=== PATIENT | female | born 1965 | race Caucasian/White ===

== ENCOUNTER → 2017-11-29 06:34 | Outpatient (CLI) | payer MEDICAID, SELFPAY ==
--- NOTE | 2017-11-29 | XR_ITS ---
XR chest 2V HISTORY: Hypertension ITS.REASON: HX OF HYPERTENSION ORDERING PHYSICIAN: Hari Colon MD PATIENT AGE: 52 years COMPARISON: 02/04/2014 FINDINGS: The cardiomediastinal silhouette and pulmonary vascularity are within normal limits. The lungs are clear without infiltrates, suspicious nodules, or pleural effusions. No acute bony abnormalities. IMPRESSION: Negative chest, no acute finding
--- NOTE | 2017-11-29 06:43 | XR_ITS ---
XR wrist LT min 3V HISTORY pain and numbness ITS.REASON: carpal tunnel ORDERING PHYSICIAN: Hari Colon MD PATIENT AGE: 52 years COMPARISON: None FINDINGS: No fracture or dislocation. No lytic or blastic change. There is normal mineralization.. The joint spaces are well-preserved. No significant degenerative/arthritic changes. No erosive changes evident.. IMPRESSION: Negative wrist
--- NOTE | 2017-11-29 06:43 | XR_ITS ---
XR wrist RT min 3V HISTORY pain and numbness ITS.REASON: carpal tunnel syndrome ORDERING PHYSICIAN: Hari Colon MD PATIENT AGE: 52 years COMPARISON: None FINDINGS: No fracture or dislocation. No lytic or blastic change. There is normal mineralization.. The joint spaces are well-preserved. No significant degenerative/arthritic changes. No erosive changes evident.. There are minimal hypertrophic changes along the distal and lateral aspect of the scaphoid nonspecific. Otherwise negative. IMPRESSION: Mild hypertrophic changes of the scaphoid distally laterally otherwise negative
[2017-11-29 08:49] LABS: Basophils # 0.1 K/mm3 (0-0.2); Basophils % 0.5 % (0.1-2.0); Eosinophils # 0.3 K/mm3 (0.0-0.4); Eosinophils % 2.8 % (0.1-12.0); Hematocrit 39.7 % (37.0-47.0); Hemoglobin 12.4 g/dL (12.2-16.2); Lymphocytes # 2.4 K/mm3 (0.7-4.5); Lymphocytes % 22.9 K/mm3 (10-50); Mean Corpuscular HGB Conc 31.3 g/dL (31.8-35.4); Mean Corpuscular Hemoglobin 24.9 pg (27.0-31.2); Mean Corpuscular Volume 79.7 fl (81-99); Mean Platelet Volume 7.6 fl (7.4-10.4); Monocytes # 0.7 K/mm3 (0.1-1.0); Monocytes % 6.8 % (1.7-9.3); Neutrophils % 66.9 % (37.0-80.0); Platelet Count 345 K/mm3 (142-424); Red Blood Count 4.98 M/mm3 (4.20-5.40); Red Cell Distribution Width 15.5 % (11.5-17.5); White Blood Count 10.4 K/mm3 (4.8-10.8)
[2017-11-29 08:57] LABS: Blood Urea Nitrogen 13 mg/dL (7-18); Carbon Dioxide 25 mmol/L (21.0-32.0); Creatinine,Serum 0.57 mg/dL (0.55-1.02); Estimated Glomerular Filt Rate 112 ml/min (>60); GFR (African American) 136 ML/MIN (>60); Glucose 112 mg/dL (74-106)
[2017-11-29 12:01] LABS: Anion Gap 16.4 mEq/L (5-15); Chloride 103 mmol/L (98-107); Potassium 4.4 mmoL/L (3.5-5.1); Sodium 140 mmol/L (136-145)
== END ==
PROVIDERS: PCP Family Medicine; Visit Provider Orthopaedic Surgery
DX: Z01.818 Encounter for other preprocedural examination (principal); G56.03 Carpal tunnel syndrome, bilateral upper limbs
CPT/HCPCS: 36415; 71046; 73110; 80048; 85025; 93005

== ENCOUNTER → 2018-01-11 11:26 | Outpatient (CLI) | payer MEDICAID, SELFPAY ==
[2018-01-11 12:46] LABS: Basophils # 0.1 K/mm3 (0-0.2); Basophils % 0.6 % (0.1-2.0); Eosinophils # 0.3 K/mm3 (0.0-0.4); Eosinophils % 2.7 % (0.1-12.0); Hemoglobin 12.5 g/dL (12.2-16.2); Lymphocytes # 2.9 K/mm3 (0.7-4.5); Lymphocytes % 26.2 K/mm3 (10-50); Mean Corpuscular HGB Conc 30.4 g/dL (31.8-35.4); Mean Corpuscular Hemoglobin 24.4 pg (27.0-31.2); Mean Corpuscular Volume 80.3 fl (81-99); Monocytes # 0.7 K/mm3 (0.1-1.0); Monocytes % 5.9 % (1.7-9.3); Neutrophils # 7.2 K/mm3 (1.8-7.8); Neutrophils % 64.7 % (37.0-80.0); Platelet Count 407 K/mm3 (142-424); Red Blood Count 5.11 M/mm3 (4.20-5.40); Red Cell Distribution Width 15.3 % (11.5-17.5); White Blood Count 11.2 K/mm3 (4.8-10.8)
[2018-01-11 13:39] LABS: Anion Gap 12.4 mEq/L (5-15); Blood Urea Nitrogen 17 mg/dL (7-18); Calcium 8.6 mg/dL (8.5-10.1); Carbon Dioxide 27 mmol/L (21.0-32.0); Chloride 103 mmol/L (98-107); Creatinine,Serum 0.69 mg/dL (0.55-1.02); Estimated Glomerular Filt Rate 90 ml/min (>60); GFR (African American) 109 ML/MIN (>60); Glucose 134 mg/dL (74-106); Potassium 4.4 mmoL/L (3.5-5.1); Sodium 138 mmol/L (136-145)
== END ==
PROVIDERS: Visit Provider Orthopaedic Surgery
DX: Z01.818 Encounter for other preprocedural examination (principal); G56.03 Carpal tunnel syndrome, bilateral upper limbs
CPT/HCPCS: 36415; 80048; 85025

== ENCOUNTER → 2018-06-27 15:01 | Outpatient (CLI) | payer MEDICAID, SELFPAY ==
--- NOTE | 2018-06-27 15:03 | XR_ITS ---
XR finger RT min 2V CLINICAL INDICATION: ITS.REASON: right thumb pain ORDERING PHYSICIAN: Hair Colon MD PATIENT AGE: 53 years Comparison: None FINDINGS: There is a faint lucency along the lateral aspect of the time of the distal phalanx of the thumb which could be related to a nondisplaced fracture. No other significant anomalies are evident. IMPRESSION: Possible nondisplaced fracture of the tuft of the distal phalanx of the lung laterally
== END ==
PROVIDERS: PCP Family Medicine; Visit Provider Orthopaedic Surgery
DX: M79.644 Pain in right finger(s) (principal)
CPT/HCPCS: 73140

== ENCOUNTER → 2018-08-05 08:45 | Outpatient (CLI) | payer MEDICAID, SELFPAY ==
--- NOTE | 2018-08-05 08:49 | MR_ITS ---
MR head/brain wo/w con HISTORY: Headache and dizziness with memory loss, history of meningioma, follow-up meningioma ITS.REASON: MENINGIOMA ORDERING PHYSICIAN: Mary Ann Medeiros PATIENT AGE: 53 years Comparison: 11/08/2009 TECHNIQUE: Standard multiplanar multiecho sequences are performed without and with gadolinium enhancement. FINDINGS: No midline shift, mass effect, intracranial hemorrhage, or hydrocephalus is evident. The cerebellopontine angles, cerebellum, and brainstem are unremarkable. There is a T1 and T2 hypointense lesion in the subdural area of the right frontal lobe measuring approximately 14 x 12 mm. This shows some minimal peripheral contrast enhancement and is consistent with a meningioma as seen on an older CT scan of 11/08/2009 and does not appear significantly changed in size. No mass effect or edema. This is a calcified meningioma as seen on the previous CT. Does not show restricted diffusion. No evidence of acute infarction. No enhancing lesions are evident. On the post enhanced images there is a 5 mm area of enhancement in the subpleural region of the left parietal lobe at the vertex. This is a may represent an ectatic dural vessel. No mastoid effusion or sinus air-fluid level. The tear has an unremarkable appearance. No cerebellar ectopia. IMPRESSION: 1. 14 x 12 mm meningioma in the right frontal region without mass effect not significantly changed 2. No acute intracranial findings
--- NOTE | 2018-08-05 10:22 | HMH.ITSHM ---
Current Home Medications as stated by this patient Sabrina Kwan or merchandising representative. []CETIRIZINE HCL PAROXETINE OMEPRAZOLE TOPIRAMATE PRAVASTATIN LISINOPRIL FLEXERAL CHANTIX
== END ==
PROVIDERS: PCP Family Medicine; Visit Provider Psychiatry & Neurology Neurology
DX: D32.9 Benign neoplasm of meninges, unspecified (principal)
CPT/HCPCS: 70553; A9576

== ENCOUNTER → 2018-09-10 08:22 | Outpatient (CLI) | payer MEDICAID, SELFPAY ==
--- NOTE | 2018-09-10 08:28 | CT_ITS ---
CT abdomen pelvis wo con INDICATION: Right flank pain 1 week. Recent UTI. & kidney infection. ITS.REASON: FLANK PAIN ORDERING PHYSICIAN: Carmina Velasquez PATIENT AGE: 53 years COMPARISON: Previous CT abdomen and pelvis from August 2016. . TECHNIQUE: No oral or IV contrast utilized. Next field Axial images obtained with sagittal and coronal reformats. All CT scans at the facility use one or more dose reduction, viz: automated exposure control, ma/kV adjustment per patient size (including targeted exams where dose is matched to indication, i.e. head), or iterative reconstruction technique. FINDINGS: Lung bases, nothing acute. Small stable nodular periphery RLL measures 3 mm size. Axial slice 6. . Suspect partially calcified granuloma from its appearance previously.. . More inferiorly there is a a 4 mm calcified granuloma far anterior RML axial slice 13. These are unchanged & not of significant concern Heart normal size scant pericardial fluid. WNL Abdomen/pelvis. Lack of oral & IV contrast somewhat decreases sensitivity. Patient large size also results in diminished resolution. Noncontrast images of liver, spleen, pancreas, show no lesions.. There may be some mild diffuse fatty changes of the liver. Liver overall upper normal size but with generous right lobe measuring over 22 cm length. Gallbladder is been removed. No biliary ductal dilatation. Adrenals. Again subtle fullness of left adrenal vs right but this unchanged since prior studies. Suspect a small less than 1 cm low-density nonfunctioning adenoma the left adrenal on close inspection l. TRACT. Kidneys. No urinary tract calculi or obstruction.. Kidneys unremarkable on this noncontrast study Right renal pelvis is very slightly more generous than the left but within normal limits and percent with similar to previous 2017 study . Ureters: No ureteral calculi. No dilatation or obstruction Pelvis. IUD in place question slight lobulated contour of the uterus the left reflect small underlying fibroid. Nonspecific. No adnexal masses. Ovaries appear normal in size. No free fluid in cul-de-sac. Urinary bladder is fairly empty and unremarkable. Period GI tract. No significant findings. Upper normal wall thickness at the stomach most likely reflects lack of distention. Small bowel unremarkable. Normal caliber. Terminal ileum unremarkable. Appendix is been removed. Moderate stool the right colon with minimal stool at left colon. Tiny fat-containing umbilical hernia. Osseous. No significant osseous findings. Developing degenerative facet changes throughout spine at lower L-spine. IMPRESSION 1. no acute findings abdomen nor pelvis. Specifically regarding right flank pain- no urinary tract calculi nor obstruction. Right kidney and right ureter appears satisfactory... . Urinary bladder unremarkable 2. IUD appears satisfactory position. Incidental note Very slight lobulated contour of uterus which could reflect small underlying fibroid.
== END ==
PROVIDERS: PCP Nurse Practitioner; Visit Provider Nurse Practitioner
DX: R10.9 Unspecified abdominal pain (principal)
CPT/HCPCS: 74176

== ENCOUNTER → 2018-10-08 13:50 | Outpatient (CLI) | payer MEDICAID, SELFPAY ==
--- NOTE | 2018-10-08 13:53 | XR_ITS ---
XR hand LT min 3V HISTORY: ITS.REASON: left hand pain ORDERING PHYSICIAN: Hari Colon MD PATIENT AGE: 53 years COMPARISON: None FINDINGS: No fracture or dislocation. No lytic or blastic change. There is normal mineralization.. The joint spaces are well-preserved. No significant degenerative/arthritic changes. No erosive changes evident.. IMPRESSION: Negative, no acute finding
--- NOTE | 2018-10-08 13:53 | XR_ITS ---
XR hand RT min 3V HISTORY: ITS.REASON: right hand pain ORDERING PHYSICIAN: Hari Colon MD PATIENT AGE: 53 years COMPARISON: None FINDINGS: No fracture or dislocation. No lytic or blastic change. There is normal mineralization.. The joint spaces are well-preserved. No significant degenerative/arthritic changes. No erosive changes evident.. IMPRESSION: Negative, no acute finding
== END ==
PROVIDERS: PCP Family Medicine; Visit Provider Orthopaedic Surgery
DX: M79.642 Pain in left hand (principal); M79.641 Pain in right hand
CPT/HCPCS: 73130

== ENCOUNTER → 2018-12-26 07:18 | Outpatient (CLI) | payer MEDICAID, SELFPAY ==
--- NOTE | 2018-12-26 07:24 | XR_ITS ---
XR chest 2V HISTORY: ITS.REASON: HTN, SMOKER, PREOP ORDERING PHYSICIAN: Hari Colon MD PATIENT AGE: 53 years COMPARISON: 11/29/2017 FINDINGS: The cardiomediastinal silhouette and pulmonary vascularity are within normal limits. The lungs are clear without infiltrates, suspicious nodules, or pleural effusions. No acute bony abnormalities. IMPRESSION: Negative chest, no acute finding
[2018-12-26 07:48] LABS: Basophils # 0.1 K/mm3 (0-0.2); Basophils % 0.6 % (0.1-2.0); Eosinophils # 0.2 K/mm3 (0.0-0.4); Eosinophils % 2.4 % (0.1-12.0); Hematocrit 40.6 % (37.0-47.0); Hemoglobin 12.9 g/dL (12.2-16.2); Lymphocytes # 2.3 K/mm3 (0.7-4.5); Lymphocytes % 23.4 % (10-50); Mean Corpuscular HGB Conc 31.9 g/dL (31.8-35.4); Mean Corpuscular Hemoglobin 25.1 pg (27.0-31.2); Mean Corpuscular Volume 78.9 fl (81-99); Mean Platelet Volume 6.7 fl (7.4-10.4); Monocytes # 0.5 K/mm3 (0.1-1.0); Monocytes % 5.4 % (1.7-9.3); Neutrophils # 6.9 K/mm3 (1.8-7.8); Neutrophils % 68.3 % (37.0-80.0); Platelet Count 349 K/mm3 (142-424); Red Blood Count 5.15 M/mm3 (4.20-5.40); Red Cell Distribution Width 14.9 % (11.5-17.5)
[2018-12-26 11:12] LABS: Alanine Aminotransferase 34 U/L (12-78); Albumin Level 3.4 gm/dL (3.4-5.0); Alkaline Phosphatase 89 U/L (46-116); Aspartate Amino Transferase 21 U/L (15-37); Bilirubin,Total 0.3 mg/dL (0.2-1.0); Blood Urea Nitrogen 15 mg/dL (7-18); Calcium 8.7 mg/dL (8.5-10.1); Carbon Dioxide 23 mmol/L (21.0-32.0); Chloride 107 mmol/L (98-107); Creatinine,Serum 0.62 mg/dL (0.55-1.02); Estimated Glomerular Filt Rate 101 ml/min (>60); GFR (African American) 123 ML/MIN (>60); Globulin 3.5 gm/dl (1.3-3.2); Glucose 105 mg/dL (74-106); Sodium 142 mmol/L (136-145); Total Protein,Serum 6.9 gm/dL (6.4-8.2)
[2018-12-26 11:56] LABS: Erythrocyte Sedimentation Rate 51 mm/hr (0-30)
[2018-12-27 20:50] LABS: RA Latex Turbid. <10.0 IU/mL (0.0-13.9)
[2018-12-28 20:46] LABS: Anti-Cyclic Citrullinated Pept 16 units (0-19)
== END ==
PROVIDERS: PCP Family Medicine; Visit Provider Orthopaedic Surgery
DX: Z01.818 Encounter for other preprocedural examination (principal); M65.311 Trigger thumb, right thumb; M65.4 Radial styloid tenosynovitis [de Quervain]
CPT/HCPCS: 36415; 71046; 80053; 85025; 85651; 86140; 86200; 86431; 93005

== ENCOUNTER 2019-01-03 09:37 | Day surgery (SDC) | payer MEDICAID, SELFPAY ==
[2019-01-01 14:40] VITALS: BMI 55.6
[2019-01-03] VITALS (8 sets, daily range): BP systolic 127–166; BP diastolic 65–76; PULSE 79–93; RESP 18; TEMP 36.6–43; O2SAT 95–96
[2019-01-03 10:45] LABS: HCG Qualitative, Serum Negative (Negative)
--- NOTE | 2019-01-03 13:30 | PC.NURSE ---
Notified Renee at Dr. Colon office to ask if ghost writer can give first dose of Lortab before pt leaves. Dr. Colon said ok to give. Medicated with Lortab .
--- NOTE | 2019-01-03 15:19 | SUR.OPER ---
no pre op antibiotic ordered, Dr Colon gave verbal order for Ancef 1 gm IV to be given per WOOD BOATBUILDER APPRENTICE, given by JOAN Okeefe in room at 1128
--- NOTE | 2019-01-03 16:21 | HMH.OPNOTE ---
Date of procedure: 01/03/19 Pre-op Diagnosis:: Trigger thumb, right Post-op Diagnosis:: Same Procedure performed:: Release (A1 christopher) trigger thumb, right Surgeon:: Hari Colon MD DISTRIBUTION MANAGER:: Rock Umanzor Anesthesia: regional ([place]'s block) Estimated blood loss (mL): 2 Clinical Note:: Patient is a 53-year-old female with recurrent triggering of her right thumb. She had symptoms for a long time which failed to respond satisfactorily to conservative management including local steroid injections. As the patient failed to respond adequately to conservative management and reports significant pain, disability and dysfunction with her right hand surgical release of the A1 pulleys was necessary to relieve symptoms, improve function and decrease the pain and to prevent permanent stiffness and damage. Please refer to my office note for full details. Operative findings:: The intraoperative findings showed very thickened and inflamed A1 christopher of the right thumb. Also there was synovitis of the flexor tendon sheath. The flexor pollicis longus tendon is thickened and somewhat degenerate but there is no complete tear. There is no evidence of any space-occupying lesions over the tendon or within the A1 christopher. Operative note:: On the day of the surgery the patient was met in the preoperative area. Patient was positively identified and the operative site was marked and initialed by me. A physical examination was performed and the chart was updated. I again discussed the procedure, risks and benefits and alternatives with the patient. The complications discussed include but are not limited to- infection, injury to nerves, tendons and blood vessels, incisional scar (cosmesis), scar tenderness/contracture, DVT/PE, finger stiffness, bowstringing of the tendons, CRPS (complex regional pain syndrome- pain, sensory and temperature changes, swelling and stiffness), painful scar, incomplete relief of pain, incomplete return of function, recurrence and likely need for further surgery in future and also the risks of anesthesia including heart attack, stroke, and even . I have discussed how there is a small but real possibility of loss of use of the arm, loss of the limb or loss of life itself. I have also explained how additional surgery may be required if there are any complications or recurrence. We have also discussed the postoperative recovery and rehabilitation required, the likely need for hand therapy, the possibility of stiffness, chronic pain and we've also discussed the option of nonsurgical treatment. We have also discussed the anesthetic options which include local, regional and general. Patient expressed a preference for a regional [place]'s block. Patient asked appropriate questions and all have been answered by me. Patient wished to proceed with the surgery. Consent form was reviewed and signed. Patient understood the risks, agreed to proceed with surgery, signed the consent form and no guarantees or assurances were given or implied. The patient was brought to the operating room and placed supine on the operating table. The right upper extremity was placed over a side table. All the bony prominences were well-padded. A well-padded double cuff tourniquet was placed over the right upper arm and the limb was exsanguinated with the Esmarch bandage and tourniquet cuff was inflated to 250 mmHg. A Sick[place]?s block was administered by the dry cleaning checker. Please see nursing records for the total tourniquet time. The right upper extremity was prepped and draped in the usual sterile fashion. A preprocedure timeout was performed as per hospital policy. A transverse skin incision was marked just proximal to the palmar crease at the base of the thumb. Next, a transverse incision approximately 1.5 cm in length was made just proximal to the palmar crease at the base of the right thumb. Blunt dissection was carried down through the subcutaneous fat down to the level of the flexor tendon sheath with
--- NOTE | 2019-01-03 16:24 | P.OP_ITS ---
Date of procedure: 01/03/19 Pre-op Diagnosis:: Trigger thumb, right Post-op Diagnosis:: Same Procedure performed:: Release (A1 christopher) trigger thumb, right Surgeon:: Hari Colon MD HAND BENDER:: Rock Umanzor Anesthesia: regional ([place]'s block) Estimated blood loss (mL): 2 Clinical Note:: Patient is a 53-year-old female with recurrent triggering of her right thumb. She had symptoms for a long time which failed to respond satisfactorily to conservative management including local steroid injections. As the patient failed to respond adequately to conservative management and reports significant pain, disability and dysfunction with her right hand surgical release of the A1 pulleys was necessary to relieve symptoms, improve function and decrease the p ain and to prevent permanent stiffness and damage. Please refer to my office note for full details. Operative findings:: The intraoperative findings showed very thickened and inflamed A1 christopher of the right thumb. Also there was synovitis of the flexor tendon sheath. The flexor pollicis longus tendon is thickened and somewhat degenerate but there is no complete tear. There is no evidence of any space-occupying lesions over the tendon or within the A1 christopher. Operative note:: On the day of the surgery the patient was met in the preoperative area. Patient was positively identified and the operative site was marked and initialed by me. A physical examination was performed and the chart was updated. I again discussed the procedure, risks and benefits and alternatives with the patient. The complications discussed include but are not limited to- infection, injury to nerves, tendons and blood vessels, incisional scar (cosmesis), scar tender ness/contracture, DVT/PE, finger stiffness, bowstringing of the tendons, CRPS (complex regional pain syndrome- pain, sensory and temperature changes, swelling and stiffness), painful scar, incomplete relief of pain, incomplete return of function, recurrence and likely need for further surgery in future and also the risks of anesthesia including heart attack, stroke, and even . I have discussed how there is a small but real possibility of loss of use of the arm, loss of the limb or loss of life itself. I have also explained how additional surgery may be required if there are any complications or recurrence. We have also discussed the postoperative recovery and rehabilitation required, the likely need for hand therapy, the possibility of stiffness, chronic pain and we've also discussed the option of nonsurgical treatment. We have also discussed the anesthetic options which include local, regional and general. Patient expressed a preference for a regional Bushra's block. Patient asked appropriate questions and all have been answered by me. Patient wished to proceed with the surgery. Consent form was reviewed and signed. Patient understood the risks, agreed to proceed with surgery, signed the consent form and no guarantees or assurances were given or implied. The patient was brought to the operating room and placed supine on the operating table. The right upper extremity was placed over a side table. All the bony prominences were well-padded. A well-padded double cuff tourniquet was placed over the right upper arm and the limb was exsanguinated with the Esmarch bandage and tourniquet cuff was inflated to 250 mmHg. A Bushra?s block was administered by the education rep. Please see nursing records for the total tourniquet time. The right upper extremity was prepped and draped in the usual sterile fashion. A preprocedure timeout was performed as per hospital policy. A transverse skin incision was marked just proximal to the palmar crease at the base of the thumb. Next, a transverse incision approxi
== END 2019-01-03 13:30 | disposition home or self-care (01) ==
LOC: OR 09:38
PROVIDERS: PCP Family Medicine; Visit Provider Orthopaedic Surgery
PROC: (CPT 26055; principal; 2019-01-03 11:15)
DX: M65.311 Trigger thumb, right thumb (principal)
CPT/HCPCS: 26055; 84703; 96374; J2405

== ENCOUNTER → 2019-01-28 14:05 | Outpatient (CLI) | payer MEDICAID, SELFPAY ==
--- NOTE | 2019-01-28 14:11 | XR_ITS ---
XR shoulder RT min 2V HISTORY: ITS.REASON: right shoulder pain ORDERING PHYSICIAN: Hari Colon MD PATIENT AGE: 53 years Comparison: None FINDINGS: There is prominence of the acromioclavicular joint space. Has the patient had prior surgery of the distal clavicle?. Mild osteoarthritic changes of the glenohumeral joint. There is an 11 mm lucency involving the proximal aspect of the humerus with well-circumscribed margins. This is at the metaphyseal region. Subtle subchondral cystic changes are present involving the greater tuberosity of the humeral head. No fracture or dislocation evident. IMPRESSION: 1. Subchondral cystic changes of the greater tuberosity 2. Well-circumscribed lytic lesion of the proximal humerus with benign features. Recommend follow-up. 3. Mild osteoarthritic change of the glenohumeral joint with prominence of the acromioclavicular joint space
--- NOTE | 2019-01-28 14:11 | XR_ITS ---
XR humerus RT CLINICAL INDICATION: ITS.REASON: right humerus/ arm pain ORDERING PHYSICIAN: Hari Colon MD PATIENT AGE: 53 years Comparison: None FINDINGS: There is prominence of the acromioclavicular joint space. Has the patient had prior surgery of the distal clavicle?. Mild osteoarthritic changes of the glenohumeral joint. There is an 11 mm lucency involving the proximal aspect of the humerus with well-circumscribed margins. This is at the metaphyseal region. Subtle subchondral cystic changes are present involving the greater tuberosity of the humeral head. No fracture or dislocation evident. The mid and distal aspect of the humerus shows no acute finding. IMPRESSION: 1. Subchondral cystic changes of the greater tuberosity 2. Well-circumscribed lytic lesion of the proximal humerus with benign features. Recommend follow-up. 3. Mild osteoarthritic change of the glenohumeral joint with prominence of the acromioclavicular joint space
== END ==
PROVIDERS: PCP Family Medicine; Visit Provider Orthopaedic Surgery
DX: M25.511 Pain in right shoulder (principal); M79.601 Pain in right arm
CPT/HCPCS: 73030; 73060

== ENCOUNTER → 2019-08-20 13:19 | Outpatient (CLI) | payer OTHER, SELFPAY | PROVIDERS: PCP Nurse Practitioner; Visit Provider Nurse Practitioner | DX: G47.33 Obstructive sleep apnea (adult) (pediatric) (principal) | CPT/HCPCS: 95806 ==

== ENCOUNTER → 2020-01-05 16:06 | Outpatient (CLI) | payer OTHER, SELFPAY ==
--- NOTE | 2020-01-05 16:16 | XR_ITS ---
PROCEDURE: XR HIP RT 2-3V W/PELVIS CLINICAL INDICATION: RIGHT HIP PAIN Posttraumatic pain, fall with injury and pain COMPARISON: No exams were available for comparison FINDINGS: There are mild osteoarthritic changes of both hips. Hypertrophic changes are present at the greater trochanters on both sides with heterotopic ossification along the right greater trochanter laterally. No acute fracture or dislocation. There is an IUD in place. There are degenerative changes in the lumbar spine. IMPRESSION: Degenerative changes, no acute finding Dictated by: Manpreet Potts MD 01/05/2020 16:32 Electronically signed by Manpreet Potts MD in [place] 01/05/2020 16:32
== END ==
PROVIDERS: PCP Nurse Practitioner; Visit Provider Nurse Practitioner
DX: M25.551 Pain in right hip (principal)
CPT/HCPCS: 73502

== ENCOUNTER → 2020-03-09 08:03 | Outpatient (CLI) | payer MEDICARE, OTHER, SELFPAY ==
--- NOTE | 2020-03-09 08:04 | CA_ITS ---
APPROVED REPORT EXAM: Comprehensive 2D, Doppler, and color-flow Echocardiogram Sheep Or Calf Grader: Danyell Leary RDCS Ht: 4 ft 11 in Wt: 280lbs BSA: 2.13 BP: 115/57 mmHg Indications: SOA,PRE-OP GASTRIC SLEEVE,HTN,HLP, OBESITY 2D Dimensions LVOT 1.70 cm (M/F) 1.5-2.5 M-Mode Dimensions RVDd 2.33 cm (0.9-2.6) LVDd 5.34 cm (3.5-5.7) LVDs 3.56 cm (3.5-5.7) IVSd 0.98 cm (0.6-1.1) PWd 1.19 cm (0.6-1.1) EF (Teich) 61.50% FS 33.30% EDV (Teich) 137.70 mL ESV (Teich) 53.00 mL LV Diastology E/A Ratio 1.17 Mitral Valve MV A Velocity 64.00 (40-130 cm/s) Left Ventricle Left atrium is mildly enlarged, left ventricle is normal size, mild concentric left ventricular hypertrophy, visually estimated ejection fraction 55% with no regional wall motion abnormality, diastolic parameters are inconclusive. Right Ventricle Right atrium is normal size, right ventricle is mildly enlarged with normal contractility. Aortic Valve Aortic valve is minimally thickened and fibrosed. There is no aortic stenosis or aortic insufficiency. Mitral Valve Mitral valve is grossly normal, there is trace mitral regurgitation. Tricuspid Valve Tricuspid valve is grossly normal, there is mild tricuspid regurgitation, tricuspid regurgitation jet velocity is inadequate for calculation of the right ventricular systolic pressure. Pulmonic Valve Pulmonic valve is poorly visualized. Great Vessels Aortic root is normal size. Pericardium No significant pericardial effusion noted. Conclusion 1. Normal left ventricular size, mild concentric left ventricular hypertrophy, visually estimated ejection fraction 55% with no regional wall motion abnormality, diastolic parameters are inconclusive. 2. Mildly enlarged right ventricle with normal contractility. 3. Trace mitral and mild tricuspid regurgitation. 4. No significant pericardial effusion noted. Electronically signed by : Rob Sanders, 03/10/2020 05:43:26
--- NOTE | 2020-03-09 08:04 | CA_ITS ---
APPROVED REPORT Exam: Exercise Treadmill Technologist: Yeni Valladares Ht: 4 ft 11 in Wt: 287 lbs BSA: 2.15 m2 HR: 80 bpm BP: 119/61 mmHg Indications: Shortness of Breath Medical History Medications: Lisinopril,,,,, Omeprazole,,,,, Pravastatin,,,,, HCTZ,,,,, TopIRAMATE,,,,, Ibuprofen,,,,, PaROXETINE,,,,, Baclofen,,,,, Certirizine,,,,, Stress Test Details Test: Modified Elmer HR Resting HR: 86 bpm Max Heart Rate (APMHR): 167 bpm Max HR Achieved: 147 bpm Target HR (85% APMHR): 141 bpm % of APMHR: 88 Recovery HR: 96 bpm BP Resting BP: 119.0/61.0 mmHg Max BP: 194.0/70.0 mmHg Recovery BP: 138.0/54.0 mmHg ECG Clinical Exercise duration: 05:13 min Highest Stage Achieved: Exercise capacity: 4.6 METs Stress ECG Conclusion Resting ECG: Normal sinus rhythm, nonspecific ST depression inferiorly Patient exercised 5:13 on Modified Elmer protocol. Symptoms: No chest pain. Arrhythmias/Ectopy: None ST-T Changes: 1-1.[address] depression inferiorly. [address] depression laterally. Conclusion: EKG changes positive for ischemia with reduced specificity due to baseline abnormalities. GXT only (no imaging). Abnormal exercise treadmill stress test Test Summary Stage 2 03:00 5.0 1.7 141 . 186/ 64 . Shortness of Breath REST . . . . . . . Protocol changed to Modified Elmer REST . . . . . . . Standing REST 04:09 0.0 0.0 86 . 119/ 61 . . Stage 1 01:00 0.0 1.7 109 . . . . Stage 1 01:22 0.0 1.7 115 . . . . Stage 2 01:00 5.0 1.7 129 . . . . Stage 2 02:00 5.0 1.7 134 . 186/ 64 . . Stage 2 . . . . . . . Shortness of Breath Stage 2 03:00 5.0 1.7 141 . 186/ 64 . . Stage 3 00:51 10.0 1.7 147 . . . Stop exercise at 05:13 RECOVERY 01:00 0.0 0.0 131 . 194/ 70 . . RECOVERY 02:00 0.0 0.0 0 . 194/ 70 . . RECOVERY 03:00 0.0 0.0 . . 194/ 70 . . RECOVERY 04:00 0.0 0.0 97 . 152/ 57 . . RECOVERY 05:00 0.0 0.0 93 . 152/ 57 . . RECOVERY 05:36 0.0 0.0 95 . 138/ 54 . . Electronically signed by : Rob Sanders, 03/09/2020 21:44:00
== END ==
PROVIDERS: PCP Nurse Practitioner; Visit Provider Internal Medicine Cardiovascular Disease
DX: Z01.810 Encounter for preprocedural cardiovascular examination; R06.00 Dyspnea, unspecified; R60.0 Localized edema; R94.39 Abnormal result of other cardiovascular function study
CPT/HCPCS: 93017; 93306

== ENCOUNTER → 2020-03-10 11:26 | Outpatient (CLI) | payer MEDICARE, OTHER, SELFPAY | PROVIDERS: Visit Provider Surgery | DX: Z01.818 Encounter for other preprocedural examination (principal); Z20.828 Contact with and (suspected) exposure to other viral communicable diseases | CPT/HCPCS: U0003 ==

== ENCOUNTER 2020-03-11 11:00 | Outpatient (RCR) | payer MEDICARE, OTHER, SELFPAY ==
--- NOTE | 2020-02-04 13:45 | HMH.PTOPEV ---
PT Outpatient Evaluation Rehab PT Outpatient Evaluation Start: 02/04/20 13:31 Freq: Status: Active Protocol: Document 02/04/20 13:31 TATYANA (Rec: 02/04/20 13:44 TATYANA [id number]) Electronically Signed By Landon Cárdenas, PT 02/04/20 13:31 Outpatient Therapy Subjective History Subjective History Patient is a 54 year old female presenting to outpatient PT with reports of R hip pain starting approx 1 month ago after a fall landing on her R side. Most recent imaging negative. Relief noted with cortisone injection to R greater trochanteric bursa. S&S consistent with trochanteric burisitis. Comorbidities include frontal lobe meningioma, R RCR, HTN, HL, appendectomy, cholecystectomy and B CTS. Chief Complaint Pain,Gives out/Unstable Symptom Type Ache,Sharp,Numbness,Tingling Symptoms Relieved By Rest/Positioning Symptoms Aggravated By Standing,Physical Activity, Walking Prior Functional Limitations Standing,Squatting,Recreation Activity,Walking,Stairs, Bending/Stooping Current Functional Limitations Standing,Squatting,Recreation Activity,Walking,Stairs, Bending/Stooping Symptom Description Constant but Variable Level of pain today (0-10) 4 Pain scale - at its best (0-10) 4 Pain scale - at its worst (0-10) 6 Hip/Knee Eval Gait Observation General Gait Pattern Observation Antalgic Gait,Decrease Weight Bear (R) Assistive Device Assistive Devices None / NA Palpation Tenderness right Knee Palpation Overall Comment Greater trochanteric bursa Hip Palpation Findings Tenderness MMT Hip Strength Reason Not Measured WFL Knee Strength Reason Not Measured WFL ROM Hip Flexion w/Knee Extended Passive 40 Range of Motion (degrees) Hip Abduction Passive Range of Motion ( 45 degrees) Hip Extension Passive Range of Motion ( 5 degrees) Hip External Rotation Passive Range of 45 Motion (degrees) Hip Internal Rotation Passive Range of 10 Motion (degrees) Knee ROM Reason Not Measured Within Functional Limits Special Tests Hip Yi Test Positive Right Hip Piriformis Test Positive Right Hip 90-90 Straight L
== END 2020-03-11 12:00 | disposition home or self-care (01) ==
LOC: PT 11:00
PROVIDERS: PCP Nurse Practitioner; Visit Provider Orthopaedic Surgery
DX: S79.911A Unspecified injury of right hip, initial encounter; M70.61 Trochanteric bursitis, right hip
CPT/HCPCS: 97010; 97014; 97033; 97035; 97110; 97163; G0283

== ENCOUNTER → 2020-03-25 11:08 | Outpatient (CLI) | payer MEDICARE, OTHER, SELFPAY ==
--- NOTE | 2020-03-25 | CA_ITS ---
APPROVED REPORT Exam: Pharmacologic Technologist: Vika Brooks, Ht: 4 ft 11 in Wt: 281 lbs BSA: 2.13 m2 HR: 72 bpm BP: 110/68 mmHg Rhythm: NSR Medical History Medical History: HTN, Hyperlipidemia Medications: Omeprazole,,,,, Pravastatin,,,,, Lisinopril/HCTZ,,,,, TopIRAMATE,,,,, Vit D3,,,,, Ibuprofen,,,,, PaROXETINE,,,,, Baclofen,,,,, CitrIZINE,,,,, Allergies: LATEX Cardiac Risk Factors: HTN, Hyperlipidemia, FHX of CAD Stress Test Details Test: LEXISCAN HR Resting HR: 69 bpm Max Heart Rate (APMHR): 167 bpm Max HR Achieved: 107 bpm Target HR (85% APMHR): 141 bpm % of APMHR: 64 Recovery HR: 94 bpm BP Resting BP: 110.0/68.0 mmHg Max BP: 122.0/64.0 mmHg Recovery BP: 122.0/64.0 mmHg ECG Resting ECG: NSR Clinical Exercise duration: 04:03 min Highest Stage Achieved: Exercise capacity: 1.0 METs Stress ECG Conclusion DURING INFUSION PATIENT HAD STOMACH DISCOMFORT WITH A MILD HEADACHE. NO CHEST PAIN. NO ARRHYTHMIAS/ECTOPY. NS ST-T CHANGES. UNREMARKABLE LEXISCAN STRESS. MYOVIEW IMAGES REPORTED SEPARATELY. Electronically signed by : Rob Sanders, 03/25/2020 15:31:57
--- NOTE | 2020-03-25 11:08 | NM_ITS ---
APPROVED REPORT Exam: Nuclear Stress Test Indication: SOB, Obesity, HTN, High cholesterol, Family history Patient Location: Outpatient Stress Tech: Isabel Cecilia [place] Tech:Kayleigh Cancino WADE RT(R)(N) Ht: 4 ft 11 in Wt: 281 lbs Bra Size: D HR: 72 bpm BP: 110/68 mmHg BSA: 2.13 m2 BMI: 56.7 History: SOB, Obesity, HTN, High cholesterol, Family history Procedure: Patient received a 0.4 mg of intravenous Lexiscan, resting heart rate 72 bpm, resting blood pressure 110/68 mmHg, with Lexiscan maximum heart rate achived was 94 bpm which is Less than 85 % of the maximum predicted heart rate and blood pressure was 122/64 mmHg. With Lexiscan, patient denied any complaint of chest pain. Electrocardiogram Resting electrocardiogram shows sinus rhythm, with Lexiscan there is less than 1.[address] segment depression noted from the baseline EKG. The EKG portion of the Lexiscan Myoview is nondiagnostic. Cardiac Stress and Resting SPECT Images: Cardiac Stress and Resting SPECT images were obtained using technetium 99m Myoview 30.8 mCi stress and 9.96 mCi at rest. Gated SPECT with analysis of segmental wall motion and calculation of the ejection fraction also done. Cardiac stress and resting SPECT images show a fixed defect in the anterior wall with normal contractility on the gated SPECT is likely secondary to soft tissue attenuation, no reversible ischemia seen. Computer derived ejection fraction is over 65% with no regional wall motion abnormality, right ventricle is normal size and contractility. Conclusion: 1. The EKG portion of the Lexiscan Myoview is nondiagnostic. 2. No scintigraphic evidence of reversible ischemia seen, computer derived ejection fraction is over 65% with no regional wall motion abnormality, right ventricle is normal size and contractility. 3. Likely normal Lexiscan Myoview study. Electronically signed by : Rob Sanders, 03/25/2020 15:34:50
--- NOTE | 2020-03-25 13:23 | HMH.ITSHM ---
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 [] BACLOFEN CETIRIZINE LISINOPRIL OMEPRAZOLE
== END ==
PROVIDERS: PCP Nurse Practitioner; Visit Provider Internal Medicine Cardiovascular Disease
DX: Z01.810 Encounter for preprocedural cardiovascular examination (principal); R06.00 Dyspnea, unspecified; R60.0 Localized edema; R94.39 Abnormal result of other cardiovascular function study
CPT/HCPCS: 78452; 93017; A9502; J2785

== ENCOUNTER → 2020-05-22 15:58 | Outpatient (CLI) | payer MEDICARE, OTHER, SELFPAY ==
[2020-05-22 16:48] LABS: Chloride 103 mmol/L (98-107); Potassium 3.6 mmoL/L (3.5-5.1); Sodium 138 mmol/L (136-145)
[2020-05-22 16:51] LABS: Blood Urea Nitrogen 21 mg/dl (7-17); Estimated Glomerular Filt Rate 65 ml/min (>60); GFR (African American) 79 ML/MIN (>60)
[2020-05-22 16:52] LABS: Anion Gap 12.6 mEq/L (5-15); Calcium 9.4 mg/dl (8.4-10.2); Carbon Dioxide 26 mmol/L (22.0-30.0); Glucose 95 mg/dl (74-100)
== END ==
PROVIDERS: Urology; PCP Nurse Practitioner; Visit Provider Physician Assistant
DX: I10 Essential (primary) hypertension (principal); E78.5 Hyperlipidemia, unspecified; E66.01 Morbid (severe) obesity due to excess calories; Z87.891 Personal history of nicotine dependence; Z12.2 Encounter for screening for malignant neoplasm of respiratory organs
CPT/HCPCS: 36415; 80048

== ENCOUNTER → 2020-05-24 13:40 | Outpatient (CLI) | payer MEDICARE, OTHER, SELFPAY ==
[2020-05-24 14:43] LABS: Basophils # 0.1 K/mm3 (0-0.2); Basophils % 0.7 % (0.1-2.0); Eosinophils # 0.2 K/mm3 (0.0-0.4); Eosinophils % 1.9 % (0.1-12.0); Hematocrit 40.5 % (37.0-47.0); Lymphocytes # 2.4 K/mm3 (0.7-4.5); Mean Corpuscular HGB Conc 32.1 g/dL (31.8-35.4); Mean Corpuscular Hemoglobin 26.8 pg (27.0-31.2); Mean Corpuscular Volume 83.7 fl (81-99); Mean Platelet Volume 7.7 fl (7.4-10.4); Monocytes # 0.6 K/mm3 (0.1-1.0); Monocytes % 6.1 % (1.7-9.3); Neutrophils # 6.3 K/mm3 (1.8-7.8); Neutrophils % 66.4 % (37.0-80.0); Platelet Count 406 K/mm3 (142-424); Red Blood Count 4.84 M/mm3 (4.20-5.40); Red Cell Distribution Width 14.5 % (11.5-17.5); White Blood Count 9.5 K/mm3 (4.8-10.8)
[2020-05-24 15:21] LABS: Chloride 104 mmol/L (98-107); Potassium 3.5 mmoL/L (3.5-5.1); Sodium 139 mmol/L (136-145)
[2020-05-24 15:23] LABS: Alanine Aminotransferase 29 U/L (12-78); Alkaline Phosphatase 80 U/L (38-126); Anion Gap 12.5 mEq/L (5-15); Aspartate Amino Transferase 30 U/L (14-36); Bilirubin,Total 0.2 mg/dl (0.2-1.3); Blood Urea Nitrogen 17 mg/dl (7-17); Carbon Dioxide 26 mmol/L (22.0-30.0); Cholesterol 197 mg/dl (140-200); Estimated Glomerular Filt Rate 65 ml/min (>60); GFR (African American) 79 ML/MIN (>60); Iron 54 ug/dL (37-170)
[2020-05-24 15:24] LABS: Albumin Level 4.1 g/dl (3.5-5.0); Albumin/Globulin Ratio 1.4 (1.1-1.8); Calcium 9.4 mg/dl (8.4-10.2); Chol/HDL Ratio 5.8 (1-3.5); Glucose 101 mg/dl (74-100); HDL Cholesterol 34 mg/dl (40-60); Magnesium 1.9 mg/dl (1.6-2.3); Phosphorous 3.5 mg/dl (2.5-4.5); Total Protein,Serum 7.1 g/dl (6.3-8.2)
[2020-05-24 15:25] LABS: Triglycerides 452 mg/dl (30-150)
[2020-05-24 15:35] LABS: Direct LDL Cholesterol 105.57 mg/dL (100-129)
[2020-05-24 15:41] LABS: 25-OH Vitamin D, Total 26.7 ng/mL (30-100)
[2020-05-24 15:55] LABS: Thyroid Stimulating Hormone 0.59 uIU/mL (0.465-4.68)
[2020-05-24 15:56] LABS: Intact Parathyroid Hormone 93.9 pg/mL (7.5-53.5)
[2020-05-24 15:59] LABS: Ferritin 56.7 ng/ml (11.1-264)
[2020-05-24 16:30] LABS: Folate 4.96 ng/mL
[2020-05-26 15:53] LABS: Prealbumin 22 mg/dL (10-36)
[2020-06-01 15:32] LABS: Vitamin E Alpha Tocopherol 10.2 mg/L (7.0-25.1)
[2020-06-02 10:45] LABS: Vitamin B1 121.1 nmol/L (66.5-200.0); Vitamin E Gamma Tocopherol 4.1 mg/L (0.5-5.5)
[2020-06-02 10:47] LABS: Vitamin A 42.2 ug/dL (20.1-62.0)
[2020-06-04 04:50] LABS: Methylmalonic Acid 329 nmol/L (0-378)
[2020-06-09 13:58] LABS: Cotinine <10.0 ng/mL (.); Nicotine <10.0 ng/mL (.)
== END ==
PROVIDERS: Visit Provider Physician Assistant
DX: I10 Essential (primary) hypertension (principal); E78.5 Hyperlipidemia, unspecified; E66.01 Morbid (severe) obesity due to excess calories; Z87.891 Personal history of nicotine dependence; E55.9 Vitamin D deficiency, unspecified
CPT/HCPCS: 36415; 80053; 80061; 80323; 82131; 82306; 82728; 82746; 83036; 83540; 83735; 83970; 84100; 84134; 84425; 84443; 84446; 84590; 85025; G0480

== ENCOUNTER → 2020-07-28 15:23 | Outpatient (CLI) | payer MEDICARE, SELFPAY ==
[2020-07-28 16:06] LABS: Basophils % 1.2 % (0.1-2.0); Eosinophils # 0.1 K/mm3 (0.0-0.4); Eosinophils % 2.6 % (0.1-12.0); Hematocrit 38.5 % (37.0-47.0); Hemoglobin 12.4 g/dL (12.2-16.2); Lymphocytes # 1.2 K/mm3 (0.7-4.5); Lymphocytes % 37.8 % (10-50); Mean Corpuscular HGB Conc 32.2 g/dL (31.8-35.4); Mean Corpuscular Hemoglobin 26.7 pg (27.0-31.2); Mean Corpuscular Volume 82.9 fl (81-99); Monocytes # 0.5 K/mm3 (0.1-1.0); Monocytes % 16.8 % (1.7-9.3); Neutrophils # 1.4 K/mm3 (1.8-7.8); Neutrophils % 41.7 % (37.0-80.0); Platelet Count 233 K/mm3 (142-424); Red Blood Count 4.65 M/mm3 (4.20-5.40); Red Cell Distribution Width 15.4 % (11.5-17.5); White Blood Count 3.2 K/mm3 (4.8-10.8)
== END ==
PROVIDERS: PCP Family Medicine; Visit Provider Family Medicine
DX: Z20.828 Contact with and (suspected) exposure to other viral communicable diseases (principal); U07.1 COVID-19; R68.89 Other general symptoms and signs; B94.8 Sequelae of other specified infectious and parasitic diseases
CPT/HCPCS: 36415; 85025; U0003

== ENCOUNTER → 2020-09-29 14:03 | Outpatient (CLI) | payer MEDICARE, SELFPAY | PROVIDERS: Visit Provider Physician Assistant | DX: I10 Essential (primary) hypertension (principal); E78.5 Hyperlipidemia, unspecified; E61.1 Iron deficiency; Z98.890 Other specified postprocedural states ==

== ENCOUNTER → 2020-09-30 10:39 | Outpatient (CLI) | payer MEDICARE, SELFPAY ==
[2020-09-30 11:31] LABS: Basophils % 0.6 % (0.1-2.0); Eosinophils # 0.2 K/mm3 (0.0-0.4); Hematocrit 42.5 % (37.0-47.0); Lymphocytes # 1.8 K/mm3 (0.7-4.5); Mean Corpuscular HGB Conc 30.6 g/dL (31.8-35.4); Mean Corpuscular Hemoglobin 26.2 pg (27.0-31.2); Mean Corpuscular Volume 85.7 fl (81-99); Mean Platelet Volume 7.5 fl (7.4-10.4); Monocytes # 0.4 K/mm3 (0.1-1.0); Monocytes % 6.4 % (1.7-9.3); Neutrophils # 4.2 K/mm3 (1.8-7.8); Platelet Count 287 K/mm3 (142-424); Red Blood Count 4.96 M/mm3 (4.20-5.40); Red Cell Distribution Width 16.1 % (11.5-17.5); White Blood Count 6.6 K/mm3 (4.8-10.8)
[2020-09-30 11:45] LABS: Hemoglobin A1C 5.2 % (4.0-6.0)
[2020-09-30 11:53] LABS: Chloride 109 mmol/L (98-107); Potassium 3.3 mmoL/L (3.5-5.1); Sodium 143 mmol/L (136-145)
[2020-09-30 11:55] LABS: Alanine Aminotransferase 29 U/L (12-78); Aspartate Amino Transferase 27 U/L (14-36); Blood Urea Nitrogen 11 mg/dl (7-17); Estimated Glomerular Filt Rate 129 ml/min (>60); GFR (African American) 156 ML/MIN (>60)
[2020-09-30 11:56] LABS: Albumin/Globulin Ratio 1.3 (1.1-1.8); Alkaline Phosphatase 87 U/L (38-126); Anion Gap 9.3 mEq/L (5-15); Bilirubin,Total 0.5 mg/dl (0.2-1.3); Calcium 9.8 mg/dl (8.4-10.2); Carbon Dioxide 28 mmol/L (22.0-30.0); Chol/HDL Ratio 3.7 (1-3.5); Cholesterol 163 mg/dl (140-200); Glucose 104 mg/dl (74-100); HDL Cholesterol 44 mg/dl (40-60); Magnesium 1.9 mg/dl (1.6-2.3); Phosphorous 4.4 mg/dl (2.5-4.5); Triglycerides 193 mg/dl (30-150); VLDL Cholesterol 39 mg/dL (0-40)
[2020-09-30 12:12] LABS: 25-OH Vitamin D, Total 34.5 ng/mL (30-100)
[2020-09-30 12:28] LABS: Thyroid Stimulating Hormone 0.04 uIU/mL (0.465-4.68)
[2020-09-30 12:32] LABS: Ferritin 69.8 ng/ml (11.1-264)
[2020-09-30 13:12] LABS: Direct LDL Cholesterol 81.98 mg/dL (100-129)
[2020-09-30 13:14] LABS: Intact Parathyroid Hormone 45.1 pg/mL (7.5-53.5)
[2020-09-30 14:18] LABS: Folate 6.94 ng/mL
[2020-10-01 11:01] LABS: Iron 32 ug/dL (37-170)
[2020-10-02 08:50] LABS: Prealbumin 18 mg/dL (10-36)
[2020-10-06 22:29] LABS: Vitamin B1 76.9 nmol/L (66.5-200.0)
[2020-10-07 19:29] LABS: Vitamin E Alpha Tocopherol 8.9 mg/L (7.0-25.1)
[2020-10-07 19:43] LABS: Vitamin A 33.6 ug/dL (20.1-62.0); Vitamin E Gamma Tocopherol 1.9 mg/L (0.5-5.5)
[2020-10-08 00:05] LABS: Methylmalonic Acid 203 nmol/L (0-378)
== END ==
PROVIDERS: Visit Provider Physician Assistant
DX: I10 Essential (primary) hypertension (principal); E78.5 Hyperlipidemia, unspecified; E61.1 Iron deficiency; Z98.890 Other specified postprocedural states; Z68.41 Body mass index [BMI] 40.0-44.9, adult; Z79.899 Other long term (current) drug therapy
CPT/HCPCS: 36415; 80053; 80061; 82131; 82306; 82728; 82746; 83036; 83540; 83735; 83970; 84100; 84134; 84425; 84443; 84446; 84590; 85025

== ENCOUNTER → 2020-10-07 14:36 | Outpatient (CLI) | payer MEDICARE, OTHER, SELFPAY ==
--- NOTE | 2020-10-07 14:41 | CA_ITS ---
APPROVED REPORT Bilateral Lower Extremity Venous Study for DVT. Medical Records Coordinator: MARTHA Indications edema Risk Factors Obesity Hx-Covid-19, S/P gastric sleeve > 3 months ago. Vein Imaging GAS (R): Compressiblecompressive, spontaneous, phasic, augmentation CFV (L): compressive, spontaneous, phasic, augmentation SFJ (L): compressive, spontaneous, phasic, augmentation FEM (L): compressive, spontaneous, phasic, augmentation POP (L): compressive, spontaneous, phasic, augmentation DFV (L): compressive, spontaneous, phasic, augmentation PTV (L): compressive, spontaneous, phasic, augmentation GSV (L): compressive, spontaneous, phasic, augmentation Peroneals (L):compressive, spontaneous, phasic, augmentation GAS (L): compressive, spontaneous, phasic, augmentation Findings Color flow duplex of the left lower extremity demonstrates deep venous insufficiency of the following Veins: Common Femoral, Femoral, Popliteal, Anterior Tibial, Posterior Tibial, Peroneal, Deep Femoral Vein. Negative for DVT. Conclusion Color flow duplex of the left lower extremity demonstrates deep venous insufficiency of the following Veins: Common Femoral, Femoral, Popliteal, Anterior Tibial, Posterior Tibial, Peroneal, Deep Femoral Vein. Negative for DVT. Electronically signed by : Manpreet Potts MD 10/07/2020 18:22:37
== END ==
PROVIDERS: PCP Internal Medicine Adolescent Medicine; Visit Provider Internal Medicine Cardiovascular Disease
DX: R60.0 Localized edema (principal); R00.2 Palpitations; R42 Dizziness and giddiness
CPT/HCPCS: 93270; 93971

== ENCOUNTER 2021-02-05 16:39 | Emergency (ER) | payer MEDICARE, OTHER, SELFPAY ==
[2021-02-05 16:43] VITALS: BP 109/62; PULSE 85; RESP 12; TEMP 36.6; O2SAT 99; BMI 38.0
--- NOTE | 2021-02-05 16:54 | HMH.EDUTC ---
[facility] [place] Impression: Otitis media Qualifiers: Otitis media type: suppurative Chronicity: acute Laterality: right Recurrence: non-recurrent Spontaneous tympanic membrane rupture: without spontaneous rupture Qualified Code(s): H66.001 - Acute suppurative otitis media without spontaneous rupture of ear drum, right ear Disposition: Home, Self-Care Condition on Discharge: Good Instructions: Middle Ear Infection Additional Instructions: Start antibiotic as soon as possible and be sure to take as ordered for full length of time even though he should start feeling better in 24-48 hours. Tylenol or Motrin as needed for pain or fever Encourage fluids, water, Gatorade, Powerade, Pedialyte if /toddler/child Warm compresses often helps when placed over ear Return immediately for new or worsening symptoms no noticeable improvement in 48-72 hours and in 10-14 days to ensure the ears are return to baseline. Follow-up with primary care Prescriptions: Amoxicillin [Amoxicillin 500mg Tab] 500 mg PO BID 10 Days #20 tab Transmission Status: Pending to [facility] #[id number] Referrals: Israel Nichols MD [Primary Care Provider] - Time of Disposition: 16:56 Medical Decision Making - Brian Inquiry Pt receiving controlled substance: No Vital Signs: 02/05/21 16:43 Temperature 97.9 F Temperature Source Oral Pulse Rate [Left] 85 Respiratory Rate 12 Blood Pressure [Right Arm] 109/62 L Blood Pressure Mean [Right Arm] 77 02 Sat by Pulse Oximetry 99 Oxygen Delivery Method Room Air [facility] [place] - General Chief complaint: Urgent [facility] Stated complaint: ear Time Seen by Provider: 02/05/21 16:54 Mode of Arrival: Ambulatory Source of Information: Patient Limitations: No Limitations Description of Symptoms (Recalled from Triage Doc. by RN): pt c/o a R ear ache. HEENT Symptoms (Recalled from RN notes): Yes (R ear ache) Resp Symptoms (Recalled from RN notes): No Skin Symptoms (Recalled from RN notes): No MS Symptoms (Recalled from RN notes): No Functional Status (Recalled from RN notes): na - History of Present Illness Provider Complaint: 55 yr old female presnets for rt ear pain. pt states ear started hurting this am and causing pain to radiate up the side of her head - Related Data Home Medications Medication Instructions Recorded Confirmed cholecalciferol (vitamin D3) 50 2,000 unit PO DAILY 10/08/18 10/28/20 mcg (2,000 unit) capsule cetirizine 10 mg tablet 10 mg PO DAILY #30 tab 02/19/20 10/28/20 paroxetine HCl 20 mg tablet 40 mg PO DAILY tab 02/19/20 10/28/20 rosuvastatin 10 mg tablet 20 mg PO DAILY tab 10/07/20 10/28/20 topiramate 100 mg capsule,extended 100 mg PO DAILY cap 10/07/20 10/28/20 release 24 hr famotidine 20 mg tablet 20 mg PO BID tab 10/28/20 10/28/20 pantoprazole 40 mg tablet,delayed 40 mg PO DAILY tab 10/28/20 10/28/20 release Previous Rx's Medication Instructions Recorded spironolactone 25 mg tablet See Rx Instructions .ROUTE 11/17/20 .COMPLEX #30 tab Amoxicillin [Amoxicillin 500mg Tab] 500 mg PO BID 10 Days #20 tab 02/05/21 Allergies Allergy/AdvReac Type Severity Reaction Status Date / Time latex Allergy Intermediate I-HIVES Verified 10/28/20 13:08 - Worker's Comp Is this a Worker's Comp case?: No [facility] History - Hepatitis A Screen Drug use history?: No High risk sexual behaviors?: No History of sexually transmitted infection?: No Currently employed?: No Childcare worker?: No Do you have indoor plumbing?: Yes Do you have electricity?: Yes Attestation statement:: This patient has been screened for Hepatitis A risk factors. I have reviewed the patient's past medical history: Yes Medical History: Reports:: Anxiety, Gastroesophageal Reflux Disease(GERD), Hyperlipidemia, Hypertension, Migraine Denies:: Cancer, Diabetes Mellitus Type 1, Diabetes Mellitus Type 2, Internal Pacemaker, MRSA, Seizures Other Medical History: Reports: Arthritis,
[2021-02-05 17:01] VITALS: BP 109/62; PULSE 85; RESP 14; TEMP 36.6
== END 2021-02-05 17:01 | disposition home or self-care (01) ==
LOC: UTC 16:58
PROVIDERS: Emergency Provider Nurse Practitioner Family; PCP Internal Medicine Adolescent Medicine
DX: H66.001 Acute suppurative otitis media without spontaneous rupture of ear drum, right ear (principal); I10 Essential (primary) hypertension; Z91.040 Latex allergy status; K21.9 Gastro-esophageal reflux disease without esophagitis; E78.5 Hyperlipidemia, unspecified; Z87.891 Personal history of nicotine dependence
CPT/HCPCS: G0463; 99202

== ENCOUNTER → 2021-03-03 13:03 | Outpatient (CLI) | payer MEDICARE, OTHER, SELFPAY ==
--- NOTE | 2021-03-03 13:16 | XR_ITS ---
PROCEDURE: XR SACRUM COCCYX MIN 2V CLINICAL INDICATION: coccyx pain COMPARISON: CT ABDPELW/O CT ABD PELVIS W/O CONTRAST from 09/15/[address] abdomen pelvis wo con from 09/10/2018 FINDINGS: SI joints have an unremarkable appearance. There is mild retrolisthesis of the tip of the coccyx probably not significantly changed from previous CT scan of 09/10/2018. No acute fracture or dislocation evident. An IUD remains in place. Other findings:None. IMPRESSION: No acute findings. Dictated by: Manpreet Potts MD 03/03/2021 15:23 Manpreet Potts MD in [place] 03/03/2021 15:23
--- NOTE | 2021-03-03 13:16 | XR_ITS ---
PROCEDURE: XR HIP RT 2-3V W/PELVIS CLINICAL INDICATION: right hip pain COMPARISON: CR XR HIP RT 2-3V W/PELVIS from 01/05/2020 FINDINGS: Minimal osteoarthritic changes are present involving both hips. Calcification is present superior to the right lateral aspect of the greater trochanter and may be related to heterotopic or tendinous ossification. There is mild hypertrophy the greater trochanter on both sides right greater than left. Mild bony hypertrophy also noted along the iliac crest on both sides and the anterior superior iliac spines. There is an IUD in place. Degenerative changes lower lumbar spine IMPRESSION: Mild degenerative changes as described above with overall no significant change from 01/05/2020. An IUD remains in place. Dictated by: Manpreet Potts MD 03/03/2021 15:20 Manpreet Potts MD in [place] 03/03/2021 15:20
== END ==
PROVIDERS: PCP Internal Medicine Adolescent Medicine; Visit Provider Orthopaedic Surgery
DX: M53.3 Sacrococcygeal disorders, not elsewhere classified (principal); M25.551 Pain in right hip
CPT/HCPCS: 72220; 73502

== ENCOUNTER 2021-03-28 10:03 | Emergency (ER) | payer MEDICARE, OTHER, SELFPAY ==
[2021-03-28 11:20] VITALS: BP 122/70; PULSE 75; RESP 18; TEMP 36.6; O2SAT 97; BMI 36.3
--- NOTE | 2021-03-28 12:04 | HMH.EDUTC ---
[facility] – [place] Clinical Impression: Flank pain Disposition: Home, Self-Care Condition on Discharge: Good Instructions: DI for Flank Pain, Methocarbamol Additional Instructions: Tylenol every 4 hours as needed if you need something for pain *Ice 20 minutes every 2 hours for the first 48 hours after the initial injury followed by moist heat every 20 minutes 3-4 times a day to affected area *Muscle relaxer as prescribed as needed for muscle spasms but remember, it WILL cause drowsiness You cannot take it and drive, operate machinery or care for small children. *Keep this area active, no movement leads to more stiffness, However take it easy and avoid heavy lifting pushing or pulling *Follow up with you family doctor if no improvement for further treatment Call [facility] and make sure what you can take over the counter Return if needed Follow up with your Family Doctor if symptoms persist Straight to ER if any life threatening symptoms Prescriptions: methocarbamoL [Methocarbamol 500mg Tablet] 500 mg PO BID PRN #20 tab PRN Reason: Muscle Spasm Transmission Status: Pending to [facility] #[id number] Referrals: Israel Nichols MD [Primary Care Provider] - As needed Medical Decision Making - Brian Inquiry Pt receiving controlled substance: No Brian was queried for this patient: No Vital Signs: 03/28/21 11:20 Temperature 97.9 F Temperature Source Oral Pulse Rate [Right Brachial] 75 Respiratory Rate 18 Blood Pressure [Right Arm] 122/70 Blood Pressure Mean [Right Arm] 87 Blood Pressure Source [Right Arm] Automatic Cuff Blood Pressure Position [Right Arm] Sitting 02 Sat by Pulse Oximetry 97 Oxygen Delivery Method Room Air - Lab Data Lab results reviewed: Yes: I reviewed the patient's lab results. Medical Decision Narrative: Patient state that she just had lab work and stuff done at [facility] this morning Discussed with patient and recommended transfer to the ED for CT to r/o kidney stones or other abdnormalities and patient declined state that she feels like it may be muscular State that pain is better when she stretches and walks willing to try muscle relaxers and will follow up if no improvement [facility] [place] - General Stated complaint: upper quad, flank pain Time Seen by Provider: 03/28/21 12:10 Mode of Arrival: Ambulatory Source of Information: Patient Limitations: No Limitations Description of Symptoms (Recalled from Triage Doc. by RN): PATIENT C/O RIGHT UPPER QUAD PAIN HEENT Symptoms (Recalled from RN notes): No Resp Symptoms (Recalled from RN notes): No Skin Symptoms (Recalled from RN notes): No MS Symptoms (Recalled from RN notes): No Functional Status (Recalled from RN notes): WNL - History of Present Illness Provider Complaint: Patient states that she has been having pain in her right flank area on and off for awhile now States that she has had gastric bypass and has lost alot of weight and has alot of loose skin and thinks it may be causing muscle pain States that when she stretches and walks the pain is better and does improve with OTC medications State that she thinks she may have pulled something but wanted to get her urine checked out to see if she may have a UTI - Related Data Home Medications Medication Instructions Recorded Confirmed cholecalciferol (vitamin D3) 50 2,000 unit PO DAILY 10/08/18 10/28/20 mcg (2,000 unit) capsule cetirizine 10 mg tablet 10 mg PO DAILY #30 tab 02/19/20 10/28/20 paroxetine HCl 20 mg tablet 40 mg PO DAILY tab 02/19/20 10/28/20 rosuvastatin 10 mg tablet 20 mg PO DAILY tab 10/07/20 10/28/20 topiramate 100 mg capsule,extended 100 mg PO DAILY cap 10/07/20 10/28/20 release 24 hr famotidine 20 mg tablet 20 mg PO BID tab 10/28/20 10/28/20 pantoprazole 40 mg tablet,delayed 40 mg PO DAILY tab 10/28/20 10/28/20 release Previous Rx's Medication Instructions Recorded spironolactone 25 mg tablet See Rx Instructions .ROUTE 11/17/
[2021-03-28 12:25] VITALS: BP 122/70; PULSE 75; RESP 18; TEMP 36.6; O2SAT 97
[2021-03-28 22:40] LABS: Apearance,Urine Clear (Clear); Bilirubin,Urine Negative (Negative); Blood, Urine Negative (Negative); Color,Urine Yellow (Yellow); Glucose,Urine (UA) Negative (Negative); Ketones,Urine Negative (Negative); PH,Urine 5.5 (5.0-8.5); Protein,Urine Negative (Negative); Specific Gravity, Urine <= 1.005 (1.005-1.030); UTC Leukocyte Esterase,Urine Negative (Negative); UTC Nitrate,Urine Negative (Negative); Urobilinogen,Urine 0.2 EU/dl (0.2)
== END 2021-03-28 12:33 | disposition home or self-care (01) ==
PROVIDERS: Emergency Provider Nurse Practitioner; PCP Internal Medicine Adolescent Medicine
DX: R10.84 Generalized abdominal pain (principal); Z98.84 Bariatric surgery status
CPT/HCPCS: 81003; 99202; G0463

== ENCOUNTER 2021-11-13 15:40 | Emergency (ER) | payer MEDICARE, OTHER, SELFPAY ==
[2021-11-13 16:31] VITALS: BP 115/73; PULSE 103; RESP 17; TEMP 37.3; O2SAT 97; BMI 35.1
--- NOTE | 2021-11-13 16:36 | HMH.EDUTC ---
[facility] – [place] Disposition Clinical Impression: Viral syndrome Acute bronchitis Qualifiers: Bronchitis organism: unspecified organism Qualified Code(s): J20.9 - Acute bronchitis, unspecified Disposition: Home, Self-Care Condition on Discharge: Good Instructions: DI for Viral Syndrome, Acute Bronchitis, DI for Acute Bronchitis Additional Instructions: Drink plenty of fluids. Take tylenol or ibuprofen for pain or fever. Take the medications as directed. Follow up with your regular doctor. GO TO THE ER FOR ANY WORSENING SYMPTOMS Quarantine until you know the results of your covid-19 test. Notify your school or workplace of your results and follow their instructions regarding return to work/school. The cough medication (promethazine dm) will make you drowsy, so don't drive or operate heavy machinery after taking it. Prescriptions: Promethazine/Dextromethorphan [Promethazine-Dm Syrup] 5 ml PO Q6HP PRN #240 ml PRN Reason: Cough Transmission Status: Pending to [facility] # methylPREDNISolone [Medrol] 4 mg PO DIRECTED 6 Days #21 packet Transmission Status: Pending to [facility] # Azithromycin [Z-Shadi 250mg Tab*] 250 mg PO UD DOSE PK #6 tab Transmission Status: Pending to [facility] # Referrals: Israel Nichols MD [Primary Care Provider] - Forms: Work/School Release Time of Disposition: 17:10 Medical Decision Making - Medical Records Medical records reviewed: No: I reviewed the patient's medical records. - Brian Inquiry Pt receiving controlled substance: No Vital Signs: 11/13/21 16:31 Temperature 99.1 F Temperature Source Oral Pulse Rate [Left] 103 H Respiratory Rate 17 Blood Pressure [Right Arm] 115/73 Blood Pressure Mean [Right Arm] 87 02 Sat by Pulse Oximetry 97 - Lab Data Lab results reviewed: Yes: I reviewed the patient's lab results. Lab Results 11/13/21 16:30: Group A Strep Rapid Negative 11/13/21 16:31: Influenza Type A Ag Negative, Influenza Type B Ag Negative Orders (Tests/Meds): ORDERS Category Date Time Status Strep Screen Confirmation Stat Micro 11/13/21 16:30 Received [facility] [place] HPI - General Stated complaint: congestion Time Seen by Provider: 04/24/22 16:36 Mode of Arrival: Ambulatory Source of Information: Patient Limitations: No Limitations Description of Symptoms (Recalled from Triage Doc. by RN): pt c/o cough, congestion, fever, weakness and body aches since yesterday. HEENT Symptoms (Recalled from RN notes): Yes Resp Symptoms (Recalled from RN notes): Yes Skin Symptoms (Recalled from RN notes): No MS Symptoms (Recalled from RN notes): No Functional Status (Recalled from RN notes): wnl - History of Present Illness Provider Complaint: She states that she has had chest congestion, sinus congestion, fever up to 100.4, and body aches for the past 1 day. - Related Data Home Medications Medication Instructions Recorded Confirmed cetirizine 10 mg tablet 10 mg PO DAILY #30 tab 02/19/20 05/28/21 paroxetine HCl 20 mg tablet 40 mg PO DAILY tab 02/19/20 05/28/21 topiramate 100 mg capsule,extended 100 mg PO DAILY cap 10/07/20 05/28/21 release 24 hr famotidine 20 mg tablet 20 mg PO BID tab 10/28/20 05/28/21 pantoprazole 40 mg tablet,delayed 40 mg PO DAILY tab 10/28/20 05/28/21 release Previous Rx's Medication Instructions Recorded methocarbamoL [Methocarbamol 500mg 500 mg PO BID PRN #20 tab 03/28/21 Tablet] loratadine 10 mg tablet 10 mg PO DAILY #30 tab 05/28/21 rosuvastatin 20 mg tablet See Rx Instructions .ROUTE 06/08/21 .COMPLEX #90 tab spironolactone 25 mg tablet See Rx Instructions .ROUTE 08/05/21 .COMPLEX #30 tab Azithromycin [Z-Shadi 250mg Tab*] 250 mg PO UD DOSE PK #6 tab 11/13/21 Promethazine/Dextromethorphan 5 ml PO Q6HP PRN #240 ml 11/13/21 [Promethazine-Dm Syrup] methylPREDNISolone [Medrol] 4 mg PO DIRECTED 6 Days #21 11/13/21 packet Allergies Allergy/AdvRe
[2021-11-13 16:49] LABS: Strep Scrn Group A (Rapid) Negative (Negative)
[2021-11-13 16:53] LABS: UTC Influenza A Antigen Negative (Negative)
[2021-11-13 16:54] LABS: UTC Influenza B Antigen Negative (Negative)
[2021-11-13 17:25] LABS: Adenovirus,PCR Not Detected (NotDetected); Bordetella Pertussis Not Detected (NotDetected); Chlamydophila Pneumoniae, PCR Not Detected (NotDetected); Coronavirus 19, PCR Not Detected (NotDetected); Coronavirus 229E Not Detected (NotDetected); Coronavirus NL63 Not Detected (NotDetected); Coronavirus OC43 Not Detected (NotDetected); Coronovirus HKU1,PCR Not Detected (NotDetected); Human Metapneumovirus Not Detected (NotDetected); Influenza A, PCR Not Detected (NotDetected); Influenza AH1, 2009 Not Detected (NotDetected); Influenza AH1, PCR Not Detected (NotDetected); Influenza AH3,PCR Not Detected (NotDetected); Influenza B, PCR Not Detected (NotDetected); Mycoplasma Pneumoniae, PCR Not Detected (NotDetected); Parainfluenza 1, PCR Not Detected (NotDetected); Parainfluenza 2, PCR Not Detected (NotDetected); Parainfluenza 3, PCR Not Detected (NotDetected); Parainfluenza 4, PCR Not Detected (NotDetected); Rhinovirus/Enterovirus Not Detected (NotDetected)
[2021-11-13 17:29] VITALS: BP 115/73; PULSE 103; RESP 17; TEMP 37.3
[2021-11-13 18:50] LABS: Respiratory Syncytial Virus Detected (NotDetected)
== END 2021-11-13 17:34 | disposition home or self-care (01) ==
PROVIDERS: Emergency Provider Nurse Practitioner Family; PCP Internal Medicine Adolescent Medicine
DX: J20.9 Acute bronchitis, unspecified (principal); B34.9 Viral infection, unspecified; I10 Essential (primary) hypertension; K21.9 Gastro-esophageal reflux disease without esophagitis; E78.5 Hyperlipidemia, unspecified; Z87.891 Personal history of nicotine dependence; Z79.899 Other long term (current) drug therapy
CPT/HCPCS: 87430; 87581; 87632; 87798; 87804; 96372; 99213; C9803; G0463; J0696; U0003; U0005

== ENCOUNTER → 2022-01-02 10:51 | Outpatient (CLI) | payer MEDICARE, OTHER, SELFPAY ==
--- NOTE | 2022-01-02 10:59 | XR_ITS ---
FINAL REPORT CLINICAL HISTORY: pain FINDINGS: LEFT FOOT Three views of the left foot demonstrate no acute fracture or dislocation. There is mild degenerative change. There are calcaneal spurs. The soft tissues are unremarkable. IMPRESSION: Mild degenerative change with no acute bony abnormality. Reviewed, Interpreted and Dictated by Jose Juan Quintero III, MD Transcribed by Dominique Woodall Authenticated and [facility]
--- NOTE | 2022-01-02 10:59 | XR_ITS ---
FINAL REPORT CLINICAL HISTORY: pain FINDINGS: RIGHT FOOT Three views of the right foot demonstrate no acute fracture or dislocation. There is mild degenerative change. There are calcaneal spurs. The soft tissues are unremarkable. IMPRESSION: Mild degenerative change with no acute bony abnormality. Reviewed, Interpreted and Dictated by Jose Juan Quintero III, MD Transcribed by Dominique Woodall Authenticated and [facility]
== END ==
PROVIDERS: PCP Internal Medicine Adolescent Medicine; Visit Provider Podiatrist
DX: L30.9 Dermatitis, unspecified; M79.671 Pain in right foot; M79.672 Pain in left foot
CPT/HCPCS: 73630; 87102; 87206; 87220; 88305

== ENCOUNTER → 2022-01-02 16:27 | Outpatient (CLI) | payer MEDICARE, OTHER, SELFPAY | LOC: LAB 16:28 → LAB.DROPOF 16:30 | PROVIDERS: Visit Provider Podiatrist | DX: M79.672 Pain in left foot (principal) ==

== ENCOUNTER → 2022-01-18 13:26 | Outpatient (CLI) | payer MEDICARE, OTHER, SELFPAY ==
--- NOTE | 2022-01-18 13:38 | XR_ITS ---
FINAL REPORT CLINICAL HISTORY: shoulder pain FINDINGS: RIGHT SHOULDER Three views demonstrate no acute fracture or dislocation. There is absence of the distal clavicle which may be due to postoperative change or chronic erosion. There is chronic defect in the lateral humeral head which may represent chronic Hill-Sachs deformity. There is mild degenerative change. The visualized bony structures are well aligned. No soft tissue abnormality is seen. IMPRESSION: Absence of the distal clavicle as above. Other findings may represent chronic Hill-Sachs deformity. Reviewed, Interpreted and Dictated by Jose Juan Quintero III, MD Transcribed by Dominique Woodall Authenticated and [facility]
== END ==
PROVIDERS: PCP Internal Medicine Adolescent Medicine; Referring Provider Orthopaedic Surgery; Visit Provider Nurse Practitioner Family
DX: M25.511 Pain in right shoulder (principal)
CPT/HCPCS: 73030

== ENCOUNTER 2022-02-05 09:41 | Emergency (ER) | payer MEDICARE, OTHER, SELFPAY ==
[2022-02-05 09:41] VITALS: BP 129/80; PULSE 77; RESP 16; TEMP 36.8; O2SAT 97; BMI 35.3
--- NOTE | 2022-02-05 09:57 | HMH.EDUTC ---
[facility] [place] Disposition Clinical Impression: UTI (urinary tract infection) Qualifiers: Urinary tract infection type: site unspecified Hematuria presence: with hematuria Qualified Code(s): N39.0 - Urinary tract infection, site not specified Disposition: Home, Self-Care Condition on Discharge: Good Instructions: Urine Culture, DI for Urinary Tract Infection (UTI), Phenazopyridine Additional Instructions: Drink plenty of fluids. Take tylenol or ibuprofen for pain or fever. Take the medications as directed. Follow up with your regular doctor. GO TO THE ER FOR ANY WORSENING SYMPTOMS The pyridium will make your urine turn orange, this is an expected side effect. It will stain your clothes if it comes into contact with them. We will culture the urine. That will tell what bacteria is causing your infection and which antibiotics will treat it best. Sometimes the first antibiotic we prescribe turns out to not work against different bacteria. So, make sure you follow up within 3 days if you are not getting better. Prescriptions: Ondansetron [Zofran 4mg ODT] 4 mg PO Q8HP PRN #20 tab PRN Reason: Nausea Transmission Status: Received by [id number] Sulfamethoxazole/Trimethoprim [Bactrim DS tablet] 1 each PO BID 7 Days #14 tab Transmission Status: Received by [id number] Phenazopyridine HCl [Pyridium 200mg Tablet] 200 pow PO TID #6 tab Transmission Status: Received by [id number] Referrals: Israel Nichols MD [Primary Care Provider] - Forms: Work/School Release Time of Disposition: 10:20 Medical Decision Making - Medical Records Medical records reviewed: No: I reviewed the patient's medical records. - Brian Inquiry Pt receiving controlled substance: No Vital Signs: 02/05/22 09:41 02/05/22 10:24 Temperature 98.2 F 98.2 F Temperature Source Oral Oral Pulse Rate 77 Pulse Rate [Right] 77 Respiratory Rate 16 16 Blood Pressure 129/80 Blood Pressure [Right Arm] 129/80 Blood Pressure Mean [Right Arm] 96 Blood Pressure Source Automatic Cuff Blood Pressure Source [Right Arm] Automatic Cuff Blood Pressure Position Sitting Blood Pressure Position [Right Arm] Sitting 02 Sat by Pulse Oximetry 97 Oxygen Delivery Method Room Air - Lab Data Lab results reviewed: Yes: I reviewed the patient's lab results. Lab Results 07/17/22 10:08: Urine Color Dark yellow, Urine Appearance Turbid, Urine pH 6.0, Ur Specific [place] 1.030, Urine Protein 1+, Urine Glucose (UA) -, Urine Ketones -, Urine Blood 3+, Urine Nitrate Positive A, Urine Bilirubin Negative, Urine Urobilinogen 1, Ur Leukocyte Esterase 1+ A Orders (Tests/Meds): ORDERS Category Date Time Status Urine Culture Stat Micro 02/05/22 09:52 Received [facility] [place] HPI - General Stated complaint: possible uti Time Seen by Provider: 02/05/22 09:57 - History of Present Illness Provider Complaint: She states that for the past 3 day she has been having worsening dysuria and low back pain. - Related Data Home Medications Medication Instructions Recorded Confirmed cetirizine 10 mg tablet 10 mg PO DAILY #30 tab 02/19/20 01/18/22 paroxetine HCl 20 mg tablet 40 mg PO DAILY tab 02/19/20 01/18/22 topiramate 100 mg capsule,extended 100 mg PO DAILY cap 10/07/20 01/18/22 release 24 hr pantoprazole 40 mg tablet,delayed 40 mg PO DAILY tab 10/28/20 01/18/22 release ubrogepant 100 mg tablet 100 mg PO .COMPLEX tab 01/02/22 01/18/22 Previous Rx's Medication Instructions Recorded spironolactone 25 mg tablet See Rx Instructions .ROUTE 08/05/21 .COMPLEX #30 tab rosuvastatin 20 mg tablet See Rx Instructions .ROUTE 12/21/21 .COMPLEX #90 tab Ondansetron [Zofran 4mg ODT] 4 mg PO Q8HP PRN #20 tab 02/05/22 Phenazopyridine HCl [Pyridium 200 pow PO TID #6 tab 02/05/22 200mg Tablet] Sulfamethoxazole/Trimethoprim 1 each PO BID 7 Days #14 tab 02/05/22 [Bactrim DS tablet] Allergies Allergy/Adv
[2022-02-05 10:14] LABS: Apearance,Urine Turbid (Clear); Color,Urine Dark Yellow (Yellow)
[2022-02-05 10:15] LABS: Protein,Urine 1+ (Negative)
[2022-02-05 10:18] LABS: Bilirubin,Urine Negative (Negative); Urobilinogen,Urine 1 EU/dl (0.2)
[2022-02-05 10:20] LABS: UTC Nitrate,Urine Positive (Negative)
[2022-02-05 10:24] VITALS: BP 129/80; PULSE 77; RESP 16; TEMP 36.8; O2SAT 97
[2022-02-05 10:28] LABS: Blood, Urine 3+ (Negative)
[2022-02-05 10:29] LABS: UTC Leukocyte Esterase,Urine 1+ (Negative)
== END 2022-02-05 10:25 | disposition home or self-care (01) ==
PROVIDERS: Emergency Provider Nurse Practitioner Family; PCP Internal Medicine Adolescent Medicine
DX: N39.0 Urinary tract infection, site not specified (principal)
CPT/HCPCS: 81003; 87086; 87088; 87186; 99212; G0463

== ENCOUNTER → 2022-03-28 14:53 | Outpatient (POV) | payer MEDICARE, OTHER, SELFPAY ==
[2022-03-28 15:04] VITALS: BP 199/81; PULSE 97; RESP 20; BMI 35.9
--- NOTE | 2022-03-28 16:27 | EXP.PAIN.OV ---
HPI Data of Consult Patient: new to practice Consult date: 03/28/22 Requesting Physician: Charisse Thomas APRN Primary Care Provider: Israel Nichols MD Consult Narrative Reason for consult: Right shoulder pain History of present illness: Ms. Kwan is a 57 year old female presents today as a new patient. She is a referral from Dr. Colon. Patient currently rates her pain a 6 out of 10. She states this pain is all primarily in her right shoulder and describes it as a aching, throbbing sensation that is constant. Patient states in 2013 she had a fall that resulted in a humeral head fracture. She states this did not require surgery at that time however she has had since 2 arthroscopy procedures. She also has had previous pain management injections however states they had trouble getting into the joint. She is also been to physical therapy for almost 3 years however this did not provide significant improvement of her symptoms. She has seen a chiropractor in the past as well as massage therapy however this did not improve her symptoms. Patient has been told by orthopedic physician that she could benefit from shoulder surgery however the patient is not interested in this option. Patient states she does take [id number]-[id number] Tylenol as needed with some improvement of her symptoms. She states she is unable to tolerate NSAIDs due to a history of gastric bypass. Patient also uses Biofreeze and Voltaren gel that does provide some improvement of her symptoms. Patient also uses ice and heat as needed. Patient states that she feels like she has altered her gait and cause more pain issues. She does state that she has had more frequent headaches/migraines. She does currently take topiramate and Ubrelvy for her migraines. Patient has tried gabapentin and tramadol in the past however she states these medications did nothing for her pain. She is interested in injective therapy at this time. Her Brian is [phone]. Is been reviewed and appropriate. CC: Charisse Thomas APRN [facility] Medical History (Updated 03/28/22 @ 16:35 by Charisse Thomas APRN) Chest pain Depression Dizziness H/O clavicle fracture H/O fracture of humerus History of gastroesophageal reflux (GERD) Migraine Palpitations Surgical History (Updated 03/28/22 @ 15:16 by Trinity Zamora RN) H/O carpal tunnel repair History of arthroscopy of right shoulder Family History (Updated 03/28/22 @ 15:11 by Trinity Zamora RN) Other No significant family history Social History (Updated 03/28/22 @ 15:11 by Trinity Zamora RN) Smoking Status: Former smoker pack-years: 1 alcohol intake: never substance use type: denies use current occupational status: other Travel in the last 8 weeks: None household members: family housing: house current occupational exposures/hazards: No caffeine: No Review of Systems Review of Systems Review of systems:: pertinent systems reviewed and negative unless documented below Review of systems (narrative): Review of Systems: General: No recent weight changes, no fever, no sleep disturbances Respiratory: No cough, no shortness of air, no recurring pulmonary infections Cardiovascular/peripheral vascular: No chest pain, no palpitations, no edema, no shortness of breath Gastrointestinal: No new onset incontinence, normal bowel movements reported Genitourinary: No new onset incontinence Musculoskeletal: Right shoulder pain Psychiatric: [Normal mood/affect] Neurological: [Denies weakness in extremities], [denies balance issues] Meds Home Medications and Allergies Home Medications Medication Instructions Recorded Confirmed Type cetirizine 10 mg tablet 10 mg PO DAILY allergies #30 tabs 02/19/20 03/28/22 History paroxetine HCl 20 mg tablet 40 mg PO DAILY Anxiety 02/19/20 03/28/22 History topiramate 100 mg capsule,extended 100 mg PO DAILY migraine 10/07/20 03/28/22 History release 24 hr pantoprazole 40 mg tablet,delayed
== END ==
PROVIDERS: PCP Internal Medicine Adolescent Medicine; Visit Provider Nurse Practitioner Family
DX: M19.011 Primary osteoarthritis, right shoulder (principal); M79.18 Myalgia, other site
CPT/HCPCS: 99202; G0463

== ENCOUNTER → 2022-04-10 10:59 | Outpatient (CLI) | payer MEDICARE, OTHER, SELFPAY ==
--- NOTE | 2022-04-10 11:09 | ECG_ITS ---
APPROVED REPORT Exam: Resting ECG HR:63 bpm ECG Measurements Heart Rate 63 AXES WA 151 P 81 QRSd 98 QRS 47 QT 376 T 51 QTc 384 Conclusion SINUS RHYTHM INCOMPLETE RIGHT BUNDLE BRANCH BLOCK [90+ ms QRS DURATION, TERMINAL R IN V1/V2, 40+ ms S IN I/aVL/V4/V5/V6] BORDERLINE ECG UNCONFIRMED REPORT Electronically signed by : Aftab Lal MD 04/10/2022 15:12:32
--- NOTE | 2022-04-10 11:29 | XR_ITS ---
FINAL REPORT CLINICAL HISTORY: pre op; FORMER SMOKER FINDINGS: 2 views of the chest were obtained . The heart is normal in size. The mediastinum is within normal limits. The lungs are clear. There is no pneumothorax. Osseous structures are unremarkable. IMPRESSION: No acute cardiopulmonary process. Reviewed, Interpreted and Dictated by Farhad Jacinto MD Transcribed by Wilma Cerda Authenticated and [facility]
[2022-04-10 11:59] LABS: Basophils # 0.1 K/mm3 (0-0.2); Basophils % 0.8 % (0.1-2.0); Eosinophils # 0.3 K/mm3 (0.0-0.4); Eosinophils % 3.6 % (0.1-12.0); Hemoglobin 13.4 g/dL (12.2-16.2); Lymphocytes # 2.4 K/mm3 (0.7-4.5); Mean Corpuscular HGB Conc 31.8 g/dL (31.8-35.4); Mean Corpuscular Volume 91.2 fl (81-99); Mean Platelet Volume 7.4 fl (7.4-10.4); Monocytes # 0.5 K/mm3 (0.1-1.0); Monocytes % 6.3 % (1.7-9.3); Neutrophils # 4.1 K/mm3 (1.8-7.8); Neutrophils % 56.4 % (37.0-80.0); Platelet Count 373 K/mm3 (142-424); Red Blood Count 4.61 M/mm3 (4.20-5.40); White Blood Count 7.3 K/mm3 (4.8-10.8)
[2022-04-10 13:37] LABS: Alanine Aminotransferase 21 U/L (12-78); Albumin Level 3.9 g/dl (3.5-5.0); Albumin/Globulin Ratio 1.6 (1.1-1.8); Alkaline Phosphatase 110 U/L (38-126); Anion Gap 13.2 mEq/L (5-15); Aspartate Amino Transferase 30 U/L (14-36); Blood Urea Nitrogen 10 mg/dl (7-17); Carbon Dioxide 28 mmol/L (22.0-30.0); Chloride 101 mmol/L (98-107); Estimated Glomerular Filt Rate 128 ml/min (>60); GFR (African American) 155 ML/MIN (>60); Globulin 2.4 g/dL (1.3-3.2); Glucose 89 mg/dl (74-100); Potassium 4.2 mmoL/L (3.5-5.1); Sodium 138 mmol/L (136-145); Total Protein,Serum 6.3 g/dl (6.3-8.2)
[2022-04-10 13:51] LABS: Bilirubin,Total < 0.1 mg/dl (0.2-1.3)
== END ==
PROVIDERS: PCP Nurse Practitioner Family; Visit Provider Podiatrist
DX: M20.41 Other hammer toe(s) (acquired), right foot (principal); J18.1 Lobar pneumonia, unspecified organism; Z01.812 Encounter for preprocedural laboratory examination; Z20.822 Contact with and (suspected) exposure to COVID-19
CPT/HCPCS: 36415; 71046; 80053; 85025; 93005; C9803; U0003; U0005

== ENCOUNTER 2022-04-11 13:50 | Day surgery (SDC) | payer MEDICARE, OTHER, SELFPAY ==
[2022-04-11 14:02] VITALS: BP 127/71; PULSE 75; RESP 18; TEMP 36.4; O2SAT 97; BMI 35.7
[2022-04-11 14:04] VITALS: BP 120/70; PULSE 74; RESP 18; O2SAT 96
[2022-04-11 14:06] VITALS: BP 120/70; PULSE 82; RESP 18; O2SAT 96
--- NOTE | 2022-04-11 14:10 | EXP.PAIN.PRO ---
Procedure Date: 04/11/22 Time: 14:10 Anesthesiologist:: Gallo Joe CRNA Complications:: None Pre-procedure Diagnosis:: Myofascial pain right cervical paraspinals and right trapezius Post-procedure Diagnosis:: Same Indications for Procedure:: Patient is a pleasant 57-year-old female who comes our clinic today with complaint of right posterior neck as well as right trapezius pain. She describes it as constant, dull, aching. She presents today for right cervical and right trapezius trigger point injections. Procedure Details:: Details of the procedure were explained to the patient. The patient was taken to the procedure room placed in the sitting position. The area over the posterior cervical spine and right trapezius muscle was cleaned using chlorhexidine as a cleansing solution. Using a 25-gauge needle 2 cc of 1% lidocaine and 2 cc of 0.25% Marcaine +10 mg of Depo-Medrol was injected into separate areas on the right posterior cervical paraspinous muscle and right trapezius muscle. Patient tolerated procedure without difficulty. There were no complications. Plan and Disposition:: Patient was discharged from the clinic without incident.
[2022-04-11 14:14] VITALS: BP 128/74; PULSE 70; RESP 18; O2SAT 97
== END 2022-04-11 14:14 | disposition home or self-care (01) ==
PROVIDERS: PCP Nurse Practitioner Family; Visit Provider Nurse Anesthetist, Certified Registered
DX: M79.12 Myalgia of auxiliary muscles, head and neck (principal); M19.011 Primary osteoarthritis, right shoulder
CPT/HCPCS: 20552; J1040

== ENCOUNTER 2022-04-12 08:20 | Day surgery (SDC) | payer MEDICARE, OTHER, SELFPAY ==
[2022-04-11 09:28] VITALS: BMI 35.9
[2022-04-12] VITALS (11 sets, daily range): BP systolic 94–165; BP diastolic 61–90; PULSE 61–124; RESP 12–18; TEMP 36.2–43; O2SAT 95–99
--- NOTE | 2022-04-12 09:57 | XR_ITS ---
FINAL REPORT CLINICAL HISTORY: Post op hammertoe repair COMPARISON: 01/02/2022 FINDINGS: RIGHT FOOT Three views of the right foot were obtained. There is no acute fracture or dislocation. There are postoperative changes of hammertoe repair with resection of the distal portions of the 4th and 5th proximal phalanges. There are mild hypertrophic changes of the intertarsal joints. A large plantar calcaneal spur is noted. Soft tissues are unremarkable. IMPRESSION: Postoperative changes of hammertoe repair of the distal portions of the 4th and 5th proximal phalanges. Reviewed, Interpreted and Dictated by Farhad Jacinto MD Transcribed by Wilma Cerda Authenticated and [facility]
--- NOTE | 2022-04-12 10:44 | XR_ITS ---
FINAL REPORT CLINICAL HISTORY: 4TH 5TH HAMMERTOE REPAIR time-0.05 FINDINGS: Fluoroscopic guidance was provided for the operating services. A single spot film was provided. 5 seconds of fluoroscopy time was utilized. IMPRESSION: 5 seconds of fluoroscopy time. Reviewed, Interpreted and Dictated by Farhad Jacinto MD Transcribed by Ad Gandara Authenticated and [facility]
--- NOTE | 2022-04-12 11:02 | EXP.ANES.CKL ---
PFSH PFSH Medical History Allergies Anxiety Appendicitis Arthritis Chest pain Cholecystectomy planned Depression Depression Dizziness H/O clavicle fracture H/O fracture of humerus History of COVID-19 History of gastroesophageal reflux (GERD) History of gastroesophageal reflux (GERD) Hyperlipidemia Limited range of motion (ROM) of shoulder Menopause Migraine Migraine Palpitations Pneumonia Sleep apnea Urinary tract infection Surgical History H/O carpal tunnel repair H/O gastric sleeve H/O tubal ligation History of appendectomy History of arthroscopy of right shoulder Family History Brother Lung cancer Sister Family history of hypertension Sister Cervical cancer Breast cancer Social History Smoking Status: Former smoker pack-years: 1 how long ago did patient quit smokin years ago alcohol intake: never substance use type: denies use current occupational status: disabled and other Travel in the last 8 weeks: None household members: family housing: house current occupational exposures/hazards: No caffeine: No [facility] Anesthesia Checklist Patient Identification Patient Identification: Verbal (Name & ) Structural Data Admitted From: Home Planned Operative Procedure/s: orif r 4th and 5th metatarsal NPO Status Verified Time NPO: 00:00 Additional verifications Anesthesia Reactions: No Hx Blood Transfusions: No Blood Transfusion Reaction: No Airway Assessment C-Spine Mobility Assessed: Yes TMJ Mobility Assessed: Yes Dentition: Good Dentition Neurological Assessment Level of Consciousness: Awake, Alert and Appropriate Anesthesia Plan Anesthesia Risk discussed: Yes Anesthesia Plan: Verified ASA Class: II Anesthesia Type: General
--- NOTE | 2022-04-12 11:04 | P.PNANES_ITS ---
[facility] Anesthesia Record Part I Anesthesia Record I Intake, IV Amount: 1,500 Estimated blood loss (mL): 0 Urine output (mL): 0 Blood Pressure: 165/90 SaO2: 96 Pulse Rate: 84 Respiratory Rate: 12 Temperature: 97.9 F Patient is:: Awake and Stable Stable to PACU at:: 11:00
--- NOTE | 2022-04-12 11:22 | EXP.OP.NOTE ---
Date of procedure: 04/12/22 Pre-op Diagnosis:: Right 4-5th hammertoe Adductovarus deformity Right tailor's bunion Post-op Diagnosis:: Same Procedure performed:: Right 4-5th hammertoe repair (PIPJ arthroplasty) Right 5th MPJ capsulotomy Right 5th metatarsal ostectomy (tailor's bunionectomy) Soft tissue reconstruction for angular toe deformity (4-5th skin plasty) Surgeon:: Guerda Winter DPM [employer] TECHNICIAN:: Rj Peters Anesthesia: GETA and local (25cc 0.5% marcaine plain) Estimated blood loss (mL): 15 Clinical Note:: Patient is a 57-year-old female who presents with continued hammertoe pain and worsening fifth toe callus. The patient has tried modification of shoe gear, taping, strapping, inserts, ice, elevation, NSAIDs. After a long discussion with the patient in regards to the conservative versus surgical treatment for the hammertoe deformity, the patient has elected to proceed with surgery because they have failed conservative treatment and continue to have pain and worsening symptoms affecting daily activities. The patient has been instructed on the planned procedure, all risk versus benefits of the procedure to include bleeding, infection, nerve and blood vessel damage, need for further surgery, delay in healing of soft tissue or bone, failure of bones to heal, non-union, mal-union, implant failure, recurrence of deformity, prolonged pain and recovery, prolonged swelling, CRPS/RSD, DVT and anesthetic complications. No guarantees were given. All questions fully answered. The patient verbalized understanding and agreed to proceed with surgery. Written consent was obtained. Medical clearance per PCP-Dr Nichols. Has seen Cardiology in past. Necessary labs and pre-op testing ordered: CBC, CMP, EKG, CXR. Patient has crutches, post op shoe. Rx given for walker due to her shoulder issues, can not use crutches. Operative findings:: Right fourth and fifth adductovarus contracture rotation deformity with hammertoe. The fifth metatarsal head prominent laterally consistent with tailor's bunion. No significant cystic defects or signs of infection noted Operative note:: On this date and time patient was deemed an appropriate surgical candidate. With informed consent signed, the patient was taken to the operating theater. The patient was positioned supine. General anesthesia was induced. Tourniquet was applied to the right mid-calf. Pre-op right ankle block given with 15 cc 0.5% marcaine plain. The right lower extremity was prepped and drapped in normal sterile fashion. Right 4?5th digit hammertoe repair, soft tissue reconstruction for angular toe deformity: Attention was directed to the dorsal aspect of the PIPJ where an elliptical incision was mapped out. A piece of the skin was removed in a wedge fashion in order to derotate the curly toe deformity. Dissection carried down to the level of the PIPJ where a transverse tenotomy was performed releasing medial lateral collateral ligaments. The head of the proximal phalanx was visualized and resected. Good healthy cancellous bone noted with no signs of infection. Wound was flushed with copious amounts of saline. 3-0 Vicryl used to close tendon in an over and over fashion. The deformity was able to be be rotated and reduced. The skin wedge that was removed was repaired such that the toe was held straight in place and nylon used to suture the skin. Right fifth MPJ capsulotomy, fifth metatarsal ostectomy/tailor's bunionectomy: A separate linear incision was mapped out over the fifth MPJ. Dissection down to level of bone, care taken to maintain surgical hemostasis and safely retract neurovascular structures. Fifth MPJ soft tissue was released which did help contracture at this level. The dorsal lateral prominence was resected with a rongeur and a power rasp was used to smooth down the edges so there was no sharp edge. Wound was flushed with saline. Deep tissue repaired with 3-0 Vicryl. 4-0 Nylon was used to close skin in a simple sutur
--- NOTE | 2022-04-12 11:33 | SUR.PHASEI ---
1130- detailed report called to rylie sena in post op 1131- pt left in stable condition with rylie loredo in post op
--- NOTE | 2022-04-12 13:58 | EXP.ANES.CKL ---
PFSH PFSH Medical History Allergies Anxiety Appendicitis Arthritis Chest pain Cholecystectomy planned Depression Depression Dizziness H/O clavicle fracture H/O fracture of humerus History of COVID-19 History of gastroesophageal reflux (GERD) History of gastroesophageal reflux (GERD) Hyperlipidemia Limited range of motion (ROM) of shoulder Menopause Migraine Migraine Palpitations Pneumonia Sleep apnea Urinary tract infection Surgical History H/O carpal tunnel repair H/O gastric sleeve H/O tubal ligation History of appendectomy History of arthroscopy of right shoulder Family History Brother Lung cancer Sister Family history of hypertension Sister Cervical cancer Breast cancer Social History Smoking Status: Former smoker pack-years: 1 how long ago did patient quit smokin years ago alcohol intake: never substance use type: denies use current occupational status: disabled and other Travel in the last 8 weeks: None household members: family housing: house current occupational exposures/hazards: No caffeine: No [facility] Anesthesia Checklist Patient Identification Patient Identification: Verbal (Name & ) Structural Data Admitted From: Home Planned Operative Procedure/s: orif l 5th metatarsal Additional verifications Anesthesia Reactions: No Hx Blood Transfusions: No Blood Transfusion Reaction: No Airway Assessment C-Spine Mobility Assessed: Yes TMJ Mobility Assessed: Yes Dentition: Good Dentition Neurological Assessment Level of Consciousness: Awake, Alert and Appropriate Anesthesia Plan Anesthesia Risk discussed: Yes Anesthesia Plan: Verified ASA Class: II Anesthesia Type: General w/block
--- NOTE | 2022-04-12 13:59 | EXP.ANES.I ---
[facility] Anesthesia Record Part I Anesthesia Record I Intake, IV Amount: 1,500 Estimated blood loss (mL): 0 Urine output (mL): 0 Blood Pressure: 94/78 SaO2: 98 Pulse Rate: 124 Respiratory Rate: 12 Temperature: 98.7 F Patient is:: Awake and Stable Stable to PACU at:: 13:55
--- NOTE | 2022-04-13 09:52 | EXP.ANES.II ---
[facility] Anesthesia Record Part II Anesthesia Record Part II Discharge Time: 11:30 Destination: Surgical Day Care (OP Surgery) PACU nurse assessment reviewed?: Yes Patient Condition:: Good Anesthesia Complications:: None Swallowing reflex intact?: Yes Cyanosis?: No Blood Pressure: 150/80 Pulse Rate: 80 Temperature: 97.3 F Mental Status: Alert & Oriented Pain level:: 0 Nausea and/or vomitting:: None Intake, IV Amount: 0
[2022-04-13 09:54] VITALS: BP 150/80; PULSE 80; TEMP 36.3
== END 2022-04-12 12:01 | disposition home or self-care (01) ==
PROVIDERS: PCP Internal Medicine Adolescent Medicine; Visit Provider Podiatrist
PROC: (CPT 28124; principal; 2022-04-12 09:45)
DX: M20.41 Other hammer toe(s) (acquired), right foot (principal); M21.621 Bunionette of right foot; M20.61 Acquired deformities of toe(s), unspecified, right foot; M77.51 Other enthesopathy of right foot and ankle
CPT/HCPCS: 28124; 28270; 28285 ×2; 28308; 73620; 73630; 76000; 96374; J2405

== ENCOUNTER → 2022-04-26 10:18 | Outpatient (POV) | payer MEDICARE, OTHER, SELFPAY ==
[2022-04-26 10:51] VITALS: BP 125/83; PULSE 87; RESP 18; TEMP 36.7; O2SAT 96; BMI 35.7
--- NOTE | 2022-04-26 11:09 | EXP.PAIN.SOA ---
[facility] Pain Management SOAP Note Subjective:: Patient is a pleasant 57-year-old female who presents today for follow-up of trigger point injections of right cervical paraspinous and right trapezius on 04/11/2022. We are currently treating the patient for neck pain, myofascial pain, degenerative disc disease of cervical spine with cervical radiculopathy symptoms. Patient states that she has not been able to really tell how much these injections helped. She states the day following this procedure she had multiple toes corrected on her right foot by Dr. Alicia which caused increased pain. She states she was put on pain medication which did significantly help her pain symptoms however she is unclear whether or not it was the pain medication or the injections that provided increased relief. today the patient rates her pain a 7 out of 10. She states the pain is all in her neck that radiates into her right shoulder. Patient denies any new trauma or injury. She states this is an aching, throbbing sensation that is worse with increased activity and even has numbness and tingling into her right arm. Patient has had multiple surgeries on her right shoulder which is caused increased scar tissue and trauma. Patient states she has had injections in the past in her right shoulder however Dr. Gamble was not able to do his last shoulder injections due to the extent of scar tissue. She states that Dr. Colon also did injections however she did not notice any improvement. In the past patient has been to see physical therapy for 3 years consecutively however she got no relief of her symptoms. Patient has tried [id number] Tylenol and and ibuprofen with minimal improvement of her symptoms. Patient states that her pain affects her ability to do activities of daily living and often affects her sleeping as well. Patient is interested in any additional options we can give to help give her relief. Patient does use compounding cream that adds additional relief however short-term. Patient also continues to use heat and ice with minimal improvement of her symptoms. Her Brian is [phone]. It is been reviewed and appropriate. Review of Systems: General: No recent weight changes, no fever, no sleep disturbances Respiratory: No cough, no shortness of air, no recurring pulmonary infections Cardiovascular/peripheral vascular: No chest pain, no palpitations, no edema, no shortness of breath Gastrointestinal: No new onset incontinence, normal bowel movements reported Genitourinary: No new onset incontinence Musculoskeletal: Neck pain, right shoulder pain, right arm pain Psychiatric: [Normal mood/affect] Neurological: [Denies weakness in extremities], [denies balance issues] Objective:: Physical Exam: General: Alert and oriented x3, no acute distress, pleasant and cooperative Lungs: Respirations even and unlabored, symmetrical chest expansion Eyes: PERRL Musculoskeletal: Flexion and extension of cervical [spine] somewhat guarded secondary to pain, [antalgic gait noted] Neurological: Speech clear, no gross sensory deficit Assessment:: Degenerative disc disease of cervical spine with cervical radiculopathy symptoms, myofascial pain, neck pain Plan:: Patient continues to have significant pain in her neck that radiates into her right arm. Patient had limited range of motion of her cervical spine during today's visit. I have discussed with the patient regarding epidural injection at this site. Risk and benefits were discussed with the patient. She would like to proceed forward with this injection. She is not currently on any blood thinners. I will also order the patient tizanidine 4 mg at night and provide a 14-day supply of this medication. I have instructed the patient to monitor her blood pressure while taking this medication with her acyclovir. We will schedule the patient for a ALEN C6-C7. Patient has been instructed to contact the clinic with any concerns before the next appointment.
== END | disposition home or self-care (01) ==
PROVIDERS: PCP Nurse Practitioner Family; Visit Provider Nurse Practitioner Family
DX: M50.123 Cervical disc disorder at C6-C7 level with radiculopathy (principal); M79.10 Myalgia, unspecified site
CPT/HCPCS: 99212; G0463

== ENCOUNTER 2022-05-23 10:58 | Day surgery (SDC) | payer MEDICARE, OTHER, SELFPAY ==
[2022-05-23 11:07] VITALS: BP 114/63; PULSE 70; RESP 18; TEMP 36.7; O2SAT 98; BMI 35.5
[2022-05-23 11:24] VITALS: BP 103/60; PULSE 78; RESP 20; O2SAT 98
--- NOTE | 2022-05-23 11:25 | P.PCN_ITS ---
Procedure Date: 05/23/22 Time: 11:15 Anesthesiologist:: Gallo Joe CRNA Complications:: None Pre-procedure Diagnosis:: Degenerative disc disease cervical spine multilevels. Cervical radiculopathy. Post-procedure Diagnosis:: Same. Indications for Procedure:: This patient is a pleasant 57-year-old female that comes our clinic today for cervical epidural steroid injection C6-7 level. Patient has cervical neck pain she describes as constant, dull, aching. Also right arm radicular symptoms. She rates her pain 7/10 Procedure Details:: Procedure:Cervical epidural steroid injection Informed consent was obtained and the risks and benefits of the procedure were explained to the patient. The patient was taken to the procedure room and noninvasive monitors placed, including noninvasive blood pressure cuff and pulse oximeter. The neck was prepped using Chloraprep as a cleansing solution. The C6- C7 interspace was viewed using fluroscopy. The skin and subcutaneous tissues were anesthetized using lidocaine 1.5% and a 25-gauge needle. After this an 18- gauge Touhy epidural needle was placed into the C6-C7 interspace under fluroscopy guidance and advanced using loss of resistance to air until the epidural space was encountered. After confirmation of needle placement in the epidural space using contrast dye, a solution containing normal saline, 2 mL and Depo-Medrol 80 mg was incrementally injected into the cervical epidural space.~ The patient tolerated the procedure well with no complications. The patient was observed in the Pain Clinic and then discharged home neurologically intact. Plan and Disposition:: Patient was discharged without incident
== END 2022-05-23 11:25 | disposition home or self-care (01) ==
PROVIDERS: PCP Nurse Practitioner Family; Visit Provider Nurse Anesthetist, Certified Registered
DX: M50.123 Cervical disc disorder at C6-C7 level with radiculopathy (principal)
CPT/HCPCS: 62321; J1040; Q9966

== ENCOUNTER → 2022-05-29 11:03 | Outpatient (POV) | payer MEDICARE, OTHER, SELFPAY ==
[2022-05-29 11:50] VITALS: BP 115/59; PULSE 74; RESP 19; O2SAT 97; BMI 36.1
--- NOTE | 2022-05-29 11:55 | EXP.PAIN.SOA ---
[facility] Pain Management SOAP Note Subjective:: Patient is a pleasant 57-year-old female who presents today for follow-up of cervical epidural steroid injection at C6-C7 on 05/23/2022. We are currently treating the patient for degenerative disc disease of cervical spine multilevels with cervical radiculopathy symptoms, myofascial pain, right shoulder pain, neck pain. Patient states that she got about 40 to 50% relief following this injection lasting 3 days. Today she states she is back at her baseline. She rates her pain a 6 out of 10 and states majority of her pain is still related to her right shoulder. Patient has had multiple surgeries in the past on her right shoulder by Dr. Jones. Patient states she does have significant scar tissue and trauma and that she has tried previous injections in that joint by a pain Dr. Gamble however he states he was unable to do the injection due to the extent of scar tissue. Patient was also seeing Dr. Colon for injections however she did not notice significant improvement. Patient has been to physical therapy in the past for 3 years consecutively however this provided no additional relief. Patient does have a history of gastric sleeve and cannot tolerate any NSAIDs. She does use [id number] Tylenol with minimal improvement of her symptoms. Patient states this affects her activities of daily living and she cannot perform simple activities of washing her hair due to the pain. She also states this does affect her sleeping and that she has to sleep in a recliner. Patient is prescribed compounding cream that she states does provide some improvement however is only short-term. Patient has tried heat and ice and states that heat works better. Patient has had multiple injections in the past however has only provided minimal improvement. Patient does not want to do any additional shoulder surgeries. Review of Systems: General: No recent weight changes, no fever, no sleep disturbances Respiratory: No cough, no shortness of air, no recurring pulmonary infections Cardiovascular/peripheral vascular: No chest pain, no palpitations, no edema, no shortness of breath Gastrointestinal: No new onset incontinence, normal bowel movements reported Genitourinary: No new onset incontinence Musculoskeletal: Right shoulder pain Psychiatric: [Normal mood/affect] Neurological: [Denies weakness in extremities], [denies balance issues] Objective:: Physical Exam: General: Alert and oriented x3, no acute distress, pleasant and cooperative Lungs: Respirations even and unlabored, symmetrical chest expansion Eyes: PERRL Musculoskeletal: Flexion and extension of right shoulder guarded secondary to pain, [antalgic gait noted] Neurological: Speech clear, no gross sensory deficit Assessment:: Degenerative disc disease of cervical spine multilevel with cervical radiculopathy symptoms, myofascial pain, right shoulder pain, neck pain Plan:: Patient continues to experience significant pain in her right shoulder and has not had any recent imaging. Patient did have limited range of motion and pain during today's exam. I will order a right shoulder MRI without contrast at today's visit. I have also discussed with the patient that she may be a beneficial candidate for a spinal cord stimulator trial. Risk and benefits were discussed with the patient and educational handouts given. We will follow-up with the patient following her imaging for reevaluation of symptoms and plan of care. Patient has been instructed to contact the clinic with any concerns before the next appointment. Dr. Ordaz has reviewed this note and agrees with this plan of care. This note was dictated using voice recognition software and make contain errors or omissions. [facility] Medical History Allergies Anxiety Appendicitis Arthritis Chest pain Cholecystectomy planned Depression Depression Dizziness H/O clavicle fracture H/O fra
== END ==
PROVIDERS: PCP Nurse Practitioner Family; Visit Provider Nurse Practitioner Family
DX: M50.123 Cervical disc disorder at C6-C7 level with radiculopathy (principal); M79.18 Myalgia, other site; M25.511 Pain in right shoulder; Z79.899 Other long term (current) drug therapy
CPT/HCPCS: 99212; G0463

== ENCOUNTER → 2022-06-20 16:22 | Outpatient (CLI) | payer MEDICARE, OTHER, SELFPAY ==
--- NOTE | 2022-06-20 16:26 | MR_ITS ---
PROCEDURE INFORMATION: Exam: MR Right Upper Extremity Joint Without Contrast; Shoulder Exam date and time: 06/20/2022 4:25 PM Age: 57 years old Clinical indication: Pain; Shoulder; Right; Prior surgery; Surgery date: 6+ months; Additional info: Right shoulder pain TECHNIQUE: Imaging protocol: Magnetic resonance imaging of the Right upper extremity without contrast. Exam focused on the shoulder. COMPARISON: CR XR SHOULDER RT MIN 2V 01/18/2022 1:40 PM FINDINGS: Bones and cartilage: Abnormal morphology of the humeral head. There is flattening of the posterolateral aspect of the humeral head, consistent with a Hill-Sachs deformity in the appropriate clinical setting. Flattening of the ventral lateral aspect of the humeral head is also visualized, suggestive of prior trauma. Postoperative changes are identified involving the humeral head. Marrow edema is identified of the proximal humerus, most significant the level of the humeral head. Mild marrow edema also visualized within the acromion process. There is glenoid cartilage loss, with marrow edema involving the superior aspect of glenoid process. Spurring of the medial aspect of the humeral head, consistent with glenohumeral arthropathy. This marrow edema is likely secondary to arthropathy or prior trauma. Multiple foci of magnetic susceptibility are identified adjacent to the right shoulder, consistent with postoperative change. This involves the soft tissues and musculature. Multiple foci are noted within the deltoid muscle. Bone loss involving the distal right clavicle, consistent with postoperative change or osteolysis. Elevation of the humeral head. Joint spaces: Small to moderate size complex glenohumeral joint effusion. Glenoid labrum: Abnormal signal intensity morphology of the superior aspect of the labrum, with suggested labral tear. Supraspinatus tendon: The supraspinatus tendon is incompletely visualized, consistent with full-thickness tear. Small amount of fluid within this defect as well as the subdeltoid/subacromial bursa. Infraspinatus tendon: Infraspinatus tendon tear, with full-thickness tear involving the anterior fibers. Subscapularis tendon: No evidence of tear. Teres minor tendon: The teres minor tendon is incompletely visualized, and tendon tear is considered. Tendon of biceps brachii: The proximal long of the biceps tendon is poorly visualized. This can be contributed by postoperative change although tendon tear is considered. Glenohumeral ligaments: Increased signal intensity is visualized involving the inferior glenohumeral ligament, consistent with tear or adhesive capsulitis. Muscles: Atrophy of the supraspinatus, infraspinatus, and teres minor muscles. See above. Soft tissues: See above. Lymph nodes: Nonspecific axillary lymph nodes. IMPRESSION: 1. There is flattening of the posterolateral aspect of the humeral head, consistent with a Hill-Sachs deformity in the appropriate clinical setting. Flattening of the ventral lateral aspect of the humeral head is also visualized, suggestive of prior trauma. 2. Postoperative changes are identified involving the humeral head. Marrow edema is identified of the proximal humerus, most significant the level of the humeral head. Mild marrow edema also visualized within the acromion process. This marrow edema is likely postoperative or post-traumatic. Infection is also within the differential. Clinical correlation recommended. 3. Glenohumeral arthropathy. There is glenoid cartilage loss, with marrow edema involving the superior aspect of glenoid process. This marrow edema is likely secondary to arthropathy or prio
== END ==
PROVIDERS: PCP Nurse Practitioner Family; Visit Provider Nurse Practitioner Family
DX: M25.511 Pain in right shoulder (principal)
CPT/HCPCS: 73221

== ENCOUNTER → 2022-06-22 11:36 | Outpatient (POV) | payer MEDICARE, OTHER, SELFPAY ==
[2022-06-22 11:51] VITALS: BP 130/69; PULSE 73; RESP 18; O2SAT 98; BMI 36.1
--- NOTE | 2022-06-22 12:06 | EXP.PAIN.SOA ---
[facility] Pain Management SOAP Note Subjective:: Patient is a pleasant 57-year-old female who presents today for follow-up of MRI of her right shoulder. We are currently treating the patient for degenerative disc disease of cervical spine multilevels with cervical radiculopathy symptoms, myofascial pain, right shoulder pain, neck pain. Today the patient rates her pain a 6 out of 10. Patient denies any new trauma or injury. Patient denies any change location or type of pain she experiences. Patient states the pain is in her upper back and neck and right shoulder. Patient has had multiple surgeries of the right shoulder by Dr. Jones in the past. She is also been seen by Dr. Gamble who did multiple injections however only provided minimal to no relief. Patient was seen for over 3 years trying to get some improvement. Patient does have a history of gastric sleeve and cannot tolerate NSAIDs. Patient does use [id number] Tylenol with minimal improvement. She also uses heat and ice with a heating pad providing more improvement however temporary. Patient has been prescribed compounding cream that does help some. Patient states this does affect her ability to perform activities of daily living. Patient says she cannot tolerate to do simple task of washing her hair or reaching into a cabinet due to the pain and limited range of motion. Patient does state that she has to sleep in a chair to get any relief. Patient has tried prescription pain medications as well with minimal to mild relief. Patient has tried physical therapy in the past however this caused significant worsening of her pain symptoms. Patient is limited on how much exercise she can do at home due to the pain. Her Brian is [phone]. It is been reviewed and appropriate. Review of Systems: General: No recent weight changes, no fever, no sleep disturbances Respiratory: No cough, no shortness of air, no recurring pulmonary infections Cardiovascular/peripheral vascular: No chest pain, no palpitations, no edema, no shortness of breath Gastrointestinal: No new onset incontinence, normal bowel movements reported Genitourinary: No new onset incontinence Musculoskeletal: Upper back/neck pain, right shoulder pain Psychiatric: [Normal mood/affect] Neurological: [Denies weakness in extremities], [denies balance issues] Objective:: Physical Exam: General: Alert and oriented x3, no acute distress, pleasant and cooperative Lungs: Respirations even and unlabored, symmetrical chest expansion Eyes: PERRL Musculoskeletal: Flexion and extension of cervical [spine] somewhat guarded secondary to pain, [antalgic gait noted] Neurological: Speech clear, no gross sensory deficit PROCEDURE INFORMATION: Exam: MR Right Upper Extremity Joint Without Contrast; Shoulder Exam date and time: 06/20/2022 4:25 PM Age: 57 years old Clinical indication: Pain; Shoulder; Right; Prior surgery; Surgery date: 6+ months; Additional info: Right shoulder pain TECHNIQUE: Imaging protocol: Magnetic resonance imaging of the Right upper extremity without contrast. Exam focused on the shoulder. COMPARISON: CR XR SHOULDER RT MIN 2V 01/18/2022 1:40 PM FINDINGS: Bones and cartilage: Abnormal morphology of the humeral head. There is flattening of the posterolateral aspect of the humeral head, consistent with a Hill-Sachs deformity in the appropriate clinical setting. Flattening of the ventral lateral aspect of the humeral head is also visualized, suggestive of prior trauma. Postoperative changes are identified involving the humeral head. Marrow edema is identified of the proximal humerus, most significant the level of the humeral head. Mild marrow edema also visualized within the acromion process. There is glenoid cartilage loss, with marrow edema involving the superior aspect of glenoid process. Spurring of the medial aspect of the humeral head, consistent with glenohumeral arthropathy. This marrow edema is likely secondary to arth
== END ==
PROVIDERS: PCP Nurse Practitioner Family; Visit Provider Nurse Practitioner Family
DX: M50.10 Cervical disc disorder with radiculopathy, unspecified cervical region (principal); M79.18 Myalgia, other site; M25.511 Pain in right shoulder; Z79.899 Other long term (current) drug therapy
CPT/HCPCS: 99212; G0463

== ENCOUNTER 2022-12-04 17:03 | Emergency (ER) | payer MEDICARE, OTHER, SELFPAY ==
[2022-12-04 17:20] VITALS: BP 146/82; PULSE 72; RESP 20; TEMP 36.8; O2SAT 95; BMI 39.2
--- NOTE | 2022-12-04 17:23 | EXP.UTC ---
Discharge Plan Disposition Patient Disposition: Home, Self-Care Condition: Good Prescriptions Prescriptions: New doxycycline hyclate [doxycycline hyclate] 100 mg capsule 100 mg PO Q12 10 Days Qty: 20 0RF No Action methocarbamol 500 mg tablet 500 mg PO PRN nystatin-triamcinolone 100,000-0.1 unit/g-% cream 1 applic topical DAILY paroxetine HCl 40 mg tablet 40 mg PO DAILY pantoprazole 40 mg tablet,delayed release (DR/EC) 40 mg PO DAILY Ubrelvy 100 mg tablet 100 mg PO .COMPLEX Rx Instructions: 100 mg PO prn; ondansetron 4 mg tablet,disintegrating 4 mg PO Q6H Qty: 30 2RF cetirizine 10 mg tablet 10 mg PO DAILY Label Comments: TAKE ONE TABLET BY MOUTH EVERY DAY tramadol 50 mg Tablet 50 mg PO Q6H PRN (Reason: Pain) biotin 300 mcg Tablet 300 mcg PO DAILY spironolactone 25 mg tablet See Rx Instructions .ROUTE .COMPLEX Rx Instructions: TAKE ONE TABLET BY MOUTH EVERY DAY rosuvastatin 20 mg tablet See Rx Instructions .ROUTE .COMPLEX Rx Instructions: TAKE ONE TABLET BY MOUTH EVERY DAY Referrals Follow up/Referrals: Loren Tesfaye APRN [Primary Care Provider] - See instructions Activity Restrictions/Add. Instructions Additional Instructions/Restrictions: Rest the extremity, Elevate the extremity as tolerated while you are resting. Take the medications as directed. Follow up with your regular doctor. GO TO THE ER FOR ANY WORSENING SYMPTOMS Clinical Impressions Clinical Impression: Cellulitis of foot, left Instructions Patient Instructions: Cellulitis Discharge ED Provider: Israel Hines [facility] General Stated complaint: left foot swelling, no accident Time Seen by Provider: 12/04/22 17:23 History of Present Illness Provider Complaint: She c/o left foot edema and redness for the past 2 days. She denies any injury. She denies fever/chills/malaise. Related Data Home Medications Medication Instructions Recorded Confirmed pantoprazole 40 mg tablet,delayed 40 mg PO DAILY GERD 10/28/20 10/26/22 release ubrogepant 100 mg tablet (Ubrelvy) 100 mg PO .COMPLEX . 01/02/22 10/26/22 rosuvastatin 20 mg tablet See Rx Instructions .Route 03/28/22 10/26/22 .COMPLEX Cholesterol spironolactone 25 mg tablet See Rx Instructions .Route 03/28/22 10/26/22 .COMPLEX fluid retention biotin 300 mcg tablet 300 mcg PO DAILY Supplement 04/10/22 10/26/22 cetirizine 10 mg tablet 10 mg PO DAILY Allergy symptoms 04/10/22 10/26/22 tramadol 50 mg tablet 50 mg PO Q6H PRN Pain 04/10/22 10/26/22 paroxetine HCl 40 mg tablet 40 mg PO DAILY MOOD 04/24/22 10/26/22 methocarbamol 500 mg tablet 500 mg PO PRN 10/26/22 10/26/22 nystatin-triamcinolone 100,000 1 applic topical DAILY 10/26/22 10/26/22 unit/g-0.1 % topical cream Previous Rx's Medication Instructions Recorded ondansetron 4 mg disintegrating 4 mg PO Q6H nausea and vomiting 04/11/22 tablet #30 tabs doxycycline hyclate 100 mg capsule 100 mg PO Q12 10 days #20 caps 12/04/22 Allergies Allergy/AdvReac Type Severity Reaction Status Date / Time latex Allergy Intermediate I-HIVES Verified 10/26/22 10:32 NSAIDS (Non-Steroidal AdvReac Verified 10/26/22 10:32 Anti-Inflamma prednisone AdvReac Verified 10/26/22 10:32 [facility] Disclaimer: The information contained in this section may have been updated after the patient was seen, as this information can be updated by other users. Medical History Allergies Anxiety Appendicitis Arthritis Chest pain Cholecystectomy planned Depression Depression Dizziness H/O clavicle fracture H/O fracture of humerus History of COVID-19 History of gastroesophageal reflux (GERD) History of gastroesophageal reflux (GERD) Hyperlipidemia Limited range of motion (ROM) of shoulder Menopause Migraine Migraine Palpitations Pneumonia Sleep apnea Urinary tract infe
[2022-12-04 18:11] LABS: Basophils # 0.1 K/mm3 (0-0.2); Basophils % 0.6 % (0.1-2.0); Eosinophils # 0.3 K/mm3 (0.0-0.4); Eosinophils % 2.4 % (0.1-12.0); Hemoglobin 14.2 g/dL (12.2-16.2); Lymphocytes # 2.7 K/mm3 (0.7-4.5); Lymphocytes % 26.1 % (10-50); Mean Corpuscular Hemoglobin 29.6 pg (27.0-31.2); Mean Corpuscular Volume 89.8 fl (81-99); Mean Platelet Volume 7.5 fl (7.4-10.4); Monocytes # 0.5 K/mm3 (0.1-1.0); Neutrophils # 6.7 K/mm3 (1.8-7.8); Neutrophils % 65.8 % (37.0-80.0); Platelet Count 337 K/mm3 (142-424); Red Blood Count 4.79 M/mm3 (4.20-5.40); Red Cell Distribution Width 13.9 % (11.5-17.5); White Blood Count 10.2 K/mm3 (4.8-10.8)
[2022-12-04 18:17] LABS: Anion Gap 15.1 mEq/L (5-15); Blood Urea Nitrogen 15 mg/dl (7-17); Carbon Dioxide 28 mmol/L (22.0-30.0); Chloride 100 mmol/L (98-107); Creatinine Clearance Estimated 147 mL/min (50-200); Estimated Glomerular Filt Rate 104 ml/min (>60); GFR (African American) 126 ML/MIN (>60); Glucose 104 mg/dl (74-100); Potassium 4.1 mmoL/L (3.5-5.1); Sodium 139 mmol/L (136-145); Uric Acid 3.8 mg/dl (2.5-6.2)
[2022-12-04 18:22] LABS: C-Reactive Protein 2.9 mg/L (0-4)
[2022-12-04 18:30] VITALS: BP 146/82; PULSE 72; RESP 20; TEMP 36.8; O2SAT 95
[2022-12-04 19:18] LABS: Erythrocyte Sedimentation Rate 49 mm/hr (0-30)
== END 2022-12-04 18:35 | disposition home or self-care (01) ==
PROVIDERS: Emergency Provider Nurse Practitioner Family; PCP Nurse Practitioner Family
DX: L03.116 Cellulitis of left lower limb (principal); K21.9 Gastro-esophageal reflux disease without esophagitis; E78.5 Hyperlipidemia, unspecified; F33.9 Major depressive disorder, recurrent, unspecified; R70.0 Elevated erythrocyte sedimentation rate
CPT/HCPCS: 80048; 84550; 85025; 85651; 86140; 99212; 99214; G0463

== ENCOUNTER 2023-02-03 17:22 | Emergency (ER) | payer MEDICARE, SELFPAY ==
[2023-02-03 17:23] VITALS: BP 118/67; PULSE 78; RESP 18; TEMP 36.6; O2SAT 95; BMI 36.7
[2023-02-03 17:42] LABS: Microscopic, Urine URINE MICROSCOPIC (MICROSCOPIC)
[2023-02-03 17:46] LABS: Appearance,Urine CLEAR (Clear); Bilirubin,Urine Negative (Negative); Blood, Urine Negative (Negative); Color,Urine YELLOW (Yellow); Glucose,Urine (UA) Negative (Negative); Ketones,Urine Negative (Negative); Leukocyte Esterase,Urine TRACE (Negative); Nitrate,Urine Negative (Negative); Protein,Urine Negative (Negative)
--- NOTE | 2023-02-03 17:57 | EXP.UTC ---
Discharge Plan Disposition Patient Disposition: Home, Self-Care Condition: Good Prescriptions Prescriptions: New phenazopyridine [Pyridium] 200 mg tablet 200 mg PO Q8H 2 Days Qty: 6 0RF ciprofloxacin HCl [Cipro] 500 mg tablet 500 mg PO BID 7 Days Qty: 14 0RF No Action methocarbamol 500 mg tablet 500 mg PO PRN nystatin-triamcinolone 100,000-0.1 unit/g-% cream 1 applic topical DAILY paroxetine HCl 40 mg tablet 40 mg PO DAILY pantoprazole 40 mg tablet,delayed release (DR/EC) 40 mg PO DAILY Ubrelvy 100 mg tablet 100 mg PO .COMPLEX Rx Instructions: 100 mg PO prn; ondansetron 4 mg tablet,disintegrating 4 mg PO Q6H Qty: 30 2RF cetirizine 10 mg tablet 10 mg PO DAILY Patient Comments: TAKE ONE TABLET BY MOUTH EVERY DAY tramadol 50 mg Tablet 50 mg PO Q6H PRN (Reason: Pain) biotin 300 mcg Tablet 300 mcg PO DAILY doxycycline hyclate [doxycycline hyclate] 100 mg capsule 100 mg PO Q12 10 Days Qty: 20 0RF spironolactone 25 mg tablet See Rx Instructions .ROUTE .COMPLEX Rx Instructions: TAKE ONE TABLET BY MOUTH EVERY DAY rosuvastatin 20 mg tablet See Rx Instructions .ROUTE .COMPLEX Rx Instructions: TAKE ONE TABLET BY MOUTH EVERY DAY Referrals Follow up/Referrals: Loren Tesfaye APRN [Primary Care Provider] - See instructions Activity Restrictions/Add. Instructions Additional Instructions/Restrictions: Drink plenty of fluids. Take tylenol for pain or fever. Take the medications as directed. Follow up with your regular doctor. GO TO THE ER FOR ANY WORSENING SYMPTOMS The pyridium will make your urine turn orange, this is an expected side effect. It will stain your clothes if it comes into contact with them. We will culture the urine. That will tell what bacteria is causing your infection and which antibiotics will treat it best. Sometimes the first antibiotic we prescribe turns out to not work against different bacteria. So, make sure you follow up within 3 days if you are not getting better. Clinical Impressions Clinical Impression: UTI (urinary tract infection) Instructions Patient Instructions: Urine Culture, DI for Urinary Tract Infection (UTI), Phenazopyridine Discharge ED Provider: Israel Hines [facility] General Stated complaint: possible UTI Mode of Arrival: Ambulatory Source of Information: Patient Limitations: No Limitations Time Seen by Provider: 02/03/23 17:57 Description of Symptoms (Recalled from Triage Doc. by RN): Patient reports a possible UTI. HEENT Symptoms (Recalled from RN notes): No Resp Symptoms (Recalled from RN notes): No Skin Symptoms (Recalled from RN notes): No MS Symptoms (Recalled from RN notes): No Functional Status (Recalled from RN notes): wnl History of Present Illness Provider Complaint: She states that for the past 2 days she has had urinary frequency, dysuria, and strong smelling urine. Related Data Home Medications Medication Instructions Recorded Confirmed pantoprazole 40 mg tablet,delayed 40 mg PO DAILY GERD 10/28/20 10/26/22 release ubrogepant 100 mg tablet (Ubrelvy) 100 mg PO .COMPLEX . 01/02/22 10/26/22 rosuvastatin 20 mg tablet See Rx Instructions .Route 03/28/22 10/26/22 .COMPLEX Cholesterol spironolactone 25 mg tablet See Rx Instructions .Route 03/28/22 10/26/22 .COMPLEX fluid retention biotin 300 mcg tablet 300 mcg PO DAILY Supplement 04/10/22 10/26/22 cetirizine 10 mg tablet 10 mg PO DAILY Allergy symptoms 04/10/22 10/26/22 tramadol 50 mg tablet 50 mg PO Q6H PRN Pain 04/10/22 10/26/22 paroxetine HCl 40 mg tablet 40 mg PO DAILY MOOD 04/24/22 10/26/22 methocarbamol 500 mg tablet 500 mg PO PRN 10/26/22 10/26/22 nystatin-triamcinolone 100,000 1 applic topical DAILY 10/26/22 10/26/22 unit/g-0.1 % topical cream Previous Rx's Medication Instructions Recorded ondansetron 4 mg disintegrating 4 mg PO Q6H nausea and vomi
[2023-02-03 18:01] VITALS: BP 118/67; PULSE 78; RESP 18; TEMP 36.6; O2SAT 95
[2023-02-03 18:07] LABS: RBC,Urine Occasional #/hpf (0-3); WBC,Urine Occasional #/hpf (0-3)
== END 2023-02-03 18:01 | disposition home or self-care (01) ==
PROVIDERS: Emergency Provider Nurse Practitioner Family; PCP Nurse Practitioner Family
DX: N39.0 Urinary tract infection, site not specified (principal); E78.5 Hyperlipidemia, unspecified; K21.9 Gastro-esophageal reflux disease without esophagitis; F41.9 Anxiety disorder, unspecified; F32.A Depression, unspecified; J30.9 Allergic rhinitis, unspecified; Z87.891 Personal history of nicotine dependence
CPT/HCPCS: 81001; 87086; 99212; 99214; G0463

== ENCOUNTER 2023-05-16 16:27 | Emergency (ER) | payer MEDICARE, SELFPAY ==
[2023-05-16 16:28] VITALS: BP 123/50; PULSE 77; RESP 16; TEMP 36.6; O2SAT 95; BMI 38.0
--- NOTE | 2023-05-16 17:22 | CT_ITS ---
PROCEDURE INFORMATION: Exam: CT Lumbar Spine Without Contrast Exam date and time: 05/16/2023 5:51 PM Age: 58 years old Clinical indication: Injury or trauma; Fall; Additional info: Fall, midline pain TECHNIQUE: Imaging protocol: Computed tomography of the lumbar spine without contrast. Total images: 282 Radiation optimization: All CT scans at this facility use at least one of these dose optimization techniques: automated exposure control; mA and/or kV adjustment per patient size (includes targeted exams where dose is matched to clinical indication); or iterative reconstruction. REPORTING DATA: Count of CT and Cardiac NM exams in prior 12 months: This patient has received 0 known CTs and 0 known cardiac nuclear medicine studies in the 12 months prior to the current study. COMPARISON: CT THORACIC SPINE WO CON 05/16/2023 5:48 PM FINDINGS: Bones/joints: Increased density noted along the posteroinferior aspect of L1 with questionable associated nondisplaced fracture. Remaining vertebral heights and disc spaces are maintained. Sclerotic density noted within the left iliac crest. Soft tissues: Unremarkable. IMPRESSION: 1. Increased density noted along the posteroinferior aspect of L1 with questionable associated nondisplaced fracture. 2. Remaining vertebral heights and disc spaces are maintained.
--- NOTE | 2023-05-16 17:22 | CT_ITS ---
PROCEDURE INFORMATION: Exam: CT Thoracic Spine Without Contrast Exam date and time: 05/16/2023 5:48 PM Age: 58 years old Clinical indication: Injury or trauma; Fall; Blunt trauma (contusions or hematomas); Additional info: Fall, midline pain TECHNIQUE: Imaging protocol: Computed tomography of the thoracic spine without contrast. Total images: 313 Radiation optimization: All CT scans at this facility use at least one of these dose optimization techniques: automated exposure control; mA and/or kV adjustment per patient size (includes targeted exams where dose is matched to clinical indication); or iterative reconstruction. REPORTING DATA: Count of CT and Cardiac NM exams in prior 12 months: This patient has received 0 known CTs and 0 known cardiac nuclear medicine studies in the 12 months prior to the current study. COMPARISON: [id number] CT abdomen pelvis wo con 09/10/2018 8:35 AM FINDINGS: Bones/joints: Lumbar findings reported separately. The thoracic spine demonstrates mild degenerative changes at multiple levels. No evidence of acute fracture. Soft tissues: Unremarkable. IMPRESSION: 1. The thoracic spine demonstrates mild degenerative changes at multiple levels. 2. No evidence of acute fracture.
--- NOTE | 2023-05-16 17:22 | XR_ITS ---
PROCEDURE INFORMATION: Exam: XR Left Wrist Exam date and time: 05/16/2023 6:09 PM Age: 58 years old Clinical indication: Injury or trauma; Fall; Blunt trauma (contusions or hematomas); Wrist; Left; Additional info: Fall, L wrist deformity TECHNIQUE: Imaging protocol: Radiologic exam of the left wrist. Views: 3 or more views. Total images: 3 COMPARISON: CR [id number] XR wrist LT min 3V 11/29/2017 6:46 AM FINDINGS: Bones/joints: Impacted fracture of the distal radius. Fracture appears to extend to the radiocarpal joint. No evidence of acute dislocation. Soft tissues: Overlying soft tissue swelling. IMPRESSION: 1. Impacted fracture of the distal radius. Fracture appears to extend to the radiocarpal joint. 2. Overlying soft tissue swelling. 3. No evidence of acute dislocation.
--- NOTE | 2023-05-16 17:22 | XR_ITS ---
PROCEDURE INFORMATION: Exam: XR Left Hand Exam date and time: 05/16/2023 6:09 PM Age: 58 years old Clinical indication: Injury or trauma; Fall; Blunt trauma (contusions or hematomas); Hand; Left; Additional info: Fall, L wrist deformity TECHNIQUE: Imaging protocol: Radiologic exam of the left hand. Views: 3 or more views. Total images: 3 COMPARISON: CR [id number] XR hand LT min 3V 10/08/2018 2:01 PM FINDINGS: Bones/joints: Fracture of the distal radius extending to the radiocarpal joint. No other fractures. No evidence of acute dislocation. Soft tissues: Soft tissue swelling is present. IMPRESSION: 1. Fracture of the distal radius extending to the radiocarpal joint. 2. Soft tissue swelling is present. 3. No evidence of acute dislocation.
--- NOTE | 2023-05-16 17:22 | XR_ITS ---
PROCEDURE INFORMATION: Exam: XR Left Humerus Exam date and time: 05/16/2023 6:09 PM Age: 58 years old Clinical indication: Injury or trauma; Fall; Blunt trauma (contusions or hematomas); Arm, upper; Left; Additional info: Fall, L elbow pain without deformity TECHNIQUE: Imaging protocol: Radiologic exam of the left humerus. Views: 2 or more views. Total images: 2 COMPARISON: DX (HUMERUS AP, HUMERUS, HUMERUS AP) 01/28/2019 2:14 PM FINDINGS: Bones/joints: No evidence of acute fracture or dislocation. Soft tissues: Soft tissues are within normal limits. IMPRESSION: No evidence of acute fracture or dislocation.
--- NOTE | 2023-05-16 17:22 | XR_ITS ---
PROCEDURE INFORMATION: Exam: XR Left Elbow Exam date and time: 05/16/2023 6:09 PM Age: 58 years old Clinical indication: Injury or trauma; Fall; Blunt trauma (contusions or hematomas); Elbow; Left; Additional info: Fall, L wrist deformity TECHNIQUE: Imaging protocol: Radiologic exam of the left elbow. Views: 3 or more views. Total images: 3 COMPARISON: DX (HUMERUS AP, HUMERUS, HUMERUS AP) 01/28/2019 2:14 PM FINDINGS: Bones/joints: No evidence of acute fracture or dislocation. Soft tissues: Soft tissues are within normal limits. IMPRESSION: No evidence of acute fracture or dislocation.
--- NOTE | 2023-05-16 17:22 | XR_ITS ---
PROCEDURE INFORMATION: Exam: XR Left Forearm Exam date and time: 05/16/2023 6:09 PM Age: 58 years old Clinical indication: Injury or trauma; Fall; Blunt trauma (contusions or hematomas); Arm, lower; Left; Additional info: Fall, L wrist deformity TECHNIQUE: Imaging protocol: Radiologic exam of the left forearm. Views: 2 views. Total images: 2 COMPARISON: CR [id number] XR hand LT min 3V 10/08/2018 2:01 PM FINDINGS: Bones/joints: Fracture of the distal radius extending to the radiocarpal joint. No evidence of acute dislocation. Soft tissues: Distal soft tissue swelling. IMPRESSION: 1. Fracture of the distal radius extending to the radiocarpal joint. 2. Distal soft tissue swelling. 3. No evidence of acute dislocation.
--- NOTE | 2023-05-16 17:28 | HMH.EDGENADL ---
Discharge Plan Disposition Patient Disposition: Home, Self-Care Chief Complaint: Fall Prescriptions Prescriptions: No Action methocarbamol 500 mg tablet 500 mg PO PRN nystatin-triamcinolone 100,000-0.1 unit/g-% cream 1 applic topical DAILY paroxetine HCl 40 mg tablet 40 mg PO DAILY pantoprazole 40 mg tablet,delayed release (DR/EC) 40 mg PO DAILY Ubrelvy 100 mg tablet 100 mg PO .COMPLEX Rx Instructions: 100 mg PO prn; ondansetron 4 mg tablet,disintegrating 4 mg PO Q6H Qty: 30 2RF cetirizine 10 mg tablet 10 mg PO DAILY Patient Comments: TAKE ONE TABLET BY MOUTH EVERY DAY tramadol 50 mg Tablet 50 mg PO Q6H PRN (Reason: Pain) biotin 300 mcg Tablet 300 mcg PO DAILY doxycycline hyclate [doxycycline hyclate] 100 mg capsule 100 mg PO Q12 10 Days Qty: 20 0RF spironolactone 25 mg tablet See Rx Instructions .ROUTE .COMPLEX Rx Instructions: TAKE ONE TABLET BY MOUTH EVERY DAY rosuvastatin 20 mg tablet See Rx Instructions .ROUTE .COMPLEX Rx Instructions: TAKE ONE TABLET BY MOUTH EVERY DAY phenazopyridine [Pyridium] 200 mg tablet 200 mg PO Q8H 2 Days Qty: 6 0RF ciprofloxacin HCl [Cipro] 500 mg tablet 500 mg PO BID 7 Days Qty: 14 0RF Referrals Follow up/Referrals: Loren Tesfaye APRN [Primary Care Provider] - See instructions Marc Thomas DO [Staff Physician] - See instructions Activity Restrictions/Add. Instructions Additional Instructions/Restrictions: Call your family doctor to establish care for this visit to the emergency department and schedule follow-up within 48 hours to ensure improvement. If you have any worsening of your condition or any other concerning signs or symptoms, return to the emergency department or your primary care doctor for further evaluation. William's office to schedule an appointment for 1 to 2 weeks. Clinical Impressions Clinical Impression: Distal radius fracture, left, Closed L1 vertebral fracture Discharge ED Provider: Cong Hendrix General Adult HPI General Chief complaint: Fall Stated complaint: AO fall 05/16, left arm pain Time Seen by Provider: 05/16/23 16:33 Mode of Arrival: Wheelchair Source of Information: Patient Limitations: No Limitations Description of Symptoms (Recalled from ER Triage Doc. by RN): pt to the ED from home after falling while mopping her floor. pt stated she slipped and fell straight backwards causing her to land on her left arm and right side. pt reports left lower arm pain with movement, nausea and right middle and lower back pain. pt denies head injury or LOC. History of Present Illness HPI narrative: 58-year-old female history of gastric sleeve surgery, recent panniculectomy in December 2022 presenting with fall. Patient states she was mopping floor, slipped on wet floor and landed on outstretched left arm. Landed directly on her buttocks, outstretched left hand. Had immediate pain in her left wrist and left elbow, as well as in her middle back with pain radiating out to her right flank. Denies bowel bladder dysfunction, numbness, tingling, weakness distal to any of the pain. Patient has ambulated since the event without issue, but having moderate to severe pain in her back. Has not taken anything for the pain. Related Data Home Medications Medication Instructions Recorded Confirmed pantoprazole 40 mg tablet,delayed 40 mg PO DAILY GERD 10/28/20 10/26/22 release ubrogepant 100 mg tablet (Ubrelvy) 100 mg PO .COMPLEX . 01/02/22 10/26/22 rosuvastatin 20 mg tablet See Rx Instructions .Route 03/28/22 10/26/22 .COMPLEX Cholesterol spironolactone 25 mg tablet See Rx Instructions .Route 03/28/22 10/26/22 .COMPLEX fluid retention biotin 300 mcg tablet 300 mcg PO DAILY Supplement 04/10/22 10/26/22 cetirizine 10 mg tablet 10 mg PO DAILY Allergy symptoms 04/10/22 10/26/22 tramadol 50 mg tablet 50 mg PO Q6H PRN Pain 04/10/22 10/26/22 paroxetine H
--- NOTE | 2023-05-16 18:11 | PC.NURSE ---
called lab to come draw labs
[2023-05-16 18:26] LABS: Basophils # 0.1 K/mm3 (0-0.2); Basophils % 0.4 % (0.1-2.0); Eosinophils # 0.1 K/mm3 (0.0-0.4); Hematocrit 33.5 % (37.0-47.0); Hemoglobin 11.1 g/dL (12.2-16.2); Lymphocytes # 1.8 K/mm3 (0.7-4.5); Lymphocytes % 16.2 % (10-50); Mean Corpuscular HGB Conc 33.2 g/dL (31.8-35.4); Mean Corpuscular Hemoglobin 24.5 pg (27.0-31.2); Mean Corpuscular Volume 73.9 fl (81-99); Mean Platelet Volume 7.3 fl (7.4-10.4); Monocytes # 0.5 K/mm3 (0.1-1.0); Neutrophils # 8.4 K/mm3 (1.8-7.8); Neutrophils % 77.4 % (37.0-80.0); Platelet Count 421 K/mm3 (142-424); Red Blood Count 4.54 M/mm3 (4.20-5.40); Red Cell Distribution Width 17.1 % (11.5-17.5); White Blood Count 10.9 K/mm3 (4.8-10.8)
[2023-05-16 18:30] LABS: Chloride 106 mmol/L (98-107); Potassium 4.1 mmoL/L (3.5-5.1); Sodium 138 mmol/L (136-145)
[2023-05-16 18:33] LABS: Alanine Aminotransferase 20 U/L (12-78); Albumin/Globulin Ratio 1.4 (1.1-1.8); Alkaline Phosphatase 90 U/L (38-126); Anion Gap 9.1 mEq/L (5-15); Aspartate Amino Transferase 30 U/L (14-36); Blood Urea Nitrogen 12 mg/dl (7-17); Calcium 8.9 mg/dl (8.4-10.2); Carbon Dioxide 27 mmol/L (22.0-30.0); Creatinine Clearance Estimated 136 mL/min (50-200); Estimated Glomerular Filt Rate 103 ml/min (>60); GFR (African American) 125 ML/MIN (>60); Globulin 2.9 g/dL (1.3-3.2); Glucose 109 mg/dl (74-100); Total Protein,Serum 6.9 g/dl (6.3-8.2)
[2023-05-16 18:42] LABS: Bilirubin,Total < 0.1 mg/dl (0.2-1.3)
[2023-05-16 19:28] VITALS: BP 132/74; PULSE 65; RESP 21; O2SAT 99
[2023-05-16 19:38] VITALS: BP 108/57; PULSE 70; RESP 13; O2SAT 98
--- NOTE | 2023-05-16 19:39 | XR_ITS ---
PROCEDURE INFORMATION: Exam: XR Left Wrist Exam date and time: 05/16/2023 7:57 PM Age: 58 years old Clinical indication: Screening exam; Post reduction of left wrist with spint placed TECHNIQUE: Imaging protocol: Radiologic exam of the left wrist. Views: 1 or 2 views. COMPARISON: CR XR WRIST LT MIN 3V 05/16/2023 6:09 PM FINDINGS: Bones/joints: Overlying splint obscures bony detail. The distal radial fracture appears to be in close anatomic alignment. No other osseous abnormality. Soft tissues: Normal. IMPRESSION: 1. Overlying splint obscures bony detail. 2. The distal radial fracture appears to be in close anatomic alignment.
[2023-05-16 19:46] VITALS: BP 129/72; PULSE 83; RESP 14; O2SAT 97
--- NOTE | 2023-05-16 21:01 | PC.NURSE ---
PER ER MD Hendrix this is called a sub dissociative dose sedation and is not a actual procedure that requires basic sedation documentation. 192 time out was done with ER MD and two RNs 1927 patient was given 10 ml of lidocaine for a hematoma into left wrist per ER 1932 Pt was given 30mg iv push ketamine per ER MD Patient was on diagnostic imaging manager, nibp, and o2 saturation with 2 liters of oxygen via nasal cannula 1939 Sugar tong plaster splint applied to patient per ER 1942 xray at bedside for post reduction film 1945 procedure end and ER MD left room
[2023-05-16 21:08] VITALS: BP 122/56; PULSE 73; RESP 19; TEMP 37.1; O2SAT 94
== END 2023-05-16 21:09 | disposition home or self-care (01) ==
PROVIDERS: Emergency Provider Emergency Medicine; PCP Nurse Practitioner Family
DX: S32.019A Unspecified fracture of first lumbar vertebra, initial encounter for closed fracture (principal); S52.502A Unspecified fracture of the lower end of left radius, initial encounter for closed fracture; K21.9 Gastro-esophageal reflux disease without esophagitis; E78.5 Hyperlipidemia, unspecified; W01.10XA Fall on same level from slipping, tripping and stumbling with subsequent striking against unspecified object, initial encounter
CPT/HCPCS: 25605; 36415; 72128; 72131; 73060; 73080; 73090; 73100; 73110; 73130; 80053; 85025; 96374; 96375; 99285; J2405

== ENCOUNTER 2023-05-25 07:22 | Day surgery (SDC) | payer MEDICARE, SELFPAY ==
[2023-05-23 11:19] VITALS: BMI 37.1
[2023-05-25] VITALS (13 sets, daily range): BP systolic 93–162; BP diastolic 61–92; PULSE 82–90; RESP 16–24; TEMP 36.3–43; O2SAT 92–97
--- NOTE | 2023-05-25 08:24 | P.PNANES_ITS ---
[facility] Disclaimer: The information contained in this section may have been updated after the patient was seen, as this information can be updated by other users. Medical History Allergies Anxiety Appendicitis Arthritis Chest pain Cholecystectomy planned Depression Depression Dizziness H/O clavicle fracture H/O fracture of humerus History of COVID-19 History of gastroesophageal reflux (GERD) History of gastroesophageal reflux (GERD) Hyperlipidemia Limited range of motion (ROM) of shoulder Menopause Migraine Migraine Migraine Palpitations Pneumonia Sleep apnea Urinary tract infection Surgical History H/O abdominoplasty H/O carpal tunnel repair H/O gastric sleeve H/O tubal ligation History of appendectomy History of arthroscopy of right shoulder History of carpal tunnel surgery History of surgery S/P trigger finger release Family History Brother Lung cancer Sister Family history of hypertension Sister Cervical cancer Breast cancer Social History Smoking Status: Former smoker tobacco type: cigarettes packs per day: 1 how long ago did patient quit smokin years ago alcohol intake: never substance use type: denies use current occupational status: disabled Travel in the last 8 weeks: None household members: family housing: house current occupational exposures/hazards: No caffeine: No [facility] Anesthesia Checklist Patient Identification Patient Identification: Arm Band and Verbal (Name & ) Structural Data Admitted From: Home Planned Operative Procedure/s: ORIF L wrist Consent for Planned Operative Procedure(s) Verified: Yes NPO Status Verified Time NPO: 00:00 Additional verifications Anesthesia Reactions: No Hx Blood Transfusions: No Blood Transfusion Reaction: No Airway Assessment Mallampati Score:: Class I C-Spine Mobility Assessed: Yes TMJ Mobility Assessed: Yes Dentition: Good Dentition Neurological Assessment Level of Consciousness: Awake Hx Seizures: No Numbness or tingling in extremities: No Anesthesia Plan Anesthesia Risk discussed: Yes Anesthesia Plan: Verified ASA Class: II Anesthesia Type: General w/block
--- NOTE | 2023-05-25 09:05 | XR_ITS ---
FINAL REPORT CLINICAL HISTORY: chest pain after block COMPARISON: 04/10/2022 FINDINGS: A single portable view of the chest was obtained. The heart size and pulmonary vascularity are within normal limits. The mediastinum is within normal limits. Mild bibasilar opacities are present, favor atelectasis. There has been a resection of the distal right clavicle since the prior chest x-ray, and there is degenerative change in the right shoulder. IMPRESSION: Mild bibasilar opacities, favor atelectasis. Reviewed, Interpreted and Dictated by Jose Juan Quintero III, MD Transcribed by Hellen Nicholson Authenticated and [facility]
--- NOTE | 2023-05-25 09:13 | ECG_ITS ---
APPROVED REPORT Exam: Resting ECG HR:75 bpm ECG Measurements Heart Rate 75 AXES [place] 151 P 58 QRSd 98 QRS 61 QT 369 T 66 QTc 398 Conclusion SINUS RHYTHM NORMAL ECG UNCONFIRMED REPORT Electronically signed by : Aftab Lal MD 05/25/2023 21:25:02
--- NOTE | 2023-05-25 09:21 | HMH.ITSTN ---
called results to Rock Umanzor. per Rj Soria portable cxr, neg for pneumothorax.
--- NOTE | 2023-05-25 11:05 | P.PNANES_ITS ---
[facility] Anesthesia Record Part I Anesthesia Record I Intake, IV Amount: 1,000 Hydration: Adequate Estimated blood loss (mL): 5 Urine output (mL): 0 Blood Products used (#): none Blood Pressure: 132/72 SaO2: 93 Pulse Rate: 82 Airway Patency: Patent Respiratory Rate: 16 Temperature: 98.3 F Patient is:: Drowsy and Stable Stable to PACU at:: 11:00
--- NOTE | 2023-05-25 11:08 | EXP.OP.NOTE ---
Date of procedure: 05/25/23 Pre-op Diagnosis:: Left distal radius fracture intra-articular Post-op Diagnosis:: Same Procedure performed:: Open reduction internal fixation left distal radius fracture 3+ part intra-articular Surgeon:: Marc Thomas DO VENEREAL DISEASE INVESTIGATOR:: Rock Umanzor Anesthesia: GETA Estimated blood loss (mL): 0 Operative findings:: See dictation Operative note:: Patient was identified preoperatively. Left wrist marked with yes my initials. Transported operative suite. Placed upon operating bed. General anesthesia ministered airway was secured. Left upper extremity prepped and draped normal sterile fashion. Once prepped and draped final operative timeout performed to identify proper patient procedure and extremity. Everyone involved the case agreed. There was no counter indications to beginning. She did receive preoperative antibiotics. Marking pen was used to kyle the planned incision over the volar aspect of the wrist and the FCR tendon. Esmarch was used to exsanguinate the extremity and pneumatic tourniquet was inflated to 250 mmHg. Skin knife was used to incise through skin and soft tissue. Careful dissection was taken down over the FCR tendon and the FCR tendon sheath was opened. FCR tendon was retracted radially throughout the procedure to protect the radial artery. Floor of the FCR was opened dissection was taken down to the pronator quadratus which was cut in L-type fashion to expose the fracture site at the distal radius. Reduction maneuver was performed with a freer elevator to get anatomic reduction of the distal radius. This was viewed on the x-ray. A narrow left-sided volar distal radius plate from the [employer] set was selected. It was pinned in the place initially and confirmed on the x-ray for proper placement cortical screw was then placed in the shaft to hold the plate in place and then distal screws were placed at the appropriate depth and angles. 2 additional locking screws were placed in the shaft irrigation of the wound was performed x-rays were taken the AP and lateral views and saved. Irrigation repeated deep layers closed with Vicryl subcutaneous with Vicryl and 3-0 nylon the skin for closure sterile dressing placed with a volar splint patient was then awakened anesthesia taken recovery stable condition. Condition: stable Disposition: PACU Complications:: None apparent
--- NOTE | 2023-05-25 11:13 | XR_ITS ---
FINAL REPORT CLINICAL HISTORY: LEFT WRIST IN OR, ft 0.4min, dap 0.58 FINDINGS: FLUOROSCOPY LESS THAN 1 HOUR HISTORY: Fluoroscopy guidance. FINDINGS: Fluoroscopic guidance was provided for left wrist ORIF. Three spot films were obtained. A total of 0.4 minute of fluoroscopy time were used. DAP: 0.58 mGy IMPRESSION: As above. Reviewed, Interpreted and Dictated by Jose Juan Quinetro III, MD Transcribed by Wendi Aiken Authenticated and [facility]
--- NOTE | 2023-05-25 11:44 | SUR.PHASEI ---
1140- at bedside assessing pain in the elbow. Ordered pt to have a sling and keep ice applied.
--- NOTE | 2023-05-25 11:57 | SUR.PHASEI ---
1149- detailed report called to rylie astudillo in post op 1151- pt left in stable condition with rylie astudillo in post op. Pt in stable condition, VSS, ice pack in place. wants sling applied, rylie astudillo aware
--- NOTE | 2023-05-26 11:43 | EXP.ANES.II ---
[facility] Anesthesia Record Part II Anesthesia Record Part II Discharge Time: 11:50 Destination: Surgical Day Care (OP Surgery) PACU nurse assessment reviewed?: Yes Patient Condition:: Good Anesthesia Complications:: None Swallowing reflex intact?: Yes Airway Patency: Patent Cyanosis?: No Blood Pressure: 118/62 SaO2: 95 Respiratory Rate: 16 Pulse Rate: 89 Temperature: 97.4 F Mental Status: Alert & Oriented Pain level:: 3 Nausea and/or vomitting:: None Intake, IV Amount: 0 Hydration: Adequate
[2023-05-26 11:46] VITALS: BP 118/62; PULSE 89; RESP 16; TEMP 36.3; O2SAT 95
== END 2023-05-25 12:21 | disposition home or self-care (01) ==
PROVIDERS: PCP Nurse Practitioner Family; Visit Provider Orthopaedic Surgery
PROC: (CPT 25609; principal; 2023-05-25 08:45)
DX: S52.572A Other intraarticular fracture of lower end of left radius, initial encounter for closed fracture (principal); E78.5 Hyperlipidemia, unspecified; Z79.899 Other long term (current) drug therapy; Z86.16 Personal history of COVID-19; Z87.891 Personal history of nicotine dependence; W01.0XXA Fall on same level from slipping, tripping and stumbling without subsequent striking against object, initial encounter; Y93.E5 Activity, floor mopping and cleaning; Y92.019 Unspecified place in single-family (private) house as the place of occurrence of the external cause
CPT/HCPCS: 25609; 71045; 73100; 76000; 93005; 96374; C1713; J2405

== ENCOUNTER → 2023-05-31 09:01 | Outpatient (CLI) | payer MEDICARE, SELFPAY ==
--- NOTE | 2023-05-31 09:06 | XR_ITS ---
FINAL REPORT TECHNIQUE: Left wrist AP and lateral CLINICAL HISTORY: left wrist orif FINDINGS: LEFT WRIST: Since the prior film of April the patient has undergone ORIF of the distal radial fracture. The hardware is intact. The fracture fragments are aligned. There is multijoint degenerative change present in the left wrist. IMPRESSION: Patient has undergone ORIF of the distal radial fracture, with satisfactory alignment of the fracture fragments. The hardware is intact. Reviewed, Interpreted and Dictated by Helen Mahajan MD Transcribed by Hellen Nicholson Authenticated and . [facility]
== END ==
PROVIDERS: PCP Nurse Practitioner Family; Visit Provider Orthopaedic Surgery
DX: S52.572A Other intraarticular fracture of lower end of left radius, initial encounter for closed fracture (principal); M25.532 Pain in left wrist
CPT/HCPCS: 73100

== ENCOUNTER 2023-05-31 10:16 | Outpatient (RCR) | payer MEDICARE, SELFPAY | END 2023-05-31 11:30 | disposition home or self-care (01) | LOC: OT 10:16 | PROVIDERS: Visit Provider Orthopaedic Surgery | DX: S52.572A Other intraarticular fracture of lower end of left radius, initial encounter for closed fracture (principal) ==

== ENCOUNTER → 2023-06-12 14:22 | Outpatient (CLI) | payer MEDICARE, SELFPAY ==
--- NOTE | 2023-06-12 14:27 | XR_ITS ---
FINAL REPORT CLINICAL HISTORY: left knee pain FINDINGS: 2 views of the left knee were obtained. There is a fracture of the mid patella. There is 12 mm of distraction of the fracture fragments. No dislocation is identified. There is a moderate joint effusion. IMPRESSION: Patella fracture with moderate joint effusion. Reviewed, Interpreted and Dictated by Jose Juan Quintero III, MD Transcribed by Ad Gandara Authenticated and . [facility]
== END ==
PROVIDERS: PCP Nurse Practitioner Family; Visit Provider Orthopaedic Surgery
DX: S52.572A Other intraarticular fracture of lower end of left radius, initial encounter for closed fracture (principal)
CPT/HCPCS: 73560

== ENCOUNTER 2023-06-18 08:16 | Day surgery (SDC) | payer MEDICARE, SELFPAY ==
[2023-06-13 09:17] VITALS: BMI 37.1
[2023-06-18] VITALS (9 sets, daily range): BP systolic 118–167; BP diastolic 50–97; PULSE 74–107; RESP 17–18; TEMP 36.2–43; O2SAT 91–95
--- NOTE | 2023-06-18 09:12 | P.PNANES_ITS ---
[facility] Disclaimer: The information contained in this section may have been updated after the patient was seen, as this information can be updated by other users. Medical History Allergies Anxiety Appendicitis Arthritis Chest pain Cholecystectomy planned Depression Depression Dizziness H/O clavicle fracture H/O fracture of humerus History of COVID-19 History of gastroesophageal reflux (GERD) History of gastroesophageal reflux (GERD) Hyperlipidemia Limited range of motion (ROM) of shoulder Menopause Migraine Migraine Migraine Palpitations Pneumonia Sleep apnea Urinary tract infection Surgical History H/O abdominoplasty H/O carpal tunnel repair H/O gastric sleeve H/O tubal ligation History of appendectomy History of arthroscopy of right shoulder History of carpal tunnel surgery History of surgery S/P trigger finger release Family History Brother Lung cancer Sister Family history of hypertension Sister Cervical cancer Breast cancer Social History Smoking Status: Former smoker tobacco type: cigarettes packs per day: 1 how long ago did patient quit smokin years ago alcohol intake: never substance use type: denies use current occupational status: disabled Travel in the last 8 weeks: None household members: family housing: house current occupational exposures/hazards: No caffeine: No [facility] Anesthesia Checklist Patient Identification Patient Identification: Arm Band and Verbal (Name & ) Structural Data Admitted From: Home Planned Operative Procedure/s: ORIF patella Consent for Planned Operative Procedure(s) Verified: Yes NPO Status Verified Time NPO: 00:00 Chart Verification Results Verified: CBC and BMP Additional verifications Anesthesia Reactions: No Hx Blood Transfusions: No Blood Transfusion Reaction: No Airway Assessment Mallampati Score:: Class II C-Spine Mobility Assessed: Yes TMJ Mobility Assessed: Yes Dentition: Good Dentition Neurological Assessment Level of Consciousness: Awake Hx Seizures: No Numbness or tingling in extremities: No Anesthesia Plan Anesthesia Risk discussed: Yes Anesthesia Plan: Verified ASA Class: II Anesthesia Type: General
--- NOTE | 2023-06-18 10:53 | XR_ITS ---
FINAL REPORT CLINICAL HISTORY: ORIF, fluoro time 0:27 , mgy 1.85 FINDINGS: FLUOROSCOPY LESS THAN 1 HOUR HISTORY: Fluoroscopy guidance. Fluoroscopic guidance was provided for ORIF of the left patella. 31 spot films were obtained. A total of 0.27 minutes of fluoroscopy time were used. Total DAP: 1.85 mGy IMPRESSION: As above. Reviewed, Interpreted and Dictated by Ondina Santana MD Transcribed by Wendi Aiken Authenticated and [facility]
--- NOTE | 2023-06-18 11:10 | P.OP_ITS ---
Date of procedure: 06/18/23 Pre-op Diagnosis:: Left displaced patella fracture Post-op Diagnosis:: Same Procedure performed:: Open reduction internal fixation left patella Surgeon:: Marc Thomas DO DISASTER RECOVERY CONSULTANT:: Other Anesthesia: GETA Estimated blood loss (mL): 0 Operative findings:: Displaced patella fracture Operative note:: Patient was identified preoperatively. Left knee marked with yes and my initials. Transported operative suite. Placed upon the operating bed. General anesthesia ministered airway secured. Left lower extremity prepped and draped normal sterile fashion. Once prepped and draped final operative timeout performed to identify proper patient procedure and extremity. Everyone involved the case agreed. There is no counter indications to beginning. Did receive preoperative antibiotics. Marking pen was used to kyle plan midline incision to the patella. Esmarch was used to exsanguinate the extremity. Pneumatic tourniquet inflated to 300 mmHg. Skin knife was used to incise the skin careful dissection was taken down to identify the patella fracture. There was a traumatic arthrotomy present. Hematoma was evacuated. Pulmonary reduction was performed and held with a [id number] clamp. This was confirmed on the C arm for proper reduction of the articular surface. 2 wires then placed for superior to inferior aspect of the patella in a parallel fashion. These were measured before exiting the cortex of the patella measured a size 32. Then the K wires were placed through the patella. And overdrilled and tapped. This 2 size 32 screws were then placed. Without difficulty. These were cannulated screws. Using the long needle with a fiber tape and a cerclage type X fashion fiber tape was placed through the cannulated screws and tied in a cerclage fashion. Knee was range of motion and evaluated on the C arm with no displacement. Copious irrigation of the wound performed. Retinacular tear closed with 0 Vicryl deep layers closed with 0 Vicryl. 2-0 Vicryl for subcutaneous. Stapler for the skin. Sterile dressing placed. Patient had a dressing placed from toe to thigh. She underwent an abductor canal block after the procedure. Then placed in a knee immobilizer with the leg straight taken recovery in stable condition. Condition: stable Disposition: PACU Complications:: None apparent
--- NOTE | 2023-06-18 11:13 | EXP.ANES.I ---
[facility] Anesthesia Record Part I Anesthesia Record I Intake, IV Amount: 900 Hydration: Adequate Estimated blood loss (mL): 10 Urine output (mL): 0 Blood Products used (#): none Blood Pressure: 162/84 SaO2: 95 Pulse Rate: 107 Airway Patency: Patent Respiratory Rate: 18 Temperature: 98 F Patient is:: Drowsy and Stable Stable to PACU at:: 11:05
--- NOTE | 2023-06-18 11:48 | SUR.PHASEI ---
1135- pt transported in stable condition to post op via rylie doran. Vss, dressings cdi, ice applied to surgical site. 1136- family at bedside.
--- NOTE | 2023-06-19 08:43 | EXP.ANES.II ---
[facility] Anesthesia Record Part II Anesthesia Record Part II Discharge Time: 11:35 Destination: Surgical Day Care (OP Surgery) PACU nurse assessment reviewed?: Yes Patient Condition:: Good Anesthesia Complications:: None Swallowing reflex intact?: Yes Airway Patency: Patent Cyanosis?: No Blood Pressure: 163/82 SaO2: 94 Respiratory Rate: 18 Pulse Rate: 90 Temperature: 98.8 F Mental Status: Alert & Oriented Pain level:: 3 Nausea and/or vomitting:: None Intake, IV Amount: 0 Hydration: Adequate
[2023-06-19 08:44] VITALS: BP 163/82; PULSE 90; RESP 18; TEMP 37.1; O2SAT 94
== END 2023-06-18 12:33 | disposition home or self-care (01) ==
PROVIDERS: PCP Nurse Practitioner Family; Visit Provider Orthopaedic Surgery
PROC: (CPT 27524; principal; 2023-06-18 08:45)
DX: S82.092A Other fracture of left patella, initial encounter for closed fracture (principal); W01.0XXA Fall on same level from slipping, tripping and stumbling without subsequent striking against object, initial encounter; Y92.019 Unspecified place in single-family (private) house as the place of occurrence of the external cause; Z79.899 Other long term (current) drug therapy; Z86.16 Personal history of COVID-19
CPT/HCPCS: 27524; 73560; 76000; 96374; C1713; C9290; J2405

== ENCOUNTER 2023-06-28 10:52 | Outpatient (RCR) | payer MEDICARE, SELFPAY | END 2023-06-28 12:00 | disposition home or self-care (01) | LOC: PT 10:52 | PROVIDERS: Visit Provider Orthopaedic Surgery | DX: S52.572A Other intraarticular fracture of lower end of left radius, initial encounter for closed fracture (principal); M25.562 Pain in left knee | CPT/HCPCS: 97760 ==

== ENCOUNTER → 2023-06-28 11:43 | Outpatient (CLI) | payer MEDICARE, SELFPAY ==
--- NOTE | 2023-06-28 11:46 | XR_ITS ---
FINAL REPORT CLINICAL HISTORY: lt wrist pain FINDINGS: LEFT WRIST Three views demonstrate no acute fracture or dislocation. There has been ORIF of a distal radial fracture, with satisfactory alignment of the fracture fragments. Mild degenerative changes present. No other fractures identified. The visualized joint spaces are normally aligned. The soft tissues are unremarkable. IMPRESSION: ORIF of a distal radial fracture with satisfactory alignment of the fracture fragments. Reviewed, Interpreted and Dictated by Jose Juan Quintero III, MD Transcribed by Hellen Nicholson Authenticated and [facility]
--- NOTE | 2023-06-28 11:46 | XR_ITS ---
FINAL REPORT CLINICAL HISTORY: lt knee pain COMPARISON: None FINDINGS: Three views of the left knee reveal no evidence of fracture or dislocation. There is postoperative change in the patella, with screws bridging a mid patellar fracture. Anterior soft tissue swelling is identified. Mild degenerative changes present in the knee. . IMPRESSION: Postoperative change in the patella with screws bridging a mid patellar fracture. Soft tissue swelling is identified. Reviewed, Interpreted and Dictated by Jose Juan Quintero III, MD Transcribed by Hellen Nicholson Authenticated and . [facility]
== END ==
PROVIDERS: PCP Nurse Practitioner Family; Visit Provider Orthopaedic Surgery
DX: S52.572A Other intraarticular fracture of lower end of left radius, initial encounter for closed fracture (principal); S82.002A Unspecified fracture of left patella, initial encounter for closed fracture
CPT/HCPCS: 73110; 73562

== ENCOUNTER → 2023-07-03 10:32 | Outpatient (CLI) | payer MEDICARE, SELFPAY ==
--- NOTE | 2023-07-03 10:38 | XR_ITS ---
FINAL REPORT CLINICAL HISTORY: left patella orif COMPARISON: None FINDINGS: There are 2 screws present in the patella, and derrick in the anterior soft tissues of the knee. A moderate-sized joint effusion is present. There is a prominent tibial tubercle. There is no acute fracture or dislocation. The joint spaces are intact. There is no soft tissue abnormality. IMPRESSION: ORIF patella with 2 screws present. Moderate joint effusion. Reviewed, Interpreted and Dictated by Farhad Jacinto MD Transcribed by Hellen Nicholson Authenticated and [facility]
== END ==
PROVIDERS: PCP Nurse Practitioner Family; Visit Provider Orthopaedic Surgery
DX: S82.002A Unspecified fracture of left patella, initial encounter for closed fracture (principal); Z48.89 Encounter for other specified surgical aftercare
CPT/HCPCS: 73560

== ENCOUNTER 2023-07-06 22:14 | Emergency (ER) | payer MEDICARE, SELFPAY ==
[2023-07-06 22:27] VITALS: BP 112/79; PULSE 70; RESP 16; TEMP 36.6; O2SAT 97; BMI 35.7
[2023-07-06 22:30] VITALS: BP 123/73; PULSE 78; RESP 18; O2SAT 96
[2023-07-06 22:46] LABS: Basophils % 0.6 % (0.1-2.0); Eosinophils # 0.4 K/mm3 (0.0-0.4); Eosinophils % 5.4 % (0.1-12.0); Hematocrit 36.1 % (37.0-47.0); Hemoglobin 11.2 g/dL (12.2-16.2); Lymphocytes # 2.2 K/mm3 (0.7-4.5); Lymphocytes % 31.6 % (10-50); Mean Corpuscular HGB Conc 31.1 g/dL (31.8-35.4); Mean Corpuscular Hemoglobin 23.3 pg (27.0-31.2); Mean Platelet Volume 7.3 fl (7.4-10.4); Monocytes # 0.5 K/mm3 (0.1-1.0); Monocytes % 6.8 % (1.7-9.3); Neutrophils # 3.9 K/mm3 (1.8-7.8); Neutrophils % 55.6 % (37.0-80.0); Platelet Count 498 K/mm3 (142-424); Red Blood Count 4.81 M/mm3 (4.20-5.40); Red Cell Distribution Width 16.8 % (11.5-17.5)
[2023-07-06 22:51] LABS: Chloride 108 mmol/L (98-107); Potassium 4.1 mmoL/L (3.5-5.1); Sodium 138 mmol/L (136-145)
--- NOTE | 2023-07-06 22:52 | HMH.EDGENADL ---
Discharge Plan Disposition Patient Disposition: Home, Self-Care Condition: Good Prescriptions Prescriptions: New lidocaine 5 % adhesive patch,medicated 1 patch topical DAILY PRN (Reason: pain) Qty: 30 0RF Rx Instructions: leave on most painful area for up to 12 hrs No Action methocarbamol 500 mg tablet 500 mg PO DAILY nystatin-triamcinolone 100,000-0.1 unit/g-% cream 1 applic topical DAILY PRN (Reason: .) paroxetine HCl 40 mg tablet 40 mg PO DAILY pantoprazole 40 mg tablet,delayed release (DR/EC) 40 mg PO DAILY Ubrelvy 100 mg tablet 100 mg PO .COMPLEX Rx Instructions: 100 mg PO prn; ondansetron 4 mg tablet,disintegrating 4 mg PO Q6H Qty: 30 2RF cetirizine 10 mg tablet 10 mg PO DAILY Patient Comments: TAKE ONE TABLET BY MOUTH EVERY DAY biotin 300 mcg Tablet 300 mcg PO DAILY oxycodone-acetaminophen 5-325 mg tablet 1 tab PO Q4H PRN (Reason: post op pain) Qty: 42 0RF spironolactone 25 mg tablet 25 mg PO DAILY Rx Instructions: TAKE ONE TABLET BY MOUTH EVERY DAY rosuvastatin 20 mg tablet 20 mg PO DAILY Rx Instructions: TAKE ONE TABLET BY MOUTH EVERY DAY Referrals Follow up/Referrals: Loren Tesfaye APRN [Primary Care Provider] - See instructions Activity Restrictions/Add. Instructions Additional Instructions/Restrictions: Please use lidocaine patches as needed for pain. Please follow-up with your primary care provider. Please return to the emergency department if you develop any new or worsening symptoms or become concerned for your health. Clinical Impressions Clinical Impression: Generalized weakness, Tiredness, Depressed Discharge ED Provider: Cong Hendrix General Adult HPI <Cong Hendrix MD - Last Filed: 07/06/23 23:11> General Chief complaint: PAIN Stated complaint: weakness, muscle spasms Time Seen by Provider: 07/06/23 22:20 Mode of Arrival: Family Vehicle Source of Information: Patient Limitations: No Limitations Description of Symptoms (Recalled from ER Triage Doc. by RN): 58 yo with a cc of generalized muscle spasms x 3 days. Patient worries about dehydration. PMH: 05/18: wrist surgery, 05/26: knee fx , gastric sleeve 2019, gastric bypass 2022 History of Present Illness HPI narrative: 58-year-old history of hypertension, hyperlipidemia, gastric sleeve, numerous recent traumatic injuries status post orthopedic intervention including left distal radius injury, left knee fracture presenting with multiple complaints. Patient states that she has been feeling weak generally and having muscle spasms for the last 3 days. Has been getting worse. Muscle spasms in her arms, legs, lower back. Denies any further trauma. Patient states she is eating and drinking less because she has mobility issues at home, so she think she may be dehydrated in general. Denies SI or HI. Related Data Home Medications Medication Instructions Recorded Confirmed pantoprazole 40 mg tablet,delayed 40 mg PO DAILY GERD 10/28/20 07/03/23 release ubrogepant 100 mg tablet (Ubrelvy) 100 mg PO .COMPLEX . 01/02/22 07/03/23 rosuvastatin 20 mg tablet 20 mg PO DAILY Cholesterol 03/28/22 07/03/23 spironolactone 25 mg tablet 25 mg PO DAILY fluid retention 03/28/22 07/03/23 biotin 300 mcg tablet 300 mcg PO DAILY Supplement 04/10/22 07/03/23 cetirizine 10 mg tablet 10 mg PO DAILY Allergy symptoms 04/10/22 07/03/23 paroxetine HCl 40 mg tablet 40 mg PO DAILY MOOD 04/24/22 07/03/23 methocarbamol 500 mg tablet 500 mg PO DAILY 10/26/22 07/03/23 nystatin-triamcinolone 100,000 1 applic topical DAILY PRN . 10/26/22 07/03/23 unit/g-0.1 % topical cream Previous Rx's Medication Instructions Recorded ondansetron 4 mg disintegrating 4 mg PO Q6H nausea and vomiting 04/11/22 tablet #30 tabs oxycodone-acetaminophen 5 mg-325 1 tab PO Q4H PRN post op pain #42 06/18/23 mg tablet tabs lidocaine 5 % topical patch 1 patch topical DAILY PRN pa
[2023-07-06 22:54] LABS: Alanine Aminotransferase 18 U/L (12-78); Albumin Level 4.1 g/dl (3.5-5.0); Albumin/Globulin Ratio 1.3 (1.1-1.8); Alkaline Phosphatase 82 U/L (38-126); Anion Gap 8.1 mEq/L (5-15); Aspartate Amino Transferase 24 U/L (14-36); Bilirubin,Total 0.4 mg/dl (0.2-1.3); Blood Urea Nitrogen 15 mg/dl (7-17); Carbon Dioxide 26 mmol/L (22.0-30.0); Creatinine Clearance Estimated 114 mL/min (50-200); Estimated Glomerular Filt Rate 87 ml/min (>60); GFR (African American) 105 ML/MIN (>60); Globulin 3.1 g/dL (1.3-3.2); Phosphorous 4.1 mg/dl (2.5-4.5); Total Protein,Serum 7.2 g/dl (6.3-8.2)
[2023-07-06 22:55] LABS: Calcium 8.6 mg/dl (8.4-10.2); Glucose 111 mg/dl (74-100); Magnesium 2.1 mg/dl (1.6-2.3)
[2023-07-06 23:00] VITALS: BP 100/61; PULSE 62; O2SAT 96
[2023-07-06 23:30] VITALS: BP 120/78; PULSE 57; O2SAT 97
[2023-07-07 00:06] VITALS: BP 134/66; PULSE 54; O2SAT 96
[2023-07-07 00:11] LABS: Microscopic, Urine URINE MICROSCOPIC (MICROSCOPIC)
[2023-07-07 00:26] LABS: Appearance,Urine CLEAR (Clear); Bilirubin,Urine Negative (Negative); Blood, Urine Negative (Negative); Color,Urine YELLOW (Yellow); Glucose,Urine (UA) Negative (Negative); Ketones,Urine Negative (Negative); Leukocyte Esterase,Urine Negative (Negative); Nitrate,Urine Negative (Negative); Protein,Urine Negative (Negative); Specific Gravity, Urine >= 1.030 (1.005-1.030); Urobilinogen,Urine 0.2 EU/dl (0.2)
[2023-07-07 00:31] VITALS: BP 142/99; PULSE 57; O2SAT 96
[2023-07-07 00:38] VITALS: BP 142/90; PULSE 87; RESP 15; TEMP 36.7; O2SAT 98
== END 2023-07-07 00:53 | disposition home or self-care (01) ==
PROVIDERS: Emergency Provider Emergency Medicine; PCP Nurse Practitioner Family
DX: R53.1 Weakness (principal); R53.83 Other fatigue; R25.2 Cramp and spasm; I10 Essential (primary) hypertension; E78.5 Hyperlipidemia, unspecified
CPT/HCPCS: 80053; 81001; 83735; 84100; 85025; 96360; 99285

== ENCOUNTER → 2023-07-24 07:47 | Outpatient (POV) | payer MEDICARE, SELFPAY ==
[2023-07-24 08:14] VITALS: BP 126/77; PULSE 84; RESP 20; O2SAT 96; BMI 35.7
--- NOTE | 2023-07-24 12:11 | A.OFFVIS_ITS ---
HPI Data of Consult Patient: new to practice Consult date: 07/24/23 Requesting Physician: Gallo Joe CRNA Primary Care Provider: Loren Tesfaye APRN Consult Narrative Reason for consult: Chronic left wrist pain. Chronic left leg pain. Lumbar back pain. History of present illness: Ms. Kwan is a 58 year old female who comes our clinic today for initial consultation regarding what she describes as chronic low back pain that is constant, dull, aching. Recent lumbar CT scan demonstrates increased density n oted along the posterior inferior aspect of L1 with questionable associated nondisplaced fracture. Patient suffered a fall April 2023. Back pain is increased since. Patient also had left wrist fracture with subsequent ORIF. Left patella fracture with subsequent ORIF. Patient has a history of 2 gastric bypass surgeries. The last being in 2022. Skin removal surgery with abdominoplasty and panniculectomy. Patient's Brian #[id number] has been reviewed and reveals patient is currently taking hydrocodone 10 mg 1 p.o. twice daily. Patient originally was taking hydrocodone from Dr. Thomas orthopedic surgery following surgical intervention as mentioned above. Patient has subsequently had a visit with primary care who had written for the hydrocodone. Patient is requested a is for pain medication. She has used what was given to her by family practice. She has a follow-up appointment with Dr. Thomas on August 07. I will give her 14-day supply hydrocodone 5 mg 1 p.o. twice daily. CC: Gallo Joe CRNA [facility] Disclaimer: The information contained in this section may have been updated after the patient was seen, as this information can be updated by other users. Medical History Allergies Anxiety Appendicitis Arthritis Chest pain Cholecystectomy planned Depression Depression Dizziness H/O clavicle fracture H/O fracture of humerus History of COVID-19 History of gastroesophageal reflux (GERD) History of gastroesophageal reflux (GERD) Hyperlipidemia Limited range of motion (ROM) of shoulder Menopause Migraine Migraine Migraine Palpitations Pneumonia Sleep apnea past hx sleep apnea before weight loss Urinary tract infection Surgical History H/O abdominoplasty with muscle repair H/O carpal tunnel repair H/O gastric sleeve H/O tubal ligation History of appendectomy History of arthroscopy of right shoulder History of carpal tunnel surgery History of surgery gastric bypass revision S/P trigger finger release Family History Brother Lung cancer Sister Family history of hypertension Sister Cervical cancer Breast cancer Social History (Updated 07/24/23 @ 08:15 by Trinity Zamora RN) Smoking Status: Never smoker how long ago did patient quit smokin years ago alcohol intake: never substance use type: denies use current occupational status: other Travel in the last 8 weeks: None household members: family housing: house current occupational exposures/hazards: No caffeine: No Meds Home Medications and Allergies Home Medications Medication Instructions Recorded Confirmed Type pantoprazole 40 mg tablet,delayed 40 mg PO DAILY GERD 10/28/20 07/03/23 History release ubrogepant 100 mg tablet (Ubrelvy) 100 mg PO .COMPLEX . 01/02/22 07/03/23 History rosuvastatin 20 mg tablet 20 mg PO DAILY Cholesterol 03/28/22 07/03/23 History spironolactone 25 mg tablet 25 mg PO DAILY fluid retention 03/28/22 07/03/23 History biotin 300 mcg tablet 300 mcg PO DAILY Supplement 04/10/22 07/03/23 History cetirizine 10 mg tablet 10 mg PO DAILY Allergy symptoms 04/10/22 07/03/23 History ondansetron 4 mg disintegrating 4 mg PO Q6H nausea and vomiting 04/11/22 07/03/23 Rx tablet #30 tabs paroxetine HCl 40 mg tablet 40 mg PO DAILY MOOD 04/24/22 07/03/23 History methocarbamol 500 mg tablet 500 mg PO DAILY 10/26/22 07/03/23 History nystatin-triamcinolone 100,000 1 applic topical DAILY PRN . 10/26/22 07/03/23 History unit/g-0.1 % topical cream oxycodone-acetaminophen 5 mg-325 1 tab PO Q4H PRN post op pain #42 06/18/23 07/03/23 Rx mg tablet tabs lidocaine 5 % topical patch 1 patch topical DAILY PRN pain #30 07/07/23 Rx ea New Prescriptions to Start Prescriptions: Allergies Allergy/AdvReac Type Severity Reaction Status Date / Time latex Allergy Intermediate I-HIVES Verified 07/03/23 11:14 nitrofurantoin Allergy Verified 07/03/23 11:14 [From Macrobid] NSAIDS (Non-Steroidal AdvReac Verified 07/03/23 11:14 Anti-Inflamma prednisone AdvReac Verified 07/03/23 11:14 Objective Vital signs: Pulse Resp BP Pulse Ox O2 Del Method 84 20 126/77 96 Room Air 07/24/23 08:14 07/24/23 08:14 07/24/23 08:14 07/24/23 08:14 07/24/23 08:14 Assessment and Plan *Assessment and plan (1) Lumbar back pain with radiculopathy affecting lower extremity: Status: Acute Category: Medical Code(s): M54.16 - Radiculopathy, lumbar region Plan Had a long discussion with the patient regarding pain medications. We need to discern if in fact orthopedic surgery is discharging her from care since she is now 2 to 3 months postop. If this is the case, we can take over her care for chronic pain management. I informed the patient this does not mean chronic amish cotic use necessarily. We have other options to treat chronic pain. Patient voices understanding. She will give us a call following her August [address] Thomas. We will proceed at that time.
== END | disposition home or self-care (01) ==
PROVIDERS: PCP Nurse Practitioner Family; Visit Provider Nurse Anesthetist, Certified Registered
DX: M54.16 Radiculopathy, lumbar region (principal)
CPT/HCPCS: 99202; G0463

== ENCOUNTER 2023-08-09 13:27 | Outpatient (CLI) | payer MEDICARE, SELFPAY ==
--- NOTE | 2023-08-09 13:36 | XR_ITS ---
FINAL REPORT CLINICAL HISTORY: lt knee pain COMPARISON: 06/28/2023 FINDINGS: Three views of the left knee reveal postoperative changes in the patella with patellar fracture. Alignment appears stable. There is no new bony abnormality. The bony alignment is normal. The joint spaces are preserved. There is a small joint effusion. No localized soft tissue abnormality is seen. IMPRESSION: Stable postoperative changes without acute abnormality identified. Reviewed, Interpreted and Dictated by Jose Juan Quintero III, MD Transcribed by Wendi Aiken Authenticated and [facility]
--- NOTE | 2023-08-09 13:42 | XR_ITS ---
FINAL REPORT CLINICAL HISTORY: left wrist pain COMPARISON: 06/28/2023 FINDINGS: LEFT WRIST Three views demonstrate postoperative change of the distal radius with screw plate and multiple screws. Distal radial fracture is stable. No acute fracture or dislocation. There is mild degenerative change. The soft tissues are unremarkable. IMPRESSION: Stable distal radial fracture with postoperative changes as above. Reviewed, Interpreted and Dictated by Jose Juan Quintero III, MD Transcribed by Wendi Aiken Authenticated and [facility]
== END 2023-08-09 23:59 ==
PROVIDERS: PCP Nurse Practitioner Family; Visit Provider Orthopaedic Surgery
DX: M25.562 Pain in left knee (principal); M25.532 Pain in left wrist
CPT/HCPCS: 73110; 73562

== ENCOUNTER 2023-11-19 13:45 | Outpatient (CLI) | payer MEDICARE, SELFPAY ==
[2023-11-19 14:15] VITALS: BP 135/67; PULSE 74; RESP 18; TEMP 36.4; O2SAT 98
[2023-11-19] MEDS: METHYLPREDNISOLONE SOD SUCC 125MG VIAL 125 MG (14:15)
[2023-11-19] MEDS: SODIUM CHLORIDE 0.9% 10ML FLUSH SYRINGE 10 ML IV (14:15)
[2023-11-19] MEDS: 0.9 % SODIUM CHLORIDE 50 ML IV (14:18)
[2023-11-19 14:41] VITALS: BP 130/61; PULSE 79; RESP 18; O2SAT 98
[2023-11-19] MEDS: ferumoxytoL 510 MG in 0.9 % SODIUM CHLORIDE 50 ML 268 MG IV (14:41)
[2023-11-19 15:10] VITALS: BP 129/70; PULSE 68; RESP 18; O2SAT 98
[2023-11-19 15:40] VITALS: BP 133/78; PULSE 71; RESP 18; O2SAT 97
== END 2023-11-19 15:40 | disposition home or self-care (01) ==
LOC: INF 13:45
PROVIDERS: PCP Nurse Practitioner Family
DX: D64.81 Anemia due to antineoplastic chemotherapy (principal); K91.2 Postsurgical malabsorption, not elsewhere classified; D50.9 Iron deficiency anemia, unspecified
CPT/HCPCS: 96365; Q0138

== ENCOUNTER 2023-11-30 13:58 | Outpatient (RCR) | payer MEDICARE, MEDICAID, SELFPAY | END 2023-11-30 13:59 | disposition home or self-care (01) | LOC: PT 13:58 | DX: I89.0 Lymphedema, not elsewhere classified (principal) | CPT/HCPCS: 97163 ==

== ENCOUNTER 2023-12-07 08:22 | Outpatient (CLI) | payer MEDICARE, MEDICAID, SELFPAY ==
--- NOTE | 2023-12-07 08:27 | FL_ITS ---
FINAL REPORT CLINICAL HISTORY: ABDOMINAL PAIN..s/p gastric bypass 5031.90 dap 5:12 fluoro time FINDINGS: UPPER GI WITH SBFT HISTORY: Acute epigastric pain. PROCEDURE: The patient ingested barium. Spot and overhead films were obtained. Additional barium was administered for a SBFT. Number of images: 30 Fluoro time: 5 minutes 12 seconds DAP: 5031.90 uGym2. FINDINGS: UGI: No esophageal stricture is identified. There are postoperative changes of gastric bypass. There is a sliding-type hiatal hernia involving the gastric pouch. Gastroesophageal reflux was demonstrated to the thoracic inlet. Gastric pouch empties appropriately. SBFT: The tow motor operator film is normal. There is no evidence of obstruction. The mucosal fold pattern is normal. The terminal ilium is normal. IMPRESSION: Postoperative changes of gastric bypass with sliding-type hiatal hernia and gastroesophageal reflux. Films reviewed , interpreted and dictated by Dr. Quintero. Transcribed by Khurram Padgett PA-C. Reviewed, Interpreted and Dictated by Jose Juan Quintero III, MD Transcribed by ANNALEE Lester Authenticated and [facility]
[2023-12-07] MEDS: DIATRIZOATE MEGLUMINE(GASTROGRAFIN) 66%-10% 120ML 20 ML PO (08:53)
[2023-12-07] MEDS: BARIUM SULFATE (E-Z-HD 340GM);135ML BOTTLE 135 ML PO (08:53)
[2023-12-07] MEDS: BARIUM SULFATE(LIQUID E-Z-PAQUE);355ML BOTTLE 355 ML PO (08:53)
== END 2023-12-07 23:59 | disposition home or self-care (01) ==
LOC: RAD 08:23
PROVIDERS: PCP Nurse Practitioner Family; Visit Provider Nurse Practitioner Family
DX: R10.9 Unspecified abdominal pain (principal)
CPT/HCPCS: 74246; 74248

== ENCOUNTER 2023-12-18 12:46 | Outpatient (CLI) | payer MEDICARE, MEDICAID, SELFPAY ==
--- NOTE | 2023-12-18 12:50 | XR_ITS ---
FINAL REPORT CLINICAL HISTORY: wrist pain COMPARISON: None FINDINGS: 3 images of the right wrist were obtained. There is no evidence of fracture or dislocation. The joint spaces are intact. There is no soft tissue abnormality identified. There is mild degenerative cyst formation in the scaphoid and lunate bones. IMPRESSION: Mild degenerative cyst formation in the scaphoid and lunate. No acute bony abnormality identified. Reviewed, Interpreted and Dictated by Farhad Jacinto MD Transcribed by Hellen Nicholson Authenticated and [facility]
== END 2023-12-18 23:59 | disposition home or self-care (01) ==
LOC: RAD 12:47
PROVIDERS: PCP Nurse Practitioner Family; Visit Provider Physician Assistant Surgical
DX: M25.531 Pain in right wrist (principal)
CPT/HCPCS: 73110

== ENCOUNTER 2024-01-01 07:39 | Outpatient (CLI) | payer MEDICARE, MEDICAID, SELFPAY ==
--- NOTE | 2024-01-01 07:39 | MR_ITS ---
FINAL REPORT CLINICAL HISTORY: Rt Wrist Pain. HX CARPAL TUNNEL SURGERY. KNOT ON POSTERIOR ASPECT OF HAND. PUT MARKER ON KNOT. HX MELANOMA.. COMPARISON: None FINDINGS: Multiplanar MR imaging of the right wrist was performed without contrast. Mild degenerative changes present, along with multiple cysts in the carpal bones. There is no evidence of intrinsic ligament injury. The triangular fibrocartilage is intact. The extensor carpi radialis longus and brevis and extensor digitorum tenosynovitis is noted. There is an 11 mm lobular cyst noted on the volar and radial aspect of the radiocarpal joint, consistent with a ganglion cyst. No focal abnormality is identified of the median nerve. IMPRESSION: Tenosynovitis of the extensor carpi radialis longus and brevis and extensor digitorum tendons. Ganglion cyst noted on the volar and radial aspect of the radiocarpal joint. Reviewed, Interpreted and Dictated by Jose Juan Quintero III, MD Transcribed by Hellen Nicholson Authenticated and [facility]
== END 2024-01-01 23:59 | disposition home or self-care (01) ==
LOC: RAD 07:39
PROVIDERS: PCP Nurse Practitioner Family; Visit Provider Physician Assistant Surgical
DX: M67.431 Ganglion, right wrist (principal); M25.531 Pain in right wrist
CPT/HCPCS: 73221

== ENCOUNTER 2024-02-20 08:39 | Outpatient (CLI) | payer MEDICARE, MEDICAID, SELFPAY ==
[2024-02-20] MEDS: 0.9 % SODIUM CHLORIDE 50 ML 100 ML IV (08:50)
[2024-02-20] MEDS: METHYLPREDNISOLONE SOD SUCC 125MG VIAL 125 MG IV (08:50)
[2024-02-20 09:10] VITALS: BP 141/63; PULSE 68; RESP 18; O2SAT 97
[2024-02-20 10:25] VITALS: BP 146/76; PULSE 59; RESP 18; O2SAT 97
== END 2024-02-20 10:25 | disposition home or self-care (01) ==
LOC: INF 08:40
PROVIDERS: PCP Nurse Practitioner Family
DX: D50.0 Iron deficiency anemia secondary to blood loss (chronic) (principal)
CPT/HCPCS: 96365; J2916; J2919

== ENCOUNTER 2024-03-21 13:43 | Outpatient (CLI) | payer MEDICARE, MEDICAID, SELFPAY ==
[2024-03-21] MEDS: METHYLPREDNISOLONE SOD SUCC 125MG VIAL 125 MG (13:50)
[2024-03-21] MEDS: 0.9 % SODIUM CHLORIDE 50 ML 100 ML IV (13:50)
[2024-03-21 14:30] VITALS: BP 109/55; PULSE 80; RESP 17; O2SAT 94
[2024-03-21 15:35] VITALS: BP 117/72; PULSE 71; RESP 16
== END 2024-03-21 15:45 | disposition home or self-care (01) ==
LOC: INF 13:44
PROVIDERS: PCP Nurse Practitioner Family
DX: D50.9 Iron deficiency anemia, unspecified (principal)
CPT/HCPCS: 96365; J2916; J2919

== ENCOUNTER 2024-05-20 13:52 | Outpatient (CLI) | payer MEDICARE, MEDICAID, SELFPAY ==
[2024-05-20 14:39] LABS: Basophils # 0.1 K/mm3 (0-0.2); Basophils % 0.9 % (0.1-2.0); Eosinophils # 0.2 K/mm3 (0.0-0.4); Eosinophils % 2.7 % (0.1-12.0); Hematocrit 40.5 % (37.0-47.0); Hemoglobin 13.6 g/dL (12.2-16.2); Lymphocytes # 2.4 K/mm3 (0.7-4.5); Mean Corpuscular HGB Conc 33.5 g/dL (31.8-35.4); Mean Corpuscular Volume 89.6 fl (81-99); Mean Platelet Volume 6.9 fl (7.4-10.4); Monocytes # 0.5 K/mm3 (0.1-1.0); Monocytes % 7.1 % (1.7-9.3); Neutrophils # 4.4 K/mm3 (1.8-7.8); Neutrophils % 57.3 % (37.0-80.0); Platelet Count 312 K/mm3 (142-424); Red Blood Count 4.53 M/mm3 (4.20-5.40); Red Cell Distribution Width 14.7 % (11.5-17.5); White Blood Count 7.6 K/mm3 (4.8-10.8)
[2024-05-20 15:12] LABS: Alanine Aminotransferase 18 U/L (12-78); Albumin/Globulin Ratio 1.7 (1.1-1.8); Alkaline Phosphatase 69 U/L (38-126); Anion Gap 13.4 mEq/L (5-15); Aspartate Amino Transferase 31 U/L (14-36); Bilirubin,Total 0.5 mg/dl (0.2-1.3); Blood Urea Nitrogen 9 mg/dl (7-17); Calcium 8.9 mg/dl (8.4-10.2); Carbon Dioxide 26 mmol/L (22.0-30.0); Chloride 103 mmol/L (98-107); Cholesterol 146 mg/dl (140-200); Estimated Glomerular Filt Rate 127 ml/min (>60); GFR (African American) 154 ML/MIN (>60); Globulin 2.4 g/dL (1.3-3.2); Glucose 86 mg/dl (74-100); HDL Cholesterol 49 mg/dl (40-60); Potassium 4.4 mmoL/L (3.5-5.1); Sodium 138 mmol/L (136-145); Total Protein,Serum 6.4 g/dl (6.3-8.2); Triglycerides 139 mg/dl (30-150); VLDL Cholesterol 28 mg/dL (0-40)
[2024-05-20 15:26] LABS: Direct LDL Cholesterol 74.58 mg/dL (100-129)
[2024-05-20 15:47] LABS: Thyroid Stimulating Hormone 1.13 uIU/mL (0.465-4.68)
[2024-05-20 16:06] LABS: Vitamin B12 301 pg/mL (239-931)
[2024-05-20 16:45] LABS: Hemoglobin A1C 5.2 % (4.0-6.0)
[2024-05-20 17:30] LABS: Ferritin 13.7 ng/ml (11.1-264)
== END 2024-05-20 23:59 | disposition home or self-care (01) ==
LOC: LAB 13:53
PROVIDERS: PCP Nurse Practitioner Family; Visit Provider Nurse Practitioner Family
DX: Z00.00 Encounter for general adult medical examination without abnormal findings (principal); I10 Essential (primary) hypertension; Z98.84 Bariatric surgery status; E78.2 Mixed hyperlipidemia
CPT/HCPCS: 36415; 80053; 80061; 82306; 82607; 82728; 83036; 84443; 85025

== ENCOUNTER 2024-05-29 12:25 | Outpatient (CLI) | payer MEDICARE, MEDICAID, SELFPAY ==
--- NOTE | 2024-05-29 12:28 | XR_ITS ---
PROCEDURE INFORMATION: Exam: XR Right Hip Exam date and time: 05/29/2024 12:42 PM Age: 59 years old Clinical indication: Hip pain; Right hip; Additional info: Hip pain, no trauma TECHNIQUE: Imaging protocol: Radiologic exam of the right hip. Views: 2 or 3 views hip with pelvis when performed. Total images: 4 COMPARISON: CR XR HIP RT 2-3V W/PELVIS 03/03/2021 1:19 PM FINDINGS: Bones/joints: Mild degenerative changes of the right hip. No evidence of acute fracture or dislocation. Soft tissues: Soft tissues are within normal limits. Organs: IUD is in place. IMPRESSION: 1. Mild degenerative changes of the right hip. 2. No evidence of acute fracture or dislocation.
--- NOTE | 2024-05-29 12:39 | XR_ITS ---
PROCEDURE INFORMATION: Exam: XR Left Hand Exam date and time: 05/29/2024 12:42 PM Age: 59 years old Clinical indication: Other: Knot near palm of hand causing pain; Prior surgery; Surgery date: 6+ months; Surgery type: Skin graft left hand TECHNIQUE: Imaging protocol: Radiologic exam of the left hand. Views: 3 or more views. Total images: 3 COMPARISON: CR XR HAND LT MIN 3V 05/16/2023 6:09 PM FINDINGS: Bones/joints: No evidence of acute fracture or dislocation. Plate and screws in place along the distal radius. Soft tissues: Soft tissues are within normal limits. IMPRESSION: No evidence of acute fracture or dislocation.
== END 2024-05-29 23:59 | disposition home or self-care (01) ==
LOC: RAD 12:25
PROVIDERS: PCP Nurse Practitioner Family; Visit Provider Orthopaedic Surgery
DX: M25.551 Pain in right hip (principal); M79.642 Pain in left hand
CPT/HCPCS: 73130; 73502

== ENCOUNTER 2024-06-06 06:59 | Day surgery (SDC) | payer MEDICARE, MEDICAID, SELFPAY ==
[2024-06-04 11:24] VITALS: BMI 36.3
[2024-06-06 07:30] VITALS: BP 128/71; PULSE 61; RESP 18; TEMP 36.2; O2SAT 94
[2024-06-06] MEDS: LACTATED RINGERS 1000ML 1,000 ML 100 ML IV (07:38)
[2024-06-06] MEDS: LIDOCAINE 1% 20ML MDV 20 ML (08:38)
[2024-06-06] MEDS: TRIAMCINOLONE ACET 40MG/ML VIAL 80 MG (08:38)
[2024-06-06 08:44] VITALS: BP 102/58; PULSE 73; RESP 16; TEMP 36.2; O2SAT 93
--- NOTE | 2024-06-06 08:44 | P.OP_ITS ---
Date of procedure: 06/06/24 Pre-op Diagnosis:: Right hip osteoarthritis Post-op Diagnosis:: Same Procedure performed:: Right hip injection with arthrogram x-ray guidance for needle placement Surgeon:: Marc Thomas DO OIL HEATER INSTALLER:: Rj Peters Anesthesia: MAC Estimated blood loss (mL): 0 Operative findings:: See dictation Operative note:: Patient identified preoperatively. Right hip marked with a yes and my initials. Transported to operative suite placed upon the radiolucent bed. Patient given sedation. Right hip prepped and draped normal sterile fashion. Once prepped and draped final operative timeout performed to identify proper patient procedure and extremity. Everyone involved the case agreed. There were no counter indications to beginning. X-ray was brought into identify the right hip. 18-gauge spinal needle was used and x-ray guidance was used for the proper trajectory to place 18-gauge spinal needle into the hip capsule. Once within the hip capsule arthrogram was performed to confirm needle placement. Once arthrogram confirmed hip was injected with 80 mg Kenalog 3 cc 1% lidocaine. Needle removed Band-Aid placed patient tolerated procedure well without difficulty. Condition: stable Disposition: PACU Complications:: None apparent
[2024-06-06 08:54] VITALS: BP 114/66; PULSE 59; RESP 16; O2SAT 93
[2024-06-06 09:04] VITALS: BP 112/65; PULSE 78; RESP 18; O2SAT 95
[2024-06-06 09:14] VITALS: BP 115/62; PULSE 78; RESP 16; O2SAT 96
--- NOTE | 2024-06-06 10:13 | XR_ITS ---
FINAL REPORT CLINICAL HISTORY: rt hip injection in or ft: 0.05 0.89 mgy FINDINGS: FLUOROSCOPY LESS THAN 1 HOUR HISTORY: Fluoroscopy guidance. FINDINGS: Fluoroscopic guidance was provided for right hip injection in the OR. A single spot film was obtained. A total of 0.05 minutes of fluoroscopy time were used. DAP: 0.89 mGy IMPRESSION: As above. Reviewed, Interpreted and Dictated by Jose Juan Quintero III, MD Transcribed by Wendi Aiken Authenticated and [facility]
[2024-06-06] MEDS: IOPAMIDOL-370 (76%);100ML BOTTLE 10 ML IV (15:36)
== END 2024-06-06 09:15 | disposition home or self-care (01) ==
PROVIDERS: PCP Nurse Practitioner Family; Visit Provider Orthopaedic Surgery
PROC: (CPT 20610; principal; 2024-06-06 08:30)
DX: M16.11 Unilateral primary osteoarthritis, right hip (principal)
CPT/HCPCS: 20610; 77002; 73502; 76000; J2250; J3010; J3301; J7120; Q9967

== ENCOUNTER 2024-06-16 14:16 | Emergency (ER) | payer MEDICARE, MEDICAID, SELFPAY ==
[2024-06-16 14:25] VITALS: BP 141/78; PULSE 108; RESP 20; TEMP 37.1; O2SAT 95; BMI 36.6
--- NOTE | 2024-06-16 14:33 | EXP.UTC ---
Discharge Plan Disposition Patient Disposition: Home, Self-Care Condition: Good Prescriptions Prescriptions: New azithromycin [Zithromax] 250 mg tablet 250 mg PO UD DOSE PK Qty: 6 0RF Rx Instructions: Take two (2) tablets today, then one (1) tablet days #2 thru #5 benzonatate 100 mg capsule 100 mg PO TIDP PRN (Reason: Cough) Qty: 30 0RF No Action acyclovir 400 mg tablet 400 mg PO DAILY famotidine 20 mg tablet 20 mg PO DAILY pantoprazole 40 mg tablet,delayed release (DR/EC) 40 mg PO DAILY Patient Comments: TAKE ONE TABLET BY MOUTH EVERY DAY lidocaine 5 % adhesive patch,medicated 1 patch topical DAILY Patient Comments: APPLY 1 PATCH TOPICALLY TO THE AFFECTED AREA ONCE DAILY AND LEAVE IN PLACE FOR 12 HOURS, THEN REMOVE AND LEAVE OFF FOR 12 HOURS paroxetine HCl 40 mg tablet 40 mg PO DAILY fluticasone propionate 50 mcg/actuation spray,suspension 1 spray INTRANASAL DAILY Patient Comments: instill 1 SPRAY in each nostril EVERY DAY rosuvastatin 20 mg tablet 20 mg PO HS bupropion HCl 150 mg tablet extended release 24 hr 150 mg PO DAILY Patient Comments: TAKE ONE TABLET BY MOUTH EVERY DAY cholecalciferol (vitamin D3) 1,250 mcg (50,000 unit) capsule 1,250 mcg PO WEEKLY Patient Comments: TAKE ONE CAPSULE BY MOUTH ONCE A WEEK Referrals Follow up/Referrals: Loren Tesfaye APRN [Primary Care Provider] - See instructions Activity Restrictions/Add. Instructions Additional Instructions/Restrictions: Drink plenty of fluids. Take tylenol or ibuprofen for pain or fever. Take the medications as directed. Follow up with your regular doctor. GO TO THE ER FOR ANY WORSENING SYMPTOMS Clinical Impressions Clinical Impression: Sinusitis Stand Alone Forms Stand Alone Forms: Work/School Release Instructions Patient Instructions: Sinusitis, DI for Sinusitis Print Language Print Language: Yoruba Discharge ED Provider: Israel Hines [facility] General Stated complaint: sinus pressure and drainage Mode of Arrival: Ambulatory Source of Information: Patient Limitations: No Limitations Time Seen by Provider: 06/16/24 14:33 Description of Symptoms (Recalled from Triage Doc. by RN): PATIENT C/O COUGH, DRAINAGE AND BODY ACHES SINCE YESTERDAY HEENT Symptoms (Recalled from RN notes): Yes Resp Symptoms (Recalled from RN notes): Yes Skin Symptoms (Recalled from RN notes): No MS Symptoms (Recalled from RN notes): No Functional Status (Recalled from RN notes): WNL Related Data Home Medications ?Medication ?Instructions ?Recorded ?Confirmed acyclovir 400 mg tablet 400 mg PO DAILY 06/16/24 06/16/24 bupropion HCl 150 mg 24 hr tablet, 150 mg PO DAILY 06/16/24 06/16/24 extended release cholecalciferol (vitamin D3) 1,250 1,250 mcg PO WEEKLY 06/16/24 06/16/24 mcg (50,000 unit) capsule famotidine 20 mg tablet 20 mg PO DAILY 06/16/24 06/16/24 fluticasone propionate 50 1 spray intranasal DAILY 06/16/24 06/16/24 mcg/actuation nasal spray,suspension lidocaine 5 % topical patch 1 patch topical DAILY 06/16/24 06/16/24 pantoprazole 40 mg tablet,delayed 40 mg PO DAILY 06/16/24 06/16/24 release paroxetine HCl 40 mg tablet 40 mg PO DAILY 06/16/24 06/16/24 rosuvastatin 20 mg tablet 20 mg PO HS 06/16/24 06/16/24 Previous Rx's ?Medication ?Instructions ?Recorded azithromycin 250 mg tablet 250 mg PO UD DOSE PK #6 tabs 06/16/24 (Zithromax) benzonatate 100 mg capsule 100 mg PO TIDP PRN Cough #30 caps 06/16/24 Allergies Allergy/AdvReac Type Severity Reaction Status Date / Time latex Allergy Intermediate I-HIVES Verified 06/06/24 07:30 acetaminophen (From Percocet) Allergy Rash Verified 06/06/24 07:30 nitrofurantoin (From Allergy Vomiting Verified 06/06/24 07:30 Macrobid) oxycodone (From Percocet) Allergy Rash Verified 06/06/24 07:30 NSAIDS (Non-Steroidal AdvReac Other Verified 06/06/24 07:30 Anti-Inflamma prednisone AdvReac Other Verified 06/06/24 07:30 Worker's Comp Is this a Worker's Comp case?: No [facility] Disclaimer: The information contained in this section may have been updated after the patient was seen, as this information can be updated by other users. Medical History (Updated 06/16/24 @ 15:41 by Israel Hines APRN) Left hand pain Migraine Cholecystectomy planned Urinary tract infection Sleep apnea History of COVID-19 Pneumonia Menopause Migraine Depression Anxiety Limited range of motion (ROM) of shoulder Arthritis Appendicitis History of gastroesophageal reflux (GERD) Allergies Hyperlipidemia H/O clavicle fracture H/O fracture of humerus Depression Migraine History of gastroesophageal reflux (GERD) Chest pain Dizziness Palpitations Surgical History H/O abdominoplasty History of surgery S/P trigger finger release History of carpal tunnel surgery H/O tubal ligation History of appendectomy H/O gastric sleeve H/O carpal tunnel repair History of arthroscopy of right shoulder Family History Brother Lung cancer Sister Family history of hypertension Sister Cervical cancer Breast cancer Social History (Updated 06/06/24 @ 07:26 by Qing Johansen, RAN[place]) Smoking Status: Never smoker how long ago did patient quit smokin years ago alcohol intake: never substance use type: denies use current occupational status: other household members: family housing: house current occupational exposures/hazards: No caffeine: No ROS Obtained: Yes All systems reviewed & no additional complaints except as documented Constitutional Constitutional: Reports poor appetite Eyes Eyes: Reports system reviewed and no additional complaints, except as documented ENT Ears, Nose, Mouth, and Throat: Reports as per HPI Cardiovascular Cardiovascular: Reports system reviewed and no additional complaints, except as documented and Denies chest pain Respiratory Respiratory: Denies shortness of breath, Denies chest congestion, Reports cough, Denies stridor and Denies wheezing Gastrointestinal Gastrointestingal: Reports system reviewed and no additional complaints, except as documented; Denies abdominal pain, diarrhea or vomiting Musculoskeletal Musculoskeletal: Reports system reviewed and no additional complaints, except as documented and Denies arthralgias Integumentary/Breasts Skin/Breast: Reports system reviewed and no additional complaints, except as documented and Denies rash Neurologic Neurologic: Denies paresthesias Allergic/Immunologic Allergic/Immunologic: Denies wheezing Physical Exam General General appearance: alert and in no apparent distress Eye Eye exam: Present normal appearance, PERRL and EOMI ENT ENT exam: Present mucous membranes moist and normal external ear exam Expanded ENT Exam External ear exam: Present normal external inspection TM/Canal exam: Bilateral TM: erythema and bulging Nose exam: Absent sinus tenderness Nasal speculum exam: Bilateral: normal Mouth exam: Present normal external inspection; Absent drooling Teeth exam: Present normal inspection Throat exam: Present tonsillar erythema and tonsillomegaly Neck Neck exam: Present normal inspection, full ROM and trachea midline; Absent tenderness, lymphadenopathy or thyromegaly Chest Chest inspection: Present normal inspection and symmetric chest wall rise; Absent tenderness or rash Respiratory Respiratory exam: Present normal lung sounds bilaterally; Absent respiratory distress, wheezes, stridor or accessory muscle use Cardiovascular Cardiovascular exam: Present regular rate, normal rhythm and normal heart sounds Abdominal Exam Abdominal exam: Present soft; Absent distention, tenderness, guarding, rebound or rigidity Extremities Exam Extremities exam: Present normal inspection, full ROM and normal capillary refill; Absent tenderness or calf tenderness Back Exam Back exam: Present normal inspection and full ROM; Absent tenderness Neurological Exam Neurological exam: Present alert and oriented X3 Psychiatric Psychiatric exam: Present normal affect and normal mood Skin Skin exam: Present warm, dry, intact and normal color Lymphatic Lymphatic Findings: no adenopathy Medical Decision Making Medical Records Medical records reviewed: No I reviewed the patient's medical records. Screening: Per USPSTF and CDC recommendations, given the prevalence of disease in our region, it is our hospital?s policy to screen for HIV and viral Hepatitis for all patients aged 18 and over and those with ongoing risk factors. Brian Inquiry Pt receiving controlled substance: No Vital Signs: 06/16/24 14:25 Temperature 98.7 F Temperature Source Oral Pulse Rate [Left Brachial] 108 H Respiratory Rate 20 Blood Pressure [Left Arm] 141/78 H Blood Pressure Mean [Left Arm] 99 Blood Pressure Source [Left Arm] Automatic Cuff Blood Pressure Position [Left Arm] Sitting 02 Sat by Pulse Oximetry 95 Oxygen Delivery Method Room Air Lab Data Lab results reviewed: Yes I reviewed the patient's lab results.
[2024-06-16] MEDS: cefTRIAXone 1GM VIAL 1 GM IM (15:25)
[2024-06-16] MEDS: DEXAMETHASONE 4MG/ML 1ML VIAL 8 MG IM (15:25)
[2024-06-16] MEDS: LIDOCAINE 1% 5ML PF VIAL IM (15:25)
[2024-06-16 15:40] VITALS: BP 141/78; PULSE 108; RESP 20; TEMP 37.1; O2SAT 95
== END 2024-06-16 15:46 | disposition home or self-care (01) ==
PROVIDERS: Emergency Provider Nurse Practitioner Family; PCP Nurse Practitioner Family
DX: J01.90 Acute sinusitis, unspecified (principal); R05.9 Cough, unspecified; R09.81 Nasal congestion; R63.8 Other symptoms and signs concerning food and fluid intake
CPT/HCPCS: 99212; G0381; J0696; J1100

== ENCOUNTER → 2024-09-25 07:29 | Outpatient (CLI) | payer MEDICARE, MEDICAID, SELFPAY | LOC: SL 07:30 | PROVIDERS: PCP Nurse Practitioner Family; Visit Provider Nurse Practitioner Family | DX: G47.33 Obstructive sleep apnea (adult) (pediatric) (principal); I10 Essential (primary) hypertension; E11.9 Type 2 diabetes mellitus without complications; E66.9 Obesity, unspecified; G47.10 Hypersomnia, unspecified | CPT/HCPCS: G0399 ==

== ENCOUNTER 2024-11-28 08:44 | Outpatient (CLI) | payer MEDICARE, MEDICAID, SELFPAY ==
--- OUTSIDE RECORDS SUMMARY | 2024-11-28 08:46 | XMS_ITS | Continuity of Care Document ---
Author Organization [place] - [place] [facility] Address [address] [place] [address] Care Team Providers Care Master In Chancery Name Role Phone GILBERTO PORTILLO Primary Care Provider Assessment No assessment recorded. Plan of Treatment Reminders Order Date Submit Date Provider Last Modified By Organization Details Last Modified Time Details Appointments OV EST 20 2024 02:40P M Reza Allen, DNP, CREDIT UNION EXAMINER, NURSING EDUCATOR-C Not available Not available Not available Lab copper, serum or plasma 2024 025 [email or web address] [facility], [address], [address], [place], [address], 11/03/2024 14:20:02 selenium, quantitat gallo, blood 2024 025 [email or web address] [facility], [address], [address], [place], [address], 11/03/2024 14:20:02 zinc, serum or plasma 2024 025 [facility], [address], [place], [address], 11/03/2024 14:20:02 iron + TIBC + ferritin, serum 2024 025 [email or web address] [facility], [address], [place], [address], 11/03/2024 14:20:02 folate, serum 2024 025 [email or web address] [facility], [address], [address], [place], [address], 11/03/2024 14:20:02 vitamin E, serum 2024 025 [facility], [address], [address], [place], [address], 11/03/2024 14:20:02 vitamin A (retinol) , serum 2024 025 [email or web address] [facility], [address], [address], [place], [address], 11/03/2024 14:20:02 prealbumi n, serum 2024 025 [facility], [address], [address], [place], [address], 11/03/2024 14:20:02 thiamine, QN, blood 2024 025 [email or web address] [facility], [address], [address], [place], [address], 11/03/2024 14:20:02 methylmal damon, QN, serum or plasma 2024 025 [email or web address] [facility], [address], [address], [place], [address], 11/03/2024 14:20:02 vitamin D, 25-hydrox y, total, serum 2024 025 [email or web address] [facility], [address], [address], [place], [address], 11/03/2024 14:20:03 CBC w/ auto diff 04/2024 [email or web address] [facility], [address], [address], [place], [address], 11/03/2024 14:20:02 CMP, serum or plasma 2024 025 [email or web address] [facility], [address], [address], [place], [address], 11/03/2024 14:20:03 HbA1c (hemoglob in A1c), blood 2024 [email or web address] [facility], [address], [address], [place], [address], 11/03/2024 14:20:03 TSH + free T4, serum 2024 [email or web address] [facility], [address], [address], [place], [address], 11/03/2024 14:20:03 lipid panel, serum 2024 [email or web address] [facility], [address], [address], [place], [address], 11/03/2024 14:20:03 Referral None recorded. Procedures None recorded. Surgeries None recorded. Imaging None recorded. Medication Orders Qsymia 3.75 mg-23 mg capsule, extended release 2024 [facility], [address] [place] [address], [address], [place], [address], 11/25/2024 14:56:40 Qsymia 7.5 mg-46 mg capsule, extended release 2024 [facility], [address] [place] [address], [address], [place], [address], 11/25/2024 14:56:41 Patient TargetsNo targets recorded. Patient InstructionsNo instructions recorded. Reason for Referral None Reported. Problems Name Problem SNOMED Code Status Onset Date Resolution Date Notes Provider Name and Address Organization Details Recorded Time Elevated blood-pres sure reading without diagnosis of hypertensi on 584237859 Active 2024 Reza Allen DNP, APRN, NURSING EDUCATOR-C [address], [place], [address] , [place] - [facility] - [place] & [place] 5 13:28:49 Lipoma of right lower limb 7691162389157 108 Active 2024 Reza Allen DNP, APRN, NURSING EDUCATOR-C [address], [place], [place], [address] [place] [address] , [place] - [facility] - [place] & [place] 5 13:56:49 Morbid obesity 761482667 Active 2024 Reza Allen DNP, APRN, NURSING EDUCATOR-C [address], [place], [address] [place] [address] , [place] - [facility] & [place] 5 13:57:04 Hyperlipid emia 76010210 Active 2022 Reza Allen DNP, APRN, NURSING EDUCATOR-C [address], [place], [address] [place] [address] , [place] - [facility] & [place] 3 14:16:59 Skin irritation 438147742 Active 2022 Reza Allen DNP, APRN, NURSING EDUCATOR-C [address], [place], [address] [place] [address] , [place] - [facility] & [place] 3 16:03:51 Unintentio nal weight gain 8502064450618 04 Active 2022 Reza Allen DNP, APRN, NURSING EDUCATOR-C [address], [place], [address] [place] [address] , [place] - [facility] & [place] 3 16:04:06 History of bypass of stomach 155010494 Active 2022 Reza Allen DNP, APRN, NURSING EDUCATOR-C [address], [place], [address] , [place] - [facility] - [place] & [place] 3 16:04:20 Excess skin of abdominal wall 064555916 Active 2022 Reza Allen, BRANDIE, CREDIT UNION EXAMINER, NURSING EDUCATOR-C [address], [place], [address] , [place] - [facility] - [place] & [place] 3 10:19:24 Abdominal pain 45162175 Active 2023 Reza Allen, BRANDIE, CREDIT UNION EXAMINER, NURSING EDUCATOR-C [address], [place], [address] [place] [address] , [place] - [facility] - [place] & [place] 4 13:42:22 Retching 27191530 Active 2023 Reza Allen, BRANDIE, CREDIT UNION EXAMINER, NURSING EDUCATOR-C [address], [place], [address] [place] [address] , [place] - [facility] - [place] & [place] 4 13:48:24 History of Helicobact er pylori infection 3382000627528 9108 Active 2023 Reza Allen, BRANDIE, CREDIT UNION EXAMINER, NURSING EDUCATOR-C [address], [place], [address] [place] [address] , [place] - [facility] - [place] & [place] 4 13:48:47 Problem Notes None recorded. Procedures Surgical History Date Name Laterality Status Provider Name and Address Organization Details Recorded Time laparoscopic sleeve gastrectomy completed Isabel MORILLO - [facility] - [place] & [place] 3 14:08:11 Christina-en-Y gastrojejunostomy complete d Isabel Oj MORILLO - [facility] - [place] & [place] 3 14:08:35 esophagogastroduodenoscopy completed Isabel Oj MORILLO - [facility] - [place] & [place] 3 14:08:47 procedure on shoulder completed Alecia ecca Oj MORILLO - [facility] - [place] & [place] 3 14:09:12 Other completed Isabel Oj MORILLO - [facility] - [place] & [place] 3 14:09:25 Appendectomy completed Isabel Oj MORILLO - [facility] - [place] & [place] 3 14:09:31 Other completed Isabel BRAGG - [place] & [place] 3 14:09:51 Tubal Ligation completed Isabel BRAGG - [place] & [place] 3 14:10:00 Cholecystectomy completed Isabel BRAGG [facility] & [place] 3 14:10:06 procedure on knee completed Nisa BRAGG [facility] & [place] 5 13:16:49 Imaging Results None recorded. Procedure Notes None recorded. Medical Equipment None Reported. Allergies Allergen ID Allergen Name Allergen Category Reaction Reaction Severity Criticality Documentation Date Start Date Code Code System Note Provider Name and Address Organization Details Recorded Time 105194 Macrobid medicatio n Not available Not available Not available 10/31/2023 55640 1 RxNorm ILIA Gruber [facility] & [place] 4 13:17:53 322085 acetamino phen / oxycodone medicatio n Not available Not available Not available 10/31/2023 63778 3 RxNorm ILIA Gruber [facility] & [place] 4 13:17:59 381419 latex environme nt,medica tion Not available Not available Not available 10/31/2023 32525 91 RxNorm ILIA Gruber [facility] & [place] 4 13:18:06 Medications Name Sig Start Date Stop Date Status Note LastModified by Organization Details LastModified Time methocarbam ol 500 mg tablet TAKE 1 OR 2 TABLET(S) BY MOUTH FOUR TIMES DAILY NEEDED FOR pain MAY CAUSE DROWSINES S 10/24 completed Not Available Not Available Not Available promethazin e-DM 6.25 mg-15 mg/5 mL oral syrup TAKE 1 TEASPOONF UL (5 ML) BY MOUTH EVERY 6 HOURS NEEDED FOR COUGH FOR 10 DAYS 10/24 completed Not Available Not Available Not Available doxycycline hyclate 100 mg capsule TAKE ONE CAPSULE BY MOUTH EVERY TWELVE HOURS FOR 10 DAYS -- FINISH ALL MEDICINE -- 10/30 completed Not Available Not Available Not Available ketoconazol e 2 % shampoo APPLY TOPICALLY TO THE AFFECTED AREA(S) three times WEEKLY 10/30 completed Not Available Not Available Not Available cetirizine 10 mg tablet TAKE ONE TABLET BY MOUTH EVERY DAY active Not Available Not Available No t Available azithromyci n 250 mg tablet TAKE 2 TABLETS BY MOUTH ON DAY 1, THEN TAKE 1 TABLET DAILY ON DAYS 2-5 10/24 completed Not Available Not Available Not Available tizanidine 4 mg tablet TAKE ONE TABLET BY MOUTH EVERY DAY AT BEDTIME 09/04 completed Not Available Not Available Not Available fluconazole 150 mg tablet TAKE ONE TABLET BY MOUTH ONE DOSE. REPEAT IN 3 DAYS NEEDED FOR VAGINAL YEAST SYMPTOMS 10/24 completed Not Available Not Available Not Available valacyclovi r 1 gram tablet TAKE TWO TABLETS BY MOUTH TWICE DAILY active Not Available Not Available No t Available hydrocodone 5 mg-acetamin ophen 325 mg tablet TAKE ONE TABLET BY MOUTH EVERY DAY AT BEDTIME NEEDED FOR POST OP PAIN 10/30 completed Not Available Not Available Not Available sucralfate 100 mg/mL oral suspension TAKE 2 TEASPOONS FUL (10 ML) BY MOUTH FOUR TIMES DAILY 2024 active Not Available Not Available Not Avai lable sucralfate 1 gram tablet Take 1 tablet 4 times a day by oral route for 5 days. 2024 active Not Available Not Available Not Avai lable ondansetron HCl 4 mg tablet TAKE ONE TABLET BY MOUTH EVERY 8 HOURS NEEDED FOR NAUSEA active Not Available Not Available No t Available ciprofloxac in 250 mg tablet TAKE ONE TABLET BY MOUTH EVERY TWELVE HOURS FOR 7 DAYS -- FINISH ALL MEDICINE -- 10/30 completed Not Available Not Available Not Available acyclovir 400 mg tablet TAKE ONE TABLET BY MOUTH THREE TIMES DAILY FOR 8 DAYS 10/24 completed Not Available Not Available Not Available ciprofloxac in 500 mg tablet TAKE 1 TABLET BY MOUTH TWICE DAILY FOR 7 DAYS 10/30 completed Not Available Not Available Not Available folic acid 400 mcg tablet TAKE TWO TABLETS BY MOUTH EVERY DAY 09/04 completed Not Available Not Available Not Available sulfamethox azole 800 mg-trimetho prim 160 mg tablet TAKE 1 TABLET BY MOUTH TWICE DAILY FOR 7 DAYS 09/04 completed Not Available Not Available Not Available hydrocodone 10 mg-acetamin ophen 325 mg tablet TAKE ONE TABLET BY MOUTH EVERY 6 HOURS NEEDED FOR PAIN MAY CAUSE DROWSINES S 10/30 completed Not Available Not Available Not Available tramadol 50 mg tablet TAKE ONE TABLET BY MOUTH EVERY 6 HOURS NEEDED MAY CAUSE DROWSINES S 10/24 completed Not Available Not Available Not Available triamcinolo ne acetonide 0.1 % topical cream APPLY TOPICALLY TO THE AFFECTED AREA(S) EVERY DAY 10/30 completed Not Available Not Available Not Available spironolact one 25 mg tablet TAKE ONE TABLET BY MOUTH EVERY DAY active Not Available Not Available No t Available pantoprazol e 20 mg tablet,nas yed release TAKE ONE TABLET BY MOUTH EVERY DAY 10/24 completed Not Available Not Available Not Available nystatin-tr iamcinolone 100,000 unit/gram-0 .1 % topical ointment APPLY TOPICALLY TO THE AFFECTED AREA(S) TWICE DAILY 10/30 completed Not Available Not Available Not Available oxycodone-a cetaminophe n 5 mg-325 mg tablet TAKE ONE TABLET BY MOUTH EVERY 4 HOURS NEEDED FOR post op pain MAY CAUSE DROWSINES S 10/30 completed Not Available Not Available Not Available famotidine 20 mg tablet TAKE ONE TABLET BY MOUTH EVERY DAY AT BEDTIME active Not Available Not Available No t Available oxycodone-a cetaminophe n 10 mg-325 mg tablet TAKE ONE TABLET BY MOUTH EVERY 4 HOURS NEEDED FOR fracture pain MAY CAUSE DROWSINES S 10/30 completed Not Available Not Available Not Available dicyclomine 20 mg tablet TAKE ONE TABLET BY MOUTH FOUR TIMES DAILY NEEDED FOR SPASMS active Not Available Not Available No t Available hydrocodone 7.5 mg-acetamin ophen 325 mg tablet TAKE ONE TABLET BY MOUTH TWICE DAILY MAY CAUSE DROWSINES S active Not Available Not Available No t Available cephalexin 500 mg capsule TAKE ONE CAPSULE BY MOUTH FOUR TIMES DAILY FOR 5 DAYS -- FINISH ALL MEDICINE -- 10/30 completed Not Available Not Available Not Available pantoprazol e 40 mg tablet,nas yed release TAKE ONE TABLET BY MOUTH EVERY DAY active Not Available Not Available No t Available hyoscyamine sulfate 0.125 mg tablet TAKE ONE TABLET BY MOUTH EVERY 6 HOURS NEEDED FOR abdominal cramping 10/24 completed Not Available Not Available Not Available lidocaine 5 % topical patch APPLY 1 PATCH TOPICALLY TO THE AFFECTED AREA ONCE DAILY AND LEAVE IN PLACE FOR 12 HOURS, THEN REMOVE AND LEAVE OFF FOR 12 HOURS active Not Available Not Available No t Available Levsin/SL 0.[address] 1 tablet 3 times a day by sublingua l route as needed. 10/24 completed Not Available Not Available Not Available mometasone 0.1 % topical ointment APPLY TOPICALLY TO THE AFFECTED AREA(S) TWICE DAILY FOR 3 WEEKS ON THEN break FOR 1 WEEK AND REPEAT 10/24 completed Not Available Not Available Not Available methylpredn isolone 4 mg tablets in a dose pack FOLLOW PACKAGE DIRECTION S 09/04 completed Not Available Not Available Not Available paroxetine 40 mg tablet TAKE ONE TABLET BY MOUTH EVERY DAY active Not Available Not Available No t Available ondansetron 4 mg disintegrat ing tablet DISSOLVE ONE TABLET in MOUTH EVERY 6 HOURS NEEDED FOR NAUSEA AND VOMITING 10/30 completed Not Available Not Available Not Available fluticasone propionate 50 mcg/actuati on nasal spray,suspe nsion instill 1 SPRAY in each nostril EVERY DAY active Not Available Not Available No t Available doxycycline hyclate 100 mg tablet TAKE ONE TABLET BY MOUTH TWICE DAILY FOR 7 DAYS -- FINISH ALL MEDICINE -- 09/04 completed Not Available Not Available Not Available amoxicillin 875 mg-potassiu m clavulanate 125 mg tablet TAKE ONE TABLET BY MOUTH EVERY TWELVE HOURS FOR 7 DAYS -- FINISH ALL MEDICINE -- --TAKE WITH FOOD-- 10/24 completed Not Available Not Available Not Available oxycodone 5 mg tablet TAKE ONE TABLET BY MOUTH EVERY 6 HOURS NEEDED FOR PAIN MAY CAUSE DROWSINES S 10/30 completed Not Available Not Available Not Available aripiprazol e 5 mg tablet TAKE ONE TABLET BY MOUTH EVERY DAY 09/04 completed Not Available Not Available Not Available rosuvastati n 20 mg tablet TAKE ONE TABLET BY MOUTH EVERY DAY active Not Available Not Available No t Available bupropion HCl XL 150 mg 24 hr tablet, extended release TAKE ONE TABLET BY MOUTH EVERY DAY 10/24 completed Not Available Not Available Not Available nitrofurant oin monohydrate /macrocryst als 100 mg capsule TAKE ONE CAPSULE BY MOUTH TWICE DAILY FOR 7 DAYS -- FINISH ALL MEDICINE -- 10/30 completed Not Available Not Available Not Available cholecalcif lesa (vitamin D3) 1,250 mcg (50,000 unit) capsule TAKE ONE CAPSULE BY MOUTH ONCE A WEEK 10/24 completed Not Available Not Available Not Available Qsymia 3.75 mg-23 mg capsule, extended release Take 1 capsule every day by oral route for 14 days. 2024 active Not Available Not Available Not Avai lable Qsymia 7.5 mg-46 mg capsule, extended release Take 1 capsule every day by oral route for 30 days. 2024 active Not Available Not Available Not Avai lable Kloxxado 8 mg/actuatio n nasal spray 10/30 completed Not Available Not Available Not Available Vitals Date Recorded Body height Body temperature Heart rate Body mass index (BMI) Body weight Systolic blood pressure Diastolic blood pressure Provider Name and Address Organization Details Last Updated DateTime 149.61 cm 97.8 [degF] 80 /min 38.5 kg/m2 15653.1 9 g 150 mm[Hg] 90 mm[Hg] Nisa Mooney [facility] & [place] 13:11:13 Social History Question Answer Notes LastModified by Organizat ion Details LastModified Time Tobacco Smoking Status Former Smoker Isabel Mcwilliams [facility], [facility] & [place] 09/04/2022 14:07:52 What Is Your Level Of Alcohol Consumption? None [email or web address] Information not available 09/04/2022 Do You Use Any Illicit Or Recreational Drugs? No [email or web address] Information not available 09/04/2022 Sex: Unknown Functional Status None recorded. Mental Status None recorded. Family History Nothing Reported. Medical History Condition Response Depression Y Anemia Y Anxiety Disorder Y Muscle, Joint, or Bone Problems Y Vision or Eye Problems Y Arthritis Y Reflux/GERD Y High Cholesterol Y Headaches Y Hypertension Y Gynecological HistoryNo gynecological history recorded. Obstetrics History GPAL:G 0 P 0 0 0 0 Past Encounters Encounter ID Performer Location Encounter Start Date Encounter Closed Date Diagnosis/Indication Diagnosis SNOMED-CT Code Diagnosis ICD10 Code Diagnosis Note [id number] Reza Allen, DNP, CREDIT UNION EXAMINER, NURSING EDUCATOR-C [facility] [address] [place] [address] 10/24/2024 12:58:43 10/24/2024 15:49:00 History of bariatric surgical procedure 301263956 Z98.84 Advised qid intake 50% protein 1180-7291 calories/d y less than 100 carbs/dyLo ng discussion today of InBody results including PBF(percen t body fat) SMM (skeletal muscle mass) Visceral fat level level BMR Segmental Fat Analysis and Segmental Lean Analysis. Patient encouraged pt to take minimal calories as per BMR and to anticipate changes in SMM and PBF values not just total weight. Repeat JENNIFER in 2-3mth suggestedP atient is to have bariatric vitamin lab panel. Patient was reassured on today's visit. Dialogue content in great detail regarding the benefits of proper diet as well as regular and routine exercise. In regards to exercise, we discussed reaching target heart rate for least 20 minutes 3 times a week. We also highlighte d the importance of staying well hydrated. Proper handwashin g was also encouraged . Patient was advised to keep in close contact with their primary care provider and/or any specialty provider (s). We will contact patient with any deficienci es. I did offer dietitian visit with patient today, patient declines at this time. Intentiona l weight loss 251227438 R63.8 History of gastrectomy 647493005 Z90.3 Advised qid intake 50% protein 0341-6399 calories/d y less than 100 carbs/dy Long discussion today of InBody results including PBF(percen t body fat) SMM (skeletal muscle mass) Visceral fat level level BMR Segmental Fat Analysis and Segmental Lean Analysis. Encouraged pt to take minimal calories as per BMR and to anticipate changes in SMM and PBF values not just total weight. Follow-up with Repeat JENNIFER in 3mth suggested Patient is status post bariatric surgery and at increased risk for vitamin deficienci es and malnutriti on. Bariatric vitamin panel ordered today. Patient will be contacted to correct any vitamin deficienci es. At [facility] ed risk of nutritional deficit 011508484 Z91.89 History of bypass of stomach 025412549 Z98.84 Hyperlipidemia 56345899 E78.5 Unintentio nal weight gain 5327684668 93511 R63.5 will have wind tunnel technician talk to her today. Lipoma of right lower limb [id number] 571935 D17.[address] Gu for courtesy consult Morbid obesity 718872468 E66.01 Health Concerns Section Related Observation LastModified by Organization Detai ls LastModified Time None Recorded Concern Status LastModified by Organization Details LastModified Time None Recorded Payers Encounter Date Sequence Insurance Name Policy Number Policy Bee Covered Member ID Bee Member ID Guarantor Name 10/24/2024 1 [employer] (MEDICARE REPLACEMENT/A DVANTAGE - PPO) Sabrina Schroeder Aquiles [id number] Sabrina Schroeder Aquiles Notes Date Note Type Note Provider Name and Address Organization Details Recorded Time 10/24/2024 text/html Patient presents the office today for routine 36 month follow-up 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 Patient doing well. Reports q.i.d. small meal intake. Reports has not been counting, but est 70g/dy protein intake and good hydration.Patient is drinking 64 ounces of water a day.Daily Calories has not been counting, but est 1200Taking routine vitamins as advised.Heartburn /gastroesophageal reflux: denies. IS only taking Carafate once a day. Had labs from 09-11-2024.Pt Denies : abdominal pain, prandial issues Nausea, Vomiting, bowel or bladder issuesTotal Weight gain Since last office visit has been 10.7 lbsPt is happy with their quality of life after Weight loss Surgery.Also has a lipoma on her right leg that has been there for several years.She has been seeing pain management.Today' s InBody reveals a skeletal muscle mass = 55.1 lb,body fat mass = 89.2 lb,BMI = 38.3Percent body fat = 46.9Basal Metabolic Rate = 1358 kilo calories Reza Allen, DNP, CREDIT UNION EXAMINER, NURSING EDUCATOR-C [address], [place], [address], [facility] - [place] - [place] & [place] 10/24/2024 15:06:34 OBGyn Episode No OBEpisode recorded.
--- OUTSIDE RECORDS SUMMARY | 2024-11-28 08:46 | XMS_ITS | Data Portability ---
Author Organization [facility] [place] ADMIN Address [address] [place] [id number] Care Team Providers Care Mold Parter Name Role Phone GILBERTO PORTILLO Primary Care Provider [phone] Assessment No assessment recorded. Plan of Treatment Reminders Order Date Submit Date Provider Last Modified By Organization Details Last Modified Time Details Appointments OV EST 20 2024 02:40P M Reza Allen, DNP, CHARTERED FINANCIAL ANALYST, CAR RENTAL AGENCY MANAGER-C Not available Not available Not available Lab copper, serum or plasma 2024 025 [email or web address] [facility], [address], [address], [place], [address], 11/03/2024 14:20:02 selenium, quantitat gallo, blood 2024 025 [email or web address] [facility], [address], [address], [place], [address], 11/03/2024 14:20:02 zinc, serum or plasma 2024 025 [email or web address] [facility], [address], [address], [place], [address], 11/03/2024 14:20:02 iron + TIBC + ferritin, serum 2024 025 [email or web address] [facility], [address], [address], [place], [address], 11/03/2024 14:20:02 folate, serum 2024 025 [email or web address] [facility], [address], [address], [place], [address], 11/03/2024 14:20:02 vitamin E, serum 2024 025 [email or web address] [facility], [address], [address], [place], [address], 11/03/2024 14:20:02 vitamin A (retinol) , serum 2024 025 [email or web address] [facility], [address], [address], [place], [address], 11/03/2024 14:20:02 prealbumi n, serum 2024 025 [email or web address] [facility], [address], [address], [place], [address], 11/03/2024 14:20:02 thiamine, QN, blood 2024 025 [email or web address] [facility], [address], [address], [place], [address], 11/03/2024 14:20:02 methylmal damon, QN, serum or plasma 2024 025 [email or web address] [facility], [address], [address], [place], [address], 11/03/2024 14:20:02 vitamin D, 25-hydrox y, total, serum 2024 025 [email or web address] [facility], [address], [address], [place], [address], 11/03/2024 14:20:03 CBC w/ auto diff 2024 025 [email or web address] [facility], [address], [address], [place], [address], 11/03/2024 14:20:02 CMP, serum or plasma 2024 025 [facility], [address], [address], [place], [address], 11/03/2024 14:20:03 HbA1c (hemoglob in A1c), blood 2024 025 [email or web address] [facility], [address], [address], [place], [address], 11/03/2024 14:20:03 TSH + free T4, serum 2024 025 [email or web address] [facility], [address], [address], [place], [address], 11/03/2024 14:20:03 lipid panel, serum 2024 025 [email or web address] [facility], [address], [address], [place], [address], 11/03/2024 14:20:03 lipase, serum or plasma 2023 024 REGINALDO [facility], [address], [address], [place], [address], 11/06/2023 04:39:10 amylase, serum or plasma 2023 024 REGINALDO [facility], [address], [address], [place], [address], 11/06/2023 04:39:09 H pylori Ag, stool 2023 024 [email or web address] [facility], [address], [address], [place], [address], 12/25/2023 12:28:02 copper, serum or plasma 2023 024 REGINALDO [facility], [address], [address], [place], [address], 11/06/2023 04:39:11 selenium, quantitat gallo, blood 2023 024 REGINALDO [facility], [address], [address], [place], [address], 11/06/2023 04:39:14 zinc, serum or plasma 2023 024 REGINALDO [facility], [address], [address], [place], [address], 11/06/2023 04:39:12 CBC w/ auto diff 2023 024 REGINALDO [facility], [address], [address], [place], [address], 11/06/2023 04:39:00 CMP, serum or plasma 2023 024 REGINALDO [facility], [address], [address], [place], [address], 11/06/2023 04:39:01 HbA1c (hemoglob in A1c), blood 2023 024 REGINALDO [facility], [address], [address], [place], [address], 11/06/2023 04:39:04 iron + TIBC + ferritin, serum 2023 024 REGINALDO [facility], [address], [address], [place], [address], 11/06/2023 04:38:58 folate, serum 2023 024 REGINALDO [facility], [address], [address], [place], [address], 11/06/2023 04:39:05 vitamin D, 25-hydrox y, total, serum 2023 024 REGINALDO [facility], [address], [address], [place], [address], 11/06/2023 04:39:07 vitamin E, serum 2023 024 REGINALDO [facility], [address], [address], [place], [address], 11/06/2023 04:39:03 vitamin A (retinol) , serum 2023 024 REGINALDO [facility], [address], [address], [place], [address], 11/06/2023 04:39:06 TSH + free T4, serum 2023 024 REGINALDO [facility], [address], [address], [place], [address], 11/06/2023 04:38:59 prealbumi n, serum 2023 024 REGINALDO [facility], [address], [address], [place], [address], 11/06/2023 04:39:13 thiamine, QN, blood 2023 024 REGINALDO [facility], [address], [address], [place], [address], 11/06/2023 04:39:08 methylmal damon, QN, serum or plasma 2023 024 REGINALDO [facility], [address], [address], [place], [address], 11/06/2023 04:39:08 lipid panel, serum 2023 024 REGINALDO [facility], [address], [address], [place], [address], 11/06/2023 04:39:02 CBC w/ auto diff 2022 023 REGINALDO Not available 03/11/2023 05:01:45 CMP, serum or plasma 2022 023 REGINALDO Not available 03/11/2023 05:01:46 HbA1c (hemoglob in A1c), blood 2022 023 REGINALDO Not available 03/11/2023 05:01:45 lipid panel, blood 2022 023 REGINALDO Not available 03/11/2023 05:01:43 iron + TIBC + ferritin, serum 2022 023 REGINALDO Not available 03/11/2023 05:01:44 folate, serum 2022 023 REGINALDO Not available 03/11/2023 05:01:43 mma (methylma lonic acid), serum 2022 023 REGINALDO Not available 03/11/2023 05:01:40 vitamin B1 (thiamine ), blood 2022 023 REGINALDO Not available 03/11/2023 05:01:43 vitamin D, 25-hydrox y, total, serum 2022 023 REGINALDO Not available 03/11/2023 05:01:43 vitamin E, serum 2022 023 REGINALDO Not available 03/11/2023 05:01:43 vitamin A (retinol) , serum 2022 023 REGINALDO Not available 03/11/2023 05:01:45 copper, serum or plasma 2022 023 REGINALDO Not available 03/11/2023 05:01:44 zinc, serum or plasma 2022 023 REGINALDO Not available 03/11/2023 05:01:40 Referral None recorded. Procedures None recorded. Surgeries esophagog astroduod enoscopy (SURG) 2023 024 [email or web address] Gilberto Gu MD, [address] [facility], [address], [place], [address], 01/15/2024 13:17:37 Imaging RF, upper gastroint estinal tract + small bowel, w/ contrast PO 2023 024 [facility] ([facility]), [address] [place] [address] [address], [place], [address], 12/07/2023 12:06:25 Medication Orders Qsymia 3.75 mg-23 mg capsule, extended release 2024 025 [facility], [address] [place] [address], [facility] [address], [place], [address], 11/25/2024 14:56:40 Qsymia 7.5 mg-46 mg capsule, extended release 2024 025 [facility], [address] [place] [address], [facility] [address], [place], [address], 11/25/2024 14:56:41 Carafate 100 mg/mL oral suspensio n [address] [facility], [address] [place] [address] [address], [id number], 10/24/2024 13:32:51 nystatin- triamcino lone 100,000 unit/gram -0.1 % topical ointment 2022 023 [email or web address] [facility], [address] [place] [address] [address], [id number], 10/31/2023 13:19:42 Patient TargetsNo targets recorded. Patient InstructionsNo instructions recorded. Reason for Referral None Reported. Results Created Date Observation Date Name Description Value Unit Range Abnormal Flag Note LastModifiedBy Organization Detail LastModifiedTime 10/31/19 24 11/01/2023 FE+TI BC+FE R iron bind.cap.(TI BC) 414 ug/dL 250-45 0 Not Available [facility] ([facility]) [address] [place], [address], 11/06/2023 04:38:58 10/31/19 24 11/01/2023 FE+TI BC+FE R UIBC 389 ug/dL 131-42 5 Not Available [facility] ([facility]) [address] [place], [address], 11/06/2023 04:38:58 10/31/19 24 11/01/2023 FE+TI BC+FE R iron 25 ug/dL 27-159 below low normal Not Available [facility] ([facility]) [address] [place], [address], 11/06/2023 04:38:58 10/31/19 24 11/01/2023 FE+TI BC+FE R iron saturation 6 % 15-55 alert low Not Available [facility] ([facility]) [address] [place], [address], 11/06/2023 04:38:58 10/31/19 24 11/01/2023 FE+TI BC+FE R ferritin 9 NG/mL 15-150 below low normal Not Available [facility] ([facility]) [address] [place], [address], 11/06/2023 04:38:58 10/31/19 24 11/01/2023 TSH+F REE T4 TSH 0.520 uIU/m L 0.450- 4.500 Not Available [facility] ([facility]) [address] [place], [address], 11/06/2023 04:38:59 10/31/19 24 11/01/2023 TSH+F REE T4 T4,free(dire ct) 1.13 NG/dL 0.82-1 .77 Not Available [facility] ([facility]) [address] [place], [address], 11/06/2023 04:38:59 10/31/19 24 11/01/2023 CBC WITH DIFFE RENTI AL/PL ATELE T WBC 7.2 x10e3 /uL 3.4-10 .8 Not Available [facility] ([facility]) [address] [place], [address], 11/06/2023 04:39:00 10/31/19 24 11/01/2023 CBC WITH DIFFE RENTI AL/PL ATELE T RBC 4.84 x10e6 /uL 3.77-5 .28 Not Available [facility] ([facility]) [address] [place], [address], 11/06/2023 04:39:00 10/31/19 24 11/01/2023 CBC WITH DIFFE RENTI AL/PL ATELE T hemoglobin 11.3 g/dL 11.1-1 5.9 Not Available [facility] ([facility]) [address] [place], [address], 11/06/2023 04:39:00 10/31/19 24 11/01/2023 CBC WITH DIFFE RENTI AL/PL ATELE T hematocrit 36.8 % 34.0-4 6.6 Not Available [facility] ([facility]) [address] [place], [address], 11/06/2023 04:39:00 10/31/19 24 11/01/2023 CBC WITH DIFFE RENTI AL/PL ATELE T MCV 76 fL 79-97 below low normal Not Available [facility] ([facility]) [address] [place], [address], 11/06/2023 04:39:00 10/31/19 24 11/01/2023 CBC WITH DIFFE RENTI AL/PL ATELE T MCH 23.3 pg 26.6-3 3.0 below low normal Not Available [facility] ([facility]) [address] [place], [address], 11/06/2023 04:39:00 10/31/19 24 11/01/2023 CBC WITH DIFFE RENTI AL/PL ATELE T MCHC 30.7 g/dL 31.5-3 5.7 below low normal Not Available [facility] ([facility]) [address] [facility], [place], [address], 11/06/2023 04:39:00 10/31/19 24 11/01/2023 CBC WITH DIFFE RENTI AL/PL ATELE T RDW 16.0 % 11.7-1 5.4 above high normal Not Available [facility] ([facility]) [address] [place], [address], 11/06/2023 04:39:00 10/31/19 24 11/01/2023 CBC WITH DIFFE RENTI AL/PL ATELE T platelets 450 x10e3 /uL 150-45 0 Not Available [facility] ([facility]) [address] [facility], [place], [address], 11/06/2023 04:39:00 10/31/19 24 11/01/2023 CBC WITH DIFFE RENTI AL/PL ATELE T neutrophils 58 % not estab. Not Available [facility] ([facility]) [address] [place], [address], 11/06/2023 04:39:00 10/31/19 24 11/01/2023 CBC WITH DIFFE RENTI AL/PL ATELE T lymphs 29 % not estab. Not Available [facility] ([facility]) [address] [place], [address], 11/06/2023 04:39:00 10/31/19 24 11/01/2023 CBC WITH DIFFE RENTI AL/PL ATELE T monocytes 8 % not estab. Not Available [facility] ([facility]) [address] [place], [address], 11/06/2023 04:39:00 10/31/19 24 11/01/2023 CBC WITH DIFFE RENTI AL/PL ATELE T eos 4 % not estab. Not Available [facility] ([facility]) [address] [facility], [place], [address], 11/06/2023 04:39:00 10/31/19 24 11/01/2023 CBC WITH DIFFE RENTI AL/PL ATELE T basos 1 % not estab. Not Available [facility] ([facility]) [address] [facility], [place], [address], 11/06/2023 04:39:00 10/31/19 24 11/01/2023 CBC WITH DIFFE RENTI AL/PL ATELE T immature cells CAR RENTAL AGENCY MANAGER Not Available [facility] ([facility]) [address] [facility], [place], [address], 11/06/2023 04:39:00 10/31/19 24 11/01/2023 CBC WITH DIFFE RENTI AL/PL ATELE T neutrophils (absolute) 4.2 x10e3 /uL 1.4-7. 0 Not Available [facility] ([facility]) [address] [facility], [place], [address], 11/06/2023 04:39:00 10/31/19 24 11/01/2023 CBC WITH DIFFE RENTI AL/PL ATELE T lymphs (absolute) 2.1 x10e3 /uL 0.7-3. 1 Not Available [facility] ([facility]) [address] [place], [address], 11/06/2023 04:39:00 10/31/19 24 11/01/2023 CBC WITH DIFFE RENTI AL/PL ATELE T monocytes(ab solute) 0.6 x10e3 /uL 0.1-0. 9 Not Available [facility] ([facility]) [address] [place], [address], 11/06/2023 04:39:00 10/31/19 24 11/01/2023 CBC WITH DIFFE RENTI AL/PL ATELE T eos (absolute) 0.3 x10e3 /uL 0.0-0. 4 Not Available [facility] ([facility]) [address] [facility], [place], [address], 11/06/2023 04:39:00 10/31/19 24 11/01/2023 CBC WITH DIFFE RENTI AL/PL ATELE T baso (absolute) 0.1 x10e3 /uL 0.0-0. 2 Not Available [facility] ([facility]) [address] [facility], [place], [address], 11/06/2023 04:39:00 10/31/19 24 11/01/2023 CBC WITH DIFFE RENTI AL/PL ATELE T immature granulocytes 0 % not estab. Not Available [facility] ([facility]) [address] [facility], [place], [address], 11/06/2023 04:39:00 10/31/19 24 11/01/2023 CBC WITH DIFFE RENTI AL/PL ATELE T immature grans (abs) 0.0 x10e3 /uL 0.0-0. 1 Not Available [facility] ([facility]) [address] [facility], [place], [address], 11/06/2023 04:39:00 10/31/19 24 11/01/2023 CBC WITH DIFFE RENTI AL/PL ATELE T NRBC CAR RENTAL AGENCY MANAGER Not Available [facility] ([facility]) [address] [facility], [place], [address], 11/06/2023 04:39:00 10/31/19 24 11/01/2023 CBC WITH DIFFE RENTI AL/PL ATELE T hematology comments: CAR RENTAL AGENCY MANAGER Not Available [facility] ([facility]) [address] [facility], [place], [address], 11/06/2023 04:39:00 10/31/19 24 11/01/2023 COMP. METAB OLIC PANEL (14) glucose 92 mg/dL 70-99 Not Available [facility] ([facility]) [address] [place], [address], 11/06/2023 04:39:01 10/31/19 24 11/01/2023 COMP. METAB OLIC PANEL (14) BUN 11 mg/dL 6-24 Not Available [facility] ([facility]) [address] [place], [address], 11/06/2023 04:39:01 10/31/19 24 11/01/2023 COMP. METAB OLIC PANEL (14) creatinine 0.53 mg/dL 0.57-1 .00 below low normal Not Available [facility] ([facility]) [address] [place], [address], 11/06/2023 04:39:01 10/31/19 24 11/01/2023 COMP. METAB OLIC PANEL (14) eGFR 108 mL/mi n/1.7 3 >59 Not Available [facility] ([facility]) [address] [place], [address], 11/06/2023 04:39:01 10/31/19 24 11/01/2023 COMP. METAB OLIC PANEL (14) BUN/creatini ne ratio 21 9-23 Not Available [facility] ([facility]) [address] [place], [address], 11/06/2023 04:39:01 10/31/19 24 11/01/2023 COMP. METAB OLIC PANEL (14) sodium 141 mmol/ L 134-14 4 Not Available [facility] ([facility]) [address] [place], [address], 11/06/2023 04:39:01 10/31/19 24 11/01/2023 COMP. METAB OLIC PANEL (14) potassium 4.4 mmol/ L 3.5-5. 2 Not Available [facility] ([facility]) [address] [place], [address], 11/06/2023 04:39:01 10/31/19 24 11/01/2023 COMP. METAB OLIC PANEL (14) chloride 106 mmol/ L 96-106 Not Available [facility] ([facility]) [address] [place], [address], 11/06/2023 04:39:01 10/31/19 24 11/01/2023 COMP. METAB OLIC PANEL (14) carbon dioxide, total 21 mmol/ L 20-29 Not Available [facility] ([facility]) [address] [place], [address], 11/06/2023 04:39:01 10/31/19 24 11/01/2023 COMP. METAB OLIC PANEL (14) calcium 9.2 mg/dL 8.7-10 .2 Not Available [facility] ([facility]) [address] [place], [address], 11/06/2023 04:39:01 10/31/19 24 11/01/2023 COMP. METAB OLIC PANEL (14) protein, total 6.5 g/dL 6.0-8. 5 Not Available [facility] ([facility] [address] [facility] [place], [address], 11/06/2023 04:39:01 10/31/19 24 11/01/2023 COMP. METAB OLIC PANEL (14) albumin 4.2 g/dL 3.8-4. 9 Not Available [facility] ([facility] [address] [facility] [place], [address], 11/06/2023 04:39:01 10/31/19 24 11/01/2023 COMP. METAB OLIC PANEL (14) globulin, total 2.3 g/dL 1.5-4. 5 Not Available [facility] ([facility]) [address] [facility] [place], [address], 11/06/2023 04:39:01 10/31/19 24 11/01/2023 COMP. METAB OLIC PANEL (14) A/G ratio 1.8 1.2-2. 2 Not Available [facility] ([facility]) [address] [facility] [place], [address], 11/06/2023 04:39:01 10/31/19 24 11/01/2023 COMP. METAB OLIC PANEL (14) bilirubin, total <0.2 mg/dL 0.0-1. 2 Not Available [facility] ([facility]) [address] [facility] [place], [address], 11/06/2023 04:39:01 10/31/19 24 11/01/2023 COMP. METAB OLIC PANEL (14) alkaline phosphatase 108 IU/L 44-121 Not Available [facility] ([facility]) [address] [facility], [place], [address], 11/06/2023 04:39:01 10/31/19 24 11/01/2023 COMP. METAB OLIC PANEL (14) AST (SGOT) 13 IU/L 0-40 Not Available [facility] ([facility]) [address] [facility] [place], [address], 11/06/2023 04:39:01 10/31/19 24 11/01/2023 COMP. METAB OLIC PANEL (14) ALT (SGPT) 9 IU/L 0-32 Not Available [facility] ([facility]) [address] [facility] [place], [address], 11/06/2023 04:39:01 10/31/19 24 11/01/2023 LIPID PANEL cholesterol, total 203 mg/dL 100-19 9 above high normal Not Available [facility] ([facility]) [address] [place], [address], 11/06/2023 04:39:02 10/31/19 24 11/01/2023 LIPID PANEL triglyceride s 171 mg/dL 0-149 above high normal Not Available [facility] ([facility]) [address] [place], [address], 11/06/2023 04:39:02 10/31/19 24 11/01/2023 LIPID PANEL HDL cholesterol 51 mg/dL >39 Not Available [facility] ([facility]) [address] [place], [address], 11/06/2023 04:39:02 10/31/19 24 11/01/2023 LIPID PANEL VLDL cholesterol garrett 30 mg/dL 5-40 Not Available [facility] ([facility]) [address] [place], [address], 11/06/2023 04:39:02 10/31/19 24 11/01/2023 LIPID PANEL LDL chol calc ([facility]) 122 mg/dL 0-99 above high normal Not Available [facility] ([facility]) [address] [place], [address], 11/06/2023 04:39:02 10/31/19 24 11/01/2023 LIPID PANEL comment: CAR RENTAL AGENCY MANAGER Not Available [facility] ([facility]) [address] [facility], [place], [address], 11/06/2023 04:39:02 10/31/19 24 11/03/2023 VITAM IN E vitamin E(alpha tocopherol) 9.5 mg/L 7.0-25 .1 Not Available [facility] ([facility]) [address] [place], [address], 11/06/2023 04:39:03 10/31/19 24 11/03/2023 VITAM IN E vitamin E(gamma tocopherol) 1.3 mg/L 0.5-5. 5 Refer ence inter vals for alpha and gamma -toco phero l deter mined from [facility] tion Exami natio n Surve y, 2004- 2005. Indiv idual s with alpha -toco phero l level s less than 5.0 mg/L are consi dered vitam in E defic ient. Not Available [facility] ([facility]) [address] [facility], [place], [address], 11/06/2023 04:39:03 10/31/19 24 11/01/2023 HEMOG LOBIN A1C hemoglobin A1C 5.8 % 4.8-5. 6 above high normal Predi abete s: 5.7 - 6.4 Diabe liliane: >6.4 Glyce orlin contr ol for adult s with diabe liliane: <7.0 Not Available [facility] ([facility]) [address] [facility], [place], [address], 11/06/2023 04:39:04 10/31/19 24 11/01/2023 FOLAT E (FOLI C ACID) , SERUM folate (folic acid), serum 3.3 NG/mL >3.0 A serum folat e mary ntrat ion of less than 3.1 ng/mL is consi dered to repre sent clini garrett defic iency . Not Available [facility] ([facility]) [address] [facility], [place], [address], 11/06/2023 04:39:05 10/31/19 24 11/03/2023 VITAM IN A, SERUM vitamin A 36.9 ug/dL 20.1-6 2.0 Refer ence inter vals for vitam in A deter mined from [facility] inter nal studi es. Indiv idual s with vitam in A less than 20 ug/dL are consi dered vitam in A defic ient and those with serum mary ntrat ions less than 10 ug/dL are consi dered sever domingo defic ient. This test was devel oped and its perfo rmanc e sondra cteri stics deter mined by [facility]. It has not been clear ed or appro izaiah by the Food and Drug Admin istra tion. Not Available [facility] ([facility]) [address] [facility], [place], [address], 11/06/2023 04:39:06 10/31/19 24 11/01/2023 VITAM IN D, 25-HY DROXY vitamin D, 25-hydroxy 20.7 NG/mL 30.0-1 00.0 below low normal Vitam in D defic iency has been defin ed by the Insti tute of Medic ine and an Endoc rine Socie ty pract ice guide line as a level of serum 25-OH vitam in D less than 20 ng/mL (1,2) . The Endoc rine Socie ty went on to furth er defin e vitam in D insuf ficie ncy as a level betwe en 21 and 29 ng/mL (2). 1. IOM (Inst itute of Medic ine). 2010. Dieta ry refer ence intak es for calci um and D. Kala rivera [place]: [facility] . 2. David luna MF, Kd latif [place], Nubia off-F errar i BERMUDEZ, et al. Evalu ation , treat ment, and preve ntion of vitam in D defic iency : an Endoc rine Socie ty clini garrett pract ice guide line. JCEM. 2010; 96(7) :1911 -30. Not Available [facility] ([facility]) [address] [facility], [place], [address], 11/06/2023 04:39:07 10/31/19 24 11/05/2023 VITAM IN B1 (THIA MINE) , BLOOD vit. B1, whole blood 90.8 nmol/ L 66.5-2 00.0 Not Available [facility] ([facility]) [address] [place], [address], 11/06/2023 04:39:07 10/31/19 24 11/06/2023 METHY LMALO BERTHA ACID, SERUM methylmaloni c acid, serum 295 nmol/ L 0-378 Not Available [facility] ([facility]) [address] [place], [address], 11/06/2023 04:39:08 10/31/19 24 11/01/2023 AMYLA SE amylase 30 U/L 31-110 below low normal Not Available [facility] ([facility]) [address] [place], [address], 11/06/2023 04:39:09 10/31/19 24 11/01/2023 LIPAS E lipase 37 U/L 14-72 Not Available [facility] ([facility]) [address] [facility], [place], [address], 11/06/2023 04:39:10 10/31/19 24 11/02/2023 COPPE R, SERUM OR PLASM A copper, serum or plasma 139 ug/dL 80-158 Detec tion Limit = 5 Not Available [facility] ([facility]) [address] [place], [address], 11/06/2023 04:39:11 10/31/19 24 11/02/2023 ZINC, PLASM A OR SERUM zinc, plasma or serum 61 ug/dL 44-115 Detec tion Limit = 5 Not Available [facility] ([facility]) [address] [facility], [place], [address], 11/06/2023 04:39:12 10/31/19 24 11/01/2023 PREAL BUMIN prealbumin 18 mg/dL 10-36 Not Available [facility] ([facility]) [address] [place], [address], 11/06/2023 04:39:13 10/31/19 24 11/03/2023 SELEN IUM, BLOOD selenium, blood 224 ug/L 100-34 0 Detec tion Limit = 10 Not Available [facility] ([facility]) [address] [place], [address], 11/06/2023 04:39:14 12/13/19 24 12/14/[address] (H PYLOR I AB QUAL) pete test 20 min NEGATI VE negati ve Not Available [facility] ([facility]) [address] , [place], [address], 12/14/2023 08:01:31 12/13/19 24 12/14/[address] (H PYLOR I AB QUAL) pete test 1HR NEGATI VE negati ve Not Available [facility] ([facility]) [address] , [place], [address], 12/14/2023 08:01:31 12/13/1912/14/[address] (H PYLOR I AB QUAL) pete test 3 HR NEGATI VE negati ve Not Available [facility] ([facility] [facility]) [address] , [place], [address], 12/14/2023 08:01:31 12/13/19 24 12/14/[address] (H PYLOR I AB QUAL) pete test 24 HR NEGATI VE negati ve Not Available [facility] ([facility]) [address] , [place], [address], 12/14/2023 08:01:31 12/13/19 24 12/14/[address] (H PYLOR I AB QUAL) pete test kit lot# [id number] 0 Not Available [facility] ([facility]) [address] , [place], [address], 12/14/2023 08:01:31 12/13/19 24 12/14/[address] (H PYLOR I AB QUAL) pete test kit exp date 2023 Not Available [facility] ([facility]) [address] , [place], [address], 12/14/2023 08:01:31 12/07/19 24 12/07/2023 RF, upper gastr ointe logan l tract + small bowel , w/ contr ast PO No observ ation record ed. [facility] [address], [place], [address], 12/07/2023 15:13:01 Result Notes None recorded. Problems Name Problem SNOMED Code Status Onset Date Resolution Date Notes Provider Name and Address Organization Details Recorded Time Elevated blood-pres sure reading without diagnosis of hypertensi on 857419067 Active 2024 Reza Allen DNP, NICHOLAS, CAR RENTAL AGENCY MANAGER-C [address], [place], [address] , [place] - [facility] - [place] & [place] 5 13:28:49 Lipoma of right lower limb 4042063084156 108 Active 2024 Reza Allen DNP, NICHOLAS, CAR RENTAL AGENCY MANAGER-C [address], [place], [address] , [place] - [facility] - [place] & [place] 5 13:56:49 Morbid obesity 283857460 Active 2024 Reza Allen DNP, CHARTERED FINANCIAL ANALYST, CAR RENTAL AGENCY MANAGER-C [address], [place], [address] , [place] - [facility] - [place] & [place] 5 13:57:04 Hyperlipid emia 91661339 Active 2022 Reza Allen DNP, CHARTERED FINANCIAL ANALYST, CAR RENTAL AGENCY MANAGER-C [address], [place], [address] , [place] - [facility] - [place] & [place] 3 14:16:59 Skin irritation 838225875 Active 2022 Reza Allen DNP, CHARTERED FINANCIAL ANALYST, CAR RENTAL AGENCY MANAGER-C [address], [place], [address] , [place] - [place] - [place] & [place] 3 16:03:51 Unintentio nal weight gain 5742142905879 04 Active 2022 Reza Allen DNP, NICHOLAS, CAR RENTAL AGENCY MANAGER-C [address], [place], [address] , [place] - [place] - [place] & [place] 3 16:04:06 History of bypass of stomach 180272322 Active 2022 Reza Allen DNP, CHARTERED FINANCIAL ANALYST, CAR RENTAL AGENCY MANAGER-C [address], [place], [address] , [place] - [facility] - [place] & [place] 3 16:04:20 Excess skin of abdominal wall 517929138 Active 2022 Reza Allen DNP, CHARTERED FINANCIAL ANALYST, CAR RENTAL AGENCY MANAGER-C [address], [place], [address] [place] [address] , [place] - [place] - [place] & [place] 3 10:19:24 Abdominal pain 74063012 Active 2023 Reza Allen DNP, CHARTERED FINANCIAL ANALYST, CAR RENTAL AGENCY MANAGER-C [address], [place], [address] [place] [address] , [place] - [place] - [place] & [place] 4 13:42:22 Retching 71746915 Active 2023 Reza Allen DNP, CHARTERED FINANCIAL ANALYST, CAR RENTAL AGENCY MANAGER-C [address], [place], [address] [place] [address] , [place] - [place] - [place] & [place] 4 13:48:24 History of Helicobact er pylori infection 1686814058987 9108 Active 2023 Reza Allen DNP, CHARTERED FINANCIAL ANALYST, CAR RENTAL AGENCY MANAGER-C [address], [place], [address] [place] [address] , [place] - [place] - [place] & [place] 4 13:48:47 Problem Notes None recorded. Procedures Surgical History Date Name Laterality Status Provider Name and Address Organization Details Recorded Time laparoscopic sleeve gastrectomy completed Isabel Mcwilliams [place] - [facility] - [place] & [place] 3 14:08:11 Christina-en-Y gastrojejunostomy complete d Isabelkathrine MORILL[place] - [place] - [place] & [place] 3 14:08:35 esophagogastroduodenoscopy completed Isabel MORILLO - [facility] - [place] & [place] 3 14:08:47 procedure on shoulder completed Alecia ecca Oj M[place]ILL[place] - [place] - [place] & [place] 3 14:09:12 Other completed Isabel Oj M[place]ILL[place] - [place] - [place] & [place] 3 14:09:25 Appendectomy completed Isabel MORILLO - [facility] - [place] & [place] 3 14:09:31 Other completed Isabel MORILLO - [facility] - [place] & [place] 3 14:09:51 Tubal Ligation completed Isabel MORILOL - [place] - [place] & [place] 3 14:10:00 Cholecystectomy completed Isabel Mcwilliams [place] - [facility] - [place] & [place] 3 14:10:06 procedure on knee completed Nisa MORILLO - [place] - [place] & [place] 5 13:16:49 Imaging Results Imaging Date Name Status LastModified by Organization Details LastModified Time 12/07/2023 RF, upper gastrointestinal tract + small bowel, w/ contrast PO completed [facility] [address], [place], [address], 12/07/2023 15:13:01 Procedure Notes None recorded. Medical Equipment None Reported. Allergies Allergen ID Allergen Name Allergen Category Reaction Reaction Severity Criticality Documentation Date Start Date Code Code System Note Provider Name and Address Organization Details Recorded Time 555047 Macrobid medicatio n Not available Not available Not available 10/31/2023 43786 1 RxNorm Nisa emmanuel, [place] - [facility] & [place] 4 13:17:53 138874 acetamino phen / oxycodone medicatio n Not available Not available Not available 10/31/2023 52894 3 RxNorm Nisa emmanuel, [place] - [facility] & [place] 4 13:17:59 197611 latex environme nt,medica tion Not available Not available Not available 10/31/2023 02055 91 RxNorm Nisa emmanuel, [place] - [facility] & [place] 4 13:18:06 Medications Name Sig Start Date [...] Available Vitals Date Recorded Body height Body mass index (BMI) Body weight Body temperature Heart rate Systolic blood pressure Diastolic blood pressure Provider Name and Address Organization Details Last Updated DateTime 3 149.86 cm 37.7 kg/m2 16180.9 8 g 97.5 [degF] 81 /min 132 mm[Hg] 81 mm[Hg] Isabel Mcwilliams [place] - [facility] - [place] & [place] 3 14:12:50 Date Recorded Body temperature Heart rate Body height Body mass index (BMI) Body weight Systolic blood pressure Diastolic blood pressure Provider Name and Address Organization Details Last Updated DateTime 4 98.3 [degF] 107 /min 149.86 cm 36.2 kg/m2 03411.7 5 g 144 mm[Hg] 80 mm[Hg] Nisa Mooney [facility] & [place] 4 13:17:25 Date Recorded Body height Body temperature Heart rate Body mass index (BMI) Body weight Systolic blood pressure Diastolic blood pressure Provider Name and Address Organization Details Last Updated DateTime 5 149.61 cm 97.8 [degF] 80 /min 38.5 kg/m2 48424.1 9 g 150 mm[Hg] 90 mm[Hg] Nisa Mooney [facility] & [place] 5 13:11:13 Social History Question Answer Notes LastModified by Scale[employer] ion Details LastModified Time Tobacco Smoking Status Former Smoker Isabel emmanuel, [facility] & [place] 09/04/2022 14:07:52 What Is Your Level Of Alcohol Consumption? None [email or web address] Information not available 09/04/2022 Do You Use Any Illicit Or Recreational Drugs? No [email or web address] Information not available 09/04/2022 Sex: Unknown Functional Status None recorded. Mental Status None recorded. Family History Nothing Reported. Medical History Condition Response Anxiety Disorder Y Muscle, Joint, or Bone Problems Y Anemia Y Vision or Eye Problems Y Arthritis Y Reflux/GERD Y High Cholesterol Y Headaches Y Hypertension Y Depression Y Gynecological HistoryNo gynecological history recorded. Obstetrics History GPAL:G 0 P 0 0 0 0 Past Encounters Encounter ID Performer Location Encounter Start Date Encounter Closed Date Diagnosis/Indication Diagnosis SNOMED-CT Code Diagnosis ICD10 Code Diagnosis Note [id number] Reza Allen, DNP, CHARTERED FINANCIAL ANALYST, CAR RENTAL AGENCY MANAGER-C [facility] [address] [place] [address] 09/04/2022 13:51:21 09/04/2022 16:11:56 History of bariatric surgical procedure 525797497 Z98.84 Advised qid intake 50% protein 2060-0991 calories/d y less than 100 carbs/dy Long discussion today of InBody results including PBF(percen t body fat) SMM (skeletal muscle mass) Visceral fat level level BMR Segmental Fat Analysis and Segmental Lean Analysis. Patient encouraged pt to take minimal calories as per BMR and to anticipate changes in SMM and PBF values not just total weight. Repeat JENNIFER in 2-3mth suggested Patient is to have bariatric vitamin lab panel. [...] will contact patient with any deficienci es. History of gastrectomy 931512119 Z90.3 Patient is status post bariatric surgery and at increased risk for vitamin deficienci es and malnutriti on. Bariatric vitamin panel ordered today. Patient will be contacted to correct any vitamin deficienci es. Hyperlipidemia 66474596 E78.5 Skin irritation 48461113 7 L30.9 gave her info on [employer]. She may follow up with them to schedule an appt. Unintentio nal weight gain 3005854946 07263 R63.5 will have supervisor of communications talk to her today. History of bypass of stomach 103877039 Z98.84 [id number] Reza Allen, DNP, CHARTERED FINANCIAL ANALYST, CAR RENTAL AGENCY MANAGER-C [facility] [address] [place] [address] 10/31/2023 13:00:29 10/31/2023 14:05:48 History of bariatric surgical procedure 796858929 Z98.84 Advised qid intake 50% protein 0758-5001 calories/d y less than 100 carbs/dyLo ng [...] at this time. Intentiona l weight loss 592652642 R63.8 History of gastrectomy 462974588 Z90.3 Advised qid intake 50% protein 1993-7741 calories/d y less than 100 carbs/dy Long [...] contacted to correct any vitamin deficienci es. Hyperlipidemia 03529843 E78.5 Abdominal pain 77636339 R10.9 Patient may continue to take Levsin as needed. I would like to add Carafate to current regimen and proceed with ordering upper GI with small-merly l follow-thr ough as well as EGD Retching 93069868 R11.10 History of Helicobacter pylori infection 6875075505 2363854 Z86.19 History of bypass of stomach 824964500 Z98.84 [id number] Reza Allen, DNP, CHARTERED FINANCIAL ANALYST, CAR RENTAL AGENCY MANAGER-C [facility] [address] [facility] [facility] [place] [address] 10/24/2024 12:58:43 10/24/2024 15:49:00 History of bariatric surgical procedure 309687461 Z98.84 Advised qid intake 50% protein 1716-1224 calories/d y less than 100 carbs/dyLo ng [...] at this time. Intentiona l weight loss 174700045 R63.8 History of gastrectomy 007263063 Z90.3 Advised qid intake 50% protein 0308-3838 calories/d y less than 100 carbs/dy Long [...] to correct any vitamin deficienci es. At [facility] ed risk of nutritional deficit 951677148 Z91.89 History of bypass of stomach 960809461 Z98.84 Hyperlipidemia 41554918 E78.5 Unintentio nal weight gain 4973668283 11373 R63.5 will have supervisor of communications talk to her today. Lipoma of right lower limb 8297771296 569427 D17.[address] Gu for courtesy consult Morbid obesity 252609379 E66.01 Health Concerns Section Related Observation LastModified by Organization Detai ls LastModified Time None Recorded Concern Status LastModified by Organization Details LastModified Time None Recorded Advance Directives Directive None Recorded Payers Insurance Date Sequence Insurance Name Policy Number Policy Bee Covered Member ID Bee Member ID Guarantor Name 10/09/2022 1 [employer] (MEDICAID REPLACEMENT - HMO) [id number] Sabrina Kwan [id number] Sabrina Kwan 11/02/2023 2 [employer] [facility] (MEDICAID HMO) Sabrina Kwan [id number] Sabrina Schroeder Aqu[place] 12/12/2023 2 [employer] [facility] (MEDICAID HMO) Sabrina Schroeder Aquiles [id number] Sabrina Schroeder Aquiles 10/22/2024 1 [employer] (MEDICARE REPLACEMENT/AD VANTAGE - PPO) Sabrina Schroeder Aquiles [id number] Sabrina Schroeder Aquiles 10/09/2022 1 [place] Sabrina Schroeder Aquiles [id number] Sabrina Schroeder Aquiles Notes Date Note Type Note Provider Name and Address Organization Details Recorded Time 09/04/2022 text/html Patient presents the office today for routine 12 month follow-up status post bariatric gastric RNY with ventral hernia repair surgery ( 09/06 ). Patient doing well. Reports q.i.d. small meal intake. Reports >70g/dy protein intake and good hydration.Patient is drinking 64 ounces of water a day. This includes 8 large cups of coffee a day with 1/2 and 1/2 and sweet n low.Daily Calories not countingTaking routine vitamins as advisedHeartburn/gas troesophageal reflux: deniesPt Denies : abdominal pain, prandial issues Nausea, Vomiting, bowel or bladder issues. She has been checking her glucoses at home and they have been as low as 57. She has been eating Henrique [employer] Duc candies during the night.Total Weight gain Since last office visit has been 7 lbsPt is happy with their quality of life after Weight loss Surgery.She has been having skin irritation in her lower abdominal area.Today's InBody reveals a skeletal muscle mass =52.3 lb,body fat mass = 90.4 lb,BMI = 37.7Percent body fat = 48.5Basal Metabolic Rate = 1312 kilo calories Reza Allen, DNP, CHARTERED FINANCIAL ANALYST, CAR RENTAL AGENCY MANAGER-C [address] [facility], [place], [address], [facility] - [place] - [place] & [place] 09/04/2022 16:11:03 10/31/2023 text/html Patient presents the office today for routine 24 month follow-up 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 Patient doing well. Reports q.i.d. small meal intake. Reports 50g/dy protein intake and good hydration.Patient is drinking 40 ounces of water a day. drinks de-caf coffee.Daily Calories has not been counting, but estimates 1200Taking routine vitamins as advised.Heartburn/ga stroesophageal reflux: deniesPt Denies : abdominal pain, prandial issues Nausea, Vomiting, bowel or bladder issuesTotal Weight loss Since last office visit has been 7.3 lbsPt is happy with their quality of life after Weight loss Surgery.patient tells me that she has been having severe stomach attacks for the past 6 months and has progressively worsened. She has talked to her primary care provider about this situation and she has been placed on Levsin. She is calling these spasms and when these spasms hit it feels like she needs to have a bowel movement but however bowel movements does not relieve this feeling. She states that the pain is under her ribcage and goes down to her umbilical area. She is now having dry heaves during these events. She states the events can last as little as 20 minutes but sometimes up to 2 days. She states the pain is severe and she has to rock in place. She recently had skin reveals surgery December 27 at [facility] and has been on a lot of pain medications. She was unsure if pain medications were contributing factors true her abdominal pain. She denies any nausea but states it is just painful. She also reports no heartburn but does have a warm feeling in her epigastric area. She has a regimen for when she has these events. These include Zofran, Protonix, Lortab 5 mg, Levsin and she can take up to 3 times a day. She does have a history of H pylori in the past. Today's InBody reveals a skeletal muscle mass = 53.4 lb,body fat mass = 80.6 lb,BMI = 36.2Percent body fat = 45.0Basal Metabolic Rate = 1335 kilo calories Reza Allen, DNP, CHARTERED FINANCIAL ANALYST, CAR RENTAL AGENCY MANAGER-C [address] [facility], [place], [address], [facility] - [place] - [place] & [place] 10/31/2023 13:54:58 10/24/2024 text/html Patient presents the office today [...] counting, but est 1200Taking routine vitamins as advised.Heartburn/ga stroesophageal reflux: denies. IS only taking Carafate once [...] for several years.She has been seeing pain management.Today's InBody reveals a skeletal muscle mass = 55.1 lb,body fat mass = 89.2 lb,BMI = 38.3Percent body fat = 46.9Basal Metabolic Rate = 1358 kilo calories Reza Allen, DNP, CHARTERED FINANCIAL ANALYST, CAR RENTAL AGENCY MANAGER-C [address] [facility], [place], [address], [facility] - [facility] - [place] & [place] 10/24/2024 15:06:34 OBGyn Episode No OBEpisode recorded.
--- NOTE | 2024-11-28 09:00 | ECG_ITS ---
APPROVED REPORT Exam: Resting ECG HR:68 bpm ECG Measurements Heart Rate 68 AXES VT 142 P 39 QRSd 90 QRS 24 QT 358 T 44 QTc 375 Conclusion SINUS RHYTHM NORMAL ECG UNCONFIRMED REPORT Electronically signed by : Aftab Lal MD 11/30/2024 06:42:29
[2024-11-28 09:12] VITALS: BMI 37.3
[2024-11-28 09:13] LABS: Basophils % 0.7 % (0.1-2.0); Eosinophils # 0.2 Kmm3 (0.0-0.4); Eosinophils % 2.5 % (0.1-12.0); Hematocrit 39.9 % (37.0-47.0); Immature Granulocytes # 0.01 10^3uL; Immature Granulocytes % 0.2 %; Lymphocytes # 1.5 K/mm3 (0.7-4.5); Lymphocytes % 25.1 % (10-50); Mean Corpuscular HGB Conc 32.6 g/dL (31.8-35.4); Mean Corpuscular Volume 88.9 fl (81-99); Mean Platelet Volume 8.5 fl (7.4-10.4); Monocytes # 0.6 K/mm3 (0.1-1.0); Monocytes % 10.3 % (1.7-9.3); Neutrophils # 3.7 K/mm3 (1.8-7.8); Neutrophils % 61.2 % (37.0-80.0); Nucleated Red Blood Cells # 0 10^3/uL; Nucleated Red Blood Cells % 0 %; Platelet Count 282 K/mm3 (142-424); Red Blood Count 4.49 M/mm3 (4.20-5.40); Red Cell Distribution Width 14.1 % (11.5-17.5); Red Cell Distribution Width-SD 46.1 fL
[2024-11-28 09:29] LABS: Chloride 109 mmol/L (98-107); Sodium 138 mmol/L (136-145)
[2024-11-28 09:30] LABS: Potassium 4.3 mmoL/L (3.5-5.1)
[2024-11-28 09:33] LABS: Anion Gap 7.3 mEq/L (5-15); Blood Urea Nitrogen 13 mg/dl (7-17); Calcium 8.9 mg/dl (8.4-10.2); Carbon Dioxide 26 mmol/L (22.0-30.0); Creatinine Clearance Estimated 117 mL/min (50-200); Estimated Glomerular Filt Rate 86 ml/min (>60); GFR (African American) 104 ML/MIN (>60); Glucose 97 mg/dl (74-100)
== END 2024-11-28 23:59 | disposition home or self-care (01) ==
LOC: PREOP 08:45
PROVIDERS: Nurse Anesthetist, Certified Registered; PCP Nurse Practitioner Family; Visit Provider Orthopaedic Surgery
DX: Z01.810 Encounter for preprocedural cardiovascular examination (principal); Z01.812 Encounter for preprocedural laboratory examination
CPT/HCPCS: 80048; 85025; 93005

== ENCOUNTER 2024-12-08 09:28 | Day surgery (SDC) | payer MEDICARE, MEDICAID, SELFPAY ==
[2024-12-08] VITALS (10 sets, daily range): BP systolic 113–132; BP diastolic 53–75; PULSE 61–81; RESP 14–18; TEMP 36.1–36.8; O2SAT 94–98
[2024-12-08] MEDS: LACTATED RINGERS 1000ML 1,000 ML 100 ML IV (10:17)
[2024-12-08] MEDS: CEFAZOLIN SODIUM 2 GM in 0.9 % SODIUM CHLORIDE 100 ML IV (10:50)
[2024-12-08] MEDS: LIDOCAINE 1% W/EPI 1:100,000 20ML VIAL 20 ML (11:14)
--- NOTE | 2024-12-08 11:37 | EXP.OP.NOTE ---
Date of procedure: 12/08/24 Pre-op Diagnosis:: Soft tissue mass dorsum right wrist Post-op Diagnosis:: Same Procedure performed:: Excision soft tissue mass dorsum right wrist/ganglion Surgeon:: Marc Thomas DO [employer] Superintendent [employer](s):: Vic MONTENEGRO EDIPHONE OPERATOR:: Israel Fonseca Anesthesia: GETA Estimated blood loss (mL): 0 Operative findings:: Loculated soft tissue mass dorsum of the wrist involving the extensor retinaculum with fluid-filled ganglion sac Operative note:: Patient identified preoperatively. Right wrist marked with yes my initials. Transported operative suite. Placed upon the brain bed. General anesthesia administered airway secured. Right upper extremity prepped and draped normal sterile fashion. Once prepped and draped final operative timeout performed to identify proper patient procedure and extremity. Everyone involved in the case agreed. There were no counter indications to beginning. She did receive preoperative antibiotics. Marking pen was used to kyle plan incision over the dorsum of the wrist. There is a diffuse loculated soft tissue mass involving the dorsum of the extensor tendons Esmarch was used exsanguinate the extremity pneumatic tourniquet inflated to 250 mmHg. Skin knife is used to incise the skin and careful dissection was taken down the scissors to identify the soft tissue mass in the dorsum of the wrist. This was a loculated fluid-filled ganglion sac around the extensor tendons dissection was taken around the extensor retinaculum and just distal to the extensor retinaculum to remove the soft tissue mass that was fluid-filled in nature the sac of the ganglion was removed and placed on the back table for pathology. Irrigation of the wound was performed. The extensor tendons were identified and intact. Irrigation performed. Then skin was closed with 4-0 nylon stitch. Local anesthesia infiltrated the incision site. Sterile hand dressing placed. Patient waken anesthesia taken recovery stable condition. Condition: stable Disposition: PACU Complications:: None apparent
--- NOTE | 2024-12-08 11:51 | EXP.ANES.I ---
[facility] Anesthesia Record Part I Anesthesia Record I Intake, IV Amount: 600 Hydration: Adequate Estimated blood loss (mL): 0 Urine output (mL): 0 Blood Products used (#): none Blood Pressure: 127/75 SaO2: 94 Pulse Rate: 81 Airway Patency: Patent Respiratory Rate: 18 Temperature: 97.4 F Patient is:: Drowsy and Stable Stable to PACU at:: 11:45
--- NOTE | 2024-12-09 10:47 | P.PNANES_ITS ---
[facility] Anesthesia Record Part II Anesthesia Record Part II Discharge Time: 13:00 Destination: Surgical Day Care (OP Surgery) PACU nurse assessment reviewed?: Yes Patient Condition:: Good Anesthesia Complications:: None Swallowing reflex intact?: Yes Airway Patency: Patent Cyanosis?: No Blood Pressure: 115/67 SaO2: 97 Respiratory Rate: 16 Pulse Rate: 69 Temperature: 97.0 F Mental Status: Alert & Oriented Pain level:: 0 Nausea and/or vomitting:: None Intake, IV Amount: 0 Hydration: Adequate
[2024-12-09 10:48] VITALS: BP 115/67; PULSE 69; RESP 16; TEMP 36.1; O2SAT 97
== END 2024-12-08 13:00 | disposition home or self-care (01) ==
PROVIDERS: PCP Nurse Practitioner Family; Visit Provider Orthopaedic Surgery
PROC: (CPT 25111; principal; 2024-12-08 11:15)
DX: M67.431 Ganglion, right wrist (principal); Z91.040 Latex allergy status; Z88.6 Allergy status to analgesic agent; Z88.5 Allergy status to narcotic agent; Z88.8 Allergy status to other drugs, medicaments and biological substances; Z79.899 Other long term (current) drug therapy
CPT/HCPCS: 25111; 96374; J0690; J1100; J2250; J2405; J3010; J7120

== ENCOUNTER 2025-02-08 19:01 | Outpatient (CLI) | payer MEDICARE, MEDICAID, SELFPAY ==
--- OUTSIDE RECORDS SUMMARY | 2025-02-08 19:05 | XMS_ITS | Data Portability ---
Author Organization [facility], [facility] Address [address] [place] [address] Care Team Providers Care Pin Puller Name Role Phone GILBERTO PORTILLO Primary Care Provider [phone] Assessment Encounter Date Assessment Date Assessment LastModified by Organization Details LastModified Time 09/09/2024 09/09/2024 Pain History: Ms. Umanzor is a 59-year-old Female returning to the office today for evaluation of her chronic lower back and leg pain. She did recently complete a right SI joint injection with significant improvement. Unfortunately, she Does continue to experience significant radiating pain into the right hip and groin region as well as down into the thighs at times. She describes the pain as a constant aching, sharp, stabbing, burning and throbbing. Her symptoms are aggravated with any type of activity, walking, standing and weather changes. She is scheduled for her lumbar MRI later this week. We will review the results next visit and discuss possible treatment options going forward. Today, she also complains of pain in her right wrist. She states that several years ago she underwent intra-articular wrist injections with significant Improvement. She would like to repeat these if possible. Past Medical History: Anxiety/depressio n, high cholesterol, GERD Imaging: CT of the lumbar spine and thoracic spine shows multilevel degenerative disc disease but does not have a lot of specifics Surgical evaluation/ history: Followed by orthopedic surgery Conservative Treatments: Patient has failed conservative measures for greater than 6 weeks including physical therapy/chiroprac tic care/spinal manipulation, a monitored home exercise program, and/or NSAIDs within the last six months. Interventional treatment history: Most recent right GTB only 2 weeks of relief, multiple joint injections with varying levels of success 08/27/2024 - RIGHT SI JOINT INJECTION, #1 - 75% Previous analgesics: Hydrocodone, Current analgesics: Hydrocodone7.5/32 5mg twice daily as needed Lidocaine patches Compliance Monitoring: No UDS obtained today. Most recent UDS confirmation from 08/12/2024 was appropriate Brian reviewed and is appropriate She is considered to be moderate risk. She will return in 1 month for medication management. Anticoagulant/Ant iplatelet Medications: None [email or web address] Not available 09/09/2024 10:41:41 10/13/2024 10/13/2024 Pain History: Ms. Umanzor is a 59-year-old female who returns for evaluation of her ongoing lower back and leg pain as well as right wrist pain. The pain in her right wrist has improved significantly since recently completing an intra-articular wrist injection. Unfortunately, she also experiences a ganglion cyst in her right wrist which coincidentally is now causing her pain. She plans to follow-up with Dr. Thomas to discuss surgical removal of the cyst. As for her lumbar spine, she experiences both an axial type pain as well as radiating pain into her right hip/groin region as well as down the right leg extending to the thighs. This pain does fluctuate, made worse with overexertion, prolonged standing, walking, using/using stairs and weather changes. We reviewed her lumbar MRI results and discussed treatment options in detail. Past Medical History: Anxiety/depressio n, high cholesterol, GERD Imaging: CT of the lumbar spine and thoracic spine shows multilevel degenerative disc disease but does not have a lot of specifics MRI LUMBAR SPINE WITHOUT CONTRAST, 09/11/2024 FINDINGS: No acute spine fracture. Normal conus position and signal. Marrow signal: No significant marrow signal alteration or replacement. Level by level analysis: L1-L2: Unremarkable. L2-L3: Mild bilateral facet arthropathy. No canal or foraminal compromise. L3-L4: Shallow disc bulge with mild bilateral facet arthropathy. No canal or foraminal compromise. L4-L5: Shallow disc bulge with moderate to advanced right and moderate left facet arthropathy. There is mild left-sided foraminal narrowing. L5-S1: Advanced bilateral facet arthropathy. No canal or foraminal compromise. IMPRESSION: 1. Mild left-sided foraminal narrowing at L4-L5. No visible nerve root impingement. 2. Multilevel facet arthropathy, advanced at L5-S1. Surgical evaluation/ history: Followed by orthopedic surgery Conservative Treatments: Patient has failed conservative measures for greater than 6 weeks including physical therapy/chiroprac tic care/spinal manipulation, a monitored home exercise program, and/or NSAIDs within the last six months. Interventional treatment history: Most recent right GTB only 2 weeks of relief, multiple joint injections with varying levels of success 08/27/2024 - RIGHT SI JOINT INJECTION, #1 - 75% 10/01/24:RIGHT WRIST INJECTION, #1- 60% Previous analgesics: Hydrocodone, Current analgesics: Hydrocodone7.5/32 5mg twice daily as needed Lidocaine patches Compliance Monitoring: No UDS obtained today. Most recent UDS confirmation from 08/12/2024 was appropriate Brian reviewed and is appropriate She is considered to be moderate risk. She will return in 1 month for medication management. Anticoagulant/Ant iplatelet Medications: None [email or web address] Not available 10/13/2024 10:02:01 11/11/2024 11/11/2024 Pain History: 59-year-old female here for follow-up regarding her low back and radiating right leg pain. She also has pain in her right wrist related to ganglion cyst. She is seeing orthopedic regarding this cyst and is planning to have surgery on this in the next month or so. Main issue is her low back pain with radiation to the right buttock and thigh. Pain described as shooting, stabbing, sharp. Pain made worse with sitting, standing, going up and down stairs, increased activity. No numbness tingling or weakness. She denies any loss of bowel or bladder control or saddle anesthesia. We have discussed an LESI to target this. She is placed this on hold due to her possibly undergoing hand surgery. This is an established patient with chronic pain that has been treated here since May 2024. Past Medical History: Anxiety/depressio n, high cholesterol, GERD, Gastric bypass 2021 Imaging: CT of the lumbar spine and thoracic spine shows multilevel degenerative disc disease but does not have a lot of specifics MRI LUMBAR SPINE WITHOUT CONTRAST, 09/11/2024 FINDINGS: No acute spine fracture. Normal conus position and signal. Marrow signal: No significant marrow signal alteration or replacement. Level by level analysis: L1-L2: Unremarkable. L2-L3: Mild bilateral facet arthropathy. No canal or foraminal compromise. L3-L4: Shallow disc bulge with mild bilateral facet arthropathy. No canal or foraminal compromise. L4-L5: Shallow disc bulge with moderate to advanced right and moderate left facet arthropathy. There is mild left-sided foraminal narrowing. L5-S1: Advanced bilateral facet arthropathy. No canal or foraminal compromise. IMPRESSION: 1. Mild left-sided foraminal narrowing at L4-L5. No visible nerve root impingement. 2. Multilevel facet arthropathy, advanced at L5-S1. Surgical evaluation/ history: Followed by orthopedic surgery Conservative Treatments: Patient has failed conservative measures for greater than 6 weeks including physical therapy/chiroprac tic care/spinal manipulation, a monitored home exercise program, and/or NSAIDs within the last six months. Interventional treatment history: Most recent right GTB only 2 weeks of relief, multiple joint injections with varying levels of success 08/27/2024 - RIGHT SI JOINT INJECTION, #1 - 75% 10/01/24:RIGHT WRIST INJECTION, #1- 60% Previous analgesics: Hydrocodone No NSAIDS - hx gastric bypass Current analgesics: Hydrocodone7.5/32 5mg twice daily as needed Lidocaine patches Compliance Monitoring: UDS performed today. I will send out for results. Most recent UDS confirmation from 08/12/2024 was appropriate Brian reviewed and is appropriate She is considered to be moderate risk. She will return in 2 month for medication management. Anticoagulant/Ant iplatelet Medications: None [email or web address] Not available 11/11/2024 09:11:52 01/09/2025 01/09/2025 Pain History: 59-year-old female here for routine evaluation of her chronic lumbar spine pain, right leg pain. She also has some pain in her right wrist related to a cyst. Back pain is currently stable. Pain mainly radiates down the right buttock just below the back of the knee. This is only with increased activity or walking or standing for long periods. No loss of bladder or bladder control or saddle anesthesia. Main issue is currently her right wrist. She states she did have the cyst removed however after 2 days it returned. She does see Dr. Thomas at [facility] for this. She states they do plan for a second surgery in hopes that they can fully remove this next time. She does have some limited flexion extension because of the cyst being present in the wrist region. Otherwise she continues to report benefit with the medication we prescribed it does allow for improved functionality. This is an established patient with chronic pain that has been treated here since May 2024. Past Medical History: Anxiety/depressio n, high cholesterol, GERD, Gastric bypass 2021 Imaging: CT of the lumbar spine and thoracic spine shows multilevel degenerative disc disease but does not have a lot of specifics MRI LUMBAR SPINE WITHOUT CONTRAST, 09/11/2024 FINDINGS: No acute spine fracture. Normal conus position and signal. Marrow signal: No significant marrow signal alteration or replacement. Level by level analysis: L1-L2: Unremarkable. L2-L3: Mild bilateral facet arthropathy. No canal or foraminal compromise. L3-L4: Shallow disc bulge with mild bilateral facet arthropathy. No canal or foraminal compromise. L4-L5: Shallow disc bulge with moderate to advanced right and moderate left facet arthropathy. There is mild left-sided foraminal narrowing. L5-S1: Advanced bilateral facet arthropathy. No canal or foraminal compromise. IMPRESSION: 1. Mild left-sided foraminal narrowing at L4-L5. No visible nerve root impingement. 2. Multilevel facet arthropathy, advanced at L5-S1. Surgical evaluation/ history: Followed by orthopedic surgery Conservative Treatments: Patient has failed conservative measures for greater than 6 weeks including physical therapy/chiroprac tic care/spinal manipulation, a monitored home exercise program, and/or NSAIDs within the last six months. Interventional treatment history: Most recent right GTB only 2 weeks of relief, multiple joint injections with varying levels of success 08/27/2024 - RIGHT SI JOINT INJECTION, #1 - 75% 10/01/24:RIGHT WRIST INJECTION, #1- 60% Previous analgesics: Hydrocodone No NSAIDS - hx gastric bypass Current analgesics: Hydrocodone7.5/32 5mg twice daily as needed Lidocaine patches Compliance Monitoring: UDS performed today. I will send out for results. Most recent UDS confirmation from 08/12/2024 was appropriate Brian reviewed and is appropriate She is considered to be moderate risk. She will return in 2 month for medication management. Anticoagulant/Ant iplatelet Medications: None [email or web address] Not available 01/09/2025 13:22:54 Plan of Treatment Reminders Order Date Submit Date Provider Last Modified By Organization Details Last Modified Time Details Appointments FOLLOW UP 15 2024 08:30A Kaitlin COLBERT , CHARY Not available Not available Not available Lab drug screen, urine - Qualitati ve LCMS Screen Panel 2024 Replaced by [facility], [facility], [address] [place] [address], [id number], 11/14/2024 14:20:54 Referral None recorded. Procedures intra-art icular injection , wrist (PROC) 2024 [email or web address] Not available 09/12/2024 08:33:30 Surgeries None recorded. Imaging None recorded. Medication Orders hydrocodo ne 7.5 mg-acetam inophen 325 mg tablet 2024 [facility], [address] [place] [address] [address], [place], [place], [id number], 01/12/2025 13:00:39 lidocaine 5 % topical patch 2024 [facility], [address] [place] [address] [address], [place], [place], [id number], 01/12/2025 13:00:40 hydrocodo ne 7.5 mg-acetam inophen 325 mg tablet 2024 [facility], [address] [place] [address] [address], [place], [place], [id number], 01/10/2025 09:41:17 hydrocodo ne 7.5 mg-acetam inophen 325 mg tablet 2024 [facility], [address] [place] [address] [address], [place], [place], [id number], 11/13/2024 16:35:42 lidocaine 5 % topical patch 2024 [facility], [address] [place] [address] [address], [place], [place], [id number], 11/13/2024 16:35:41 hydrocodo ne 7.5 mg-acetam inophen 325 mg tablet 2024 025 [facility], [address] [place] [address] [place], [id number], 12/12/2024 17:15:28 hydrocodo ne 7.5 mg-acetam inophen 325 mg tablet 2024 025 [facility], [address] [place] [address] [address] [place], [id number], 10/13/2024 16:30:41 lidocaine 5 % topical patch [address] [place] [address], [address] [place] [address] [address] [place], [id number], 10/13/2024 16:30:40 hydrocodo ne 7.5 mg-acetam inophen 325 mg tablet [address] [place] [address], [address] [place] [address] [address] [place], [id number], 09/11/2024 15:56:17 lidocaine 5 % topical patch [address] [place] [address], [address] [place] [address] [address] [place], [id number], 09/11/2024 15:56:18 Patient TargetsNo targets recorded. Patient Instructions Encounter Date Encounter Id Patient Instructions Last Modified By Organization Details Last Modified Time 01/09/2025 [id number] chronic pain: care instructions [email or web address] Not available 01/09/2025 13:23:59 Reason for Referral None Reported. Results Created Date Observation Date Name Description Value Unit Range Abnormal Flag Note LastModifiedBy Organization Detail LastModifiedTime 08/29/19 sacro iliac joint injec tion (PROC ) No observ ation record ed. [email or web address] Not Available 08/29 10:48:39 09/11/19 25 09/11/2024 MRI, lumba r spine , w/o contr ast No observ ation record ed. [email or web address] Not Available 09/17 11:29:40 Result Notes None recorded. Problems Name Problem SNOMED Code Status Onset Date Resolution Date Notes Provider Name and Address Organization Details Recorded Time Chronic pain 52154788 Active 2024 Veronica Eller null, [place] - [facility] 5 10:57:27 Overweight 890754965 Active 2024 Veronica Shoremann null, [place] - [facility] 5 10:57:27 Lumbar radiculopat hy 428023980 Active 2024 Veronica Rafita null, [place] - [facility] 5 10:57:27 Inflammatio n of sacroiliac joint 82842115 Active 2024 Veronica Shoremann null, [place] - [facility] 5 10:57:27 Pain of right wrist 6725993395710 00 Active 2024 Gilbertojustice Calier null, [place] - [facility] 5 13:54:12 Lumbar spondylosis 229105103 Active 2024 Javier Choudhary null, [place] - [facility] 5 08:11:17 Problem Notes None recorded. Procedures Surgical History Date Name Laterality Status Provider Name and Address Organization Details Recorded Time 10/02/19 25 Joint Injection: Generic completed ERUM PALMER MD [address] [place] [address], [id number], [place] - [facility] 10/01/2024 11:21:28 08/27/19 25 SI Joint Injection (Fluoro) completed Nancy Cast [place] - [facility] 08/27/2024 08:36:03 Carpal Tunnel Release completed Gilberto Evans [place] - [facility] 07/07/2024 09:49:30 release of trigger thumb completed Gilberto [place] - [facility] 07/07/2024 09:49:39 Shoulder Surgery completed Gilberto [place] - [facility] 07/07/2024 09:49:53 Appendectomy completed Gilberto [facility] 07/07/2024 09:49:59 Knee Surgery completed Gilberto [facility] 07/07/2024 09:50:06 excision of melanoma completed Gilberto [facility] 07/07/2024 09:50:16 laparoscopic sleeve gastrectomy completed Gilberto [facility] 07/07/2024 09:50:24 panniculotomy completed Gilberto [facility] 07/07/2024 09:50:36 abdominoplasty completed Gilberto [facility] 07/07/2024 09:50:49 Imaging Results None recorded. Procedure Notes None recorded. Medical Equipment None Reported. Allergies Allergen ID Allergen Name Allergen Category Reaction Reaction Severity Criticality Documentation Date Start Date Code Code System Note Provider Name and Address Organization Details Recorded Time 720347 latex environme nt,medica tion Not available Not available Not available 07/07/2024 47418 91 RxNorm [facility] 4 09:46:15 687002 Non-stero idal anti-infl ammatory agent (product) medicatio n Not available Not available Not available 07/07/2024 18779 005 SNOMED [facility] 4 09:46:22 081304 prednison e medicatio n Not available Not available Not available 07/07/2024 8640 RxNorm [facility] 4 09:46:29 053580 acetamino phen / oxycodone medicatio n Not available Not available Not available 07/07/2024 66960 3 RxNorm [facility] 4 09:46:34 270988 Macrobid medicatio n Not available Not available Not available 07/07/2024 20274 1 RxNorm [place] 4 09:46:39 Medications Name Sig Start Date Stop Date Status Note LastModified by Organization Details LastModified Time methocarbam ol 500 mg tablet TAKE 1 OR 2 TABLET(S) BY MOUTH EVERY 8 HOURS NEEDED FOR MUSCLE SPASMS MAY CAUSE DROWSINES S active Not Available Not Available No t Available promethazin e-DM 6.25 mg-15 mg/5 mL oral syrup TAKE 1 TEASPOONF UL (5 ML) BY MOUTH EVERY 6 HOURS NEEDED FOR COUGH FOR 10 DAYS active Not Available Not Available No t Available cetirizine 10 mg tablet TAKE ONE TABLET BY MOUTH EVERY DAY active Not Available Not Available No t Available azithromyci n 250 mg tablet 07/07 completed Not Available Not Available Not Available fluconazole 150 mg tablet TAKE ONE TABLET BY MOUTH ONE DOSE. REPEAT IN 3 DAYS NEEDED FOR VAGINAL YEAST SYMPTOMS active Not Available Not Available No t Available sucralfate 100 mg/mL oral suspension TAKE 2 TEASPOONS FUL (10 ML) BY MOUTH FOUR TIMES DAILY active Not Available Not Available No t Available sucralfate 1 gram tablet TAKE ONE TABLET BY MOUTH FOUR TIMES DAILY FOR 5 DAYS active Not Available Not Available No t Available ondansetron HCl 4 mg tablet TAKE ONE TABLET BY MOUTH EVERY 8 HOURS NEEDED FOR NAUSEA active Not Available Not Available No t Available acyclovir 400 mg tablet active Not Available Not Available Not Available spironolact one 25 mg tablet TAKE ONE TABLET BY MOUTH EVERY DAY active Not Available Not Available No t Available pantoprazol e 20 mg tablet,nas yed release active Not Available Not Available Not Available famotidine 20 mg tablet TAKE ONE TABLET BY MOUTH EVERY DAY AT BEDTIME active Not Available Not Available No t Available dicyclomine 20 mg tablet TAKE ONE TABLET BY MOUTH FOUR TIMES DAILY NEEDED FOR SPASMS active Not Available Not Available No t Available hydrocodone 7.5 mg-acetamin ophen 325 mg tablet TAKE ONE TABLET BY MOUTH TWICE DAILY active Not Available Not Available No t Available pantoprazol e 40 mg tablet,nas yed release TAKE ONE TABLET BY MOUTH EVERY DAY active Not Available Not Available No t Available lidocaine 5 % topical patch APPLY 1 PATCH TOPICALLY TO THE AFFECTED AREA ONCE DAILY AND LEAVE IN PLACE FOR 12 HOURS, THEN REMOVE AND LEAVE OFF FOR 12 HOURS active Not Available Not Available No t Available paroxetine 40 mg tablet TAKE ONE TABLET BY MOUTH EVERY DAY active Not Available Not Available No t Available fluticasone propionate 50 mcg/actuati on nasal spray,suspe nsion active Not Available Not Available Not Available amoxicillin 875 mg-maximou m clavulanate 125 mg tablet TAKE ONE TABLET BY MOUTH EVERY TWELVE HOURS FOR 7 DAYS -- FINISH ALL MEDICINE -- --TAKE WITH FOOD-- active Not Available Not Available No t Available rosuvastati n 20 mg tablet TAKE ONE TABLET BY MOUTH EVERY DAY active Not Available Not Available No t Available bupropion HCl XL 150 mg 24 hr tablet, extended release TAKE ONE TABLET BY MOUTH EVERY DAY active Not Available Not Available No t Available Nyamyc 100,000 unit/gram topical powder APPLY TO THE AFFECTED AREA(S) BY TOPICAL ROUTE 2 TIMES PER DAY active Not Available Not Available No t Available cholecalcif lesa (vitamin D3) 1,250 mcg (50,000 unit) capsule TAKE ONE CAPSULE BY MOUTH ONCE A WEEK active Not Available Not Available No t Available Qsymia active Not Available Not Availa ble Not Available Narcan 4 mg/actuatio n nasal spray Take 1 spray by nasal route as needed. 2023 active Not Available Not Available Not Avai lable Ubrelvy 100 mg tablet Take by oral route. active Not Available Not Available No t Available Vitals Date Recorded Body height Body mass index (BMI) Body weight Oxygen saturation Oxygen saturation in Arterial blood by Pulse oximetry Provider Name and Address Organization Details Last Updated DateTime 09/09/2024 149.86 cm 36 kg/m2 48013.4 4 g 96 % 96 % maribel singh [facility] 09:26:51 Date Recorded Body height Heart rate Systolic And Diastolic Provider Name and Address Organization Details Last Updated DateTime 10/13/2024 149.86 cm 110 /min 169/75 mm[Hg] Carol Bynum [facility] 10/13/2024 08:44:19 Date Recorded Body height Body mass index (BMI) Body weight Provider Name and Address Organization Details Last Updated DateTime 11/11/2024 149.86 cm 36.4 kg/m2 73769.63 g Javier Choudhary [facility] 11/11/2024 08:14:05 Date Recorded Body height Body mass index (BMI) Body weight Heart rate Oxygen saturation Oxygen saturation in Arterial blood by Pulse oximetry Systolic And Diastolic Provider Name and Address Organization Details Last Updated DateTime 5 149.86 cm 36.4 kg/m2 94971.6 3 g 72 /min 98 % 98 % 138/81 mm[Hg] Javier Choudhary [facility] 5 08:32:01 Social History Question Answer Notes LastModified by Donews Details LastModified Time Tobacco Smoking Status Former Smoker Quit 2019 maribel samantha emmanuel [facility] 09/09/2024 09:30:57 Do You Have An Advance Directive? No [email or web address] Information not available 07/07/2024 What Type Of Diet Are You Following? REGULAR [email or web address] Information not available 07/07/2024 What Is The Highest Grade Or Level Of School You Have Completed Or The Highest Degree You Have Received? [id number] [email or web address] Information not available 07/07/2024 Do You Have A Medical Power Of Production Supervisor Trainee? No [email or web address] Information not available 07/07/2024 What Was The Date Of Your Most Recent Tobacco Screening? 01/09/2025 [email or web address] Information not available 01/09/2025 What Is Your Relationship Status? [email or web address] Information not available 07/07/2024 How Much Tobacco Do You Smoke? 1 PPD [email or web address] Information not available 09/09/2024 How Many Years Have You Smoked Tobacco? 9 [email or web address] Information not available 09/09/2024 Sex: Unknown Functional Status Question Answer Note LastModified by Donews Details LastModified Time Do you use any illicit or recreational drugs? No [email or web address] Information not available 07/07/2024 What is your level of alcohol consumption? None [email or web address] Information not available 07/07/2024 Are you currently employed? No DISABLED [email or web address] Information not available 07/07/2024 Are you able to walk? YESWOREST [email or web address] Information not available 07/07/2024 What is your exercise level? None [email or web address] Information not available 07/07/2024 Mental Status None recorded. Family History Relationship Description Onset Age of this Age Resolved Age Notes LastModified by Organization Details LastModified Time Father No current problems or disability [email or web address] Not available 06/22 09:48:44 Mother No current problems or disability [email or web address] Not available 06/22 09:48:44 Medical History Condition Response Bipolar Disease N Coronary Artery Disease N Seizure Disorder N Gout N Thyroid Disease N Atrial Fibrillation N Head Trauma/Injury N Hernia Y COPD N Depression Y Anxiety Disorder Y Acid Reflux (GERD) Y Cancer N Skin Disorder N Stroke N High Cholesterol N Liver Disease N Rheumatoid Arthritis N Fibromyalgia N Headaches Y Autoimmune Disease N Kidney Disease N Osteoarthritis N Neurosurgery N DVT N Peptic Ulcer Disease N Anemia N Heart Attack (NH) N Diabetes N Cardiomyopathy N Bleeding Disorder N CHF N AIDS/HIV N Inflammatory Bowel Disease N Dementia N Asthma N Substance Abuse N Sleep Apnea N Hepatitis N Heart Disease N Pulmonary Embolism N Chronic Low Back Pain Y Hypertension N Osteoporosis N Gynecological HistoryNo gynecological history recorded. 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 Her new insurance will take effect in August. At that time, she will schedule her lumbar MRI in order to evaluate her ongoing lower back and radiating leg pain. Will discuss further treatment options at that time. At this time, her symptoms remain tolerable with oral medication . She is able to maintain functional ity and independen ce. We will continue this unchanged. Inflammati on of sacroiliac joint 15902078 M46.1 She continues to experience significan t pain in her right sacroiliac region. The pain has caused difficulty with ambulation as well as completing household activities . The pain is reproduced Gallo's maneuver, thigh thrust and SI compressio n. I will place a new order today as the authorizat ion on her last order. [id number] ERUM PALMER MD [facility] [address] [place] [address] 08/27/2024 08:05:35 08/27/2024 08:31:43 Inflammation of sacroiliac joint 31701386 M46.1 [id number] ERUM PALMER MD [facility] [address] [place] [address] 09/09/2024 09:15:13 09/09/2024 09:44:55 Inflammation of sacroiliac joint 08882636 M46.1 She reports notable improvemen t in symptoms since completing SI joint injections . She will let us know when she is ready to repeat. Lumbar radiculopathy 128 871797 M54.16 Her lumbar MRI is scheduled later this week. We will evaluate next visit and discuss treatment options going forward. She is happy with her current medication regimen. The relieve received allows her to remain active, mobile and functional . We will not make any changes at this time. Overweight 023884415 E66 .3 Hypertensi on screening 486199377 Z13.6 Long-term drug therapy 784186386 Z79.891 Pain of right wrist 3169 025056 89768 M25.531 Today, she complains primarily of pain in her right wrist. In the past, she underwent right wrist injections with significan t prolonged improvemen t. She would like to repeat this as soon as possible. I placed order today. [id number] ERUM PALMER MD [facility] [address] [place] [address] 10/01/2024 09:33:29 10/01/2024 10:46:14 Pain of right wrist [id number] 61198 M25.712 [id number] Aftab Burnett MD [facility] [address] [address] 10/13/2024 08:28:09 10/13/2024 09:01:22 Inflammation of sacroiliac joint 29234699 M46.1 Lumbar radiculopathy 128 M54.16 After reviewing her lumbar MRI, we also discussed lumbar epidural injections to treat the radiating leg pain. She is interested in lumbar treatment however, she does not want to schedule until after her ganglion cyst addressed by Ortho. For now, we will continue her current oral medication regimen without change. The relief allows her to maintain her current activity level and engage in hobbies. Long-term drug therapy 794564353 Z79.891 Lumbar spondylosis 54915 0009 M47.816 We did review her lumbar MRI results. She has widespread facet arthropath y. We discussed lumbar MBB/RFA to address the ongoing axial lower back pain. She does not wish to proceed at this time as she would like to focus on her potential ganglion cyst removal surgery. Pain of right wrist 3169 941277 96013 M25.386 [id number] ERUM PALMER MD [facility] [address] [address] 11/11/2024 08:05:33 11/11/2024 08:31:08 Long-term drug therapy 105709205 Z79.899 Lumbar spondylosis 14999 0009 M47.816 She may be a candidate for lumbar BB/RFA as well. We can discuss in the future once her radicular pain is addressed. Lumbar radiculopathy 128 933195 M54.16 I have discussed LESI for patient's radiating leg symptoms. She states she is wanting to make sure she can undergo the hand surgery for the ganglion cyst removal and wants to hold for this. I advised her to call if pain becomes severe and she wishes to proceed. No changes made with medication regimen today. Patient reports that they are able to perform their daily activities with more ease. Their quality of life is improved. They have improved activity tolerance. No side effects noted. Patient has moderate risk and has had no aberrant behavior. I will move her to 2-month visits today. [id number] West Waggoner MD [facility] [address] [place] [address] 01/09/2025 08:25:18 01/09/2025 09:10:54 Lumbar radiculopathy 627237772 M54.16 I have discussed LESI for patient's radiating leg symptoms. We are currently holding on interventi onal treatment as she is hopeful to get the cyst fully removed from her right wrist. She will let us know when she is ready to proceed. We will continue with their current medication at same dose and frequency. Patient states they are able to complete daily tasks, the range of motion is improved, as well as improved functional ity with use of this. They deny any side effects. Lumbar spondylosis 68197 0009 M47.816 She may be a candidate for lumbar BB/RFA as well. We can discuss in the future once her radicular pain is addressed. Chronic pain 66424498 G8 9.29 Health Concerns Section Related Observation LastModified by Organization Detai ls LastModified Time None Recorded Concern Status LastModified by Organization Details LastModified Time None Recorded Advance Directives Directive N: Payers Insurance Date Sequence Insurance Name Policy Number Policy Bee Covered Member ID Bee Member ID Guarantor Name 09/09/2024 1 [place] Sabrina Mastersonp [id number] Sabrina Mastersonp 10/25/2024 PAYMENT PLAN Sabrina Mastersonp 01/09/2025 1 [employer] (MEDICARE REPLACEMENT/A DVANTAGE - HMO) Sabrina Mastersonp [id number] Sabrina Kwan 01/09/2025 PAYMENT PLAN Sabrina Mastersonp 08/07/2024 1 [employer] (MEDICARE REPLACEMENT/A DVANTAGE - O) Sabrina Mastersonp [id number] Sabrina Kwan Notes Date Note Type Note Provider Name and Address Organization Details Recorded Time 09/09/2024 text/html HipReported bypatient.Location:r ight Quality:aching; burning; gnawing; stabbing Severity:severe; pain level 6/10; worst pain 10/10 Duration:date of onset: (2019) Timing:chronic Context:overuse Alleviating Factors:position change; limited weight bearing Aggravating Factors:standing; bending/squatting; pushing/pulling; going from sit to stand; cold weather; damp weather Previous Surgery:noneLow back pain (2)*Reported bypatient.Location:p araspinal: bilateral; pain is not radiating Duration:constant Context:overuse Quality:aching; burning; gnawing; stabbing; throbbing; sharp Pain IntensitySevere; current pain level: 6/10; average pain level: 7/10; worst pain level: 10/10 Aggravating Factors:standing; bending/squatting; standing from a seated position Alleviating Factors:changing positions; limited weight bearing Functional Assessment of ADLsDifficulty completing box toe stitcher secondary to pain.;Unable to work secondary to chronic pain and or physical disability.;Unable to exercise on a regular basis secondary to pain.;Difficulty participating in recreation on a regular basis secondary to pain. Lumbar Surgery:none Other Conservative Treatments:chiroprac tic treatments: not effective; acupuncture: not effective; heat: effective; ice: not effective; TENS Unit: not effective; activity modification: not effective Prior Pain Management:yes: ([facility]) For Female Patients:Are you ? No Complete Care Program:Order Date: (07/07/2024) Carol Bashir APRN [address] [place], [address], [facility] 09/09/2024 10:53:58 10/01/2024 text/html RIGHT WRIST INJECTION, #1 ERUM PALMER MD [address] [place], [address], [facility] 10/01/2024 11:21:33 10/13/2024 text/html HipReported bypatient.Location:r ight Quality:aching; burning; gnawing; stabbing Severity:severe; pain level 6/10; worst pain 10/10 Duration:date of onset: (2019) Timing:chronic Context:overuse Alleviating Factors:position change; limited weight bearing Aggravating Factors:standing; bending/squatting; pushing/pulling; going from sit to stand; cold weather; damp weather Previous Surgery:noneLow back pain (2)*Reported bypatient.Location:p araspinal: bilateral; pain is not radiating Duration:constant Context:overuse Quality:aching; burning; gnawing; stabbing; throbbing; sharp Pain IntensitySevere; current pain level: 6/10; average pain level: 7/10; worst pain level: 10/10 Aggravating Factors:standing; bending/squatting; standing from a seated position Alleviating Factors:changing positions; limited weight bearing Functional Assessment of ADLsDifficulty completing box toe stitcher secondary to pain.;Unable to work secondary to chronic pain and or physical disability.;Unable to exercise on a regular basis secondary to pain.;Difficulty participating in recreation on a regular basis secondary to pain. Lumbar Surgery:none Current Analgesics:Hydrocodo ne/APAP effective; 10/13/2024- LAST DOSE TAKEN AM Other Conservative Treatments:chiroprac tic treatments: not effective; acupuncture: not effective; heat: effective; ice: not effective; TENS Unit: not effective; activity modification: not effective Prior Pain Management:yes: ([facility]) For Female Patients:Are you ? No Complete Care Program:Order Date: (07/07/2024) Carol Bashir APRN [address] [place] [address], [phone], [facility] 10/13/2024 10:07:59 11/11/2024 text/html HipReported bypatient.Location:r [facility] Quality:aching; burning; gnawing; stabbing Severity:severe; pain level 6/10; worst pain 10/10 Duration:date of onset: (2019) Timing:chronic Context:overuse Alleviating Factors:position change; limited weight bearing Aggravating Factors:standing; bending/squatting; pushing/pulling; going from sit to stand; cold weather; damp weather Previous Surgery:noneLow back pain (2)*Reported bypatient.Location:m idline; paraspinal: bilateral; radiating down the right lower extremity to the thigh Duration:constant Context:overuse Quality:aching; burning; gnawing; stabbing; throbbing; sharp Pain IntensitySevere; current pain level: 6/10; average pain level: 7/10; worst pain level: 10/10 Aggravating Factors:standing; bending/squatting; standing from a seated position Alleviating Factors:changing positions; limited weight bearing Associated Symptoms:no numbness; no tingling; no weakness; no urinary incontinence; no urinary retention; no bowel incontinence; no perineal paresthesia/anesthes ia Functional Assessment of ADLsDifficulty completing box toe stitcher secondary to pain.;Unable to work secondary to chronic pain and or physical disability.;Unable to exercise on a regular basis secondary to pain.;Difficulty participating in recreation on a regular basis secondary to pain. Prior Imaging:MRI Lumbar Surgery:none Current Analgesics:Hydrocodo ne/APAP effective; 11/11/24 Other Conservative Treatments:chiroprac tic treatments: not effective; acupuncture: not effective; heat: effective; ice: not effective; TENS Unit: not effective; activity modification: not effective Prior Pain Management:yes: ([facility]) For Female Patients:Are you ? No Complete Care Program:Order Date: (07/07/2024) BRANDT COLBERT NP [address] [place] [address], [phone] 11/11/2024 10:32:54 01/09/2025 text/html HipReported bypatient.Location:[facility] Quality:aching; burning; gnawing; stabbing Severity:severe; pain level 6/10; worst pain 10/10 Duration:date of onset: (2019) Timing:chronic Context:overuse Alleviating Factors:position change; limited weight bearing Aggravating Factors:standing; bending/squatting; pushing/pulling; going from sit to stand; cold weather; damp weather Previous Surgery:noneLow back pain (2)*Reported bypatient.Location:m idline; paraspinal: bilateral; radiating down the right lower extremity to the thigh Duration:constant Context:overuse Quality:aching; burning; gnawing; stabbing; throbbing; sharp Pain IntensitySevere; current pain level: 6/10; average pain level: 7/10; worst pain level: 10/10 Aggravating Factors:standing; bending/squatting; standing from a seated position Alleviating Factors:changing positions; limited weight bearing Associated Symptoms:no numbness; no tingling; no weakness; no urinary incontinence; no urinary retention; no bowel incontinence; no perineal paresthesia/anesthes ia Functional Assessment of ADLsDifficulty completing box toe stitcher secondary to pain.;Unable to work secondary to chronic pain and or physical disability.;Unable to exercise on a regular basis secondary to pain.;Difficulty participating in recreation on a regular basis secondary to pain. Prior Imaging:MRI Lumbar Surgery:none Current Analgesics:Hydrocodo ne/APAP effective; 01/09/25 Other Conservative Treatments:chiroprac tic treatments: not effective; acupuncture: not effective; heat: effective; ice: not effective; TENS Unit: not effective; activity modification: not effective Prior Pain Management:yes: ([facility]) For Female Patients:Are you ? No Complete Care Program:Order Date: (07/07/2024) BRANDT COLBERT NP [address] [place] [address], [phone], [facility] 01/09/2025 13:24:08 OBGyn Episode No OBEpisode recorded.
--- OUTSIDE RECORDS SUMMARY | 2025-02-08 19:05 | XMS_ITS | Clinical Summary ---
Author Organization Healthcare Address [address] [place] [address] Care Team Providers Care University Demonstrator Name Role Phone Loren Tesfaye APRN Primary Care Provider [phone] Bola Perez MD Unavailable [phone] Allergies Active Allergy Reactions Criticality Noted Date Comments Latex Hives Medium 10/12/2022 Nitrofurantoin Macrocrystal Other - please document in the comment field Low 03/09/2023 Patient states she was deathly ill. Patient was vomiting and was nauseous Nsaids Other - please document in the comment field Low 05/29/2022 Oxycodone-Acetaminophen Other - please document in the comment field Low 09/26/2023 Severe Stomach pains Prednisone Other - please document in the comment field Low 05/29/2022 Medications valACYclovir (Valtrex) 1 g tablet Take 1 tablet (1,000 mg) by mouth 1 (one) time each day if needed. Active terbinafine (LamISIL) 1 % cream Active spironolactone (Aldactone) 25 MG tablet Take 1 tablet (25 mg) by mouth 1 (one) time each day. 07/26/19 Active rosuvastatin (Crestor) 20 MG tablet 1 tablet (20 mg) 1 (one) time each day. Active PARoxetine (Paxil) 40 MG tablet Take 1 tablet (40 mg) by mouth 1 (one) time each day. 07/26/19 Active pantoprazole (Protonix) 40 MG EC tablet Take 1 tablet (40 mg) by mouth 1 (one) time each day. 07/26/19 Active nystatin (Mycostatin) ointment Apply 1 Application topically if needed. Active cetirizine (ZyrTEC) 10 MG tablet Take 1 tablet (10 mg) by mouth 1 (one) time each day. 10/11/19 23 Active Triamcinolone Acetonide (Triamcinolone in Absorbase) 0.05 % ointment Active traMADol (Ultram) 50 MG tablet Take by mouth 4 (four) times a day if needed. Active CREAM BASE EX Active levonorgestrel (Mirena) 20 MCG/DAY IUD 1 each by Intrauterine route 1 (one) time. Active ketoconazole (NIZOral) 2 % shampoo APPLY TOPICALLY TO THE AFFECTED AREA(S) three times WEEKLY 10/31/19 23 Active methocarbamol (Robaxin) 500 MG tablet Take 1 tablet (500 mg) by mouth 4 (four) times a day for 10 days. 40 tablet 12/28/19 23 Active fluconazole (Diflucan) 150 MG tablet Patient to take 1 tablet today and repeat next week. 2 tablet 01/11/20 23 Active HYDROcodone-acetam inophen ([place]) 5-325 MG tablet TAKE ONE TABLET BY MOUTH EVERY DAY AT BEDTIME NEEDED FOR POST OP PAIN 08/09/19 24 Active ondansetron ODT (Zofran-ODT) 4 MG disintegrating tablet DISSOLVE ONE TABLET in MOUTH EVERY 6 HOURS NEEDED FOR NAUSEA AND VOMITING Active nystatin-triamcino lone (Mycolog II) ointment APPLY TOPICALLY TO THE AFFECTED AREA(S) TWICE DAILY Active HYDROcodone-acetam inophen ([place]) 5-325 MG tablet 08/09/19 24 Active acetaminophen (Tylenol) 500 MG tablet Take 2 tablets (1,000 mg) by mouth every 6 (six) hours if needed. Active traMADol (Ultram) 50 MG tablet Take 1 tablet (50 mg) by mouth every 6 (six) hours if needed for severe pain. 8 tablet 09/26/19 24 Active naloxone (Kloxxado) 8 mg/0.1 mL nasal spray 1. Give 1 spray in nostril for no/slow breathing or cannot wake after opioid use 2. Call 911 3. Repeat in other nostril if symptoms continue 1 each 09/26/19 24 Active HYDROcodone-acetam inophen ([place]) 5-325 MG tablet Take 1 tablet (5 mg of hydrocodone) by mouth every 6 (six) hours if needed for severe pain. 8 tablet 09/26/19 24 Active Additional Information Patient not taking.Reported on 10/16/2023 hyoscyamine (Anaspaz,Levsin) 0.125 MG tablet TAKE ONE TABLET BY MOUTH EVERY 6 HOURS NEEDED FOR abdominal cramping 09/12/19 24 Active lidocaine (Lidoderm) 5 % patch APPLY 1 PATCH TOPICALLY TO THE AFFECTED AREA ONCE DAILY AND LEAVE IN PLACE FOR 12 HOURS, THEN REMOVE AND LEAVE OFF FOR 12 HOURS 09/25/19 24 Active acyclovir (Zovirax) 400 MG tablet TAKE ONE TABLET BY MOUTH THREE TIMES DAILY FOR 8 DAYS -- FINISH ALL MEDICINE -- 09/25/19 24 Active ondansetron (Zofran) 4 MG tablet 10/16/19 24 Active triamcinolone (Kenalog) 0.1 % cream Apply topically 1 (one) time each day. 15 g 10/16/19 24 Active Active Problems Problem Noted Date Diagnosed Date Postoperative seroma of subc utaneous tissue after non-dermatologic procedure 10/19/2023 Malignant melanoma of left u pper extremity including shoulder 10/05/2023 Cancer Staging:Pathologic:Stage IB(pT2a, pN0, cM0) - Signed by Vivi Hartley MD on 10/05/2023 Obesity (BMI 35.0-39.9 without comorbidity) 12/21 Severe obesity (BMI 35.0-39.9) with comorbidity 01/04/2023 Abdominal pannus 10/12/2022 Overview (10/12/2022): Added automatically from request for surgery [id number] Immunizations Immunization Administration Dates Next Due [facility] COVID-19 Vaccine (Blue Cap) 18+ 10/24/19 21 Family History Medical History Relation Name Comments Cancer Brother Timbo Graf Cancer Sister Carmina Graf Anesthesia problems Neg Hx Malig Hyperthermia Neg Hx Relation Name Status Comments Brother Timbo Graf Sister Carmina Graf Social History Tobacco Use Types Packs/Day Years Used Date Smoking Tobacco: Former Cigarettes 1 10 0 12/21/2009 - 12/22/2019 Smokeless Tobacco: Never Tobacco Cessation:Counseling Given: No Alcohol Use Standard Drinks/Week Comments Never 0 (1 standard drink = 0.6 oz pur e alcohol) PHQ-2 Answer Date Recorded Patient Health Questionnaire-2 Score 0 10/02/2023 Comments No Sex and Gender Information Value Date Recorded Sex Assigned at Female 10/06/2022 9:05 PM EDT Legal Sex Female 8:31 PM EDT Gender Identity Female 10/06/2022 9:05 PM EDT Sexual Orientation Straight 10/06/2022 9: 05 PM EDT Last Filed Vital Signs Vital Sign Reading Time Taken Comments Blood Pressure 128/78 10/23/2023 8:29 AM EDT Pulse 93 10/23/2023 8:29 AM EDT Temperature 36.9 C (98.4 F) 10/23/2023 8:29 AM EDT Respiratory Rate 16 10/23/2023 8:29 AM EDT Oxygen Saturation 96% 10/23/2023 8:29 AM EDT Inhaled Oxygen Concentration - - Weight 81.5 kg (179 lb 10.8 oz) 10/23/2023 8:29 AM EDT Height 149.9 cm (4' 11 ) 10/16/2023 3:21 PM EDT Body Mass Index 36.29 10/16/2023 3:21 PM EDT Plan of Treatment Health Maintenance Due Date Last Done Comments [facility]-HIV Screening 1967 [facility]-Hepatitis C Screening 1967 [facility]-Medicare Annual Wellness (AWV) 1967 [facility]-Infant/Child/Adol SDOH Screenings 1967 [facility]- SDOH Screenings 1985 [facility]-Adult SDOH Screenings 1985 [facility]-Pneumococcal Vaccine: 50+ Years (1 of 2 - PCV) 1986 [facility]-Zoster Vaccines (1 of 2) 1986 [facility]-Pap Smear 1988 [facility]-Cervical Cancer Screening 1997 [facility]-HPV/Cotest 1997 CT Colonography 2012 Colonoscopy 2012 FIT-DNA 2012 FIT 2012 FOBT 2012 Sigmoidoscopy 2012 [facility]-Colorectal Cancer Screening 2012 [facility]-Breast Cancer Screening 2017 [id number] Vaccine (2 - Brennen risk series) 11/20/2020 10/23/2020 [facility]-DTaP,Tdap,and Td Vaccines (3 - Td or Tdap) 08/06/2024 08/06/2014, 04/17/2008 [facility]-Depression Screening 10/01/2024 10/02/2023 [facility]-Influenza Vaccine (#1) 2025 05/17/2016 [facility]-Hepatitis B Vaccines Completed 004, 05/15/2003, 04/15/2003 [facility]-Obesity Intervention Completed 024, 10/23/2023, 10/16/2023, Additional history exists HPV Vaccines Aged Out No longer eligi ble based on patient's age to complete this topic [facility]-HIB Vaccines Aged Out No longer e ligible based on patient's age to complete this topic [facility]-Hepatitis A Vaccines Aged Out No longer eligible based on patient's age to complete this topic [facility]-IPV Vaccines Aged Out No longer e ligible based on patient's age to complete this topic [facility]-Rotavirus Vaccines Aged Out No lo nger eligible based on patient's age to complete this topic Medical Devices Implanted Type Area Mixer Operator Raw Salt Device Identifier Shelf Expiration Date Model / Serial / Lot Patella Patella Left: Knee Plate Plate Left: Wrist Insurance [employer] MEDICARE Care Teams University Demonstrator Relationship Specialty Start Date End Date Loren Tesfaye APRN [address] [facility] [address] [place] [id number] PCP - General 09/07/22 Bola Perez MD [address] [facility] Therese Mart[address]nez[address] [id number] Surgeon Surgical Oncology 10/03/23
--- OUTSIDE RECORDS SUMMARY | 2025-02-08 19:05 | XMS_ITS | Continuity of Care Document ---
Author Organization [facility] & [facility] Address [address] [facility] [address] [place] [address] Care Team Providers Care Plugman Name Role Phone GILBERTO PORTILLO Primary Care Provider [phone] Assessment No assessment recorded. Plan of Treatment Reminders Order Date Submit Date Provider Last Modified By Organization Details Last Modified Time Details Appointments MEDICAL WEIGHT LOSS FOLLOW UP 2024 03:00P M Reza Allen DNP, DEBURRER, CORPORATE TRAVEL AGENT-C Not available Not available Not available OV EST 20 2024 02:40P M Reza Allen DNP, APRN, CORPORATE TRAVEL AGENT-C Not available Not available Not available Lab None recorded. Referral None recorded. Procedures None recorded. Surgeries None recorded. Imaging None recorded. Medication Orders Qsymia 15 mg-92 mg capsule, extended release 2024 025 [facility], [address] [place] [address], [address], [place], [address], 01/19/2025 15:18:13 Patient TargetsNo targets recorded. Patient InstructionsNo instructions recorded. Reason for Referral None Reported. Problems Name Problem SNOMED Code Status Onset Date Resolution Date Notes Provider Name and Address Organization Details Recorded Time Hyperlipid emia 55821292 Active 2022 Reza Allen DNP, DEBURRER, CORPORATE TRAVEL AGENT-C [address] [facility], [place], [address] , [facility] & [place] 14:16:59 Skin irritation 137273142 Active 2022 Reza Allen DNP, NICHOLAS, CORPORATE TRAVEL AGENT-C [address], [place], [place], [address] [place] [address] , [place] - [place] - [place] & [place] 3 16:03:51 Unintentio nal weight gain 9096974839911 04 Active 2022 Reza Allen DNP, NICHOLAS, CORPORATE TRAVEL AGENT-C [address], [place], [place], [address] [place] [address] , [place] - [place] - [place] & [place] 3 16:04:06 History of bypass of stomach 390530602 Active 2022 Reza Allen DNP, NICHOLAS, CORPORATE TRAVEL AGENT-C [address], [place], [address] [place] [address] , [place] - [place] - [place] & [place] 3 16:04:20 Excess skin of abdominal wall 207446050 Active 2022 Reza Allen DNP, APRN, CORPORATE TRAVEL AGENT-C [address], [place], [address] [place] [address] , [place] - [place] - [place] & [place] 3 10:19:24 Abdominal pain 41461074 Active 2023 Reza Allen DNP, NICHOLAS, CORPORATE TRAVEL AGENT-C [address], [place], [address] [place] [address] , [place] - [place] - [place] & [place] 4 13:42:22 Retching 54703077 Active 2023 Reza Allen DNP, APRN, CORPORATE TRAVEL AGENT-C [address], [place], [address] [place] [address] , [place] - [place] - [place] & [place] 4 13:48:24 History of Helicobact er pylori infection 2066005644420 9108 Active 2023 Reza Allen DNP, DEBURRER, CORPORATE TRAVEL AGENT-C [address], [place], [address] [place] [address] , [place] - [place] - [place] & [place] 4 13:48:47 Elevated blood-pres sure reading without diagnosis of hypertensi on 029710816 Active 2024 Reza Allen, BRANDIE, DEBURRER, CORPORATE TRAVEL AGENT-C [address], [place], [address] [place] [address] , [place] - [place] - [place] & [place] 5 13:28:49 Lipoma of right lower limb 4794976236844 108 Active 2024 Reza Allen, BRANDIE, DEBURRER, CORPORATE TRAVEL AGENT-C [address], [place], [address] [place] [address] , [place] - [place] - [place] & [place] 5 13:56:49 Morbid obesity 781869931 Active 2024 Reza Allen, BRANDIE, DEBURRER, CORPORATE TRAVEL AGENT-C [address], [place], [address] [place] [address] , [place] - [place] - [place] & [place] 5 13:57:04 Problem Notes None recorded. Procedures Surgical History Date Name Laterality Status Provider Name and Address Organization Details Recorded Time laparoscopic sleeve gastrectomy completed Isabel Mcwilliams [place] - [facility] & [place] 3 14:08:11 Christina-en-Y gastrojejunostomy complete d Isabel Mcwilliams [place] - [facility] & [place] 3 14:08:35 esophagogastroduodenoscopy completed Isabel Mcwilliams [place] - [facility] [facility] & [place] 3 14:08:47 procedure on shoulder completed Alecia ecca Mcwilliams [place] - [facility] [facility] & [place] 3 14:09:12 Other completed Isabel Mcwilliams [place] - [place] - [place] & [place] 3 14:09:25 Appendectomy completed Isabel Mcwilliams [place] - [place] - [place] & [place] 3 14:09:31 Other completed Isabel Mcwilliams [place] - [place] - [place] & [place] 3 14:09:51 Tubal Ligation completed Isabel Mcwilliams [place] - [place] [facility] & [place] 3 14:10:00 Cholecystectomy completed Isabel Mcwilliams [place] - [facility] [facility] & [place] 3 14:10:06 procedure on knee completed Nisa BRAGG [facility] & [place] 5 13:16:49 Imaging Results None recorded. Procedure Notes None recorded. Medical Equipment None Reported. Allergies Allergen ID Allergen Name Allergen Category Reaction Reaction Severity Criticality Documentation Date Start Date Code Code System Note Provider Name and Address Organization Details Recorded Time 050579 Macrobid medicatio n Not available Not available Not available 10/31/2023 50543 1 RxNorm ILIA Gruber [facility] & [place] 4 13:17:53 369521 acetamino phen / oxycodone medicatio n Not available Not available Not available 10/31/2023 23239 3 RxNorm ILIA Gruber [facility] & [place] 4 13:17:59 932192 latex environme nt,medica tion Not available Not available Not available 10/31/2023 07433 91 RxNorm ILIA Gruber [facility] & [place] 4 13:18:06 Medications Name Sig Start Date [...] completed Not Available Not Available Not Available Carafate 100 mg/mL oral suspension Take 10 mL 4 times a day by oral route for 30 days. 2024 active Not Available Not Available Not Avai lable cetirizine 10 mg tablet TAKE ONE TABLET [...] Not Available Not Available Not Available sucralfate 1 gram tablet TAKE ONE TABLET BY MOUTH FOUR TIMES DAILY FOR 5 DAYS 12/18 completed Not Available Not Available Not Available ondansetron HCl 4 mg tablet TAKE [...] Not Available Not Available No t Available nitrofurant oin monohydrate /macrocryst als 100 mg capsule TAKE ONE CAPSULE BY MOUTH TWICE DAILY FOR 7 DAYS -- FINISH ALL MEDICINE -- 10/30 completed Not Available Not Available Not Available cholecalcif lesa (vitamin D3) 1,250 mcg (50,000 unit) capsule TAKE ONE CAPSULE BY MOUTH ONCE A WEEK 10/24 completed Not Available Not Available Not Available Qsymia 11.25 mg-69 mg capsule, extended release Take 1 capsule every day by oral route for 30 days. 2024 active Not Available Not Available Not Avai lable Qsymia 3.75 mg-23 mg capsule, extended release Take 1 capsule every day by oral route for 14 days. 12/18 completed Not Available Not Available Not Available Qsymia 15 mg-92 mg capsule, extended release Take 1 capsule every day by oral route for 30 days. 2024 active Not Available Not Available Not Avai lable Qsymia 7.5 mg-46 mg capsule, extended release Take 1 capsule every day by oral route for 30 days. 01/19 completed Not Available Not Available Not Available Kloxxado 8 mg/actuatio n nasal spray 10/30 completed Not Available Not Available Not Available Vitals Date Recorded Body height Body mass index (BMI) Body weight Provider Name and Address Organization Details Last Updated DateTime 01/19/2025 149.61 cm 36.3 kg/m2 31004.03 g Isabel Oj [facility] & [place] 01/19/2025 15:03:55 Social History None recorded. Functional Status Question Answer Note LastModified by Organizat ion Details LastModified Time Do you use any illicit or recreational drugs? No [email or web address] Information not available 09/04/2022 What is your level of alcohol consumption? None [email or web address] Information not available 09/04/2022 Mental Status None recorded. Family History Nothing Reported. Medical History Condition Response Depression Y Anxiety Disorder Y Muscle, Joint, or Bone Problems Y Vision or Eye Problems Y Arthritis Y High Cholesterol Y Headaches Y Anemia Y Reflux/GERD Y Hypertension Y Gynecological HistoryNo gynecological history recorded. Obstetrics History GPAL:G 0 P 0 0 0 0 Past Encounters Encounter ID Performer Location Encounter Start Date Encounter Closed Date Diagnosis/Indication Diagnosis SNOMED-CT Code Diagnosis ICD10 Code Diagnosis Note [id number] Reza Allen, DNP, DEBURRER, CORPORATE TRAVEL AGENT-C [facility] [address] [facility] [address] [place] [address] 01/19/2025 15:02:18 01/19/2025 15:47:18 Hyperlipidemia 46664762 E78.5 Morbid obesity 698368318 E66.01 Advised qid intake 50% protein 4450-7359 calories/d y less than 100 carbs/dy. Patient was reassured on today's visit. Dialogue [...] care provider and/or any specialty provider (s). The patient is instructed to continue their bariatric approved vitamins as directed.W ill increase dose to 11.25 mg/69 mg daily. Todays visit was performed with AUDIO ONLY per patient request. Patient could not be seen utilizing audio/vide o or in person due to patient being out of town ([place] ), thus this visit was performed at patients request. Reason visit was not performed by video is due to patient not having access to smartphone . Provider (Reza Allen, DNP, DEBURRER, CORPORATE TRAVEL AGENT-C) location was [place] [facility] [address] [place] [address], [address] in [place], [place]. Patient location: [place]. Patient gave informed verbal consent for this visit (900 FABIEN 12:005 Section 2 (3)). I spent a total of [19 ] minutes during this real-time clinical encounter started at [ 300] and ended at [ 319 ]. Consent was obtained to engage in telehealth service. Greater than 50% of the time spent was devoted to counseling and coordinati ng care including review of patient record, patient lab data and studies as well as discussing diagnostic evaluation and workup, planned therapeuti c interventi on and further dispositio n of care. This include any additional research needed to obtain further informatio n in formulatin g the plan of care for this patient. This includes counseling the patient about their disease and diagnosis, specifical ly as above. The patient was also counseled on the precaution for COVID-19 including importance of hand washing and social distancing . History of bypass of stomach 473450329 Z98.84 Health Concerns Section Related Observation LastModified by Organization Detai ls LastModified Time None Recorded Concern Status LastModified by Organization Details LastModified Time None Recorded Payers Encounter Date Sequence Insurance Name Policy Number Policy Bee Covered Member ID Bee Member ID Guarantor Name 01/19/2025 1 [employer] (MEDICARE REPLACEMENT/A DVANTAGE - PPO) Sabrina Kwan [id number] Sabrina Kwan Notes Date Note Type Note Provider Name and Address Organization Details Recorded Time 01/19/2025 text/html Patient presents the office today via telehealth for routine follow-up 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 On 10-24-2024, she was started on Qsyemia (11.25 mg/69mg). Patient doing well. Reports q.i.d. small meal intake. Reports 40 g/dy protein intake and good hydration.Patient is drinking 48 -64 ounces of water a day.Daily Calories 1000Taking routine vitamins as advised.Heartburn /gastroesophageal reflux: deniesPt Denies : abdominal pain, prandial issues Nausea, Vomiting, bowel or bladder issuesTotal Weight loss Since last office visit has been 2 lbsPt is happy with their quality of life after Weight loss Surgery. Today's InBody not done due to this being a telehealth appt. Reza Allen, BRANDIE, DEBURRER, CORPORATE TRAVEL AGENT-C [address] [facility], [place], [address], [facility] - [place] - [place] & [place] 01/19/2025 15:20:14 OBGyn Episode No OBEpisode recorded.
--- OUTSIDE RECORDS SUMMARY | 2025-02-08 19:05 | XMS_ITS | Encounter Summary ---
Author Organization Healthcare Address [address] [place] [address] Care Team Providers Care Marketing Liaison Name Role Phone Loren Tesfaye Satish PETERSON Primary Care Provider [phone] Bola Perez MD Unavailable [phone] Encounter Details Date Type Department Care Team (Late st Contact Info) Description 08/27/2023 Lab Requisition [facility] [address] [place] [address] Bola Perez MD [address] [facility] [address] [place] [address] Foreign body granuloma of soft tissue, not elsewhere classified, left hand Social History Tobacco Use Types Packs/Day Years Used Date Smoking Tobacco: Never Smokeless Tobacco: Never Alcohol Use Standard Drinks/Week Comments Never 0 (1 standard drink = 0.6 oz pur e alcohol) Comments No Sex and Gender Information Value Date Recorded Sex Assigned at Female 10/06/2022 9:05 PM EDT Legal Sex Female 8:31 PM EDT Gender Identity Female 10/06/2022 9:05 PM EDT Sexual Orientation Straight 10/06/2022 9: 05 PM EDT documented as of this encounter Plan of Treatment Not on file documented as of this encounter Procedures Procedure Name Priority Date/Time Associated Diagnosis Comments SURGICAL PATHOLOGY CONSULT Routine 08/27/2023 11:10 AM EST Foreign body granuloma of soft tissue, not elsewhere classified, left hand documented in this encounter Results * Surgical Pathology Consult (08/27/2023 11:10 AM EST) Case Report Sugical Pathology Consult Case: [id number] Authorizing Provider: Bola Perez MD Collected: 08/27/2023 1110 Ordering Location: [facility] Lab Received: 08/27/2023 1111 Pathologist: Brady Sanchez DO Specimen: Hand, Left, [id number] 4 4:50 PM EST [facility] Final Diagnosis HAND, LEFT, BIOPSY (OUTSIDE SLIDES; [id number]; 08/06/2023): - MALIGNANT MELANOMA, AJCC: pT2a (SEE COMMENT). - HISTOLOGIC TYPE: NODULAR. - TUMOR THICKNESS: 1.1 MM. - ULCERATION: NOT IDENTIFIED. - MICROSATELLITES: NOT IDENTIFIED. - ANATOMIC (ROCAEL) LEVEL: IV. - MITOTIC RATE (PER SQUARE MILLIMETER): 3. - LYMPHOVASCULAR INVASION: NOT IDENTIFIED. - NEUROTROPISM: NOT IDENTIFIED. - TUMOR INFILTRATING LYMPHOCYTES: NOT IDENTIFIED. - TUMOR REGRESSION: NOT IDENTIFIED. - TUMOR PRESENT AT PERIPHERAL MARGIN. - DEEP MARGIN NEGATIVE WITHIN OBSERVED SECTIONS. 4 4:50 PM EST [facility] at 1650 EST Comment The tumor cells stain positive for PRAME and patel-melanoma stains and only weakly positive for p16 on the immunostains provided for review. The tumor focally involves the overlying epidermis. 4 4:50 PM EST Robert Applebaum MD LAB Clinical Information M60.242 - Foreign body granuloma of soft tissue, not elsewhere classified, left hand [ICD-10-CM] 4 4:50 PM EST [facility] Gross Description A. [id number] Received along with a corresponding pathology report from [facility] are 4 slide(s) and 1 Block labeled outside case: [id number] collected on 08/06/2023. 4 4:50 PM EST Robert Applebaum MD LAB Intradepartmental Consultation with Agreement Dr. Casey (epidermal involvement). 4 4:50 PM EST Robert Applebaum MD LAB Note: A resident was involved in the service. I attest I examined the relevant preparations for the specimens and confirmed the diagnosis or interpretation. 4 4:50 PM EST [facility] Tissue Structure of left hand / Unknown 08/27/2023 11:10 AM EST 08/27/2023 11:11 AM EST Bola Perez MD LAB PATHOLOGY ORDERABLES F inal Result [facility] [address] [place] [address] documented in this encounter Visit Diagnoses Diagnosis Foreign body granuloma of soft tissue, not elsewhere classified, left hand documented in this encounter Additional Health Concerns Assessment Noted Time A fall risk assessment has been complete d for the patient 04/12/2023 2:27 PM EDT A Body Mass Index follow-up plan has been documented for the patient 04/12/2023 3:07 PM EDT documented as of this encounter Care Teams Marketing Liaison Relationship Specialty Start Date End Date Loren Tesfaye APRN [address] [facility] [address] [facility] [address] [place] [address] PCP - General 09/07/22 Bola Perez MD [address] [facility] [address] [place] [address] Surgeon Surgical Oncology 10/03/23 documented as of this encounter
--- OUTSIDE RECORDS SUMMARY | 2025-02-08 19:05 | XMS_ITS | Continuity of Care Document ---
Author Organization [place] - [facility] & [facility] Address [address] [place] [address] Care Team Providers Care Enterprise Systems Manager Name Role Phone GILBERTO PORTILLO Primary Care Provider Assessment No assessment recorded. Plan of Treatment Reminders Order Date Submit Date Provider Last Modified By Organization Details Last Modified Time Details Appointments MEDICAL WEIGHT LOSS FOLLOW UP 2024 03:00P M Reza Allen, BRANDIE, STENOGRAPHER SECRETARY, LOW RAW SUGAR CUTTER-C Not available Not available Not available OV EST 20 2024 02:40P M Reza Allen DNP, STENOGRAPHER SECRETARY, LOW RAW SUGAR CUTTER-C Not available Not available Not available Lab None recorded. Referral None recorded. Procedures None recorded. Surgeries None recorded. Imaging None recorded. Medication Orders Carafate 100 mg/mL oral suspensio n 2024 025 [facility], [address] [place] [address] [address] [facility] [address], [place], [id number], 12/29/2024 08:46:45 Qsymia 11.25 mg-69 mg capsule, extended release 2024 025 [facility], [address] [place] [address], [place] [address], [id number], 01/09/2025 16:20:05 Patient TargetsNo targets recorded. Patient InstructionsNo instructions recorded. Reason for Referral None Reported. Problems Name Problem SNOMED Code Status Onset Date Resolution Date Notes Provider Name and Address Organization Details Recorded Time Hyperlipid emia 07063583 Active 2022 Reza Allen DNP, STENOGRAPHER SECRETARY, LOW RAW SUGAR CUTTER-C [address], [place], [address] , [place] - [facility] - [place] & [place] 3 14:16:59 Skin irritation 943958557 Active 2022 Reza Allen DNP, STENOGRAPHER SECRETARY, LOW RAW SUGAR CUTTER-C [address], [place], [place], [address] [place] [address] , [place] [facility] [place] 3 16:03:51 Unintentio nal weight gain 3004453361748 04 Active 2022 Reza Allen DNP, NICHOLAS, LOW RAW SUGAR CUTTER-C [address], [place], [place], [address] [place] [address] , [place] [facility] [place] 3 16:04:06 History of bypass of stomach 691481668 Active 2022 Reza Allen DNP, APRN, LOW RAW SUGAR CUTTER-C [address], [place], [address] [place] [address] , [place] [facility] [place] 3 16:04:20 Excess skin of abdominal wall 032905434 Active 2022 Reza Allen DNP, STENOGRAPHER SECRETARY, LOW RAW SUGAR CUTTER-C [address], [place], [address] [place] [address] , [place] [facility] [place] 3 10:19:24 Abdominal pain 98672211 Active 2023 Reza Allen DNP, STENOGRAPHER SECRETARY, LOW RAW SUGAR CUTTER-C [address], [place], [address] , [place] [facility] [place] 4 13:42:22 Retching 57781318 Active 2023 Reza Allen DNP, STENOGRAPHER SECRETARY, LOW RAW SUGAR CUTTER-C [address], [place], [address] , [place] [facility] [place] 4 13:48:24 History of Helicobact er pylori infection 0865874388396 9108 Active 2023 Reza Allen, BRANDIE, STENOGRAPHER SECRETARY, LOW RAW SUGAR CUTTER-C [address], [place], [address] [place] [address] , [place] [facility] [place] 4 13:48:47 Elevated blood-pres sure reading without diagnosis of hypertensi on 178167837 Active 2024 Reza Allen DNP, STENOGRAPHER SECRETARY, LOW RAW SUGAR CUTTER-C [address], [place], [address] [place] [address] , [place] [facility] [place] 5 13:28:49 Lipoma of right lower limb 5165208820482 108 Active 2024 Reza Allen, BRANDIE, STENOGRAPHER SECRETARY, LOW RAW SUGAR CUTTER-C [address], [place], [address] [place] [address] , [place] [facility] [place] 5 13:56:49 Morbid obesity 347186677 Active 2024 Reza Allen DNP, STENOGRAPHER SECRETARY, LOW RAW SUGAR CUTTER-C [address], [place], [address] [place] [address] , [place] [facility] [place] 5 13:57:04 Problem Notes None recorded. Procedures Surgical History Date Name Laterality Status Provider Name and Address Organization Details Recorded Time laparoscopic sleeve gastrectomy completed Isabel Mcwilliams [place] [facility] [place] 3 14:08:11 Christina-en-Y gastrojejunostomy complete d Isabel Mcwilliams [place] [facility] [place] 3 14:08:35 esophagogastroduodenoscopy completed Isabel [place]ams [place] [facility] [place] 3 14:08:47 procedure on shoulder completed Alecia ecca Mcw[place]ams [place] [facility] [place] 3 14:09:12 Other completed Isabel [place]ams [place] [facility] [place] 3 14:09:25 Appendectomy completed Isabel [place]ams [place] [facility] [place] 3 14:09:31 Other completed Isabel Mcwilliams [place] [facility] & [place] 3 14:09:51 Tubal Ligation completed Isabel BRAGG [facility] & [place] 3 14:10:00 Cholecystectomy completed Isabel Sandhu MEGAN [facility] & [place] 3 14:10:06 procedure on knee completed Nisa Sandhu [facility] & [place] 5 13:16:49 Imaging Results None recorded. Procedure Notes None recorded. Medical Equipment None Reported. Allergies Allergen ID Allergen Name Allergen Category Reaction Reaction Severity Criticality Documentation Date Start Date Code Code System Note Provider Name and Address Organization Details Recorded Time 022994 Macrobid medicatio n Not available Not available Not available 10/31/2023 15461 1 [facility] [place] 4 13:17:53 393996 acetamino phen / oxycodone medicatio n Not available Not available Not available 10/31/2023 73203 3 RxNorm ILIA Gruber [facility] & [place] 4 13:17:59 572379 latex environme nt,medica tion Not available Not available Not available 10/31/2023 87905 91 RxNorm ILIA Gruber MEGAN [facility] & [place] 4 13:18:06 Medications Name Sig Start Date [...] and Address Organization Details Last Updated DateTime 12/18/2024 149.61 cm 36.7 kg/m2 42535.22 g Nisa Mooney [facility] & [place] 12/18/2024 14:15:58 Social History None recorded. Functional Status Question Answer Note LastModified by Organizat ion Details LastModified Time Do you use any illicit or recreational drugs? No [email or web address] Information not available 09/04/2022 What is your level of alcohol consumption? None [email or web address] Information not available 09/04/2022 Mental Status None [...] SNOMED-CT Code Diagnosis ICD10 Code Diagnosis Note [id number] Reza Allen, DNP, STENOGRAPHER SECRETARY, LOW RAW SUGAR CUTTER-C [facility] [address] [facility] [address] [place] [address] 12/18/2024 14:00:01 12/18/2024 15:08:30 Morbid obesity 243276368 E66.01 Advised qid intake 50% protein 3045-4822 calories/d y less than 100 carbs/dy. Patient [...] due to patient being out of town ([place] ), thus this visit was performed at patients request. Reason visit was not performed by video is due to patient not having access to smartphone . Provider (Reza Allen, DNP, STENOGRAPHER SECRETARY, LOW RAW SUGAR CUTTER-C) location was [place] [facility] [address] [place] [address], [address] in [place], [place]. Patient location: [place]. Patient gave informed verbal consent for this visit (900 FABIEN 12:005 Section 2 (3)). I spent a total of [ 23 ] minutes during this real-time clinical encounter started at [ 210] and ended at [ 233]. Consent was obtained to engage in telehealth [...] of hand washing and social distancing . Abdominal pain 60506710 R10.9 History of bypass of stomach 117709189 Z98.84 Hyperlipidemia 15156193 E78.5 Health Concerns Section Related Observation LastModified by Organization Detai ls LastModified Time None Recorded Concern Status LastModified by Organization Details LastModified Time None Recorded Payers Encounter Date Sequence Insurance Name Policy Number Policy Bee Covered Member ID Bee Member ID Guarantor Name 12/18/2024 1 [employer]UMAN[employer]ina (MEDICARE REPLACEMENT/A DVANTAGE - PPO) Sabrina Schroeder Aquiles [id number] Sabrina Schroeder Aquiles Notes Date Note Type Note Provider Name and Address Organization Details Recorded Time 12/18/2024 text/html Patient presents the office today via telehealth for routine follow-up 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 On 10-24-2024, she was started on Qsyemia (7.5 mg/46mg) for additional weight loss. She reports no side effects from current medication regimen. Reports that it has essentially taking her cravings away for sweets. Patient doing well. Reports q.i.d. small meal intake. Reports 90g/dy protein intake and good hydration.Patient is drinking 48-64 ounces of water a day.Daily Calories 1000-1200Taking routine vitamins as advised.Heartburn /gastroesophageal reflux: deniesPt Denies : abdominal pain, prandial issues Nausea, Vomiting, bowel or bladder issuesTotal Weight loss Since last office visit has been 8 lbsPt is happy with their quality of life after Weight loss Surgery. Today's InBody not performed due to this being a telehealth appt. Reza Allen, DNP, STENOGRAPHER SECRETARY, LOW RAW SUGAR CUTTER-C [address], [place], [address], [facility] - [place] & [place] 12/18/2024 14:34:46 OBGyn Episode No OBEpisode recorded.
--- OUTSIDE RECORDS SUMMARY | 2025-02-08 19:05 | XMS_ITS | Data Portability ---
Author Organization [facility] & [facility] ADMIN Address [address] [place] [id number] Care Team Providers Care Balancer Name Role Phone GILBERTO PORTILLO Primary Care Provider Assessment No assessment recorded. Plan of Treatment Reminders Order Date Submit Date Provider Last Modified By Organization Details Last Modified Time Details Appointments MEDICAL WEIGHT LOSS FOLLOW UP 2024 03:00P M Reza Allen, BRANDIE, LABORER SHIPYARD, PEANUT SHAKER-C Not available Not available Not available OV EST 20 2024 02:40P M Reza Allen, BRANDIE, LABORER SHIPYARD, PEANUT SHAKER-C Not available Not available Not available Lab copper, serum or plasma 2024 025 [email or web address] [facility], [address], [address], [place], [address], 11/03/2024 14:20:02 selenium, quantitat gallo, blood 2024 025 [email or web address] [facility], [address], [address], [place], [address], 11/03/2024 14:20:02 zinc, serum or plasma 2024 025 [email or web address] [facility], [address], [address], [place], [address], 11/03/2024 14:20:02 iron + TIBC + ferritin, serum 2024 025 [facility], [address], [address], [place], [address], 11/03/2024 14:20:02 folate, serum 2024 025 [email or web address] [facility], [address], [address], [place], [address], 11/03/2024 14:20:02 vitamin E, serum 2024 025 [email or web address] [facility], [address], [address], [place], [address], 11/03/2024 14:20:02 vitamin A (retinol) , serum 2024 025 [email or web address] [facility], [address], [address], [place], [address], 11/03/2024 14:20:02 prealbumi n, serum 2024 025 [facility], [address], [address], [place], [address], 11/03/2024 14:20:02 thiamine, QN, blood 2024 025 [email or web address] [facility], [address], [address], [place], [address], 11/03/2024 14:20:02 methylmal damon, QN, serum or plasma 2024 025 [email or web address] [facility], [address], [address], [place], [address], 11/03/2024 14:20:02 vitamin D, 25-hydrox y, total, serum 2024 025 [email or web address] [facility], [address], [address], [place], [address], 11/03/2024 14:20:03 CBC w/ auto diff 2024 025 [email or web address] [facility], [address], [address], [place], [address], 11/03/2024 14:20:02 CMP, serum or plasma 2024 025 [email or web address] [facility], [address], [address], [place], [address], 11/03/2024 14:20:03 HbA1c (hemoglob in A1c), blood 2024 025 [email or web address] [facility], [address], [address], [place], [address], 11/03/2024 14:20:03 TSH + free T4, serum 2024 025 [email or web address] [facility], [address], [address], [place], [address], 11/03/2024 14:20:03 lipid panel, serum 2024 025 [email or web address] [facility], [address], [address], [place], [address], 11/03/2024 14:20:03 lipase, serum or plasma 2023 024 REGINALDO [facility], [address], [address], [place], [address], 11/06/2023 04:39:10 amylase, serum or plasma 2023 024 REGINALDO [facility], [address], [address], [place], [address], 11/06/2023 04:39:09 H pylori Ag, stool 2023 024 [email or web address] [facility], [address], [address], [place], [address], 12/25/2023 12:28:02 copper, serum or plasma 2023 024 REGINALDO [facility], [address], [address], [place], [address], 11/06/2023 04:39:11 selenium, quantitat gallo, blood 2023 024 REGINALDO [facility], [address], [address], [place], [address], 11/06/2023 04:39:14 zinc, serum or plasma 2023 024 REGINALDO [facility], [address], [address], [place], [address], 11/06/2023 04:39:12 CBC w/ auto diff 2023 024 REGINALDO [facility], [address], [address], [place], [address], 11/06/2023 04:39:00 CMP, serum or plasma 2023 024 REGINALDO [facility], [address], [address], [place], [address], 11/06/2023 04:39:01 HbA1c (hemoglob in A1c), blood 2023 024 REGINALDO [facility], [address], [address], [place], [address], 11/06/2023 04:39:04 iron + TIBC + ferritin, serum 2023 024 REGINALDO [facility], [address], [address], [place], [address], 11/06/2023 04:38:58 folate, serum 2023 024 REGINALDO [facility], [address], [address], [place], [address], 11/06/2023 04:39:05 vitamin D, 25-hydrox y, total, serum 2023 024 REGINALDO [facility], [address], [address], [place], [address], 11/06/2023 04:39:07 vitamin E, serum 2023 024 REGINALDO [facility], [address], [address], [place], [address], 11/06/2023 04:39:03 vitamin A (retinol) , serum 2023 024 REGINALDO [facility], [address], [address], [place], [address], 11/06/2023 04:39:06 TSH + free T4, serum 2023 024 REGINALDO [facility], [address], [address], [place], [address], 11/06/2023 04:38:59 prealbumi n, serum 2023 024 REGINALDO [facility], [address], [address], [place], [address], 11/06/2023 04:39:13 thiamine, QN, blood 2023 024 REGINALDO [facility], [address], [address], [place], [address], 11/06/2023 04:39:08 methylmal damon, QN, serum or plasma 2023 024 REGINALDO [facility], [address], [address], [place], [address], 11/06/2023 04:39:08 lipid panel, serum 2023 024 REGINALDO [facility], [address], [address], [place], [address], 11/06/2023 04:39:02 CBC w/ auto diff 2022 [...] Surgeries esophagog astroduod enoscopy (SURG) 2023 024 [email or web address] Gilberto Gu MD, [address] [facility], [address], [place], [address], 01/15/2024 13:17:37 Imaging RF, upper gastroint estinal tract + small bowel, w/ contrast PO 2023 024 [facility] ([facility]), [address] [place] [address] [address], [place], [address], 12/07/2023 12:06:25 Medication Orders Qsymia 15 mg-92 mg capsule, extended release 2024 025 [facility], [address] [place] [address], [facility] [address], [place], [address], 01/19/2025 15:18:13 Carafate 100 mg/mL oral suspensio n 2024 025 [facility], [address] [place] [address] [facility] [address], [place], [place], [id number], 12/29/2024 08:46:45 Qsymia 11.25 mg-69 mg capsule, extended release 2024 025 [facility], [address] [place] [address], [facility] [address], [place], [address], 01/09/2025 16:20:05 Qsymia 3.75 mg-23 mg capsule, extended release 2024 025 [facility], [address] [place] [address], [facility] [address] [place], [address], 12/18/2024 16:15:08 Qsymia 7.5 mg-46 mg capsule, extended release 2024 025 [facility], [address] [place] [address], [address] [place], [address], 01/19/2025 15:06:13 Carafate 100 mg/mL oral suspensio n 2023 025 REGINALDO [facility], [address] [place] [address] [address] [place], [id number], 10/24/2024 13:32:51 nystatin- triamcino lone 100,000 unit/gram -0.1 % topical ointment 2022 023 [email or web address] [facility], [address] [place] [address] [address] [place], [id number], 10/31/2023 13:19:42 Patient TargetsNo targets recorded. Patient InstructionsNo instructions recorded. Reason for Referral None Reported. Results Created Date Observation Date Name Description Value Unit Range Abnormal Flag Note LastModifiedBy Organization Detail LastModifiedTime 10/31/19 24 11/01/2023 FE+TI BC+FE R iron bind.cap.(TI BC) 414 ug/dL 250-45 0 Not Available [facility] ([facility]) [address] [place], [address], 11/06/2023 04:38:58 10/31/19 24 11/01/2023 FE+TI BC+FE R UIBC 389 ug/dL 131-42 5 Not Available [facility] ([facility]) [address] [place], [address], 11/06/2023 04:38:58 10/31/19 24 11/01/2023 FE+TI BC+FE R iron 25 ug/dL 27-159 below low normal Not Available [facility] ([facility]) [address] [place], [address], 11/06/2023 04:38:58 10/31/19 24 11/01/2023 FE+TI BC+FE R iron saturation 6 % 15-55 alert low Not Available [facility] ([facility]) [address] [place], [address], 11/06/2023 04:38:58 10/31/19 24 11/01/2023 FE+TI BC+FE R ferritin 9 NG/mL 15-150 below low normal Not Available [facility] ([facility]) [address] [place], [address], 11/06/2023 04:38:58 10/31/19 24 11/01/2023 TSH+F REE T4 TSH 0.520 uIU/m L 0.450- 4.500 Not Available [facility] ([facility]) [address] [place], [address], 11/06/2023 04:38:59 10/31/19 24 11/01/2023 TSH+F REE T4 T4,free(dire ct) 1.13 NG/dL 0.82-1 .77 Not Available [facility] ([facility]) [address] [place], [address], 11/06/2023 04:38:59 10/31/19 24 11/01/2023 CBC WITH DIFFE RENTI AL/PL ATELE T WBC 7.2 x10e3 /uL 3.4-10 .8 Not Available [facility] ([facility]) [address] [place], [address], 11/06/2023 04:39:00 10/31/19 24 11/01/2023 CBC WITH DIFFE RENTI AL/PL ATELE T RBC 4.84 x10e6 /uL 3.77-5 .28 Not Available [facility] ([facility]) [address] [place], [address], 11/06/2023 04:39:00 10/31/19 24 11/01/2023 CBC WITH DIFFE RENTI AL/PL ATELE T hemoglobin 11.3 g/dL 11.1-1 5.9 Not Available [facility] ([facility]) [address] [place], [address], 11/06/2023 04:39:00 10/31/19 24 11/01/2023 CBC WITH DIFFE RENTI AL/PL ATELE T hematocrit 36.8 % 34.0-4 6.6 Not Available [facility] ([facility]) [address] [facility], [place], [address], 11/06/2023 04:39:00 10/31/19 24 11/01/2023 CBC WITH DIFFE RENTI AL/PL ATELE T MCV 76 fL 79-97 below low normal Not Available [facility] ([facility]) [address] [place], [address], 11/06/2023 04:39:00 10/31/19 24 11/01/2023 CBC WITH DIFFE RENTI AL/PL ATELE T MCH 23.3 pg 26.6-3 3.0 below low normal Not Available [facility] ([facility]) [address] [place], [address], 11/06/2023 04:39:00 10/31/19 24 11/01/2023 CBC WITH DIFFE RENTI AL/PL ATELE T MCHC 30.7 g/dL 31.5-3 5.7 below low normal Not Available [facility] ([facility]) [address] [place], [address], 11/06/2023 04:39:00 10/31/19 24 11/01/2023 CBC WITH DIFFE RENTI AL/PL ATELE T RDW 16.0 % 11.7-1 5.4 above high normal Not Available [facility] ([facility]) [address] [place], [address], 11/06/2023 04:39:00 10/31/19 24 11/01/2023 CBC WITH DIFFE RENTI AL/PL ATELE T platelets 450 x10e3 /uL 150-45 0 Not Available [facility] ([facility]) [address] [facility], [place], [address], 11/06/2023 04:39:00 10/31/19 24 11/01/2023 CBC WITH DIFFE RENTI AL/PL ATELE T neutrophils 58 % not estab. Not Available [facility] ([facility]) [address] [facility], [place], [address], 11/06/2023 04:39:00 10/31/19 24 11/01/2023 CBC WITH DIFFE RENTI AL/PL ATELE T lymphs 29 % not estab. Not Available [facility] ([facility]) [address] [facility], [place], [address], 11/06/2023 04:39:00 10/31/19 24 11/01/2023 CBC WITH DIFFE RENTI AL/PL ATELE T monocytes 8 % not estab. Not Available [facility] ([facility]) [address] [facility], [place], [address], 11/06/2023 04:39:00 10/31/19 24 11/01/2023 CBC WITH DIFFE RENTI AL/PL ATELE T eos 4 % not estab. Not Available [facility] ([facility]) [address] [facility], [place], [address], 11/06/2023 04:39:00 10/31/19 24 11/01/2023 CBC WITH DIFFE RENTI AL/PL ATELE T basos 1 % not estab. Not Available [facility] ([facility]) [address] [facility], [place], [address], 11/06/2023 04:39:00 10/31/19 24 11/01/2023 CBC WITH DIFFE RENTI AL/PL ATELE T immature cells PEANUT SHAKER Not Available [facility] ([facility]) [address] [facility], [place], [address], 11/06/2023 04:39:00 10/31/19 24 11/01/2023 CBC WITH DIFFE RENTI AL/PL ATELE T neutrophils (absolute) 4.2 x10e3 /uL 1.4-7. 0 Not Available [facility] ([facility]) [address] [place], [address], 11/06/2023 04:39:00 10/31/19 24 11/01/2023 CBC WITH DIFFE RENTI AL/PL ATELE T lymphs (absolute) 2.1 x10e3 /uL 0.7-3. 1 Not Available [facility] ([facility]) [address] [place], [address], 11/06/2023 04:39:00 10/31/19 24 11/01/2023 CBC WITH DIFFE RENTI AL/PL ATELE T monocytes(ab solute) 0.6 x10e3 /uL 0.1-0. 9 Not Available [facility] ([facility]) [address] [facility], [place], [address], 11/06/2023 04:39:00 10/31/19 24 11/01/2023 CBC WITH DIFFE RENTI AL/PL ATELE T eos (absolute) 0.3 x10e3 /uL 0.0-0. 4 Not Available [facility] ([facility]) [address] [facility], [place], [address], 11/06/2023 04:39:00 10/31/19 24 11/01/2023 CBC WITH DIFFE RENTI AL/PL ATELE T baso (absolute) 0.1 x10e3 /uL 0.0-0. 2 Not Available [facility] ([facility]) [address] [place], [address], 11/06/2023 04:39:00 10/31/19 24 11/01/2023 CBC WITH DIFFE RENTI AL/PL ATELE T immature granulocytes 0 % not estab. Not Available [facility] ([facility]) [address] [place], [address], 11/06/2023 04:39:00 10/31/19 24 11/01/2023 CBC WITH DIFFE RENTI AL/PL ATELE T immature grans (abs) 0.0 x10e3 /uL 0.0-0. 1 Not Available [facility] ([facility]) [address] [facility], [place], [address], 11/06/2023 04:39:00 10/31/19 24 11/01/2023 CBC WITH DIFFE RENTI AL/PL ATELE T NRBC PEANUT SHAKER Not Available [facility] ([facility]) [address] [facility], [place], [address], 11/06/2023 04:39:00 10/31/19 24 11/01/2023 CBC WITH DIFFE RENTI AL/PL ATELE T hematology comments: PEANUT SHAKER Not Available [facility] ([facility]) [address] [facility], [place], [address], 11/06/2023 04:39:00 10/31/19 24 11/01/2023 COMP. METAB OLIC PANEL (14) glucose 92 mg/dL 70-99 Not Available [facility] ([facility]) [address] [facility], [place], [address], 11/06/2023 04:39:01 10/31/19 24 11/01/2023 COMP. METAB OLIC PANEL (14) BUN 11 mg/dL 6-24 Not Available [facility] ([facility]) [address] [facility], [place], [address], 11/06/2023 04:39:01 10/31/19 24 11/01/2023 COMP. METAB OLIC PANEL (14) creatinine 0.53 mg/dL 0.57-1 .00 below low normal Not Available [facility] ([facility]) [address] [facility], [place], [address], 11/06/2023 04:39:01 10/31/19 24 11/01/2023 COMP. METAB OLIC PANEL (14) eGFR 108 mL/mi n/1.7 3 >59 Not Available [facility] ([facility]) [address] [facility], [place], [address], 11/06/2023 04:39:01 10/31/19 24 11/01/2023 COMP. METAB OLIC PANEL (14) BUN/creatini ne ratio 21 9-23 Not Available [facility] ([facility]) [address] [facility], [place], [address], 11/06/2023 04:39:01 10/31/19 24 11/01/2023 COMP. METAB OLIC PANEL (14) sodium 141 mmol/ L 134-14 4 Not Available [facility] ([facility]) [address] [facility], [place], [address], 11/06/2023 04:39:01 10/31/19 24 11/01/2023 COMP. METAB OLIC PANEL (14) potassium 4.4 mmol/ L 3.5-5. 2 Not Available [facility] ([facility]) [address] [facility], [place], [address], 11/06/2023 04:39:01 10/31/19 24 11/01/2023 COMP. METAB OLIC PANEL (14) chloride 106 mmol/ L 96-106 Not Available [facility] ([facility]) [address] [facility], [place], [address], 11/06/2023 04:39:01 10/31/19 24 11/01/2023 COMP. METAB OLIC PANEL (14) carbon dioxide, total 21 mmol/ L 20-29 Not Available [facility] ([facility]) [address] [place], [address], 11/06/2023 04:39:01 10/31/19 24 11/01/2023 COMP. METAB OLIC PANEL (14) calcium 9.2 mg/dL 8.7-10 .2 Not Available [facility] ([facility]) [address], [place], [address], 11/06/2023 04:39:01 10/31/19 24 11/01/2023 COMP. METAB OLIC PANEL (14) protein, total 6.5 g/dL 6.0-8. 5 Not Available [facility] ([facility]) [address], [place], [address], 11/06/2023 04:39:01 10/31/19 24 11/01/2023 COMP. METAB OLIC PANEL (14) albumin 4.2 g/dL 3.8-4. 9 Not Available [facility] ([facility]) [address], [place], [address], 11/06/2023 04:39:01 10/31/19 24 11/01/2023 COMP. METAB OLIC PANEL (14) globulin, total 2.3 g/dL 1.5-4. 5 Not Available [facility] ([facility]) [address], [place], [address], 11/06/2023 04:39:01 10/31/19 24 11/01/2023 COMP. METAB OLIC PANEL (14) A/G ratio 1.8 1.2-2. 2 Not Available [facility] ([facility]) [address], [place], [address], 11/06/2023 04:39:01 10/31/19 24 11/01/2023 COMP. METAB OLIC PANEL (14) bilirubin, total <0.2 mg/dL 0.0-1. 2 Not Available [facility] ([facility]) [address] [place], [address], 11/06/2023 04:39:01 10/31/19 24 11/01/2023 COMP. METAB OLIC PANEL (14) alkaline phosphatase 108 IU/L 44-121 Not Available [facility]) [address], [place], [address], 11/06/2023 04:39:01 10/31/19 24 11/01/2023 COMP. METAB OLIC PANEL (14) AST (SGOT) 13 IU/L 0-40 Not Available [facility] ([facility]) [address] [facility] [place], [address], 11/06/2023 04:39:01 10/31/19 24 11/01/2023 COMP. METAB OLIC PANEL (14) ALT (SGPT) 9 IU/L 0-32 Not Available [facility] ([facility]) [address] [place], [address], 11/06/2023 04:39:01 10/31/19 24 11/01/2023 LIPID PANEL cholesterol, total 203 mg/dL 100-19 9 above high normal Not Available [facility] ([facility]) [address] [place], [address], 11/06/2023 04:39:02 10/31/19 24 11/01/2023 LIPID PANEL triglyceride s 171 mg/dL 0-149 above high normal Not Available [facility] ([facility]) [address] [place], [address], 11/06/2023 04:39:02 10/31/19 24 11/01/2023 LIPID PANEL HDL cholesterol 51 mg/dL >39 Not Available [facility] ([facility]) [address] [place], [address], 11/06/2023 04:39:02 10/31/19 24 11/01/2023 LIPID PANEL VLDL cholesterol garrett 30 mg/dL 5-40 Not Available [facility] ([facility]) [address] [place], [address], 11/06/2023 04:39:02 10/31/19 24 11/01/2023 LIPID PANEL LDL chol calc ([facility]) 122 mg/dL 0-99 above high normal Not Available [facility] ([facility]) [address] [facility], [place], [address], 11/06/2023 04:39:02 10/31/19 24 11/01/2023 LIPID PANEL comment: PEANUT SHAKER Not Available [facility] ([facility]) [address] [facility], [place], [address], 11/06/2023 04:39:02 10/31/19 24 11/03/2023 VITAM IN E vitamin E(alpha tocopherol) 9.5 mg/L 7.0-25 .1 Not Available [facility] ([facility]) [address] [facility], [place], [address], 11/06/2023 04:39:03 10/31/19 24 11/03/2023 VITAM IN [...] defic ient. Not Available [facility] ([facility]) [address] [facility], [place], [address], 11/06/2023 04:39:03 10/31/1911/01/2023 HEMOG LOBIN A1C hemoglobin A1C 5.8 % 4.8-5. 6 above high normal Predi abete s: 5.7 - 6.4 Diabe liliane: >6.4 Glyce orlin contr ol for adult s with diabe liliane: <7.0 Not Available [facility] ([facility]) [address] [place], [address], 11/06/2023 04:39:04 10/31/19 24 11/01/2023 FOLAT E (FOLI C ACID) , SERUM folate (folic acid), serum 3.3 NG/mL >3.0 A serum folat e mary ntrat ion of less than 3.1 ng/mL is consi dered to repre sent clini garrett defic iency . Not Available [facility] ([facility]) [address] [facility], [place], [address], 11/06/2023 04:39:05 10/31/19 24 11/03/2023 VITAM IN [...] istra tion. Not Available [facility] ([facility]) [address] [facility], [place], [address], 11/06/2023 04:39:06 10/31/19 24 11/01/2023 VITAM IN [...] 1. IOM (Inst itute of Medic ine). 2009. Dieta ry refer ence intak es for calci um and D. Kala rivera DC: The Natio nal [facility] Press . 2. David k MF, Kd latif [place], Nubia off-F errar i BERMUDEZ, et al. Evalu ation , treat ment, and preve ntion of vitam in D defic iency : an Endoc rine Socie ty clini garrett pract ice guide line. JCEM. 2010; 96(7) :1911 -30. Not Available [facility] ([facility]) [address] [facility], [place], [address], 11/06/2023 04:39:07 10/31/19 24 11/05/2023 VITAM IN B1 (THIA MINE) , BLOOD vit. B1, whole blood 90.8 nmol/ L 66.5-2 00.0 Not Available [facility] ([facility]) [address] [place], [address], 11/06/2023 04:39:07 10/31/19 24 11/06/2023 METHY LMALO BERTHA ACID, SERUM methylmaloni c acid, serum 295 nmol/ L 0-378 Not Available [facility] ([facility]) [address] [place], [address], 11/06/2023 04:39:08 10/31/19 24 11/01/2023 AMYLA SE amylase 30 U/L 31-110 below low normal Not Available [facility] ([facility]) [address] [place], [address], 11/06/2023 04:39:09 10/31/19 24 11/01/2023 LIPAS E lipase 37 U/L 14-72 Not Available [facility] ([facility]) [address] [place], [address], 11/06/2023 04:39:10 10/31/19 24 11/02/2023 COPPE R, SERUM OR PLASM A copper, serum or plasma 139 ug/dL 80-158 Detec tion Limit = 5 Not Available [facility] ([facility]) [address] [place], [address], 11/06/2023 04:39:11 10/31/1911/02/2023 ZINC, PLASM A OR SERUM zinc, plasma or serum 61 ug/dL 44-115 Detec tion Limit = 5 Not Available [facility] ([facility]) [address] [facility], [place], [address], 11/06/2023 04:39:12 10/31/19 24 11/01/2023 PREAL BUMIN prealbumin 18 mg/dL 10-36 Not Available [facility] ([facility]) [address] [facility], [place], [address], 11/06/2023 04:39:13 10/31/19 24 11/03/2023 SELEN IUM, BLOOD selenium, blood 224 ug/L 100-34 0 Detec tion Limit = 10 Not Available [facility] ([facility]) [address] [facility], [place], [address], 11/06/2023 04:39:14 12/13/19 24 12/14/[address] (H PYLOR I AB QUAL) pete test 20 min NEGATI VE negati ve Not Available [facility] ([facility]) [address] [facility], [place], [address], 12/14/2023 08:01:31 12/13/19 24 12/14/[address] (H PYLOR I AB QUAL) pete test 1HR NEGATI VE negati ve Not Available [facility] ([facility]) [address] [facility], [place], [address], 12/14/2023 08:01:31 12/13/19 24 12/14/[address] (H PYLOR I AB QUAL) pete test 3 HR NEGATI VE negati ve Not Available [facility] ([facility]) [address] [facility], [place], [address], 12/14/2023 08:01:31 12/13/19 24 12/14/[address] (H PYLOR I AB QUAL) pete test 24 HR NEGATI VE negati ve Not Available [facility] ([facility]) [address] , [place], [address], 12/14/2023 08:01:31 12/13/19 24 12/14/[address] (H PYLOR I AB QUAL) pete test kit lot# [id number] Not Available [facility] ([facility]) [address] , [place], [address], 12/14/2023 08:01:31 12/13/19 24 12/14/[address] (H PYLOR I AB QUAL) pete test kit exp date 2023 Not Available [facility] ([facility]) [address] , [place], [address], 12/14/2023 08:01:31 12/07/19 24 12/07/2023 RF, upper gastr ointe logan l tract + small bowel , w/ contr ast PO No observ ation record ed. [facility] [address], [place], [address], 12/07/2023 15:13:01 Result Notes None recorded. Problems Name Problem SNOMED Code Status Onset Date Resolution Date Notes Provider Name and Address Organization Details Recorded Time Hyperlipid emia 18704618 Active 2022 Reza Allen DNP, [employer], [employer] [address] [facility] [facility], [place], [address] , [place] - [place] & [place] 3 14:16:59 Skin irritation 863834205 Active 2022 Reza Allen DNP, LABORER SHIPYARD, PEANUT SHAKER-C [address] [facility], [place], [address] , [place] & [place] 3 16:03:51 Unintentio nal weight gain 3860588834099 04 Active 2022 Reza Allen DNP, LABORER SHIPYARD, PEANUT SHAKER-C [address], [place], [address] , [place] & [place] 3 16:04:06 History of bypass of stomach 383936556 Active 2022 Reza Allen DNP, LABORER SHIPYARD, PEANUT SHAKER-C [address], [place], [address] , [place] & [place] 3 16:04:20 Excess skin of abdominal wall 085545925 Active 2022 Reza Allen DNP, NICHOLAS, PEANUT SHAKER-C [address], [place], [address] [place] [address] , [place] 3 10:19:24 Abdominal pain 19870913 Active 2023 Reza Allen DNP, APRN, PE[employer]UT SHAKER-C [address], [place], [address] [place] [address] , [place] 4 13:42:22 Retching 07922158 Active 2023 Reza Allen DNP, NICHOLAS, PEANUT SHAKER-C [address], [place], [address] [place] [address] , [place] 4 13:48:24 History of Helicobact er pylori infection 4829484999333 9108 Active 2023 Reza Allen DNP, APRN, PEANUT SHAKER-C [address], [place], [address] [place] [address] , [place] 4 13:48:47 Elevated blood-pres sure reading without diagnosis of hypertensi on 776904589 Active 2024 Reza Allen DNP, APRN, PEANUT SHAKER-C [address], [place], [address] [place] [address] , [place] 5 13:28:49 Lipoma of right lower limb 0749961685738 108 Active 2024 Reza Allen DNP, LABORER SHIPYARD, PEANUT SHAKER-C [address] , [place], [address] , [facility] & [place] 13:56:49 Morbid obesity 080127594 Active 2024 Reza Allen DNP, LABORER SHIPYARD, PEANUT SHAKER-C [address] , [place], [address] , [facility] & [place] 13:57:04 Problem Notes Documentation Provider Name and Address Organization Details Recorded Time Dietitian Note : Date: 09/04/2022 Patient Name: Alicia Kwan : 1965 Reason for Consult: 1 yr follow up Date of Surgery: 09/05/2021 Surgery Type: RNY (revison from sleeve) MD Morales Weight: Current Weight: 186.5# Weight Change: +7# since last inbody Goal Weight: pt did not disclose, desires skin removal surgery Current BMR: 1312 kcals N/V/C/D: denies Other Symptoms: denies Pertinent Meds/Labs: A1c=5.6%, Physical activity: sedentary at work, nothing structured Food records: not currently but counts carbs and protein Estimated Current Intake Notes: east ~2x per day Calories: unsure Foods: sanchez, salad, eggs Protein: 60g/d Form: food sources Fluid: 64+ oz/d Source: coffee (8 cups per day, 1/2 decaf, 1/2 regular) Additional Notes/Concerns: Pt reported her blood sugars occasionally dip to 50-60's, Pt says she has been cravings sour things recently, provided her with sample of vidafuel (16g protein) and a coupon, suggested making her own protein gummies or having nautral fruit juices or fruits in place of candy. Recommendations: Protein: 70+ g / day Calories: 2602-9048 / day 1. Eat at structured meal times - discussed 3 meals per day, snacks as needed 2. Increase fiber intake - replace carb tracking with a goal of 25g of fiber per day 3. Suggested looking into Is Butter A Carb book to reassure her of diet do's and donts . MARIAA STEEL BS, RDN, LD [address] [facility], [place], [address], [place] - [facility] - [place] & [place] 10/18/2022 09:26:21 Procedures Surgical History Date Name Laterality Status Provider Name and Address Organization Details Recorded Time laparoscopic sleeve gastrectomy completed Isabel Mcwilliams [place] - [place] - [place] & [place] 3 14:08:11 Christina-en-Y gastrojejunostomy complete d Isabel Mcwilliams [place] & [place] 3 14:08:35 esophagogastroduodenoscopy completed Isabel Mcwilliams [place] & [place] 3 14:08:47 procedure on shoulder completed Alecia ecca [place]ams [place] & [place] 3 14:09:12 Other completed Isabel [place]ams [place] & [place] 3 14:09:25 Appendectomy completed Isabel [place]ams [place] & [place] 3 14:09:31 Other completed Isabel [place] 3 14:09:51 Tubal Ligation completed Isabel Mcwilliams [place] & [place] 3 14:10:00 Cholecystectomy completed Isabel Mcwilliams [place] & [place] 3 14:10:06 procedure on knee completed Nisa MORILLO - [facility] - [place] & [place] 5 13:16:49 Imaging Results None recorded. Procedure Notes None recorded. Medical Equipment None Reported. Allergies Allergen ID Allergen Name Allergen Category Reaction Reaction Severity Criticality Documentation Date Start Date Code Code System Note Provider Name and Address Organization Details Recorded Time 159708 Macrobid medicatio n Not available Not available Not available 10/31/2023 75845 1 RxNorm Nisa emmanuel, [place] - [place] & [place] 4 13:17:53 321832 acetamino phen / oxycodone medicatio n Not available Not available Not available 10/31/2023 08400 3 RxNorm ILIA Gruber [facility] & [place] 4 13:17:59 954055 latex environme nt,medica tion Not available Not available Not available 10/31/2023 07960 91 RxNorm ILIA Gruber [facility] & [place] 4 13:18:06 Medications Name Sig Start Date [...] Body weight Body temperature Heart rate Systolic And Diastolic Provider Name and Address Organization Details Last Updated DateTime 3 149.86 cm 37.7 kg/m2 72124.9 8 g 97.5 [degF] 81 /min 132/81 mm[Hg] Isabel MORILLO [facility] & [place] 3 14:12:50 Date Recorded Body height Body temperature Heart rate Body mass index (BMI) Body weight Systolic And Diastolic Provider Name and Address Organization Details Last Updated DateTime 5 149.61 cm 97.8 [degF] 80 /min 38.5 kg/m2 72482.1 9 g 150/90 mm[Hg] Nisa MORILLO [facility] & [place] 5 13:11:13 Date Recorded Body temperature Heart rate Body height Body mass index (BMI) Body weight Systolic And Diastolic Provider Name and Address Organization Details Last Updated DateTime 4 98.3 [degF] 107 /min 149.86 cm 36.2 kg/m2 70465.7 5 g 144/80 mm[Hg] Nisa MORILLO [facility] & [place] 4 13:17:25 Date Recorded Body height Body mass index (BMI) Body weight Provider Name and Address Organization Details Last Updated DateTime 12/18/2024 149.61 cm 36.7 kg/m2 38011.22 g Nisa MORILLO [facility] & [place] 12/18/2024 14:15:58 Date Recorded Body height Body mass index (BMI) Body weight Provider Name and Address Organization Details Last Updated DateTime 01/19/2025 149.61 cm 36.3 kg/m2 23531.03 g Isabel Mcwilliams [facility] & [place] 01/19/2025 15:03:55 Social History None recorded. Functional Status Question Answer Note LastModified by Organizat ion Details LastModified Time Do you use any illicit or recreational drugs? No [email or web address] Information not available 09/04/2022 What is your level of alcohol consumption? None [email or web address] Information not available 09/04/2022 Mental Status None [...] SNOMED-CT Code Diagnosis ICD10 Code Diagnosis Note [id number] Reza Allen, DNP, LABORER SHIPYARD, PEANUT SHAKER-C [facility] [address] [place] [address] [facility] [place] [address] 09/04/2022 13:51:21 09/04/2022 16:11:56 History of bariatric surgical procedure 860573063 Z98.84 Advised qid intake 50% protein 7694-3591 calories/d y less than 100 carbs/dy Long [...] with any deficienci es. History of gastrectomy 038860576 Z90.3 Patient is status post bariatric surgery and at increased risk for vitamin deficienci es and malnutriti on. Bariatric vitamin panel ordered today. Patient will be contacted to correct any vitamin deficienci es. Hyperlipidemia 22499159 E78.5 Skin irritation 34464190 7 L30.9 gave her info on [employer]. She may follow up with them to schedule an appt. Unintentio nal weight gain 7535038172 23609 R63.5 will have concrete journeyman talk to her today. History of bypass of stomach 387765873 Z98.84 [id number] Reza Allen, DNP, LABORER SHIPYARD, PEANUT SHAKER-C [facility] [address] [place] [address] [facility] [place] [address] 10/31/2023 13:00:29 10/31/2023 14:05:48 History of bariatric surgical procedure 116244079 Z98.84 Advised qid intake 50% protein 0411-2410 calories/d y less than 100 carbs/dyLo ng [...] at this time. Intentiona l weight loss 988193652 R63.8 History of gastrectomy 144590150 Z90.3 Advised qid intake 50% protein 8391-1930 calories/d y less than 100 carbs/dy Long [...] to correct any vitamin deficienci es. Hyperlipidemia 06283656 E78.5 Abdominal pain 53213046 R10.9 Patient may continue to take Levsin as needed. I would like to add Carafate to current regimen and proceed with ordering upper GI with small-merly l follow-thr ough as well as EGD Retching 51747629 R11.10 History of Helicobacter pylori infection 1498771439 1890087 Z86.19 History of bypass of stomach 526913562 Z98.84 [id number] Reza Allen, DNP, LABORER SHIPYARD, PEANUT SHAKER-C [facility] [address] [place] [address] [facility] [place] [address] 10/24/2024 12:58:43 10/24/2024 15:49:00 History of bariatric surgical procedure 177569598 Z98.84 Advised qid intake 50% protein 6715-0652 calories/d y less than 100 carbs/dyLo ng [...] at this time. Intentiona l weight loss 412353252 R63.8 History of gastrectomy 592637369 Z90.3 Advised qid intake 50% protein 0255-2344 calories/d y less than 100 carbs/dy Long [...] to correct any vitamin deficienci es. At [facility] risk of nutritional deficit 519558555 Z91.89 History of bypass of stomach 161906569 Z98.84 Hyperlipidemia 33922362 E78.5 Unintentio nal weight gain 2293248555 54453 R63.5 will have concrete journeyman talk to her today. Lipoma of right lower limb 9713190989 255173 D17.[address] Gu for courtesy consult Morbid obesity 641974573 E66.01 [id number] Reza Allen DNP, NICHOLAS, PEANUT SHAKER-C [facility] [address] [place] [address] [address] [place] [address] 12/18/2024 14:00:01 12/18/2024 15:08:30 Morbid obesity 496154237 E66.01 Advised qid intake 50% protein 0983-3605 calories/d y less than 100 carbs/dy. Patient [...] due to patient being out of town ([place] ), thus this visit was performed at patients request. Reason visit was not performed by video is due to patient not having access to smartphone . Provider (Reza Allen, BRANDIE, NICHOLAS, PEANUT SHAKER-C) location was [place] [facility] [address] [place] [address], [address] in [place], [place]. Patient location: [place]. Patient gave informed verbal consent for this [...] washing and social distancing . Abdominal pain 89521326 R10.9 History of bypass of stomach 675833919 Z98.84 Hyperlipidemia 22988732 E78.5 [id number] Reza Allen, BRANDIE, NICHOLAS, PEANUT SHAKER-C [facility] [address] [place] [address] [address] [facility] [place] [address] 01/19/2025 15:02:18 01/19/2025 15:47:18 Hyperlipidemia 36346943 E78.5 Morbid obesity 202592263 E66.01 Advised qid intake 50% protein 7018-1841 calories/d y less than 100 carbs/dy. Patient [...] due to patient being out of town ([place] ), thus this visit was performed at patients request. Reason visit was not performed by video is due to patient not having access to smartphone . Provider (Reza Allen, BRANDIE, NICHOLAS, PEANUT SHAKER-C) location was [place] [facility] [address] [place] [address] [address] in [place], [place]. Patient location: [place]. Patient gave informed verbal consent for this [...] distancing . History of bypass of stomach 328132412 Z98.84 Health Concerns Section Related Observation LastModified by Organization Detai ls LastModified Time None Recorded Concern Status LastModified by Organization Details LastModified Time None Recorded Advance Directives Directive None Recorded Payers Insurance Date Sequence Insurance Name Policy Number Policy Bee Covered Member ID Bee Member ID Guarantor Name 10/09/2022 1 [employer] (MEDICAID REPLACEMENT - HMO) [id number] Sabrina Mastersonp [id number] Sabrina Schroeder Aquiles 11/02/2023 2 [facility] (MEDICAID HMO) Sabrina Mastersonp [id number] Sabrina Mastersonp 12/12/2023 2 [facility] (MEDICAID HMO) Sabrina Schroeder Aquiles [id number] Sabrina Mastersonp 01/16/2025 1 [employer] (MEDICARE REPLACEMENT/AD VANTAGE - PPO) Sabrina Mastersonp [id number] Sabrina Schroeder Aquiles 10/09/2022 1 [place] (MEDICARE[place] Sabrina Mastersonp [id number] Sabrina Mastersonp Notes Date Note Type Note Provider Name [...] = 1312 kilo calories Reza Allen, DNP, LABORER SHIPYARD, PEANUT SHAKER-C [address] [facility], [place], [address], [facility] - [facility] - [place] & [place] 09/04/2022 16:11:03 10/31/2023 text/html Patient presents the [...] had skin reveals surgery December 27 at [facility] and has been on a lot of [...] = 1335 kilo calories Reza Allen, DNP, LABORER SHIPYARD, PEANUT SHAKER-C [address] [facility], [place], [address], [facility] - [place] & [place] 10/31/2023 13:54:58 10/24/2024 text/html Patient presents the [...] Metabolic Rate = 1358 kilo calories Reza Allen DNP, NICHOLAS, PEANUT SHAKER-C [address] [facility], [place], [address], [facility] 10/24/2024 15:06:34 12/18/2024 text/html Patient presents the office today [...] a day.Daily Calories 1000-1200Taking routine vitamins as advised.Heartburn/ga stroesophageal reflux: deniesPt Denies : abdominal pain, prandial issues Nausea, Vomiting, bowel or bladder issuesTotal Weight loss Since last office visit has been 8 lbsPt is happy with their quality of life after Weight loss Surgery. Today's InBody not performed due to this being a telehealth appt. Reza Allen DNP, NICHOLAS, PEANUT SHAKER-C [address] [facility], [place], [address], [facility] 12/18/2024 14:34:46 01/19/2025 text/html Patient presents the office today [...] a day.Daily Calories 1000Taking routine vitamins as advised.Heartburn/ga stroesophageal reflux: deniesPt Denies : abdominal pain, prandial issues Nausea, Vomiting, bowel or bladder issuesTotal Weight loss Since last office visit has been 2 lbsPt is happy with their quality of life after Weight loss Surgery. Today's InBody not done due to this being a telehealth appt. Reza Allen, DNP, LABORER SHIPYARD, PEANUT SHAKER-C [address] [facility], [place], [address], [facility] - [place] & [place] 01/19/2025 15:20:14 OBGyn Episode No OBEpisode recorded.
--- OUTSIDE RECORDS SUMMARY | 2025-02-08 19:05 | XMS_ITS ---
Author Organization Unknown Plan of Treatment Description Planned Activity Planned Timing - Telephone encounter Jul 23, 2024 Patient Care team information Name Category Status Period Participants - - Proposed period not known - - - Proposed period not known -
--- OUTSIDE RECORDS SUMMARY | 2025-02-08 19:05 | XMS_ITS | Continuity of Care Document ---
Author Organization [facility], [place] Address [address] [place] [address] Care Team Providers Care Feeder Operator Automatic Name Role Phone GILBERTO PORTILLO Primary Care Provider Assessment Encounter Date Assessment Date Assessment LastModified by Organization Details LastModified Time 01/09/2025 01/09/2025 Pain History: 59-year-old female here [...] returned. She does see Dr. Thomas at [facility] for this. She states they do [...] here since May 2024. Past Medical History: Anxiety/depress ion, high cholesterol, GERD, Gastric bypass 2021 Imaging: [...] for greater than 6 weeks including physical therapy/chiropr actic care/spinal manipulation, a monitored home exercise program, and/or NSAIDs within the last six months. Interventional treatment history: Most recent right GTB only 2 weeks of relief, multiple joint injections with varying levels of success 08/27/2024 - RIGHT SI JOINT INJECTION, #1 - 75% 10/01/24:RIGHT WRIST INJECTION, #1- 60% Previous analgesics: Hydrocodone No NSAIDS - hx gastric bypass Current analgesics: Hydrocodone7.5/ 325mg twice daily as needed Lidocaine patches Compliance Monitoring: UDS performed today. I will send out for results. Most recent UDS confirmation from 08/12/2024 was appropriate Brian reviewed and is appropriate She is considered to be moderate risk. She will return in 2 month for medication management. Anticoagulant/A ntiplatelet Medications: None [email or web address] Not available 01/09/2025 13:22:54 Plan of Treatment Reminders Order Date Submit Date Provider Last Modified By Organization Details Last Modified Time Details Appointments FOLLOW UP 15 2024 08:30A Kaitlin COLBERT NP Not available Not available Not available Lab None recorded. Referral None recorded. Procedures None recorded. Surgeries None recorded. Imaging None recorded. Medication Orders hydrocodo ne 7.5 mg-acetam inophen 325 mg tablet 2024 025 [facility], [address] [place] [address], [id number], 01/12/2025 13:00:39 lidocaine 5 % topical patch 2024 025 [facility], [address] [place] [address] [address] [place], [id number], 01/12/2025 13:00:40 hydrocodo ne 7.5 mg-acetam inophen 325 mg tablet 2024 025 [facility], [address] [place] [address] [address] [place], [id number], 01/10/2025 09:41:17 Patient TargetsNo targets recorded. Patient Instructions Encounter Date Encounter Id Patient Instructions Last Modified By Organization Details Last Modified Time 01/09/2025 [id number] chronic pain: care instructions Not available 01/09/2025 13:23:59 Reason for Referral None Reported. Problems Name Problem SNOMED Code Status Onset Date Resolution Date Notes Provider Name and Address Organization Details Recorded Time Chronic pain 10463464 Active 2024 Veronica Eller null [place] - [facility] 5 10:57:27 Overweight 079519596 Active 2024 Veronica Eller null, [place] - [facility] 5 10:57:27 Lumbar radiculopat hy 689006305 Active 2024 Veronica Eller null, [place] - [facility] 5 10:57:27 Inflammatio n of sacroiliac joint 74856192 Active 2024 Veronica Eller null [place] [facility] 5 10:57:27 Pain of right wrist 8531029846169 00 Active 2024 Gilberto Nathan null, [place] - [facility] 5 13:54:12 Lumbar spondylosis 273207563 Active 2024 Javier Choudhary null, [place] - [facility] 5 08:11:17 Problem Notes None recorded. Procedures Surgical History Date Name Laterality Status Provider Name and Address Organization Details Recorded Time 10/02/19 25 Joint Injection: Generic completed ERUM PALMER MD [address] [place] [address], [phone], [facility] 10/01/2024 11:21:28 08/27/19 25 SI Joint Injection (Fluoro) completed Nancy Cast [facility] 08/27/2024 08:36:03 Carpal Tunnel Release completed Gilberto MORILLO Pending Sale To [facility] 07/07/2024 09:49:30 release of trigger thumb completed Gilberto MORILLO Pending Sale To [facility] 07/07/2024 09:49:39 Shoulder Surgery completed Gilberto MORILLO Pending Sale To [facility] 07/07/2024 09:49:53 Appendectomy completed Gilberto MORILLO Pending Sale To [facility] 07/07/2024 09:49:59 Knee Surgery completed Gilberto MORILLO [facility] 07/07/2024 09:50:06 excision of melanoma completed Gilberto MORILLO [facility] 07/07/2024 09:50:16 laparoscopic sleeve gastrectomy completed Gilberto MORILLO [facility] 07/07/2024 09:50:24 panniculotomy completed Gilberto [facility] 07/07/2024 09:50:36 abdominoplasty completed Gilberto MORILLO [facility] 07/07/2024 09:50:49 Imaging Results None recorded. Procedure Notes None recorded. Medical Equipment None Reported. Allergies Allergen ID Allergen Name Allergen Category Reaction Reaction Severity Criticality Documentation Date Start Date Code Code System Note Provider Name and Address Organization Details Recorded Time 386998 latex environme nt,medica tion Not available Not available Not available 07/07/2024 86732 91 RxNorm ILIA Lee Pending Sale To [facility] 09:46:15 911442 Non-stero idal anti-infl ammatory agent (product) medicatio n Not available Not available Not available 07/07/2024 63085 005 SNOMED ILIA Lee Pending Sale To [facility] 09:46:22 854155 prednison e medicatio n Not available Not available Not available 07/07/2024 8640 RxNoILIA Hammond Pending Sale To [facility] 4 09:46:29 765770 acetamino phen / oxycodone medicatio n Not available Not available Not available 07/07/2024 52213 3 RxNoILIA Hammond - [facility] 4 09:46:34 010345 Macrobid medicatio n Not available Not available Not available 07/07/2024 68707 1 RxNorm ILIA Lee Pending Sale To [facility] 4 09:46:39 Medications Name Sig Start Date [...] Updated DateTime 5 149.86 cm 36.4 kg/m2 33259.6 3 g 72 /min 98 % 98 % 138/81 mm[Hg] Javier Choudhary [facility] 08:32:01 Social History Question Answer Notes LastModified by Organizat ion Details LastModified Time Tobacco Smoking Status Former Smoker Quit 2019 maribel emmanuel, [facility] 09/09/2024 09:30:57 Do You Have An Advance Directive? No Information not available 07/07/2024 What Type Of Diet Are You Following? REGULAR [email or web address] Information not available 07/07/2024 What Is The Highest Grade Or Level Of School You Have Completed Or The Highest Degree You Have Received? BG24754-6 Information not available 07/07/2024 Do You Have A Medical Power Of Charcoal [employer]? No Information not available 07/07/2024 What Was The Date Of Your Most Recent Tobacco Screening? 01/09/2025 [email or web address] Information not available 01/09/2025 What Is Your Relationship Status? [email or web address] Information not available 07/07/2024 How Much Tobacco Do You Smoke? 1 PPD [email or web address] Information not available 09/09/2024 How Many Years Have You Smoked Tobacco? 9 [email or web address] Information not available 09/09/2024 Sex: Unknown Functional Status Question Answer Note LastModified by Organizat ion Details LastModified Time Do you use any illicit or recreational drugs? No [email or web address] Information not available 07/07/2024 What is your level of alcohol consumption? None [email or web address] Information not available 07/07/2024 Are you currently employed? No DISABLED [email or web address] Information not available 07/07/2024 Are you able to walk? YESWOREST [email or web address] Information not available 07/07/2024 What is your exercise level? None [email or web address] Information not available 07/07/2024 Mental Status None recorded. Family History Relationship Description Onset Age of this Age Resolved Age Notes LastModified by Organization Details LastModified Time Father No current problems or disability [email or web address] Not available 06/22 09:48:44 Mother No current problems or disability Not available 06/22 09:48:44 Medical History Condition Response Bipolar Disease N Coronary Artery Disease N Gout N Seizure Disorder N Atrial Fibrillation N Thyroid Disease N Head Trauma/Injury N Hernia Y Depression Y COPD N Anxiety Disorder Y Acid Reflux (GERD) Y Cancer N Stroke N Skin Disorder N High Cholesterol N Liver Disease N Rheumatoid Arthritis N Headaches Y Fibromyalgia N Kidney Disease N Autoimmune Disease N Osteoarthritis N Neurosurgery N DVT N Peptic Ulcer Disease N Anemia N Heart Attack (SD) N Diabetes N Cardiomyopathy N Bleeding Disorder [...] SNOMED-CT Code Diagnosis ICD10 Code Diagnosis Note [id number] [place] W[place]oner MD [place] [address] [facility] [address] [place] [address] 01/09/2025 08:25:18 01/09/2025 09:10:54 Lumbar radiculopathy 454849615 M54.16 I have discussed LESI for patient's [...] They deny any side effects. Lumbar spondylosis 16716 0009 M47.816 She may be a candidate for lumbar BB/RFA as well. We can discuss in the future once her radicular pain is addressed. Chronic pain 90892659 G8 9.29 Health Concerns Section Related Observation LastModified by Organization Detai ls LastModified Time None Recorded Concern Status LastModified by Organization Details LastModified Time None Recorded Payers Encounter Date Sequence Insurance Name Policy Number Policy Bee Covered Member ID Bee Member ID Guarantor Name 01/09/2025 1 [place] (MEDICARE REPLACEMENT/A DVANTAGE - HMO) Sabrina Kwan [id number] Sabrina Kwan Notes Date Note Type Note Provider Name and Address Organization Details Recorded Time 01/09/2025 text/html HipReported bypatient.Location:r ight Quality:aching; burning; gnawing; [...] paresthesia/anesthes ia Functional Assessment of ADLsDifficulty completing appliquer zigzag secondary to pain.;Unable to work secondary to [...] Care Program:Order Date: (07/07/2024) BRANDT COLBERT NP [address] [place] [address], [phone], [facility] 01/09/2025 13:24:08 OBGyn Episode No OBEpisode recorded.
--- OUTSIDE RECORDS SUMMARY | 2025-02-08 19:05 | XMS_ITS | Clinical Summary ---
Author Organization [facility] Address [address] [place] [address] Phone Care Team Providers Care Refrigeration Service Inspector Name Role Phone Unavailable Primary Care Provider Unavailabl e Social History Tobacco Use Types Packs/Day Years Used Date Smoking Tobacco: Never Assessed Comments Unknown Sex and Gender Information Value Date Recorded Sex Assigned at Not on file Legal Sex Female 7:23 AM EST Gender Identity Not on file Sexual Orientation Not on file Plan of Treatment Health Maintenance Due Date Last Done Comments Wellness Exam Medicare 1970 Cervical Cancer Screening 1988 Pap Smear 1988 HPV/Pap Cotest 1997 Breast Cancer Screening 2007 Cologuard 2012 Colon Cancer Screening 2012 Colonoscopy 2012 FIT 2012 Sigmoidoscopy 2012 Virtual Colonography 2012 Pneumococcal Vaccine 50+ (1 of 1 - PCV) 2017 Zoster (1 of 2) 2017 COVID-19 Vaccine ( - 2023-2 5 season) 2024 DTaP/TDaP/Td (3 - Td or Tdap) 08/06/2024, 04/17/2008 Influenza Vaccine (#1) 2025 , 05/17/2016 Hepatitis B Vaccine Completed 10/22/2003, 05/15/2003, 04/15/2003 Meningococcal B Vaccine Aged Out No l onger eligible based on patient's age to complete this topic Insurance HU[employer] MEDICARE HMO MR
--- NOTE | 2025-02-08 19:07 | XR_ITS ---
PROCEDURE INFORMATION: Exam: XR Left Knee Exam date and time: 02/08/2025 7:20 PM Age: 59 years old Clinical indication: Pain; Knee; Left; Additional info: Left knee pain TECHNIQUE: Imaging protocol: Radiologic exam of the left knee. Views: 3 views. COMPARISON: CR XR KNEE LT 3V 08/09/2023 1:43 PM FINDINGS: Bones/joints: Two serous fixation of the patella. Small marginal osteophytes and degenerative changes involving the 3 compartments of the left knee. No evidence of acute osseous abnormality. Soft tissues: Normal. IMPRESSION: 1. Small marginal osteophytes and degenerative changes involving the 3 compartments of the left knee. 2. No evidence of acute osseous abnormality.
== END 2025-02-08 23:59 | disposition home or self-care (01) ==
LOC: RAD 19:03
PROVIDERS: PCP Nurse Practitioner Family; Visit Provider Orthopaedic Surgery
DX: M17.12 Unilateral primary osteoarthritis, left knee (principal); M25.762 Osteophyte, left knee
CPT/HCPCS: 73562

== ENCOUNTER 2025-02-09 16:14 | Outpatient (RCR) | payer MEDICARE, MEDICAID, SELFPAY | END 2025-02-09 23:59 | disposition home or self-care (01) | LOC: PT 16:14 | PROVIDERS: Visit Provider Orthopaedic Surgery | DX: M25.562 Pain in left knee (principal) | CPT/HCPCS: 97760 ==

== ENCOUNTER 2025-03-17 08:40 | Outpatient (CLI) | payer MEDICARE, MEDICAID, SELFPAY ==
--- OUTSIDE RECORDS SUMMARY | 2025-03-17 08:43 | XMS_ITS | Clinical Summary ---
Author Organization Healthcare Address [address] [place] [address] Care Team Providers Care Systems Consultant Name Role Phone Loren Tesfaye APRN Primary Care Provider [phone] Bola Perez MD Unavailable [phone] Allergies Active Allergy Reactions Criticality Noted Date [...] 2 tablet 01/11/20 23 Active HYDROcodone-acetam inophen ([place]) 5-325 MG tablet TAKE ONE TABLET BY MOUTH EVERY DAY AT BEDTIME NEEDED FOR POST OP PAIN 08/09/19 24 Active ondansetron ODT (Zofran-ODT) 4 MG disintegrating tablet DISSOLVE ONE TABLET in MOUTH EVERY 6 HOURS NEEDED FOR NAUSEA AND VOMITING Active nystatin-triamcino lone (Mycolog II) ointment APPLY TOPICALLY TO THE AFFECTED AREA(S) TWICE DAILY Active HYDROcodone-acetam inophen ([place]) 5-325 MG tablet 08/09/19 24 Active acetaminophen [...] 1 each 09/26/19 24 Active HYDROcodone-acetam inophen ([place]) 5-325 MG tablet Take 1 tablet (5 [...] (10/12/2022): Added automatically from request for surgery [id number] Immunizations Immunization Administration Dates Next Due [facility] COVID-19 Vaccine (Blue Cap) 18+ 10/24/19 21 [...] Screening 1967 [facility]-Medicare Annual Wellness (AWV) 1967 [facility]-/Child/Adol SDOH Screenings 1967 [facility]- SDOH Screenings 1985 [facility]-Adult SDOH Screenings 1985 [facility]-Pneumococcal Vaccine: 50+ Years (1 of 2 - PCV) 1986 [facility]-Zoster Vaccines (1 of 2) 1986 [facility]-Pap Smear 1988 [facility]-Cervical Cancer Screening 1997 [facility]-HPV/Cotest 1997 CT Colonography 2012 Colonoscopy 2012 FIT-DNA 2012 FIT 2012 FOBT 2012 Sigmoidoscopy 2012 [facility]-Colorectal Cancer Screening 2012 [facility]-Breast Cancer Screening 2017 [id number] Vaccine (2 - Brennen risk series) 11/20/2020 [...] this topic Medical Devices Implanted Type Area Microsoft Crm Developer Device Identifier Shelf Expiration Date Model / Serial / Lot Patella Patella Left: Knee Plate Plate Left: Wrist Insurance [employer] MEDICARE Care Teams Systems Consultant Relationship Specialty Start Date End Date Loren Tesfaye APRN [address] [facility] [address] [place] [id number] PCP - General 09/07/22 Bola Perez MD [address] [facility] [address] [phone] Surgeon Surgical Oncology 10/03/23
--- OUTSIDE RECORDS SUMMARY | 2025-03-17 08:43 | XMS_ITS | Clinical Summary ---
Author Organization [facility] Address [address] [place] [address] Phone Care Team Providers Care Adobe Layer Helper Name Role Phone Unavailable Primary Care Provider [...]
--- OUTSIDE RECORDS SUMMARY | 2025-03-17 08:43 | XMS_ITS | Encounter Summary ---
Author Organization Healthcare Address [address] [place] [address] Care Team Providers Care Fruit Thinner Name Role Phone Loren Tesfaye Satish PETERSON Primary Care Provider [phone] Bola Perez MD Unavailable [phone] Encounter Details Date Type Department Care Team (Late st Contact Info) Description 08/27/2023 Lab Requisition [facility] [address] [place] [address] Bola Perez MD [address] [facility] [address] [place] [address] Foreign body granuloma of soft tissue, not [...] EST) Case Report Sugical Pathology Consult Case: [id number] Authorizing Provider: Bola Perez MD Collected: 08/27/2023 1110 Ordering Location: [facility] Lab Received: 08/27/2023 1111 Pathologist: Brady Sanchez DO Specimen: Hand, Left, [id number] 4 4:50 PM EST [facility] Final Diagnosis HAND, LEFT, BIOPSY (OUTSIDE SLIDES; [id number]; 08/06/2023): - MALIGNANT MELANOMA, AJCC: pT2a (SEE [...] WITHIN OBSERVED SECTIONS. 4 4:50 PM EST [facility] at 1650 EST Comment The tumor cells stain positive for PRAME and patel-melanoma stains and only weakly positive for p16 on the immunostains provided for review. The tumor focally involves the overlying epidermis. 4 4:50 PM EST [facility] Clinical Information M60.242 - Foreign body granuloma of soft tissue, not elsewhere classified, left hand [ICD-10-CM] 4 4:50 PM EST [facility] Gross Description A. [id number] Received along with a corresponding pathology report from [facility] are 4 slide(s) and 1 Block labeled outside case: [id number] collected on 08/06/2023. 4 4:50 PM EST [facility] Intradepartmental Consultation with Agreement Dr. Casey (epidermal involvement). 4 4:50 PM EST [facility] Note: A resident was involved in the service. I attest I examined the relevant preparations for the specimens and confirmed the diagnosis or interpretation. 4 4:50 PM EST [facility] Tissue Structure of left hand / Unknown 08/27/2023 11:10 AM EST 08/27/2023 11:11 AM EST Bola Perez MD LAB PATHOLOGY ORDERABLES [facility] [address] [place] [address] documented in this encounter Visit Diagnoses Diagnosis [...] documented as of this encounter Care Teams Fruit Thinner Relationship Specialty Start Date End Date Loren Tesfaye APRN [address] [facility] [address] [facility] [address] [place] [address] PCP - General 09/07/22 Bola Perez MD [address] [facility] [address] [place] [address] Surgeon Surgical Oncology 10/03/23 documented as of this encounter
--- NOTE | 2025-03-17 08:45 | MR_ITS ---
FINAL REPORT TECHNIQUE: Multiplanar and multisequence imaging the right knee was obtained without contrast. CLINICAL HISTORY: posterior Left Knee Pain. knee instability FINDINGS: Bones: There is artifact within the patella related to surgery for prior patellar fracture. There is bone marrow edema in the medial tibial plateau with an osteochondral lesion. There is a less severe subchondral T2 abnormal signal in the medial femoral condyle. Degenerative joint disease is seen, most pronounced in the medial compartment. There are no full thickness cartilage defects. Menisci: No meniscal tear is present. Ligaments: No cruciate or collateral ligament tear is present. Tendons/Muscles: The quadriceps and patellar tendons are within normal limits. The biceps femoris tendon and iliotibial tract are intact. The popliteus tendon is normal. Other: There is no joint effusion. Remaining soft tissues are normal. IMPRESSION: Osteochondral lesion of the medial tibial plateau with reactive bone marrow edema. Degenerative joint disease, most pronounced in the medial compartment. Postoperative changes to the patella. Reviewed, Interpreted and Dictated by Helen Mahajan MD Transcribed by Wilma Cerda Authenticated and [facility]
== END 2025-03-17 23:59 | disposition home or self-care (01) ==
LOC: RAD 08:40
PROVIDERS: PCP Nurse Practitioner Family; Visit Provider Orthopaedic Surgery
DX: M17.12 Unilateral primary osteoarthritis, left knee (principal); M93.962 Osteochondropathy, unspecified, left lower leg; R93.6 Abnormal findings on diagnostic imaging of limbs; Z98.890 Other specified postprocedural states
CPT/HCPCS: 73721